=== PATIENT | female | born 1970 | race African-American/Black ===

== ENCOUNTER 2018-12-23 08:14 | Day surgery (SDC) | payer BC ==
[2018-12-21 17:09] VITALS: BMI 31.8
[2018-12-23 08:40] LABS: URINE APPEARANCE CLEAR; URINE BILIRUBIN NEGATIVE (NEGATIVE); URINE COLOR YELLOW; URINE GLUCOSE (UA) NEGATIVE (NEGATIVE); URINE KETONE NEGATIVE (NEGATIVE); URINE LEUK ESTERASE NEGATIVE (NEGATIVE); URINE NITRITE NEGATIVE (NEGATIVE); URINE PROTEIN 2+ (NEGATIVE); URINE UROBILINOGEN 0.2 mg/dL (0.2-1.0)
[2018-12-23 08:41] LABS: HCG,QUALITATIVE URINE Negative
--- NOTE | 2018-12-23 11:47 | HP ---
History & Physical Update - History History: No Change - Physical Physical: No Change - Assessment Assessment: No Change - Plan Plan: No Change
[2018-12-23] MEDS ORDERED: ceFAZolin SODIUM 1 GM VIAL IVPB ONE (12:04)
[2018-12-23] MEDS ORDERED: BUPIVACAINE HCL/PF 0.5% (5 MG/ML) 30 ML VIAL IJ ONE ×2 (12:35)
--- NOTE | 2018-12-23 13:08 | OP ---
Operative Note - Note: Operative Date: 12/23/18 Pre-Operative Diagnosis: incarcerated ventral hernia Operation: repair ventral hernia Findings: 3.0 cm. defect above the umbilicus Post-Operative Diagnosis: Same as Pre-op Surgeon: Donell Galvez Entertainer Or Variety Artist: Juan Carlos Mcdaniels Anesthesiologist/ASSISTANT MECHANIC: Roxanne Lockhart Anesthesia: General Specimens Removed: hernia sac and fat Estimated Blood Loss (mls): 20
--- NOTE | 2018-12-23 13:37 | SURG ---
Surgery Senior Java Programmer Note Senior Java Programmer: Juan Carlos Mcdaniels PA-C (Suzy) Date of Service: 12/23/18 Diagnosis: incarcerated ventral hernia Procedure: Repair ventral hernia I was present for the entirety of the operative procedure. For further detail, please refer to operative report. Visit type - Case Type Case Type: Scheduled - Emergency Emergency Visit: No - New patient This patient is new to me today: Yes Date on this admission: 12/23/18 - Critical Care Critical Care patient: No
[2018-12-23] MEDS ORDERED: ONDANSETRON 4 MG/2 ML VIAL IVPUSH PRN (13:41)
[2018-12-23] MEDS ORDERED: oxyCODONE HCL 5 MG TABLET PO PRN (13:41)
[2018-12-23] MEDS ORDERED: ALBUTEROL SO4 0.083% IH SOL 2.5 MG/3 ML VIAL.NEB. NEB ONE (13:42)
[2018-12-23] MEDS ORDERED: LABETALOL HCL 5 MG/1 ML (100MG/20 ML VIAL) IVPUSH ONE (13:42)
[2018-12-23] MEDS ORDERED: LACTATED RINGERS SOLUTION 1,000 ML IV SCH (13:45)
[2018-12-23] MEDS ORDERED: ONDANSETRON 4 MG/2 ML VIAL ONE (14:57)
[2018-12-23] MEDS ORDERED: ONDANSETRON 4 MG/2 ML VIAL IVPB ONE (15:00)
[2018-12-23] MEDS ORDERED: oxyCODONE HCL 5 MG TABLET PO ONE (17:00)
[2018-12-23] MEDS ORDERED: oxyCODONE HCL 5 MG TABLET ONE (17:00)
[2018-12-23 18:31] VITALS: BP 137/89; PULSE 58; TEMP 98.2
--- NOTE | 2018-12-24 13:11 | OP ---
DATE OF OPERATION: 12/23/2018 PREOPERATIVE DIAGNOSIS: Incarcerated ventral hernia. POSTOPERATIVE DIAGNOSIS: Incarcerated ventral hernia. PROCEDURE: Repair incarcerated ventral hernia. SURGEON: Donell Galvez MD FINDINGS: The patient had a 3 cm defect in the abdominal wall above the umbilicus from a previous laparoscopic port site. Within the hernia was incarcerated omentum and preperitoneal fat and the rest of the findings were unremarkable. PROCEDURE: The patient was placed on the operating room table in the supine position and after the induction of general anesthesia; the patient's abdomen was prepped with ChloraPrep and draped in sterile fashion. A timeout was taken and a midline incision made over the palpable incarcerated hernia. This was taken down through the skin and subcutaneous tissue. The hernia sac was identified and dissected from the surrounding structures using electrocautery. The sac was entered and the previously noted findings were observed. Redundant sac, omentum and preperitoneal fat were excised using electrocautery and sent for pathological exam. Hemostasis was secured with electrocautery and then the defect, which was noted to be 3 cm, was repaired using multiple horizontal 0 TiCron mattress sutures. Once the repair was completed, the operative field was infiltrated with 0.5% Marcaine and hemostasis checked for and noted to be good again. Copious irrigation was carried out with sterile saline and then the deep fascia that encompassed the hernia sac was closed using 2-0 Vicryl , the deep dermis with interrupted 3-0 Vicryl suture and the skin edges with surgical satish. Dry sterile dressings were placed and the procedure terminated at this point. The patient aroused from general anesthesia and transferred to the post anesthesia care unit in stable condition awake and alert. ESTIMATED BLOOD LOSS: 20 mL REPLACEMENT: Crystalloid. DRAINS: None. SPECIMEN: Hernia sac and fat and omentum to Pathology. I, Donell Galvez, was physically present in the operating room from the time the patient was placed on the operating room table until she was transferred to the post anesthesia care unit in [place]. MD BÁRBARA Alcala/[id number] MTDD
--- NOTE | 2018-12-26 18:34 | PATH ---
Surgical Pathology Report Patient Name: MOUSTAPAH MEDLEY [facility]. Rec. #: [id number] /Age/Gender: 1970 (Age: 48) / F Account: [id number] Location: [facility] SUR[facility] Taken: 12/23/2018 Received: 12/23/2018 Reported: 12/26/2018 Physicians: Donell Galvez MD Specimen(s) Received HERNIA SAC Clinical History Ventral hernia Final Diagnosis HERNIA SAC, OPEN VENTRAL HERNIA REPAIR: HERNIA SAC AND MATURE FIBROADIPOSE TISSUE. Electronically Signed Ana Cristina Diop M.D. Gross Description Received in formalin labeled "hernia sac," is a 9.5 x 8.0 x 2.0 cm aggregate of multiple ramirez-red portions of fibromembranous tissue admixed with yellow, lobulated adipose tissue, consistent with portions of a hernia sac and possible omentum. Cellar Supervisor sections are submitted in one cassette. DL/12/23/2018 saudi/12/23/2018
== END 2018-12-23 18:37 | disposition home or self-care (01) ==
LOC: JASU-SURG 08:14
PROVIDERS: ATTEND Surgery
PROC: 0WQF0ZZ Repair Abdominal Wall, Open Approach (ICD-10-PCS; principal; 2018-12-23 11:00)
DX: K43.6 Other and unspecified ventral hernia with obstruction, without gangrene (principal)
CPT/HCPCS: 81003; 84703; 88302-TC; 94760

== ENCOUNTER 2020-03-25 11:55 | Inpatient (IN) | payer BC ==
[2020-03-25 12:04] VITALS: BMI 40.3
[2020-03-25] MEDS ORDERED: methylPREDNISolone NA SUCC 125 MG/2 ML VIAL IVPUSH ONE (12:20)
[2020-03-25] MEDS ORDERED: ALBUTEROL SO4 2.5/IPRATROPIUM 0.5 INH SOL 3 ML VIAL.NEB. NEB ONE ×3 (12:20→20:30)
[2020-03-25] MEDS ORDERED: methylPREDNISolone NA SUCC 125 MG/2 ML VIAL ONE (12:27)
--- OUTSIDE RECORDS SUMMARY | 2020-03-25 12:43 | XMS ---
:1970 Author Organization [facility] Support Name Relationship Address Phone YPS Unavailable [address] [place] [address] SANDY STALEY BROTHER [address] [place] [address] Re-disclosure Warning The records that you are about to access may contain information from federally- assisted alcohol or drug abuse programs. If such information is present, then the following federally mandated warning applies: This information has been disclosed to you from records protected by federal confidentiality rules (42 CFR part 2). The federal rules prohibit you from making any further disclosure of this information unless further disclosure is expressly permitted by the written consent of the person to whom it pertains or as otherwise permitted by 42 CFR part 2. A general authorization for the release of medical or other information is NOT sufficient for this purpose. The Federal rules restrict any use of the information to criminally investigate or prosecute any alcohol or drug abuse patient.The records that you are about to access may contain highly sensitive health information, the redisclosure of which is protected by Article 27-F of the [facility] Public Health law. If you continue you may haveaccess to information: Regarding HIV / AIDS; Provided by facilities licensed or operated by the [facility] Office of Mental Health; or Provided by the [facility] Office for People With Developmental Disabilities. If such information is present, then the following [facility] mandated warning applies: This information has been disclosed to you from confidential records which are protected by state law. State law prohibits you from making any further disclosure of this information without the specific written consent of the person to whom it pertains, or as otherwise permitted by law. Any unauthorized further disclosure in violation of state law may result in a fine or chcf sentence or both. A general authorization for the release of medical or other information is NOT sufficient authorization for further disclosure. Insurance Providers Payer name Policy type / Policy ID Covered Covered alliance party's Policy Plan Coverage type alliance party ID relationship to [employer] Information batres BC PPO [id number] SP [id number] Results ID Date Data Source [id number] 03/19/2020 12:00:00 AM EDT [facility] Name Value Range Interpretation Code Description Data Patricia rce(s) Supporting Document(s ) SARS-COV-2 [facility]P [facility] QL OSMAR+PROBE This lab was ordered by PILAR SCHULTZ MD and reported by [facility]. ID Date Data Source [id number] 03/22/2020 06:04:00 PM EDT [facility] FASTING: UNKNOWNReceived: 03/20/2020 at 17:14:00 NL1: [facility], [address] [place] [address], [address], [place], [address], Cony Hart MD Name Value Range Interpretation Description Data Source(s ) Supporting Code Document(s ) SARS CoV NOT DETECTED [facility] 2 [facility] A Not Detected (negative) test result fo r thistest means that SARS-CoV-2 RNA was not presentin the specimen above the limit of detection. Anegative result does not rule out the possibilityof COVID-19 and should not be used as the solebasis for treatment or patient managementdecisions. If COVID-19 is still suspected, basedon exposure history together with other cli nicalfindings, re-testing should be considered inconsultation with public health authorities.Laboratory test results should always be consideredin the context of cl inical observations andepidemiological data in making a final diagnosisand patient management decisions.REFERENCE RANGE: NOT DETECTEDThis patient specimen was tested using an FDA EUA poolingmethod.Negative results from pooled testing should not betreated as definitive. If the patient's clinicalsigns and symptoms are inconsist ent with a negativeresult or results are necessary for patient management,then the patient should be considered for individualtesting. Specimens with low vi ral loads may not bedetected in sample pools due to the decreased sensitivityof pooled testing.Please review the "Fact Sheets" and FDA authorizedlabeling available for health care providers andpatients using the following websites:https://www.[employer]zey/home/Covid-19/HCP/[facility]/fact-sheet https://www.[employer]/home/Covid-19/Patients/[facility]/fact-sheet.htm lThis test has been authorized by the FDA unde r anEmergency Use Authorization (EUA) for use by authorizedlaboratories.Due to the current public health emergency, [facility] is receiving a high vol ume of samples froma wide variety of swabs and media for COVID-19 testing.In order to serve patients during this public healthcrisis, samples from appropriate c linical sources arebeing tested. Negative test results derived fromspecimens received in non-commercially manufacturedviral collection and transport media, or in me marla andsample collection kits not yet authorized by FDA forCOVID-19 testing should be cautiously evaluated and thepatient potentially subjected to extra precautio ns suchas additional clinical monitoring, including collectionof an additional specimen.Methodology: Nucleic Acid Amplification Test (NAAT)includes RT-PCR or TMAAdditional information about COVID-19 can be foundat the [employer] website:www.[facility].[employer]zey/Covid19. ID Date Data Source [id number] 11/22/2019 03:12:00 PM EDT [facility] Name Value Range Interpretation Description Data Sup porting Code Source(s) Document(s ) SARS [facility] CORONAVIRUS 2 RNA This lab was ordered by [facility] and reported by [facility]. Procedure
--- NOTE | 2020-03-25 12:45 | PDOC ---
History of Present Illness - General Chief Complaint: Respiratory Stated Complaint: RESPIRATORY Time Seen by Provider: 03/25/20 12:25 - History of Present Illness Initial Comments: HPI: 49yo F with PMH of HTN, asthma, lupus sent by her primary care physician for evaluation of shortness of breath. Patient reports this feels consistent with her asthma. Has had a cough x 1 week and has been on prednisone taper over that time period as well. Feels that the changing of the weather triggers her asthma. Last hospitalized two years ago. Has been intubated in the past, "more than once." Denies fever, but endorses chills. PCP: Dr. Naqvi ROS: Constitutional: no fever, +chills HEENT: no throat pain, no dysphagia Cardiovascular: no chest pain, no palpitations Respiratory: +cough, +shortness of breath Gastrointestinal: no abdominal pain, no nausea Genitourinary: no dysuria, no hematuria Musculoskeletal: no myalgia, no arthralgia Skin: no rash, no itching Neurologic: no headache, no weakness Psych: no agitation, no anxiety PE: General: Awake, alert, and fully oriented, coughing significantly and gasping Head: No signs of trauma Eyes: EOMI, sclera anicteric ENT: Moist mucus membranes Neck: Normal ROM, supple Lungs: Lungs tight, tachypneic Cardio: Regular rhythm, S1 and S2 present Abdomen: Soft, nontender Extremities: Normal range of motion, Distal pulses present Skin: Warm, Dry, normal turgor Neurologic: Cranial nerves II through XII grossly intact. Normal speech ED Course/MDM: DDX including but not limited to asthma exacerbation, COVID-19, ACS, PE, PNA, anemia, metabolic derangement Initial Vital Signs Pulse Resp BP Pulse Ox 88 24 H 167/107 H 100 03/25/20 12:02 03/25/20 12:02 03/25/20 12:02 03/25/20 12:02 Tachypneic, hypertensive PERC 0, low clinical suspicion for PE Labs, EKG Padminiubonine damon 03/25/20 12:45 EKG: rate 78, QTc 417, NSR Continued shortness of breath Magnesium ordered 03/25/20 13:30 CBC WBC 9.5 K/mm3 (4.0-10.0) 03/25/20 12:15 RBC 3.32 M/mm3 (3.60-5.2) L 03/25/20 12:15 Hgb 10.1 GM/dL (10.7-15.3) L 03/25/20 12:15 Hct 31.1 % (32.4-45.2) L D 03/25/20 12:15 MCV 93.7 fl (80-96) 03/25/20 12:15 MCH 30.4 pg (25.7-33.7) 03/25/20 12:15 MCHC 32.5 g/dl (32.0-36.0) 03/25/20 12:15 RDW 14.1 % (11.6-15.6) 03/25/20 12:15 Plt Count 435 K/MM3 (134-434) H D 03/25/20 12:15 MPV 8.3 fl (7.5-11.1) 03/25/20 12:15 Absolute Neuts (auto) 7.0 K/mm3 (1.5-8.0) 03/25/20 12:15 Neutrophils % 73.8 % (42.8-82.8) 03/25/20 12:15 Lymphocytes % 14.7 % (8-40) D 03/25/20 12:15 Monocytes % 9.0 % (3.8-10.2) 03/25/20 12:15 Eosinophils % 2.1 % (0-4.5) 03/25/20 12:15 Basophils % 0.4 % (0-2.0) 03/25/20 12:15 Nucleated RBC % 0 % (0-0) 03/25/20 12:15 No leukocytosis CMP Sodium 139 mmol/L (136-145) 03/25/20 12:15 Potassium 5.1 mmol/L (3.5-5.1) 03/25/20 12:15 Chloride 113 mmol/L (98-107) H 03/25/20 12:15 Carbon Dioxide 16 mmol/L (21-32) L 03/25/20 12:15 Anion Gap 10 MMOL/L (8-16) 03/25/20 12:15 BUN 71.1 mg/dL (7-18) H 03/25/20 12:15 Creatinine 2.7 mg/dL (0.55-1.3) H 03/25/20 12:15 Est GFR (CKD-EPI)AfAm 23.22 03/25/20 12:15 Est GFR (CKD-EPI)NonAf 20.03 03/25/20 12:15 Random Glucose 79 mg/dL (74-106) 03/25/20 12:15 Calcium 9.6 mg/dL (8.5-10.1) 03/25/20 12:15 Total Bilirubin 0.4 mg/dL (0.2-1) 03/25/20 12:15 AST 25 U/L (15-37) 03/25/20 12:15 ALT 27 U/L (13-61) 03/25/20 12:15 Alkaline Phosphatase 53 U/L (45-117) 03/25/20 12:15 Total Protein 9.1 g/dl (6.4-8.2) H 03/25/20 12:15 Albumin 3.3 g/dl (3.4-5.0) L 03/25/20 12:15 Serum , Qual Negative 03/25/20 12:15 Electrolytes unremarkable Cr elevated, 2.7-- likely due to lupus? No transaminitis test negative CXR as read by radiology: "EXAM#: TYPE/EXAM: RESULT: [id number] RAD/CHEST X-RAY PORTABLE* Portable chest: Shortness of breath. Cough. There are no prior studies for comparison. There are clear lungs, sharp angles, prominent soft tissues, degenerative changes and unfolded aorta. The hilar markings are normal. There is a normal heart. Impression: No acute chest pathology. No comparison studies. Reported By: Vernon Montiel MD 03/25/20 4305 " Call to Dr. Naqvi, , patient's last Cr=2.9 03/25/20 14:04 Patient with continued shortness of breath Plan for admission 03/25/20 15:09 Past History - Medical History Allergies/Adverse Reactions: Allergies Allergy/AdvReac Type Severity Reaction Status Date / Time shellfish derived Allergy Verified 12/21/18 17:18 Tetanus Vaccines and Toxoid Allergy Verified 12/21/18 17:18 [Tetanus] Home Medications: Ambulatory Orders Albuterol Sulfate Inhaler - [Ventolin HFA Inhaler -] 2 inh PO Q6H PRN 12/21/18 Amlodipine Besylate 10 mg PO DAILY 12/21/18 Aspirin [Aspirin EC] 81 mg PO DAILY 12/21/18 Cyclosporine 100 mg PO BID 12/21/18 Hydrochlorothiazide 25 mg PO DAILY 12/21/18 Losartan Potassium 100 mg PO DAILY 12/21/18 Metoprolol Succinate 100 mg PO DAILY 12/21/18 Mycophenolate Mofetil [Cellcept] 1,500 mg PO BID 12/21/18 Sodium Bicarbonate - 650 mg PO DAILY 12/21/18 oxyCODONE HCL [Roxicodone -] 5 mg PO Q6H PRN #15 tablet MDD 5 12/23/18 Anemia: Yes Asthma: Yes Cancer: No Cardiac Disorders: Yes CVA: No COPD: No CHF: No Dementia: No Diabetes: No GI Disorders: No Disorders: No HTN: Yes Hypercholesterolemia: No Liver Disease: No Seizures: No Thyroid Disease: No - Surgical History Abdominal Surgery: No Appendectomy: No Cardiac Surgery: No Cholecystectomy: Yes Lung Surgery: No Neurologic Surgery: No Orthopedic Surgery: No - Reproductive History Is Patient Now?: No - Psycho-Social/Smoking History Smoking Status: No Smoking History: Never smoked Have you smoked in the past 12 months: No Number of Cigarettes Smoked Daily: 0 Information on smoking cessation initiated: No - Substance Abuse Hx (Audit-C & DAST Scrn) How often the patient has a drink containing alcohol: Never Score: In Men: 4 or > Positive; In Women: 3 or > Positive: 0 Screen Result (Pos requires Nsg. Audit-10AR): Negative In the last yr the pt used illegal drug/Rx for NonMed reason: No Score: Yes response is considered Positive: 0 Screen Result (Positive result requires Nsg. DAST-10): Negative *Physical Exam - Vital Signs Last Vital Signs Temp Pulse Resp BP Pulse Ox 88 24 H 167/107 H 100 03/25/20 12:02 03/25/20 12:02 03/25/20 12:02 03/25/20 12:02 ED Treatment Course - LABORATORY CBC & Chemistry Diagram: 03/25/20 12:15 03/25/20 12:15 - RADIOLOGY Radiology Studies Ordered: Category Date Time Status CXRPORT [CHEST X-RAY PORTABLE*] [RAD] Stat Radiology 03/25/20 12:21 Ordered - Medications Given in the ED: ED Medications Discontinued Medications Generic Name Dose Route Start Last Admin Trade Name Kali PRN Reason Stop Dose Admin Albuterol/Ipratropium 3 amp 03/25/20 12:20 03/25/20 12:42 Duoneb - NEB 03/25/20 12:21 3 amp ONCE ONE Administration Methylprednisolone Sodium Succinate 125 mg 03/25/20 12:20 03/25/20 12:42 Solu-Medrol - IVPUSH 03/25/20 12:21 125 mg ONCE ONE Administration Discharge - Discharge Information Problems reviewed: Yes Clinical Impression/Diagnosis: Asthma exacerbation Qualifiers: Asthma severity: unspecified severity Asthma persistence: unspecified Qualified Code(s): J45.901 - Unspecified asthma with (acute) exacerbation Condition: Guarded - Admission Yes - Follow up/Referral - Patient Discharge Instructions - Post Discharge Activity
[2020-03-25] MEDS ORDERED: guaiFENesin/CODEINE 10 ML UNIT-DOSE CUPS PO ONE (13:04)
[2020-03-25] MEDS ORDERED: MAGNESIUM SULF 50% (8.12 MEQ/2 ML-1 GM VIAL) IVPB ONE (13:04)
[2020-03-25] MEDS ORDERED: guaiFENesin 200 MG/10 ML 10 ML UNIT-DOSE CUPS ONE (13:23)
[2020-03-25] MEDS ORDERED: MAGNESIUM SULFATE IN WATER 2 GM/50 ML IVPB IVPB ONE (13:23)
[2020-03-25 13:24] LABS: BASO % 0.4 % (0-2.0); EOS % 2.1 % (0-4.5); HEMATOCRIT 31.1 % (32.4-45.2); HEMOGLOBIN 10.1 GM/dL (10.7-15.3); LYMPH % 14.7 % (8-40); MCH 30.4 pg (25.7-33.7); MCHC 32.5 g/dl (32.0-36.0); MEAN CELL VOLUME 93.7 fl (80-96); MEAN PLT VOLUME 8.3 fl (7.5-11.1); NEUT % 73.8 % (42.8-82.8); PLATELET COUNT 435 K/MM3 (134-434); RBC 3.32 M/mm3 (3.60-5.2); RDW 14.1 % (11.6-15.6); WHITE BLOOD COUNT 9.5 K/mm3 (4.0-10.0)
--- NOTE | 2020-03-25 13:24 | PDOC ---
Documentation entered by Yovana Olivares SCRIBE, acting as scribe for Jessica Chew MD. Jessica Chew MD: This documentation has been prepared by the Elise isbell Xhesika, SCRIBE, under my direction and personally reviewed by me in its entirety. I confirm that the documentation accurately reflects all work, treatment, procedures, and medical decision making performed by me. Attending Attestation - Resident Resident Name: Jessica Duggan - ED Attending Attestation I have performed the following: I have examined & evaluated the patient, The case was reviewed & discussed with the resident, I agree w/resident's findings & plan, Exceptions are as noted - HPI HPI: 03/25/20 12:33 The patient is a 49 year old female with a significant PMH of asthma, SLE, HTN who presents to the emergency department sent by Dr. Naqvi for 1 week of persistent cough and SOB. Pt states she tried her MDI and nebulizer with no improvement of symptoms. Pt states her symptoms are similar to her previous asthma exacerbation triggered by seasonal changes. Pt reports chills but denies chest pain, headache and dizziness. Denies fever, chills, nausea, vomiting, diarrhea and constipation. She is currently 1 week into a prednisone taper, but does not recall her last dose. Allergies: Tetanus Vaccines and Toxoid. Shellfish derived. PCP: Dr. Naqvi - Physicial Exam PE: GENERAL: Awake, alert, and fully oriented. +Moderate respiratory distress HEAD: No signs of trauma EYES: PERRLA, EOMI, sclera anicteric, conjunctiva clear ENT: Auricles normal inspection, hearing grossly normal, nares patent, oropharynx clear without exudates. Moist mucosa NECK: Normal ROM, supple, no lymphadenopathy, JVD, or masses LUNGS: Moderately decreased air entry B/L, +tachypnea. No wheezes, no crackles. Able to speak 2-3 word sentences. HEART: Regular rate and rhythm, normal S1 and S2, no murmurs, rubs or gallops ABDOMEN: Soft, nontender, normoactive bowel sounds. No guarding, no rebound. No masses EXTREMITIES: Normal range of motion, no edema. No clubbing or cyanosis. No cords, erythema, or tenderness NEUROLOGICAL: Cranial nerves II through XII grossly intact. Normal speech. Motor and sensation intact SKIN: Warm, dry, normal turgor, no rashes or lesions noted. - Medical Decision Making 03/25/20 13:22 Patient having coughing fits c/w bronchospasm every time she speaks, and having chest discomfort with her cough. Will give magnesium and offer robitussin with codeine to improve her comfort. Will cont to monitor. 03/25/20 16:10 Late entry. Patient admitted for asthma exacerbation given the severity of her symptoms as well as her past history of severe asthma. Known to have CKD according to her PMD, this is not a new finding. Discharge - Discharge Information Problems reviewed: Yes Clinical Impression/Diagnosis: Asthma exacerbation Qualifiers: Asthma severity: unspecified severity Asthma persistence: unspecified Qualified Code(s): J45.901 - Unspecified asthma with (acute) exacerbation Condition: Guarded - Follow up/Referral - Patient Discharge Instructions - Post Discharge Activity
[2020-03-25] MEDS ORDERED: guaiFENesin/CODEINE 5 ML UNIT-DOSE CUPS PO ONE (13:30)
[2020-03-25 13:51] LABS: POTASSIUM 5.1 mmol/L (3.5-5.1)
[2020-03-25 13:53] LABS: CALCIUM 9.6 mg/dL (8.5-10.1)
[2020-03-25 13:54] LABS: ALBUMIN 3.3 g/dl (3.4-5.0); BLOOD UREA NITROGEN 71.1 mg/dL (7-18)
[2020-03-25 13:57] LABS: CREATININE 2.7 mg/dL (0.55-1.3)
[2020-03-25 13:59] LABS: BILIRUBIN,TOTAL 0.4 mg/dL (0.2-1); TOT PROT 9.1 g/dl (6.4-8.2)
[2020-03-25] MEDS ORDERED: ALBUTEROL SO4 0.083% IH SOL 2.5 MG/3 ML VIAL.NEB. NEB ONE (14:17)
[2020-03-25] MEDS: ALBUTEROL SO4 0.083% IH SOL 2.5 MG/3 ML VIAL.NEB. NEB SCH ×3 (14:22→15:15)
--- NOTE | 2020-03-25 15:00 | EKG ---
Test Reason : Blood Pressure : / mmHG Vent. Rate : 078 BPM Atrial Rate : 078 BPM P-R Int : 178 ms QRS Dur : 088 ms QT Int : 366 ms P-R-T Axes : 072 007 017 degrees QTc Int : 417 ms NORMAL SINUS RHYTHM NORMAL ECG WHEN COMPARED WITH ECG OF 02-JAN-2002 02:33, NO SIGNIFICANT CHANGE WAS FOUND Confirmed by EV MICHELLE MD ([id number]) on 03/25/2020 3:00:13 PM Referred By: Confirmed By:EV MICHELLE MD
[2020-03-25] MEDS ORDERED: ALBUTEROL SO4 0.083% IH SOL 2.5 MG/3 ML VIAL.NEB. NEB PRN (15:27)
[2020-03-25] MEDS ORDERED: ACETAMINOPHEN 325 MG TABLET (FP) PO PRN (15:27)
[2020-03-25] MEDS ORDERED: guaiFENesin 200 MG/10 ML 10 ML UNIT-DOSE CUPS PO PRN (15:40)
[2020-03-25] MEDS: SODIUM CHLORIDE 1,000 ML IV SCH (15:41)
[2020-03-25 15:46] LABS: ANISOCYTOSIS 1+; MACROCYTOSIS 0; PLATELET ESTIMATE NORMAL
--- NOTE | 2020-03-25 15:47 | HP ---
Admitting History and Physical - Admission Chief Complaint: severe cough History of Present Illness: patient is a 49 y/o female with a past medical history of asthma who presents from our office for severe cough. patient has been having this cough for ~4 days. She had completed a Zpak and a Medrol dose danyelle, with daily albuterol neb treatments but without symptomatic resolution. Sent patient to ED for course of IV treatment. patient complains of recurrent cough, worse at night. History Source: Patient Limitations to Obtaining History: No Limitations - Past Medical History Pulmonary: Yes: Asthma ...LMP: 05/31/19 ...: No - Past Surgical History Past Surgical History: Yes: None, Cholecystectomy - Smoking History Smoking history: Never smoked Have you smoked in the past 12 months: No Aproximately how many cigarettes per day: 0 - Alcohol/Substance Use Hx Alcohol Use: No Home Medications - Allergies Allergies/Adverse Reactions: Allergies Allergy/AdvReac Type Severity Reaction Status Date / Time shellfish derived Allergy Verified 12/21/18 17:18 Tetanus Vaccines and Toxoid Allergy Verified 12/21/18 17:18 [Tetanus] - Home Medications Home Medications: Ambulatory Orders Albuterol Sulfate Inhaler - [Ventolin HFA Inhaler -] 2 inh PO Q6H PRN 12/21/18 Amlodipine Besylate 10 mg PO DAILY 12/21/18 Aspirin [Aspirin EC] 81 mg PO DAILY 12/21/18 Cyclosporine 100 mg PO BID 12/21/18 Hydrochlorothiazide 25 mg PO DAILY 12/21/18 Losartan Potassium 100 mg PO DAILY 12/21/18 Metoprolol Succinate 100 mg PO DAILY 12/21/18 Mycophenolate Mofetil [Cellcept] 1,500 mg PO BID 12/21/18 Sodium Bicarbonate - 650 mg PO DAILY 12/21/18 oxyCODONE HCL [Roxicodone -] 5 mg PO Q6H PRN #15 tablet MDD 5 12/23/18 Review of Systems - Review of Systems Constitutional: denies: Chills, Fever Cardiovascular: denies: Chest Pain, Edema Respiratory: reports: Cough, SOB, Wheezing Gastrointestinal: denies: Abdominal Pain, Constipation, Diarrhea Musculoskeletal: denies: Back Pain Physical Examination Vital Signs: Vital Signs Temperature 98.6 F 03/25/20 15:14 Pulse Rate 72 03/25/20 15:14 Respiratory Rate 19 03/25/20 15:14 Blood Pressure 126/75 03/25/20 15:14 O2 Sat by Pulse Oximetry (%) 99 03/25/20 15:14 Constitutional: Yes: Well Nourished HENT: Yes: WNL Neck: Yes: Supple Cardiovascular: Yes: Regular Rate and Rhythm Respiratory: Yes: Cough, Poor Air Entry Gastrointestinal: Yes: Normal Bowel Sounds, Soft Edema: No Labs: CBC, BMP 03/25/20 12:15 03/25/20 12:15 Problem List - Problems (1) Asthma exacerbation Code(s): J45.901 - UNSPECIFIED ASTHMA WITH (ACUTE) EXACERBATION Qualifiers: Asthma severity: unspecified severity Asthma persistence: unspecified Qualified Code(s): J45.901 - Unspecified asthma with (acute) exacerbation (2) AMANDA (acute kidney injury) Code(s): N17.9 - ACUTE KIDNEY FAILURE, UNSPECIFIED Assessment/Plan Asthma Exacerbation - trial of IV steroids - albuterol and duonebs prn - f/u with Dr. Dhillon - 1 gm Mg - no infiltrate seen on CXR AMANDA - NS @ 50 - f/ur repeat Cr tomorrow DVT ppx - heaprin sq daily Dispo: monitor on med/surg
[2020-03-25] MEDS: ALBUTEROL SO4 2.5/IPRATROPIUM 0.5 INH SOL 3 ML VIAL.NEB. NEB SCH ×2 (16:59→20:32)
[2020-03-25] MEDS: methylPREDNISolone NA SUCC 40 MG/1 ML VIAL IVPUSH SCH (22:52)
[2020-03-25] MEDS: HEPARIN NA (PORCINE) 5,000 UNITS/ML 1ML VIAL SQ SCH ×2 (22:52→23:03)
[2020-03-25] MEDS: guaiFENesin/CODEINE 5 ML UNIT-DOSE CUPS PO PRN (22:52)
[2020-03-25] MEDS ORDERED: MYCOPHENOLATE MOFETIL 250 MG CAPSULE PO ONE (23:27)
[2020-03-26] MEDS: methylPREDNISolone NA SUCC 40 MG/1 ML VIAL IVPUSH SCH ×3 (05:24→21:22)
[2020-03-26] MEDS: HEPARIN NA (PORCINE) 5,000 UNITS/ML 1ML VIAL SQ SCH ×3 (05:24→20:00)
[2020-03-26] MEDS: ALBUTEROL SO4 HFA INHALER IH PRN ×2 (05:24→18:46)
[2020-03-26] MEDS: SODIUM CHLORIDE 1,000 ML IV SCH (05:26)
[2020-03-26] MEDS: ALBUTEROL SO4 2.5/IPRATROPIUM 0.5 INH SOL 3 ML VIAL.NEB. NEB SCH ×4 (07:45→20:30)
[2020-03-26 07:58] LABS: BASO % 0.3 % (0-2.0); HEMATOCRIT 26.4 % (32.4-45.2); HEMOGLOBIN 8.6 GM/dL (10.7-15.3); LYMPH % 6.1 % (8-40); MCH 30.5 pg (25.7-33.7); MCHC 32.6 g/dl (32.0-36.0); MEAN CELL VOLUME 93.5 fl (80-96); MEAN PLT VOLUME 7.8 fl (7.5-11.1); MONO % 1.2 % (3.8-10.2); NEUT % 92.4 % (42.8-82.8); PLATELET COUNT 395 K/MM3 (134-434); RBC 2.83 M/mm3 (3.60-5.2); RDW 13.6 % (11.6-15.6); WHITE BLOOD COUNT 8.7 K/mm3 (4.0-10.0)
[2020-03-26 08:23] LABS: ALBUMIN 2.9 g/dl (3.4-5.0); BLOOD UREA NITROGEN 70.3 mg/dL (7-18); CALCIUM 8.7 mg/dL (8.5-10.1); MAGNESIUM 2.5 mg/dL (1.8-2.4)
[2020-03-26 08:26] LABS: CREATININE 2.8 mg/dL (0.55-1.3)
[2020-03-26 08:27] LABS: PHOSPHOROUS 4.6 mg/dL (2.5-4.9)
--- NOTE | 2020-03-26 08:27 | PN ---
Progress Note (short form) - Note Progress Note: 49 yo lady with h/o lupus nephritis, asthma admitted for acute asthma exacerbation, uncontrolled coughing and dyspnea CBC, BMP 03/26/20 07:00 Vital Signs Period Temp Pulse Resp BP Sys/King Pulse Ox Last 24 Hr 98.4 F-98.6 F 72-90 19-24 123-167/75-107 98-100 s1s2 rrr lungs clear, dry cough present abd soft, obese no edema aaox3 acute asthma exacerbation sle ckd hold arb, hold hctz renal and rheum f/up requested iv steroids cough medication inhalers covid19 test result pending medication list updated gi/dvt prophylaxis
[2020-03-26 08:28] LABS: BILIRUBIN,TOTAL 0.3 mg/dL (0.2-1); TOT PROT 7.7 g/dl (6.4-8.2)
[2020-03-26] MEDS ORDERED: PT OWN MED DRAWER 7, Y5N ONE ×3 (10:03→21:19)
[2020-03-26] MEDS: METOPROLOL TARTRATE 50 MG TABLET (FP) PO SCH ×2 (10:23→21:20)
[2020-03-26] MEDS: PANTOPRAZOLE 20 MG TABLET PO SCH (10:23)
[2020-03-26] MEDS: MYCOPHENOLATE MOFETIL 500 MG TABLET PO SCH ×2 (10:24→21:22)
[2020-03-26] MEDS: cycloSPORINE (SANDIMMUNE) 25 MG CAPSULE PO SCH ×2 (10:24→21:18)
[2020-03-26] MEDS: amLODIPine BESYLATE 10 MG TABLET (FP) PO SCH (10:24)
--- NOTE | 2020-03-26 10:54 | CON.PULM ---
Consult Consult Specialty:: PULM/CCM Referred by:: ROSELIA Reason for Consultation:: SOB - History of Present Illness Chief Complaint: SOB x 7 days History of Present Illness: 49 F, Intermittent Asthma: never intubated, not steroid dependent, unknown PEF, only maintained on PRN Albuterol. History of Lupus previously on Prednisone therapy and CKD. Admitted via the ER due to 1 week of increasing SOB and FLORES. Associated worsening cough with clear sputum. No hemoptysis or night sweats. She does report weight gain and snoring. She does experience Excessive Daytime Sleepiness (EDS). She was prescribed a Zpak and a Medrol dose pack with little relief of symptoms. No travel history or sick contacts. No known exposure to COVID19. CXR: No acute process - History Source History Provided By: Patient Limitations to Obtaining History: No Limitations - Past Medical History Pulmonary: Yes: Asthma, Bronchitis. No: Cancer, COPD, O2 Dependent, Pneumonia, Previously Intubated, Pulmonary Embolus, Pulmonary Fibrosis ...LMP: 05/31/19 ...: No - Past Surgical History Past Surgical History: Yes: None, Cholecystectomy - Alcohol/Substance Use Hx Alcohol Use: No - Smoking History Smoking history: Never smoked Have you smoked in the past 12 months: No Aproximately how many cigarettes per day: 0 Home Medications - Allergies Allergies/Adverse Reactions: Allergies Allergy/AdvReac Type Severity Reaction Status Date / Time shellfish derived Allergy Verified 12/21/18 17:18 Tetanus Vaccines and Toxoid Allergy Verified 12/21/18 17:18 [Tetanus] - Home Medications Home Medications: Ambulatory Orders Albuterol Sulfate Inhaler - [Ventolin HFA Inhaler -] 2 inh PO Q6H PRN 12/21/18 Amlodipine Besylate 10 mg PO DAILY 12/21/18 Cyclosporine 100 mg PO BID 12/21/18 Hydrochlorothiazide 25 mg PO DAILY 12/21/18 Metoprolol Succinate 100 mg PO DAILY 12/21/18 Mycophenolate Mofetil [Cellcept] 1,500 mg PO BID 12/21/18 Acyclovir [Zovirax -] 500 mg PO BID 03/25/20 Albuterol 0.083% Nebulizer Padmini [Ventolin 0.083%] 1 neb NEB QID 03/25/20 Cyclobenzaprine HCl 10 mg PO DAILY 03/25/20 Hydroxychloroquine So4 [Plaquenil -] 200 mg PO DAILY 03/25/20 Olmesartan Medoxomil 20 mg PO DAILY 03/25/20 Olmesartan Medoxomil 40 mg PO DAILY 03/25/20 Review of Systems - Review of Systems Constitutional: reports: Malaise. denies: Chills, Fever, Night Sweats, Unintentional Wgt. Loss Eyes: reports: No Symptoms HENT: reports: No Symptoms, Ringing in Ears Cardiovascular: reports: Shortness of Breath. denies: Chest Pain, Edema, Palpitations Respiratory: reports: Cough, Snoring, SOB, SOB on Exertion, Wheezing. denies: H emoptysis, Orthopnea, PND Gastrointestinal: reports: No Symptoms Genitourinary: reports: No Symptoms Breasts: reports: No Symptoms Reported Musculoskeletal: reports: No Symptoms Integumentary: reports: No Symptoms Neurological: reports: No Symptoms Endocrine: reports: No Symptoms Hematology/Lymphatic: reports: No Symptoms Psychiatric: reports: No Symptoms Physical Exam Vital Sings: Vital Signs Temperature 98.4 F 03/26/20 05:32 Pulse Rate 84 03/26/20 05:32 Respiratory Rate 20 03/26/20 05:32 Blood Pressure 125/84 03/26/20 05:32 O2 Sat by Pulse Oximetry (%) 98 03/26/20 05:32 Constitutional: Yes: No Distress, Calm, Obese Eyes: Yes: Conjunctiva Clear, EOM Intact HENT: Yes: Atraumatic, Normocephalic Neck: Yes: Supple, Trachea Midline Cardiovascular: Yes: Regular Rate and Rhythm Respiratory: Yes: Cough, Diminished, SOB, SOB on Exertion, Wheezes. No: Accessory Muscle Use, Rales, Rhonchi, Stridor, Tachypnea ...Inspection: Yes: WNL ...Clubbing: No Gastrointestinal: Yes: Normal Bowel Sounds, Soft, Abdomen, Obese Renal/: Yes: WNL Musculoskeletal: Yes: WNL Extremities: Yes: WNL Edema: No Peripheral Pulses WNL: Yes Integumentary: Yes: WNL Neurological: Yes: WNL, Alert, Oriented ...Motor Strength: WNL Psychiatric: Yes: WNL, Alert, Oriented Labs: CBC, BMP 03/26/20 07:00 03/26/20 07:00 Imaging - Results Chest X-ray: Report Reviewed, Image Reviewed Problem List - Problems (1) CKD (chronic kidney disease) Code(s): N18.9 - CHRONIC KIDNEY DISEASE, UNSPECIFIED (2) Lupus Code(s): M32.9 - SYSTEMIC LUPUS ERYTHEMATOSUS, UNSPECIFIED (3) Morbid obesity Code(s): E66.01 - MORBID (SEVERE) OBESITY DUE TO EXCESS CALORIES (4) Acute bronchitis Code(s): J20.9 - ACUTE BRONCHITIS, UNSPECIFIED (5) Asthma exacerbation Code(s): J45.901 - UNSPECIFIED ASTHMA WITH (ACUTE) EXACERBATION Qualifiers: Asthma severity: unspecified severity Asthma persistence: unspecified Qualified Code(s): J45.901 - Unspecified asthma with (acute) exacerbation Assessment/Plan PLAN: Follow COVID19 serology IV Medrol MDI and then BD TX when COVID19 is (-) VTE prophylaxis Monitor off ABX No smoking discussed Sleep screen Outpatient PFTs when stable Will follow Thank you. Dr Chatman ZACK Screen - ZACK History Previously diagnosed with Sleep Apnea: No If Yes, currently using CPAP to treat your ZACK: No - SNORING Do you snore loudly (enough to be heard thru closed doors)?: Yes - TIRED Do you often feel tired, fatigued, or sleepy during daytime?: Yes - OBSERVED Has anyone observed you stop breathing during your sleep?: No - BLOOD PRESSURE Do you have or are being treated for high blood pressure?: Yes - BMI Answer Y if weight exceeds amount listed for your height: Yes .: HEIGHT & WEIGHT (lbs): 410" 167lbs; " 175 lbs; 5'0" 179lbs;. 5'1" 185lbs; 5'2" 191lbs; 53" 197lbs;. 54" 204lbs; 55" 210lbs; 56" 216lbs;. 5'7" 223lbs; 58" 230lbs; 59" 237lbs;. 510" 243lbs; 511" 250lbs; 6' 258lbs;. 6'1" 265lbs; 6'2" 272lbs; 6'3" 279lbs;. 6'4" 287lbs; 6'5" 295lbs - AGE Is your age over 50 yrs old?: No - NECK CIRCUMFERENCE Neck Circumference 40cm: Yes - GENDER Male: No - SCORE Total Score: 5 Score Interpretation: High Risk of ZACK .: Interpretation: Score 0-2: Low Risk ZACK. Score 3-4: Intermediate Risk ZACK. Score 5-8: High Risk ZACK
[2020-03-26 11:17] LABS: ANISOCYTOSIS 1+; MACROCYTOSIS 0; PLATELET ESTIMATE NORMAL
[2020-03-26 11:28] LABS: ARTERIAL BLD GAS O2 SATURATION 98.3 mmHg (95-98); ARTERIAL BLOOD GAS BASE EXCESS -12.4 mmol/L (-2-2); ARTERIAL BLOOD GAS PO2 123.2 mmHg (80-100); ARTERIAL BLOOD GAS pH 7.321 (7.350-7.450)
[2020-03-26 11:37] LABS: ALLENS TEST POSITIVE
[2020-03-26 12:27] LABS: BLOOD UREA NITROGEN 72.6 mg/dL (7-18); CALCIUM 9.2 mg/dL (8.5-10.1)
[2020-03-26 12:31] LABS: CREATININE 3.1 mg/dL (0.55-1.3)
[2020-03-26] MEDS ORDERED: DEXTROSE 5%-WATER - 1,000 ML with SODIUM BICARBONATE 8.4% - 150 MEQ IV SCH (13:15)
--- NOTE | 2020-03-26 14:36 | CON.NEP ---
Consult Consult Specialty:: Nephrology Referred by:: Medicine Reason for Consultation:: CKD with lupus nephritis - History of Present Illness Chief Complaint: Cough and chest tightness History of Present Illness: This is a 49 year old woman with history of SLE, CKD from lupus nephritis, hypertension, asthma who presented with persistent cough and chest tightness and found to have acute asthma exacerbation with Cr of 2.7. Seen and examined at the bedside. Reports having more asthma symptoms since returning to work and being required to wear a mask. She denies any fever, chills, N/V/D. She was last seen in Dr. Lesa Parry's office in January during which time her Cr was 2.4. She is maintained on cyclosporine and MMF. She is followed by Rheumatology. She denies any flank pain, dysuria, frequency, or urgency. Has no leg swelling. - History Source History Provided By: Patient Limitations to Obtaining History: No Limitations - Past Medical History Pulmonary: Yes: Asthma, Bronchitis. No: Cancer, COPD, O2 Dependent, Pneumonia, Previously Intubated, Pulmonary Embolus, Pulmonary Fibrosis ...LMP: 05/31/19 ...: No - Past Surgical History Past Surgical History: Yes: None, Cholecystectomy - Alcohol/Substance Use Hx Alcohol Use: No - Smoking History Smoking history: Never smoked Have you smoked in the past 12 months: No Aproximately how many cigarettes per day: 0 Home Medications - Allergies Allergies/Adverse Reactions: Allergies Allergy/AdvReac Type Severity Reaction Status Date / Time shellfish derived Allergy Verified 12/21/18 17:18 Tetanus Vaccines and Toxoid Allergy Verified 12/21/18 17:18 [Tetanus] - Home Medications Home Medications: Ambulatory Orders Albuterol Sulfate Inhaler - [Ventolin HFA Inhaler -] 2 inh PO Q6H PRN 12/21/18 Amlodipine Besylate 10 mg PO DAILY 12/21/18 Cyclosporine 100 mg PO BID 12/21/18 Hydrochlorothiazide 25 mg PO DAILY 12/21/18 Metoprolol Succinate 100 mg PO DAILY 12/21/18 Mycophenolate Mofetil [Cellcept] 1,500 mg PO BID 12/21/18 Acyclovir [Zovirax -] 500 mg PO BID 03/25/20 Albuterol 0.083% Nebulizer Padmini [Ventolin 0.083%] 1 neb NEB QID 03/25/20 Cyclobenzaprine HCl 10 mg PO DAILY 03/25/20 Hydroxychloroquine So4 [Plaquenil -] 200 mg PO DAILY 03/25/20 Olmesartan Medoxomil 20 mg PO DAILY 03/25/20 Olmesartan Medoxomil 40 mg PO DAILY 03/25/20 Family Medical History Family History: Unremarkable Review of Systems - Review of Systems Constitutional: reports: No Symptoms Eyes: reports: No Symptoms HENT: reports: No Symptoms Neck: reports: No Symptoms Cardiovascular: reports: Shortness of Breath. denies: Chest Pain, Edema, Palpitations Respiratory: reports: Cough, Exercise Intolerance, SOB, SOB on Exertion, Wheezing. denies: Hemoptysis Gastrointestinal: reports: No Symptoms Genitourinary: reports: No Symptoms Musculoskeletal: reports: No Symptoms Integumentary: reports: No Symptoms Neurological: reports: No Symptoms Endocrine: reports: No Symptoms Hematology/Lymphatic: reports: No Symptoms Psychiatric: reports: No Symptoms Nephrology Consult - Height Height: 5 ft 8 in - Weight Weight: 120.202 kg - BMI Body Mass Index (BMI): 40.3 - Lab Results CBC,BMP: CBC, BMP 03/26/20 07:00 03/26/20 11:42 Anion Gap: Anion Gap Anion Gap 12 MMOL/L (8-16) 03/26/20 11:42 - Imaging Chest X-ray: Report Reviewed - Physical Examination Vital Signs: Vital Signs Temperature 98.6 F 03/26/20 14:24 Pulse Rate 68 03/26/20 14:24 Respiratory Rate 20 03/26/20 14:24 Blood Pressure 136/84 03/26/20 14:24 O2 Sat by Pulse Oximetry (%) 98 03/26/20 05:32 Constitutional: Yes: No Distress Eyes: Yes: Conjunctiva Clear HENT: Yes: Atraumatic Neck: Yes: Supple Respiratory: Yes: Regular, Diminished, SOB. No: Rales, Rhonchi Gastrointestinal: Yes: Soft. No: Tenderness Renal/: No: Bladder Distention, CVA Tenderness - Left, CVA Tenderness - Right Extremities: No: Cold, Cool, Cyanosis Edema: No Neurological: Yes: Alert, Oriented Assessment/Plan 49 year old female with a significant PMH of asthma, SLE, HTN who presents to the emergency department sent by Dr. Driss for 1 week of persistent cough and SOB. Pt states she tried her MDI and nebulizer with no improvement of symptoms. 1. Asthma Exacerbation 2. Acute kidney injury on CKD 3. Lupus Nephritis/CKD 4. Metabolic acidosis 5. Hypertension 6. SLE Continue Neb/steroids as per pulmonary. Baseline Cr is 2.4, elevation in Cr may be due to volume depletion and less likely acute worsening of lupus nephritis Will given trial of IV fluids x 24 hours Check urine studies Defer US for now. Continue cyclosporine/MMF Continue plaquneil ABG/Serum bicarbonate consistent with metabolic acidosis Start bicarb gtt Lactic acid noted, likely related to albuertol use as pt w/o signs of hypoprofusion Trend renal function and electrolytes daily Thank you Clyde Chandra DO
--- NOTE | 2020-03-26 15:35 | CONSULT ---
Consult Consult Specialty:: Rheumatology - History of Present Illness History of Present Illness: 49 y/o female with past medical history of asthma, lupus, hypertension and iron deficient anemia related to metrorrhagia, admitted with uncontrolled asthma. Lupus since 2006. MARILYN, anti-Sm and anti-DNA double stranded positive, low CH50. 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 On Mycophenolate 1.5 BID, Cyclosporin 100 mg BID, Losartan 100 mg BID, Amlodipine and HCTZ and Metoprolol BID. Not on Prednisone. Lupus nephropathy probably not active, chronic kidney disease probably also related to hypertension and Cyclosporin. Laboratory work-up from 01/29/20 revealed a CBC with a WBC of 6.6, Hgb 9.1, HCT 27.1 and platelets 251. Creatinine 2.25 and eGFR. Urinalysis with protein 2+ and no blood. Pr/Cr 1469. Anti-DNA ds negative and complement normal (C3: 14 and C4: 32). ESR 103. Laboratory work-up in the present admission: CBC with WBC of 8.7, Hgb 8.6, HCT 26.4 and platelets 395,. Creatinine on admission 2.7 and today 3.1. LFT normal and urinalysis pending. Covid-19: negative. She was started on Solumedrol 40 mg IV BID with good response. At the present time the shortness of breath improved significantly. - History Source History Provided By: Patient, Medical Record - Past Medical History Pulmonary: Yes: Asthma, Bronchitis. No: Cancer, COPD, O2 Dependent, Pneumonia, Previously Intubated, Pulmonary Embolus, Pulmonary Fibrosis ...LMP: 05/31/19 ...: No - Past Surgical History Past Surgical History: Yes: None, Cholecystectomy - Alcohol/Substance Use Hx Alcohol Use: No - Smoking History Smoking history: Never smoked Have you smoked in the past 12 months: No Aproximately how many cigarettes per day: 0 Home Medications - Allergies Allergies/Adverse Reactions: Allergies Allergy/AdvReac Type Severity Reaction Status Date / Time shellfish derived Allergy Verified 12/21/18 17:18 Tetanus Vaccines and Toxoid Allergy Verified 12/21/18 17:18 [Tetanus] - Home Medications Home Medications: Ambulatory Orders Albuterol Sulfate Inhaler - [Ventolin HFA Inhaler -] 2 inh PO Q6H PRN 12/21/18 Amlodipine Besylate 10 mg PO DAILY 12/21/18 Cyclosporine 100 mg PO BID 12/21/18 Hydrochlorothiazide 25 mg PO DAILY 12/21/18 Metoprolol Succinate 100 mg PO DAILY 12/21/18 Mycophenolate Mofetil [Cellcept] 1,500 mg PO BID 12/21/18 Acyclovir [Zovirax -] 500 mg PO BID 03/25/20 Albuterol 0.083% Nebulizer Padmini [Ventolin 0.083%] 1 neb NEB QID 03/25/20 Cyclobenzaprine HCl 10 mg PO DAILY 03/25/20 Hydroxychloroquine So4 [Plaquenil -] 200 mg PO DAILY 03/25/20 Olmesartan Medoxomil 20 mg PO DAILY 03/25/20 Olmesartan Medoxomil 40 mg PO DAILY 03/25/20 Family Medical History Family History: Unremarkable Review of Systems - Review of Systems Constitutional: reports: Malaise Eyes: reports: No Symptoms HENT: reports: No Symptoms Neck: reports: No Symptoms Cardiovascular: reports: No Symptoms Respiratory: reports: Other (See HPI) Gastrointestinal: reports: No Symptoms Musculoskeletal: reports: No Symptoms Physical Exam Vital Signs: Vital Signs Temperature 98.6 F 03/26/20 14:24 Pulse Rate 68 03/26/20 14:24 Respiratory Rate 20 03/26/20 14:24 Blood Pressure 136/84 03/26/20 14:24 O2 Sat by Pulse Oximetry (%) 98 03/26/20 05:32 Constitutional: Yes: Mild Distress Eyes: Yes: WNL HENT: Yes: WNL Neck: Yes: WNL Cardiovascular: Yes: WNL Respiratory: Yes: WNL Gastrointestinal: Yes: WNL Musculoskeletal: Yes: Other (No active joints.) Labs: CBC, BMP 03/26/20 07:00 03/26/20 11:42 Laboratory Tests 03/25/20 03/26/20 03/27/20 15:19 20:58 07:23 Calcium 8.7 Phosphorus 4.8 Magnesium 2.3 Iron 93 TIBC 180 L Iron Saturation 51 H Unsaturated IBC 87 L Ferritin 257.5 Total Bilirubin 0.2 AST 17 ALT 30 Alkaline Phosphatase 47 Urine pH 5.0 Ur Specific Webster 1.007 L Urine Protein 1+ H Urine Glucose (UA) Negative Urine Ketones Negative Urine Blood Negative Urine Nitrite Negative Urine Bilirubin Negative Urine Urobilinogen 0.2 Ur Leukocyte Esterase Negative Urine WBC (Auto) 2 COVID-19 (OSMAR) Not detected Problem List - Problems (1) Lupus Assessment/Plan: Systemic lupus erythematosus, probably not active. The patient was admitted with asthma exacerbation. Continue with same medications. Code(s): M32.9 - SYSTEMIC LUPUS ERYTHEMATOSUS, UNSPECIFIED
[2020-03-26] MEDS: guaiFENesin/CODEINE 5 ML UNIT-DOSE CUPS PO PRN (18:42)
[2020-03-26] MEDS ORDERED: SODIUM BICARBONATE 8.4% - 150 MEQ in DEXTROSE 5%-WATER - 1,000 ML IV SCH (20:15)
[2020-03-26 22:25] LABS: EPI CELLS 14 /uL (0-25.1); HYALINE CASTS 0 /uL (0-3.1); URINE APPEARANCE CLEAR; URINE BACTERIA 205 /uL (0-1359); URINE BILIRUBIN NEGATIVE (NEGATIVE); URINE COLOR YELLOW; URINE GLUCOSE (UA) NEGATIVE (NEGATIVE); URINE KETONE NEGATIVE (NEGATIVE); URINE LEUK ESTERASE NEGATIVE (NEGATIVE); URINE NITRITE NEGATIVE (NEGATIVE); URINE PROTEIN 1+ (NEGATIVE); URINE RBC 5 /uL (0-23.9); URINE UROBILINOGEN 0.2 mg/dL (0.2-1.0); URINE WBC 2 /uL (0-25.8)
[2020-03-27] MEDS: methylPREDNISolone NA SUCC 40 MG/1 ML VIAL IVPUSH SCH ×2 (06:04→21:38)
[2020-03-27] MEDS: MYCOPHENOLATE MOFETIL 500 MG TABLET PO SCH ×2 (06:59→21:38)
--- NOTE | 2020-03-27 08:05 | PN ---
Progress Note (short form) - Note Progress Note: 49 yo lady with h/o lupus with nephritis, asthma, HTN admitted for acute asthma exacerbation, uncontrolled coughing and dyspnea CBC, BMP 03/26/20 07:00 03/26/20 11:42 Vital Signs Period Temp Pulse Resp BP Sys/King Pulse Ox Last 24 Hr 98.0 F-98.6 F 68-86 20-20 117-142/73-84 98-99 covid19 negative s1s2 rrr lungs clear, scant dry cough abd soft, obese no edema aaox3 acute asthma exacerbation sle ckd HTN hold arb, hold hctz renal and rheum f/up appreciated iv steroid taper cough medication inhalers iv fluids as per renal gi/dvt prophylaxis
[2020-03-27 08:32] LABS: HEMATOCRIT 25.2 % (32.4-45.2); HEMOGLOBIN 8.4 GM/dL (10.7-15.3); MCH 31.4 pg (25.7-33.7); MCHC 33.2 g/dl (32.0-36.0); MEAN CELL VOLUME 94.7 fl (80-96); MEAN PLT VOLUME 7.8 fl (7.5-11.1); PLATELET COUNT 387 K/MM3 (134-434); RBC 2.67 M/mm3 (3.60-5.2); WHITE BLOOD COUNT 10.6 K/mm3 (4.0-10.0)
[2020-03-27 09:01] LABS: POTASSIUM 5.3 mmol/L (3.5-5.1)
[2020-03-27 09:07] LABS: ALBUMIN 2.8 g/dl (3.4-5.0); CALCIUM 8.7 mg/dL (8.5-10.1)
[2020-03-27 09:08] LABS: BLOOD UREA NITROGEN 72.3 mg/dL (7-18); MAGNESIUM 2.3 mg/dL (1.8-2.4)
[2020-03-27 09:11] LABS: BILIRUBIN,TOTAL 0.2 mg/dL (0.2-1); CREATININE 2.7 mg/dL (0.55-1.3); PHOSPHOROUS 4.8 mg/dL (2.5-4.9)
[2020-03-27 09:12] LABS: TOT PROT 7.2 g/dl (6.4-8.2)
[2020-03-27] MEDS: HEPARIN NA (PORCINE) 5,000 UNITS/ML 1ML VIAL SQ SCH ×3 (09:12→21:50)
[2020-03-27] MEDS: amLODIPine BESYLATE 10 MG TABLET (FP) PO SCH (09:12)
[2020-03-27] MEDS: METOPROLOL TARTRATE 50 MG TABLET (FP) PO SCH ×2 (09:13→21:38)
[2020-03-27] MEDS: PANTOPRAZOLE 20 MG TABLET PO SCH (09:13)
[2020-03-27] MEDS ORDERED: PT OWN MED DRAWER 7, Y5N ONE ×3 (09:15→21:30)
[2020-03-27] MEDS: cycloSPORINE (SANDIMMUNE) 25 MG CAPSULE PO SCH ×2 (09:15→21:37)
--- NOTE | 2020-03-27 11:35 | PN ---
Progress Note, Physician History of Present Illness: pulmonary alert,oob-chair,less dyspneic,+cough - Current Medication List Current Medications: Active Medications Acetaminophen (Tylenol -) 650 mg PO Q4H PRN PRN Reason: PAIN LEVEL 6-10 Last Admin: 03/25/20 22:51 Dose: 650 mg Documented by: Albuterol Sulfate (Ventolin 0.083% Nebulizer Soln -) 1 amp NEB Q4H PRN PRN Reason: SHORT OF BREATH/WHEEZING Last Admin: 03/27/20 04:05 Dose: 1 amp Documented by: Albuterol Sulfate (Ventolin Hfa Inhaler -) 2 puff IH Q4H PRN PRN Reason: SHORT OF BREATH/WHEEZING Last Admin: 03/26/20 18:46 Dose: 2 puff Documented by: Albuterol/Ipratropium (Duoneb -) 1 amp NEB RQID [facility] Last Admin: 03/26/20 20:30 Dose: 1 amp Documented by: Amlodipine Besylate (Norvasc -) 10 mg PO DAILY [facility] Last Admin: 03/27/20 09:12 Dose: 10 mg Documented by: Cyclosporine (Sandimmune) 100 mg PO BID [facility] Last Admin: 03/27/20 09:15 Dose: 100 mg Documented by: Guaifenesin/Codeine Phosphate (Robitussin Ac -) 10 ml PO Q8H PRN PRN Reason: COUGH Last Admin: 03/26/20 18:42 Dose: 10 ml Documented by: Heparin Sodium (Porcine) (Heparin -) 5,000 unit SQ Q12H [facility] Last Admin: 03/27/20 09:12 Dose: Not Given Documented by: Sodium Bicarbonate 150 meq/ (Dextrose) 1,150 mls @ 83 mls/hr IV Q15H [facility] Methylprednisolone Sodium Succinate (Solu-Medrol -) 40 mg IVPUSH BID [facility] Metoprolol Tartrate (Lopressor -) 50 mg PO BID [facility] Last Admin: 03/27/20 09:13 Dose: 50 mg Documented by: Mycophenolate Mofetil (Cellcept -) 1,500 mg PO AM [facility] Last Admin: 03/27/20 06:59 Dose: 1,500 mg Documented by: Mycophenolate Mofetil (Cellcept -) 1,000 mg PO HS [facility] Last Admin: 03/26/20 21:22 Dose: 1,000 mg Documented by: Pantoprazole Sodium (Protonix -) 20 mg PO DAILY [facility] Last Admin: 03/27/20 09:13 Dose: 20 mg Documented by: - Objective Vital Signs: Vital Signs Temperature 98.0 F 03/27/20 06:00 Pulse Rate 74 03/27/20 06:00 Respiratory Rate 20 03/27/20 06:00 Blood Pressure 129/79 03/27/20 06:00 O2 Sat by Pulse Oximetry (%) 99 03/27/20 06:00 Constitutional: Yes: Well Nourished, Calm Eyes: Yes: WNL HENT: Yes: WNL Neck: Yes: WNL Cardiovascular: Yes: Regular Rate and Rhythm, S1, S2 Respiratory: Yes: Wheezes (few wheezes) Gastrointestinal: Yes: Normal Bowel Sounds, Soft Extremities: Yes: WNL Edema: No Labs: CBC, BMP 03/27/20 07:23 03/27/20 07:23 Assessment/Plan Problem List - Problems (1) CKD (chronic kidney disease) Code(s): N18.9 - CHRONIC KIDNEY DISEASE, UNSPECIFIED (2) Lupus Code(s): M32.9 - SYSTEMIC LUPUS ERYTHEMATOSUS, UNSPECIFIED (3) Morbid obesity Code(s): E66.01 - MORBID (SEVERE) OBESITY DUE TO EXCESS CALORIES (4) Acute bronchitis Code(s): J20.9 - ACUTE BRONCHITIS, UNSPECIFIED (5) Asthma exacerbation Code(s): J45.901 - UNSPECIFIED ASTHMA WITH (ACUTE) EXACERBATION Qualifiers: Asthma severity: unspecified severity Asthma persistence: unspecified Qualified Code(s): J45.901 - Unspecified asthma with (acute) exacerbation Assessment/Plan PLAN: COVID19 negative IV Medrol Inhaled bronchodilators VTE prophylaxis Sleep screen Outpatient PFTs when stable DR KIRKLAND
[2020-03-27] MEDS: SODIUM BICARBONATE 8.4% - 150 MEQ in DEXTROSE 5%-WATER - 1,000 ML IV SCH (12:42)
--- NOTE | 2020-03-27 13:35 | PN ---
Progress Note, Physician History of Present Illness: Seen and examined at the bedside feels better still has cough no chest pain, fever, chills making urine no leg swelling on IV fluids - Current Medication List Current Medications: Active Medications Acetaminophen (Tylenol -) 650 mg PO Q4H PRN PRN Reason: PAIN LEVEL 6-10 Last Admin: 03/25/20 22:51 Dose: 650 mg Documented by: Albuterol Sulfate (Ventolin 0.083% Nebulizer Soln -) 1 amp NEB Q4H PRN PRN Reason: SHORT OF BREATH/WHEEZING Last Admin: 03/27/20 04:05 Dose: 1 amp Documented by: Albuterol Sulfate (Ventolin Hfa Inhaler -) 2 puff IH Q4H PRN PRN Reason: SHORT OF BREATH/WHEEZING Last Admin: 03/26/20 18:46 Dose: 2 puff Documented by: Albuterol/Ipratropium (Duoneb -) 1 amp NEB RQID [facility] Last Admin: 03/26/20 20:30 Dose: 1 amp Documented by: Amlodipine Besylate (Norvasc -) 10 mg PO DAILY [facility] Last Admin: 03/27/20 09:12 Dose: 10 mg Documented by: Cyclosporine (Sandimmune) 100 mg PO BID [facility] Last Admin: 03/27/20 09:15 Dose: 100 mg Documented by: Guaifenesin/Codeine Phosphate (Robitussin Ac -) 10 ml PO Q8H PRN PRN Reason: COUGH Last Admin: 03/26/20 18:42 Dose: 10 ml Documented by: Heparin Sodium (Porcine) (Heparin -) 5,000 unit SQ Q12H [facility] Last Admin: 03/27/20 09:12 Dose: Not Given Documented by: Sodium Bicarbonate 150 meq/ (Dextrose) 1,150 mls @ 83 mls/hr IV Q15H [facility] Last Admin: 03/27/20 12:42 Dose: 83 mls/hr Documented by: Methylprednisolone Sodium Succinate (Solu-Medrol -) 40 mg IVPUSH BID [facility] Metoprolol Tartrate (Lopressor -) 50 mg PO BID [facility] Last Admin: 03/27/20 09:13 Dose: 50 mg Documented by: Mycophenolate Mofetil (Cellcept -) 1,500 mg PO AM [facility] Last Admin: 03/27/20 06:59 Dose: 1,500 mg Documented by: Mycophenolate Mofetil (Cellcept -) 1,000 mg PO HS [facility] Last Admin: 03/26/20 21:22 Dose: 1,000 mg Documented by: Pantoprazole Sodium (Protonix -) 20 mg PO DAILY [facility] Last Admin: 03/27/20 09:13 Dose: 20 mg Documented by: - Objective Vital Signs: Vital Signs Temperature 98.0 F 03/27/20 06:00 Pulse Rate 74 03/27/20 06:00 Respiratory Rate 20 03/27/20 06:00 Blood Pressure 129/79 03/27/20 06:00 O2 Sat by Pulse Oximetry (%) 99 03/27/20 06:00 Constitutional: Yes: No Distress HENT: Yes: Atraumatic Neck: Yes: Supple Cardiovascular: Yes: Regular Rate and Rhythm Respiratory: Yes: Regular, Diminished Gastrointestinal: Yes: Soft Extremities: No: Cyanosis Edema: No Labs: CBC, BMP 03/27/20 07:23 03/27/20 07:23 Assessment/Plan 49 year old female with a significant PMH of asthma, SLE, HTN who presents to the emergency department sent by Dr. Naqvi for 1 week of persistent cough and SO B. Pt states she tried her MDI and nebulizer with no improvement of symptoms. 1. Asthma Exacerbation 2. Acute kidney injury on CKD 3. Lupus Nephritis/CKD 4. Metabolic acidosis 5. Hypertension 6. SLE Renal function stable Continue IV fluids with bicarbonate as serum bicarbonate remains low Continue cyclosporine/MMF Continue plaquneil ABG/Serum bicarbonate consistent with metabolic acidosis Lactic acid noted, likely related to albuertol use as pt w/o signs of hypoprofusion Trend renal function and electrolytes daily Thank you Clyde Chandra DO
[2020-03-27] MEDS: ALBUTEROL SO4 2.5/IPRATROPIUM 0.5 INH SOL 3 ML VIAL.NEB. NEB SCH ×2 (18:47→20:00)
[2020-03-28] MEDS: SODIUM BICARBONATE 8.4% - 150 MEQ in DEXTROSE 5%-WATER - 1,000 ML IV SCH (02:46)
[2020-03-28] MEDS: MYCOPHENOLATE MOFETIL 500 MG TABLET PO SCH (06:26)
[2020-03-28] MEDS: ALBUTEROL SO4 2.5/IPRATROPIUM 0.5 INH SOL 3 ML VIAL.NEB. NEB SCH ×2 (07:35→11:47)
--- NOTE | 2020-03-28 08:31 | PN ---
Progress Note (short form) - Note Progress Note: 49 yo lady with h/o lupus with nephritis, asthma, HTN admitted for acute asthma exacerbation, uncontrolled coughing and dyspnea CBC, BMP Vital Signs Period Temp Pulse Resp BP Sys/King Pulse Ox Last 24 Hr 97.7 F-98.4 F 53-73 20-20 125-135/78-86 99-99 covid19 negative s1s2 rrr lungs clear, just completed neb treatment abd soft, obese no edema aaox3 acute asthma exacerbation sle ckd HTN hold arb, hold hctz renal and rheum f/up appreciated iv steroid taper cough medication inhalers iv fluids as per renal gi/dvt prophylaxis dc planning maybe this afternoon
[2020-03-28] MEDS ORDERED: PT OWN MED DRAWER 7, Y5N ONE (09:06)
[2020-03-28] MEDS: HEPARIN NA (PORCINE) 5,000 UNITS/ML 1ML VIAL SQ SCH (09:12)
[2020-03-28] MEDS: amLODIPine BESYLATE 10 MG TABLET (FP) PO SCH (09:13)
[2020-03-28] MEDS: METOPROLOL TARTRATE 50 MG TABLET (FP) PO SCH (09:13)
[2020-03-28] MEDS: PANTOPRAZOLE 20 MG TABLET PO SCH (09:13)
[2020-03-28] MEDS: methylPREDNISolone NA SUCC 40 MG/1 ML VIAL IVPUSH SCH (09:14)
[2020-03-28] MEDS: cycloSPORINE (SANDIMMUNE) 25 MG CAPSULE PO SCH (09:14)
[2020-03-28 09:18] LABS: HEMATOCRIT 28.1 % (32.4-45.2); HEMOGLOBIN 9.2 GM/dL (10.7-15.3); MCHC 32.9 g/dl (32.0-36.0); MEAN CELL VOLUME 94.1 fl (80-96); MEAN PLT VOLUME 8.4 fl (7.5-11.1); PLATELET COUNT 427 K/MM3 (134-434); RBC 2.98 M/mm3 (3.60-5.2); RDW 13.8 % (11.6-15.6); WHITE BLOOD COUNT 8.8 K/mm3 (4.0-10.0)
[2020-03-28 09:40] LABS: POTASSIUM 4.8 mmol/L (3.5-5.1)
[2020-03-28 09:41] LABS: CALCIUM 8.9 mg/dL (8.5-10.1)
[2020-03-28 09:43] LABS: ALBUMIN 2.9 g/dl (3.4-5.0); BLOOD UREA NITROGEN 68.6 mg/dL (7-18)
[2020-03-28 09:46] LABS: CREATININE 2.4 mg/dL (0.55-1.3)
[2020-03-28 09:48] LABS: BILIRUBIN,TOTAL 0.2 mg/dL (0.2-1); TOT PROT 7.8 g/dl (6.4-8.2)
[2020-03-28 10:38] VITALS: BP 132/81; PULSE 66; TEMP 97.5
--- NOTE | 2020-03-28 11:17 | DS ---
Physical Examination Vital Signs: Vital Signs Temperature 97.5 F L 03/28/20 10:36 Pulse Rate 66 03/28/20 10:36 Respiratory Rate 18 03/28/20 10:36 Blood Pressure 132/81 03/28/20 10:36 O2 Sat by Pulse Oximetry (%) 100 03/28/20 10:36 Constitutional: Yes: Well Nourished, Obese Eyes: Yes: EOM Intact HENT: Yes: Normocephalic Neck: Yes: Trachea Midline Cardiovascular: Yes: Regular Rate and Rhythm Respiratory: Yes: CTA Bilaterally Gastrointestinal: Yes: Normal Bowel Sounds, Soft, Abdomen, Obese Musculoskeletal: Yes: WNL Extremities: Yes: WNL Edema: No Labs: CBC, BMP 03/28/20 08:00 03/28/20 08:10 Discharge Summary Problems reviewed: Yes Reason For Visit: EXACERBATION OF ASTHMA Current Active Problems AMANDA (acute kidney injury) (Acute) Acute bronchitis (Acute) Asthma exacerbation (Acute) CKD (chronic kidney disease) (Acute) Lupus (Acute) Morbid obesity (Acute) Hospital Course: admitted acute asthma exacerbation and unrelenting cough h/o lupus with chronic kidney disease improved with nebs, o2 and iv steroids upon admission also acidotic-improved with iv bicarb feels much better now, electrolytes and renal function normalized medically stable to dc home and f/up as outpatient finish steroid dose pack and continue oral bicarbonate for now Condition: Fair - Instructions Diet, Activity, Other Instructions: resume blood pressure medication as prior to admission start sodium bicarbonate twice daily finish medrol dose pack f/up with and in 1-2 weeks for repeat labs and check up dr Isaac as scheduled Disposition: HOME - Home Medications Comprehensive Discharge Medication List: Ambulatory Orders Albuterol Sulfate Inhaler - [Ventolin HFA Inhaler -] 2 inh PO Q6H PRN 12/21/18 Amlodipine Besylate 10 mg PO DAILY 12/21/18 Cyclosporine 100 mg PO BID 12/21/18 Hydrochlorothiazide 25 mg PO DAILY 12/21/18 Albuterol 0.083% Nebulizer Padmini [Ventolin 0.083% Nebulizer Soln -] 1 neb NEB QID 03/25/20 Olmesartan Medoxomil 20 mg PO DAILY 03/25/20 Guaifenesin AC [Robitussin AC -] 10 ml PO Q8H PRN #240 ml MDD 30ml 03/28/20 Methylprednisolone [Medrol Dose Hunter] 4 mg PO ASDIR #21 tablet 03/28/20 Metoprolol Tartrate [Lopressor -] 50 mg PO BID tablet 03/28/20 Mycophenolate Mofetil [Cellcept -] 1,000 mg PO HS tablet 03/28/20 Mycophenolate Mofetil [Cellcept -] 1,500 mg PO AM tablet 03/28/20 Sodium Bicarbonate - 650 mg PO BID #60 tablet 03/28/20
[2020-03-28] MEDS: guaiFENesin/CODEINE 5 ML UNIT-DOSE CUPS PO PRN (12:27)
--- NOTE | 2020-03-28 12:50 | PN ---
Progress Note (short form) - Note Progress Note: OOB to chair. Reports breathing improving but not at baseline. No acute events overnight. Intake & Output 03/25/20 03/26/20 03/27/20 03/28/20 23:59 23:59 23:59 23:59 Intake Total 120 1050 1220 996 Balance 120 1050 1220 996 Weight 229 lb 5 oz 265 lb 265 lb Last Vital Signs Temp Pulse Resp BP Pulse Ox 97.5 F L 66 18 132/81 100 03/28/20 10:36 03/28/20 10:36 03/28/20 10:36 03/28/20 10:36 03/28/20 10:36 Active Medications Acetaminophen (Tylenol -) 650 mg PO Q4H PRN PRN Reason: PAIN LEVEL 6-10 Last Admin: 03/25/20 22:51 Dose: 650 mg Documented by: Albuterol Sulfate (Ventolin 0.083% Nebulizer Soln -) 1 amp NEB Q4H PRN PRN Reason: SHORT OF BREATH/WHEEZING Last Admin: 03/27/20 04:05 Dose: 1 amp Documented by: Albuterol Sulfate (Ventolin Hfa Inhaler -) 2 puff IH Q4H PRN PRN Reason: SHORT OF BREATH/WHEEZING Last Admin: 03/26/20 18:46 Dose: 2 puff Documented by: Albuterol/Ipratropium (Duoneb -) 1 amp NEB RQID [facility] Last Admin: 03/28/20 11:47 Dose: 1 amp Documented by: Amlodipine Besylate (Norvasc -) 10 mg PO DAILY [facility] Last Admin: 03/28/20 09:13 Dose: 10 mg Documented by: Cyclosporine (Sandimmune) 100 mg PO BID [facility] Last Admin: 03/28/20 09:14 Dose: 100 mg Documented by: Guaifenesin/Codeine Phosphate (Robitussin Ac -) 10 ml PO Q8H PRN PRN Reason: COUGH Last Admin: 03/28/20 12:27 Dose: 10 ml Documented by: Methylprednisolone Sodium Succinate (Solu-Medrol -) 40 mg IVPUSH BID [facility] Last Admin: 03/28/20 09:14 Dose: 40 mg Documented by: Metoprolol Tartrate (Lopressor -) 50 mg PO BID [facility] Last Admin: 10/29/20 09:13 Dose: 50 mg Documented by: Mycophenolate Mofetil (Cellcept -) 1,500 mg PO AM [facility] Last Admin: 03/28/20 06:26 Dose: 1,500 mg Documented by: Mycophenolate Mofetil (Cellcept -) 1,000 mg PO HS [facility] Last Admin: 03/27/20 21:38 Dose: 1,000 mg Documented by: Pantoprazole Sodium (Protonix -) 20 mg PO DAILY [facility] Last Admin: 03/28/20 09:13 Dose: 20 mg Documented by: Constitutional: Yes: Well Nourished, NAD Eyes: Yes: WNL HENT: Yes: WNL Neck: Yes: WNL Cardiovascular: Yes: Regular Rate and Rhythm, S1, S2 Respiratory: Yes: Few scattered expiratory wheezes Gastrointestinal: Yes: Normal Bowel Sounds, Soft Extremities: Yes: WNL Edema: No Labs: Laboratory Results - last 24 hr 03/28/20 03/28/20 03/28/20 08:00 08:10 10:00 WBC 8.8 RBC 2.98 L Hgb 9.2 L Hct 28.1 L MCV 94.1 MCH 31.0 MCHC 32.9 RDW 13.8 Plt Count 427 MPV 8.4 Sodium 139 Potassium 4.8 Chloride 107 Carbon Dioxide 24 Anion Gap 8 BUN 68.6 H Creatinine 2.4 H Est GFR (CKD-EPI)AfAm 26.77 Est GFR (CKD-EPI)NonAf 23.10 Random Glucose 107 H Lactic Acid 1.7 Calcium 8.9 Total Bilirubin 0.2 AST 52 H ALT 59 Alkaline Phosphatase 50 Total Protein 7.8 Albumin 2.9 L Assessment/Plan Problem List - Problems (1) CKD (chronic kidney disease) Code(s): N18.9 - CHRONIC KIDNEY DISEASE, UNSPECIFIED (2) Lupus Code(s): M32.9 - SYSTEMIC LUPUS ERYTHEMATOSUS, UNSPECIFIED (3) Morbid obesity Code(s): E66.01 - MORBID (SEVERE) OBESITY DUE TO EXCESS CALORIES (4) Acute bronchitis Code(s): J20.9 - ACUTE BRONCHITIS, UNSPECIFIED (5) Asthma exacerbation Code(s): J45.901 - UNSPECIFIED ASTHMA WITH (ACUTE) EXACERBATION Qualifiers: Asthma severity: unspecified severity Asthma persistence: unspecified Qualified Code(s): J45.901 - Unspecified asthma with (acute) exacerbation Assessment/Plan PLAN: IV Medrol : Can likely change to Prednisone in AM Inhaled bronchodilators VTE prophylaxis Sleep screen Outpatient PFTs when stable Dr Chatman Problem List - Problems (1) CKD (chronic kidney disease) Code(s): N18.9 - CHRONIC KIDNEY DISEASE, UNSPECIFIED (2) Lupus Code(s): M32.9 - SYSTEMIC LUPUS ERYTHEMATOSUS, UNSPECIFIED (3) Morbid obesity Code(s): E66.01 - MORBID (SEVERE) OBESITY DUE TO EXCESS CALORIES (4) Acute bronchitis Code(s): J20.9 - ACUTE BRONCHITIS, UNSPECIFIED (5) Asthma exacerbation Code(s): J45.901 - UNSPECIFIED ASTHMA WITH (ACUTE) EXACERBATION Qualifiers: Asthma severity: unspecified severity Asthma persistence: unspecified Qualified Code(s): J45.901 - Unspecified asthma with (acute) exacerbation
--- NOTE | 2020-03-28 17:17 | PN ---
Progress Note, Physician History of Present Illness: Seen and examined at the bedside feels better shortness of breath much improved no chest pain, fever, chills making urine no leg swelling on IV fluids - Objective Vital Signs: Vital Signs Temperature 97.5 F L 03/28/20 10:36 Pulse Rate 66 03/28/20 10:36 Respiratory Rate 18 03/28/20 10:36 Blood Pressure 132/81 03/28/20 10:36 O2 Sat by Pulse Oximetry (%) 100 03/28/20 10:36 Constitutional: Yes: No Distress HENT: Yes: Atraumatic Neck: Yes: Supple Cardiovascular: Yes: Regular Rate and Rhythm Respiratory: Yes: Regular, Diminished Gastrointestinal: Yes: Soft Extremities: No: Cyanosis Edema: No Neurological: Yes: Alert Labs: CBC, BMP 03/28/20 08:00 03/28/20 08:10 Assessment/Plan 49 year old female with a significant PMH of asthma, SLE, HTN who presents to the emergency department sent by Dr. Naqvi for 1 week of persistent cough and SOB. Pt states she tried her MDI and nebulizer with no improvement of symptoms. 1. Asthma Exacerbation 2. Acute kidney injury on CKD (now resolved s/p IVF) 3. Lupus Nephritis/CKD 4. Metabolic acidosis (improved on bicarbonate gtt) 5. Hypertension 6. SLE Renal function stable and near baseline. acidosis is now improved, would discharge on Sodium bicarbonate 650 mg BID Continue cyclosporine/MMF Continue plaquneil Lactic acid noted, likely related to albuertol use as pt w/o signs of hypoprofusion To follow up with Dr. Parry in 1-2 weeks. Thank you Clyde Chandra DO
== END 2020-03-28 14:02 | disposition home or self-care (01) | DRG 202 ==
LOC: JER 11:55 → JERBED 16:28 → J6S 22:35
PROVIDERS: ADMIT Internal Medicine; ATTEND Internal Medicine
DX: J45.901 Unspecified asthma with (acute) exacerbation (principal); N17.9 Acute kidney failure, unspecified; E87.2 Acidosis; Z68.41 Body mass index [BMI] 40.0-44.9, adult; I12.9 Hypertensive chronic kidney disease with stage 1 through stage 4 chronic kidney disease, or unspecified chronic kidney disease; N18.9 Chronic kidney disease, unspecified; M32.9 Systemic lupus erythematosus, unspecified; E66.01 Morbid (severe) obesity due to excess calories; J20.9 Acute bronchitis, unspecified
CPT/HCPCS: 36415; 36600; 71045-TC-FY; 80048; 80053; 81003; 82565; 82728; 82803; 83540; 83550; 83605; 83735; 84100; 84156; 84300; 84540; 84703; 85025; 85027; 87205; 93005; 93010; 94640; 99285-25; C9803; J1644; J7502; J7517; U0003

== ENCOUNTER 2021-06-24 20:10 | Inpatient (IN) | payer BC ==
[2021-06-24] MEDS ORDERED: ACETAMINOPHEN 500 MG TABLET (FP) PO ONE (20:59)
[2021-06-24] MEDS ORDERED: IBUPROFEN 600 MG TABLET (FP) PO ONE ×2 (20:59→21:04)
[2021-06-24] MEDS ORDERED: DEXAMETHASONE LIQUID 0.5 MG/5 ML PO ONE (21:00)
[2021-06-24] MEDS ORDERED: ACETAMINOPHEN 500 MG TABLET (FP) ONE (21:04)
[2021-06-24] MEDS ORDERED: ALBUTEROL SO4 2.5/IPRATROPIUM 0.5 INH SOL 3 ML VIAL.NEB. NEB ONE (21:04)
[2021-06-24] MEDS ORDERED: DEXAMETHASONE SOD PHOSPHATE 10 MG/1 ML VIAL ONE (21:04)
[2021-06-24] MEDS: ALBUTEROL SO4 2.5/IPRATROPIUM 0.5 INH SOL 3 ML VIAL.NEB. NEB SCH ×2 (21:27→21:28)
[2021-06-24] MEDS ORDERED: SODIUM CHLORIDE 0.9% 500 ML INFUS.BAG IV ONE (22:45)
[2021-06-24 23:15] LABS: BASO % 0.4 % (0-2.0); HEMATOCRIT 32.1 % (32.4-45.2); HEMOGLOBIN 10.4 GM/dL (10.7-15.3); LYMPH % 4.7 % (8-40); MCH 29.8 pg (25.7-33.7); MCHC 32.4 g/dl (32.0-36.0); MEAN PLT VOLUME 8.1 fl (7.5-11.1); MONO % 7.5 % (3.8-10.2); NEUT % 87.4 % (42.8-82.8); PLATELET COUNT 232 10^3/uL (134-434); RBC 3.49 M/mm3 (3.60-5.2); RDW 14.1 % (11.6-15.6)
[2021-06-24 23:33] LABS: CHLORIDE 118 mmol/L (98-107); SODIUM 141 mmol/L (136-145)
[2021-06-24 23:35] LABS: CALCIUM 8.8 mg/dL (8.5-10.1)
[2021-06-24 23:36] LABS: ALBUMIN 3.2 g/dl (3.4-5.0); ANION GAP 14 MMOL/L (8-16); CO2 10 mmol/L (21-32); GLUCOSE,RANDOM 125 mg/dL (74-106)
[2021-06-24 23:39] LABS: SGOT/AST 19 U/L (15-37); SGPT/ALT 22 U/L (13-61)
[2021-06-24 23:40] LABS: BILIRUBIN,TOTAL 0.2 mg/dL (0.2-1); TOT PROT 7.9 g/dl (6.4-8.2)
[2021-06-24 23:41] LABS: ALK PHOS 38 U/L (45-117)
[2021-06-24] MEDS ORDERED: ASPIRIN 325 MG TABLET PO ONE (23:45)
[2021-06-24] MEDS ORDERED: ASPIRIN 81 MG CHEWABLE TABLETS ONE (23:54)
[2021-06-25 00:55] LABS: ACTIVATED PTT 38.1 SECONDS (25.2-36.5); INR 1.3 (0.83-1.09)
[2021-06-25] MEDS ORDERED: MAGNESIUM SULF 50% (8.12 MEQ/2 ML-1 GM VIAL) IVPB ONE (01:51)
[2021-06-25] MEDS ORDERED: METOPROLOL TARTRATE 50 MG TABLET (FP) PO SCH (02:00)
[2021-06-25] MEDS: MYCOPHENOLATE MOFETIL 500 MG TABLET PO SCH ×2 (04:30→22:29)
[2021-06-25] MEDS: BUDESONIDE/FORMETEROL FUMARATE 80/4.5 mcg INHALER IH SCH ×3 (04:36→22:30)
[2021-06-25] MEDS ORDERED: HEPARIN NA (PORCINE) 5,000 UNITS/ML 1ML VIAL ONE ×2 (06:23→14:01)
[2021-06-25] MEDS ORDERED: ALBUTEROL SO4 0.083% IH SOL 2.5 MG/3 ML VIAL.NEB. NEB PRN (06:29)
[2021-06-25] MEDS: HEPARIN NA (PORCINE) 5,000 UNITS/ML 1ML VIAL SQ SCH ×3 (06:43→22:29)
[2021-06-25] MEDS ORDERED: MYCOPHENOLATE MOFETIL 500 MG TABLET PO SCH (07:00)
[2021-06-25] MEDS ORDERED: SODIUM CHLORIDE 0.45% 1,000 ML IV SCH ×2 (08:15→08:45)
[2021-06-25 08:18] LABS: HEMATOCRIT 29.3 % (32.4-45.2); HEMOGLOBIN 9.2 GM/dL (10.7-15.3); MCH 29.4 pg (25.7-33.7); MCHC 31.3 g/dl (32.0-36.0); MEAN PLT VOLUME 8.6 fl (7.5-11.1); PLATELET COUNT 225 10^3/uL (134-434); RBC 3.12 M/mm3 (3.60-5.2); RDW 14.2 % (11.6-15.6); WHITE BLOOD COUNT 5.1 K/mm3 (4.0-10.0)
[2021-06-25] MEDS ORDERED: ALBUTEROL SO4 2.5/IPRATROPIUM 0.5 INH SOL 3 ML VIAL.NEB. NEB ONE ×2 (08:21→12:25)
[2021-06-25 08:37] LABS: ALBUMIN 2.8 g/dl (3.4-5.0); ALK PHOS 33 U/L (45-117); ANION GAP 14 MMOL/L (8-16); BILIRUBIN,TOTAL 0.2 mg/dL (0.2-1); BLOOD UREA NITROGEN 116.7 mg/dL (7-18); CALCIUM 8.5 mg/dL (8.5-10.1); CHLORIDE 118 mmol/L (98-107); CO2 9 mmol/L (21-32); CREATININE 5.1 mg/dL (0.55-1.3); GLUCOSE,RANDOM 141 mg/dL (74-106); MAGNESIUM 2.5 mg/dL (1.8-2.4); PHOSPHOROUS 5.9 mg/dL (2.5-4.9); SGOT/AST 17 U/L (15-37); SGPT/ALT 21 U/L (13-61); SODIUM 141 mmol/L (136-145); TOT PROT 7.1 g/dl (6.4-8.2)
[2021-06-25] MEDS: ALBUTEROL SO4 2.5/IPRATROPIUM 0.5 INH SOL 3 ML VIAL.NEB. NEB SCH ×3 (08:40→20:01)
[2021-06-25] MEDS ORDERED: SODIUM ZIRCONIUM CYCLOSILICATE (LOKELMA) 5 GM PACKET PO ONE (08:44)
[2021-06-25] MEDS ORDERED: SODIUM CHLORIDE 500 ML IV STA (08:46)
[2021-06-25] MEDS ORDERED: SODIUM CHLORIDE 1,000 ML IV SCH (09:45)
[2021-06-25] MEDS ORDERED: amLODIPine BESYLATE 5 MG TABLET (FP) PO SCH (10:00)
[2021-06-25] MEDS ORDERED: CALCIUM GLUCONATE 10% - 1,000 MG/10 ML VIAL IVPUSH ONE (10:33)
[2021-06-25] MEDS ORDERED: CALCIUM GLUCONATE 10% - 1,000 MG/10 ML VIAL ONE (10:46)
[2021-06-25 11:56] LABS: ARTERIAL BLOOD GAS BASE EXCESS -17.4 mmol/L (-2-2); ARTERIAL BLOOD GAS PO2 133.5 mmHg (80-100)
[2021-06-25 11:58] LABS: ALLENS TEST POSITIVE
[2021-06-25 12:00] LABS: ARTERIAL BLOOD GAS pH 7.183 (7.350-7.450)
[2021-06-25] MEDS ORDERED: methylPREDNISolone NA SUCC 125 MG/2 ML VIAL ONE (12:26)
[2021-06-25] MEDS: SODIUM BICARBONATE 8.4% - 150 MEQ in DEXTROSE 5%-WATER - 1,000 ML IV SCH ×2 (12:35→22:28)
[2021-06-25] MEDS: methylPREDNISolone NA SUCC 40 MG/1 ML VIAL IVPUSH SCH ×2 (12:35→17:57)
[2021-06-25] MEDS ORDERED: PANTOPRAZOLE SODIUM 40 MG VIAL ONE (13:14)
[2021-06-25] MEDS: PANTOPRAZOLE SODIUM 40 MG VIAL IVPUSH SCH (13:24)
[2021-06-25 19:09] LABS: CHLORIDE 114 mmol/L (98-107); SODIUM 140 mmol/L (136-145)
[2021-06-25 19:12] LABS: ANION GAP 13 MMOL/L (8-16); CO2 13 mmol/L (21-32); GLUCOSE,RANDOM 156 mg/dL (74-106)
[2021-06-25 19:16] LABS: CREATININE 4.4 mg/dL (0.55-1.3)
[2021-06-25 19:28] LABS: BLOOD UREA NITROGEN 108.2 mg/dL (7-18)
[2021-06-25] MEDS ORDERED: CHLORHEXIDINE GLUCONATE 4% CLEANSER FOR DECOLONIZATION TP SCH (22:00)
[2021-06-25] MEDS: METOPROLOL TARTRATE 50 MG TABLET (FP) PO SCH (22:29)
[2021-06-25] MEDS: MUPIROCIN 2% TOPICAL OINTMENT FOR DECOLONIZATION NS SCH (22:29)
[2021-06-26 00:09] LABS: EPI CELLS >36 /uL (0-25.1); HYALINE CASTS 1 /uL (0-3.1); URINE APPEARANCE CLOUDY; URINE BACTERIA 189 /uL (0-1359); URINE BILIRUBIN NEGATIVE (NEGATIVE); URINE COLOR YELLOW; URINE GLUCOSE (UA) NEGATIVE (NEGATIVE); URINE KETONE NEGATIVE (NEGATIVE); URINE LEUK ESTERASE TRACE (NEGATIVE); URINE NITRITE NEGATIVE (NEGATIVE); URINE PROTEIN 2+ (NEGATIVE); URINE RBC 50 /uL (0-23.9); URINE UROBILINOGEN 0.2 mg/dL (0.2-1.0); URINE WBC 17 /uL (0-25.8)
[2021-06-26] MEDS: methylPREDNISolone NA SUCC 40 MG/1 ML VIAL IVPUSH SCH ×3 (02:55→22:23)
[2021-06-26] MEDS: HEPARIN NA (PORCINE) 5,000 UNITS/ML 1ML VIAL SQ SCH ×4 (05:04→22:33)
[2021-06-26 06:46] LABS: HEMOGLOBIN 8.1 GM/dL (10.7-15.3); MCH 29.4 pg (25.7-33.7); MCHC 32.4 g/dl (32.0-36.0); MEAN CELL VOLUME 90.5 fl (80-96); MEAN PLT VOLUME 8.4 fl (7.5-11.1); PLATELET COUNT 235 10^3/uL (134-434); RBC 2.76 M/mm3 (3.60-5.2); RDW 14.2 % (11.6-15.6)
[2021-06-26 06:47] LABS: VENOUS BASE EXCESS -7.9 mmol/L (-2-2); VENOUS O2 SATURATION 90.5 % (70-80); VENOUS PCO2 29.9 mmHg (38-52); VENOUS PH 7.359 (7.310-7.410)
[2021-06-26 07:10] LABS: MAGNESIUM 1.7 mg/dL (1.8-2.4)
[2021-06-26 07:13] LABS: PHOSPHOROUS 3.6 mg/dL (2.5-4.9)
[2021-06-26] MEDS: ALBUTEROL SO4 2.5/IPRATROPIUM 0.5 INH SOL 3 ML VIAL.NEB. NEB SCH ×5 (07:30→21:44)
[2021-06-26 08:18] LABS: BLOOD UREA NITROGEN 95.4 mg/dL (7-18); CALCIUM 7.6 mg/dL (8.5-10.1)
[2021-06-26 08:21] LABS: CREATININE 3.7 mg/dL (0.55-1.3)
[2021-06-26 08:22] LABS: TOT PROT 5.8 g/dl (6.4-8.2)
[2021-06-26 08:23] LABS: BILIRUBIN,TOTAL 0.1 mg/dL (0.2-1)
[2021-06-26 08:25] LABS: ALBUMIN 2.2 g/dl (3.4-5.0)
[2021-06-26] MEDS ORDERED: MAGNESIUM OXIDE 400 MG TABLET (FP) PO ONE (08:58)
[2021-06-26 09:03] LABS: ANISOCYTOSIS 1+; MACROCYTOSIS 1+; OVALOCYTE 1+; PLATELET ESTIMATE NORMAL
[2021-06-26] MEDS: MUPIROCIN 2% TOPICAL OINTMENT FOR DECOLONIZATION NS SCH (09:44)
[2021-06-26] MEDS: METOPROLOL TARTRATE 50 MG TABLET (FP) PO SCH ×2 (09:44→22:23)
[2021-06-26] MEDS: PANTOPRAZOLE SODIUM 40 MG VIAL IVPUSH SCH (09:45)
[2021-06-26] MEDS: BUDESONIDE/FORMETEROL FUMARATE 80/4.5 mcg INHALER IH SCH ×2 (09:45→22:24)
[2021-06-26] MEDS: SODIUM BICARBONATE 8.4% - 150 MEQ in DEXTROSE 5%-WATER - 1,000 ML IV SCH (09:48)
[2021-06-26] MEDS ORDERED: LACTATED RINGERS SOLUTION 1,000 ML/1,000 ML INFUS.BAG IV SCH ×2 (10:45→10:52)
[2021-06-26] MEDS ORDERED: ALBUTEROL SO4 0.083% IH SOL 2.5 MG/3 ML VIAL.NEB. NEB PRN (15:17)
[2021-06-26] MEDS: LACTATED RINGERS SOLUTION 1,000 ML/1,000 ML INFUS.BAG IV SCH ×2 (15:30→22:24)
[2021-06-26] MEDS: MYCOPHENOLATE MOFETIL 500 MG TABLET PO SCH (22:23)
[2021-06-27] MEDS: LACTATED RINGERS SOLUTION 1,000 ML/1,000 ML INFUS.BAG IV SCH ×2 (05:28→17:02)
[2021-06-27] MEDS: HEPARIN NA (PORCINE) 5,000 UNITS/ML 1ML VIAL SQ SCH ×3 (05:32→22:47)
[2021-06-27] MEDS: ALBUTEROL SO4 2.5/IPRATROPIUM 0.5 INH SOL 3 ML VIAL.NEB. NEB SCH ×4 (08:00→21:02)
[2021-06-27 08:21] LABS: HEMATOCRIT 26.9 % (32.4-45.2); HEMOGLOBIN 8.6 GM/dL (10.7-15.3); MCHC 31.9 g/dl (32.0-36.0); MEAN CELL VOLUME 91.1 fl (80-96); MEAN PLT VOLUME 8.2 fl (7.5-11.1); PLATELET COUNT 283 10^3/uL (134-434); RBC 2.95 M/mm3 (3.60-5.2); RDW 14.2 % (11.6-15.6); WHITE BLOOD COUNT 8.9 K/mm3 (4.0-10.0)
[2021-06-27 08:50] LABS: ALBUMIN 2.4 g/dl (3.4-5.0)
[2021-06-27 08:51] LABS: BLOOD UREA NITROGEN 82.6 mg/dL (7-18)
[2021-06-27 08:54] LABS: CREATININE 3.3 mg/dL (0.55-1.3)
[2021-06-27 08:55] LABS: BILIRUBIN,TOTAL 0.2 mg/dL (0.2-1); PHOSPHOROUS 3.6 mg/dL (2.5-4.9); TOT PROT 6.3 g/dl (6.4-8.2)
[2021-06-27 09:24] LABS: ANISOCYTOSIS 0; HELMET CELLS 0; HOWELL-JOLLY BODIES 0; MACROCYTOSIS 0; OVALOCYTE 0; PLATELET ESTIMATE NORMAL; ROULEAU 0; SICKELED CELLS 0; TARGET CELLS 0; TEAR DROP CELLS 0; TOXIC GRANULATION 0
[2021-06-27] MEDS ORDERED: PANTOPRAZOLE SODIUM 40 MG VIAL IVPUSH SCH (10:00)
[2021-06-27] MEDS: methylPREDNISolone NA SUCC 40 MG/1 ML VIAL IVPUSH SCH ×2 (10:56→22:48)
[2021-06-27] MEDS: METOPROLOL TARTRATE 50 MG TABLET (FP) PO SCH ×2 (10:57→22:46)
[2021-06-27] MEDS: amLODIPine BESYLATE 5 MG TABLET (FP) PO SCH (10:58)
[2021-06-27] MEDS: PANTOPRAZOLE 40 MG TABLET PO SCH (10:58)
[2021-06-27] MEDS: BUDESONIDE/FORMETEROL FUMARATE 80/4.5 mcg INHALER IH SCH ×2 (10:59→22:48)
[2021-06-27 18:18] LABS: EPI CELLS 24 /uL (0-25.1); HYALINE CASTS 1 /uL (0-3.1); URINE APPEARANCE CLEAR; URINE BACTERIA 53 /uL (0-1359); URINE BILIRUBIN NEGATIVE (NEGATIVE); URINE COLOR YELLOW; URINE GLUCOSE (UA) NEGATIVE (NEGATIVE); URINE KETONE NEGATIVE (NEGATIVE); URINE LEUK ESTERASE NEGATIVE (NEGATIVE); URINE NITRITE NEGATIVE (NEGATIVE); URINE PROTEIN 2+ (NEGATIVE); URINE RBC 21 /uL (0-23.9); URINE UROBILINOGEN 0.2 mg/dL (0.2-1.0); URINE WBC 9 /uL (0-25.8)
[2021-06-27] MEDS: MYCOPHENOLATE MOFETIL 500 MG TABLET PO SCH (22:45)
[2021-06-28] MEDS: HEPARIN NA (PORCINE) 5,000 UNITS/ML 1ML VIAL SQ SCH ×4 (06:34→21:36)
[2021-06-28] MEDS: ALBUTEROL SO4 2.5/IPRATROPIUM 0.5 INH SOL 3 ML VIAL.NEB. NEB SCH ×4 (09:42→20:15)
[2021-06-28] MEDS: amLODIPine BESYLATE 5 MG TABLET (FP) PO SCH (10:00)
[2021-06-28] MEDS: METOPROLOL TARTRATE 50 MG TABLET (FP) PO SCH ×2 (10:00→21:30)
[2021-06-28] MEDS: PANTOPRAZOLE 40 MG TABLET PO SCH (10:00)
[2021-06-28] MEDS: methylPREDNISolone NA SUCC 40 MG/1 ML VIAL IVPUSH SCH ×2 (10:01→21:33)
[2021-06-28] MEDS: BUDESONIDE/FORMETEROL FUMARATE 80/4.5 mcg INHALER IH SCH ×2 (11:15→21:37)
[2021-06-28 12:50] LABS: HEMATOCRIT 26.9 % (32.4-45.2); HEMOGLOBIN 8.5 GM/dL (10.7-15.3); MCH 29.3 pg (25.7-33.7); MCHC 31.8 g/dl (32.0-36.0); MEAN CELL VOLUME 92.3 fl (80-96); MEAN PLT VOLUME 8.1 fl (7.5-11.1); PLATELET COUNT 299 10^3/uL (134-434); RBC 2.91 M/mm3 (3.60-5.2); RDW 14.2 % (11.6-15.6)
[2021-06-28 13:13] LABS: ALBUMIN 2.3 g/dl (3.4-5.0); BLOOD UREA NITROGEN 81.8 mg/dL (7-18); CALCIUM 7.9 mg/dL (8.5-10.1)
[2021-06-28 13:16] LABS: BILIRUBIN,TOTAL 0.3 mg/dL (0.2-1); TOT PROT 6.1 g/dl (6.4-8.2)
[2021-06-28] MEDS: MYCOPHENOLATE MOFETIL 500 MG TABLET PO SCH (22:03)
[2021-06-29] MEDS: HEPARIN NA (PORCINE) 5,000 UNITS/ML 1ML VIAL SQ SCH ×3 (06:01→21:57)
[2021-06-29] MEDS: ALBUTEROL SO4 2.5/IPRATROPIUM 0.5 INH SOL 3 ML VIAL.NEB. NEB SCH ×4 (07:30→20:15)
[2021-06-29 09:13] LABS: HEMATOCRIT 27.1 % (32.4-45.2); HEMOGLOBIN 8.8 GM/dL (10.7-15.3); MCH 29.8 pg (25.7-33.7); MCHC 32.5 g/dl (32.0-36.0); MEAN CELL VOLUME 91.9 fl (80-96); MEAN PLT VOLUME 8.2 fl (7.5-11.1); PLATELET COUNT 328 10^3/uL (134-434); RBC 2.95 M/mm3 (3.60-5.2); RDW 14.1 % (11.6-15.6); WHITE BLOOD COUNT 6.7 K/mm3 (4.0-10.0)
[2021-06-29 09:38] LABS: CALCIUM 8.6 mg/dL (8.5-10.1)
[2021-06-29 09:39] LABS: ALBUMIN 2.4 g/dl (3.4-5.0); BLOOD UREA NITROGEN 72.6 mg/dL (7-18); MAGNESIUM 2.1 mg/dL (1.8-2.4)
[2021-06-29 09:42] LABS: CREATININE 2.8 mg/dL (0.55-1.3)
[2021-06-29 09:43] LABS: BILIRUBIN,TOTAL 0.5 mg/dL (0.2-1)
[2021-06-29 09:44] LABS: TOT PROT 6.3 g/dl (6.4-8.2)
[2021-06-29] MEDS: amLODIPine BESYLATE 5 MG TABLET (FP) PO SCH (10:34)
[2021-06-29] MEDS: METOPROLOL TARTRATE 50 MG TABLET (FP) PO SCH ×2 (10:34→21:39)
[2021-06-29] MEDS: PANTOPRAZOLE 40 MG TABLET PO SCH (10:34)
[2021-06-29] MEDS: methylPREDNISolone NA SUCC 40 MG/1 ML VIAL IVPUSH SCH ×2 (10:35→21:40)
[2021-06-29] MEDS: BUDESONIDE/FORMETEROL FUMARATE 80/4.5 mcg INHALER IH SCH ×2 (10:36→21:41)
[2021-06-29 11:52] LABS: ANISOCYTOSIS 1+; PLATELET ESTIMATE NORMAL
[2021-06-29] MEDS: HYDROCORTISONE 0.5% TOPICAL CREAM 30 GM TUBE TP SCH (21:39)
[2021-06-29] MEDS: valACYclovir HCL 500 MG TABLET (FP) PO SCH (21:39)
[2021-06-29] MEDS: MYCOPHENOLATE MOFETIL 500 MG TABLET PO SCH (21:57)
[2021-06-30] MEDS: HEPARIN NA (PORCINE) 5,000 UNITS/ML 1ML VIAL SQ SCH ×2 (07:14→14:35)
[2021-06-30] MEDS: ALBUTEROL SO4 2.5/IPRATROPIUM 0.5 INH SOL 3 ML VIAL.NEB. NEB SCH ×3 (07:15→15:45)
[2021-06-30 09:34] LABS: BLOOD UREA NITROGEN 73.5 mg/dL (7-18); CALCIUM 8.9 mg/dL (8.5-10.1)
[2021-06-30 09:38] LABS: CREATININE 2.8 mg/dL (0.55-1.3)
[2021-06-30] MEDS: HYDROCORTISONE 0.5% TOPICAL CREAM 30 GM TUBE TP SCH (09:59)
[2021-06-30] MEDS: PANTOPRAZOLE 40 MG TABLET PO SCH (09:59)
[2021-06-30] MEDS: amLODIPine BESYLATE 5 MG TABLET (FP) PO SCH (09:59)
[2021-06-30] MEDS: METOPROLOL TARTRATE 50 MG TABLET (FP) PO SCH (09:59)
[2021-06-30] MEDS ORDERED: predniSONE 20 MG TABLET (UD) PO SCH (10:00)
[2021-06-30] MEDS: BUDESONIDE/FORMETEROL FUMARATE 80/4.5 mcg INHALER IH SCH (10:00)
[2021-06-30] MEDS: valACYclovir HCL 500 MG TABLET (FP) PO SCH (10:44)
[2021-06-30 14:51] VITALS: BP 127/87; PULSE 72; TEMP 98
[2021-06-30 18:02] VITALS: BMI 35.6
[2021-07-01 17:07] LABS: CYCLOSPORINE TROUGH 33 ng/mL (100-400)
== END 2021-06-30 18:11 | disposition home or self-care (01) | DRG 202 ==
LOC: JER 20:10 → JERBED 23:44 → JICU 06-25 16:33 → J8W 06-26 14:03
PROVIDERS: ADMIT Internal Medicine; ATTEND Internal Medicine
DX: J45.31 Mild persistent asthma with (acute) exacerbation (principal); N17.9 Acute kidney failure, unspecified; E87.2 Acidosis; N18.4 Chronic kidney disease, stage 4 (severe); I24.8 Other forms of acute ischemic heart disease; M32.9 Systemic lupus erythematosus, unspecified; I12.9 Hypertensive chronic kidney disease with stage 1 through stage 4 chronic kidney disease, or unspecified chronic kidney disease; N18.9 Chronic kidney disease, unspecified; R00.0 Tachycardia, unspecified; E87.5 Hyperkalemia; D64.9 Anemia, unspecified; E86.1 Hypovolemia; M32.14 Glomerular disease in systemic lupus erythematosus; E66.9 Obesity, unspecified; Z68.35 Body mass index [BMI] 35.0-35.9, adult; R82.81 Pyuria
CPT/HCPCS: 36415; 36600; 71046-TC-FY; 80048; 80053; 80061; 80158; 81003; 82570; 82803; 82962; 83735; 84100; 84156; 84300; 84443; 84484; 85025; 85027; 85379; 85610; 85730; 86038; 86160; 86225; 87040; 87086; 87102; 87210; 93005; 93010; 93306-TC; 94640; 97116-GP; 97161-GP; 99285-25; C9803; J1644; J7502; J7517; U0003; U0005

== ENCOUNTER 2022-09-20 21:52 | Inpatient (IN) | payer BC ==
[2022-09-20] MEDS ORDERED: ALBUTEROL SO4 2.5/IPRATROPIUM 0.5 INH SOL 3 ML VIAL.NEB. NEB ONE ×2 (22:00→22:09)
[2022-09-20] MEDS ORDERED: SODIUM CHLORIDE 0.9% 500 ML INFUS.BAG IV ONE (22:32)
[2022-09-20 22:36] LABS: HEMOGLOBIN 10.4 GM/dL (10.7-15.3); MCH 29.9 pg (25.7-33.7); MCHC 32.6 g/dl (32.0-36.0); MEAN CELL VOLUME 91.9 fl (80-96); PLATELET COUNT 187 10^3/uL (134-434); RBC 3.48 M/mm3 (3.60-5.2); RDW 15.4 % (11.6-15.6); WHITE BLOOD COUNT 14.4 K/mm3 (4.0-10.0)
[2022-09-20 22:46] LABS: CHLORIDE 129 mmol/L (98-107); POTASSIUM 3.2 mmol/L (3.5-5.1); SODIUM 148 mmol/L (136-145)
[2022-09-20 22:49] LABS: ALBUMIN 1.5 g/dl (3.4-5.0); ANION GAP 10 MMOL/L (8-16); CO2 9 mmol/L (21-32); GLUCOSE,RANDOM 126 mg/dL (74-106)
[2022-09-20 22:52] LABS: CREATININE 3.4 mg/dL (0.55-1.3); SGOT/AST 42 U/L (15-37); SGPT/ALT 33 U/L (13-61)
[2022-09-20 22:53] LABS: BILIRUBIN,TOTAL 0.1 mg/dL (0.2-1)
[2022-09-20 22:54] LABS: TOT PROT 4.4 g/dl (6.4-8.2)
[2022-09-20 22:55] LABS: ALK PHOS 25 U/L (45-117)
[2022-09-20 22:57] LABS: VENOUS BASE EXCESS -12.9 mmol/L (-2-2); VENOUS O2 SATURATION 70.9 % (70-80); VENOUS PCO2 26.2 mmHg (38-52); VENOUS PH 7.284 (7.310-7.410)
[2022-09-20 22:57] LABS: N-TERMINAL BNP 972.2 pg/ml (5-125)
[2022-09-20] MEDS ORDERED: CALCIUM GLUC IN NACL, ISO-OSM 1 GM/50 ML BAG IVPB ONE ×2 (23:10→23:25)
[2022-09-20] MEDS ORDERED: METOPROLOL TARTRATE 5 MG/5 ML VIAL IVPUSH ONE (23:13)
[2022-09-20] MEDS ORDERED: KCL 10 MEQ IVPB 10 MEQ/100 ML INFUS.BAG IVPB SCH (23:15)
[2022-09-20 23:21] LABS: ANISOCYTOSIS 1+; MACROCYTOSIS 0; OVALOCYTE 1+
[2022-09-20] MEDS ORDERED: AZITHROMYCIN IVPB 500 MG in DEXTROSE 5%-WATER - 250 ML IVPB ONE (23:39)
[2022-09-20] MEDS ORDERED: CEFTRIAXONE 1 GM in DEXTROSE 5%-WATER - 50 ML IVPB ONE (23:39)
[2022-09-20 23:51] LABS: CHLORIDE 115 mmol/L (98-107); POTASSIUM 4.9 mmol/L (3.5-5.1); SODIUM 142 mmol/L (136-145)
[2022-09-20 23:54] LABS: ANION GAP 14 MMOL/L (8-16); CO2 14 mmol/L (21-32); GLUCOSE,RANDOM 173 mg/dL (74-106)
[2022-09-20 23:57] LABS: CREATININE 5.4 mg/dL (0.55-1.3); SGOT/AST 61 U/L (15-37); SGPT/ALT 51 U/L (13-61)
[2022-09-20 23:58] LABS: BILIRUBIN,TOTAL 0.2 mg/dL (0.2-1)
[2022-09-21] LABS: ALK PHOS 41 U/L (45-117)
[2022-09-21] MEDS ORDERED: CEFTRIAXONE 1 GM/50 ML BAG ONE ×2 (00:08→09:31)
[2022-09-21 00:53] LABS: POTASSIUM 4.7 mmol/L (3.5-5.1)
[2022-09-21] MEDS ORDERED: METOPROLOL TARTRATE 5 MG/5 ML VIAL ONE (01:24)
[2022-09-21] MEDS ORDERED: AZITHROMYCIN IVPB 500 MG/250 ML BAG IVPB ONE (01:24)
[2022-09-21] MEDS ORDERED: MYCOPHENOLATE SODIUM 360 MG TABLET.DR PO ONE (01:41)
[2022-09-21 01:46] LABS: ALBUMIN 2.4 g/dl (3.4-5.0); BLOOD UREA NITROGEN 144.2 mg/dL (7-18); CALCIUM 9.3 mg/dL (8.5-10.1); TOT PROT 6.9 g/dl (6.4-8.2)
[2022-09-21] MEDS ORDERED: MYCOPHENOLATE MOFETIL 250 MG CAPSULE PO ONE (01:49)
[2022-09-21] MEDS ORDERED: MYCOPHENOLATE MOFETIL 500 MG TABLET PO ONE (02:00)
[2022-09-21] MEDS ORDERED: CLINDAMYCIN 600MG PREMIX IVPB 600 MG/50 ML BAG IVPB ONE (02:52)
[2022-09-21 03:05] LABS: INR 1.44 (0.83-1.09); PROTHROMBIN TIME (PATIENT) 16.7 SEC (9.7-13.0)
[2022-09-21 03:08] LABS: ACTIVATED PTT 34.4 SECONDS (25.2-36.5)
[2022-09-21] MEDS ORDERED: HEPARIN NA (PORCINE) 5,000 UNITS/ML 1ML VIAL IVPUSH ONE (03:26)
[2022-09-21] MEDS ORDERED: HEPARIN INFUSION - 25,000 UNITS/500 ML INFUS.BAG IVPB SCH ×2 (03:30→19:01)
[2022-09-21] MEDS ORDERED: HEPARIN NA (PORCINE) 5,000 UNITS/ML 1ML VIAL ONE (03:33)
[2022-09-21] MEDS ORDERED: HEPARIN INFUSION - 25,000 UNITS/500 ML INFUS.BAG IVPB ONE (03:33)
[2022-09-21 08:22] LABS: HEMATOCRIT 32.1 % (32.4-45.2); HEMOGLOBIN 10.5 GM/dL (10.7-15.3); MCH 30.1 pg (25.7-33.7); MCHC 32.8 g/dl (32.0-36.0); MEAN PLT VOLUME 9.2 fl (7.5-11.1); PLATELET COUNT 188 10^3/uL (134-434); RBC 3.49 M/mm3 (3.60-5.2); RDW 15.3 % (11.6-15.6); WHITE BLOOD COUNT 11.8 K/mm3 (4.0-10.0)
[2022-09-21] MEDS ORDERED: ALBUTEROL SO4 2.5/IPRATROPIUM 0.5 INH SOL 3 ML VIAL.NEB. NEB PRN (09:23)
[2022-09-21 09:28] LABS: ANISOCYTOSIS 0; HELMET CELLS 0; HOWELL-JOLLY BODIES 0; MACROCYTOSIS 0; OVALOCYTE 0; ROULEAU 0; SICKELED CELLS 0; TARGET CELLS 0; TEAR DROP CELLS 0; TOXIC GRANULATION 0
[2022-09-21] MEDS ORDERED: amLODIPine BESYLATE 10 MG TABLET (FP) ONE (09:31)
[2022-09-21] MEDS ORDERED: MYCOPHENOLATE MOFETIL 500 MG TABLET PO SCH ×3 (10:00→22:00)
[2022-09-21] MEDS ORDERED: BUDESONIDE/FORMETEROL FUMARATE 80/4.5 mcg INHALER IH SCH (10:00)
[2022-09-21] MEDS ORDERED: amLODIPine BESYLATE 10 MG TABLET (FP) PO SCH (10:00)
[2022-09-21] MEDS ORDERED: CEFTRIAXONE 1 GM in DEXTROSE 5%-WATER - 50 ML IVPB SCH (10:00)
[2022-09-21 10:23] LABS: CALCIUM 9.6 mg/dL (8.5-10.1); CHLORIDE 114 mmol/L (98-107); POTASSIUM 4.9 mmol/L (3.5-5.1); SODIUM 140 mmol/L (136-145)
[2022-09-21 10:30] LABS: ALBUMIN 2.4 g/dl (3.4-5.0); ALK PHOS 43 U/L (45-117); ANION GAP 16 MMOL/L (8-16); BILIRUBIN,TOTAL 0.2 mg/dL (0.2-1); BLOOD UREA NITROGEN 141.2 mg/dL (7-18); CO2 11 mmol/L (21-32); CREATININE 5.6 mg/dL (0.55-1.3); GLUCOSE,RANDOM 171 mg/dL (74-106); MAGNESIUM 3.1 mg/dL (1.8-2.4); SGOT/AST 59 U/L (15-37); SGPT/ALT 52 U/L (13-61); TOT PROT 6.8 g/dl (6.4-8.2)
[2022-09-21] MEDS ORDERED: PIPERACILLIN/TAZOB 2.25 GM 2.25 GM/50 ML BAG IVPB ONE (14:15)
[2022-09-21] MEDS: PIPERACILLIN/TAZOB 2.25 GM 2.25 GM in DEXTROSE 5%-WATER - 50 ML IVPB SCH ×2 (14:20→17:03)
[2022-09-21] MEDS: methylPREDNISolone NA SUCC 40 MG/1 ML VIAL IVPUSH SCH ×2 (16:02→21:29)
[2022-09-21] MEDS ORDERED: APIXABAN 2.5 MG TABLET PO SCH (16:28)
[2022-09-21] MEDS ORDERED: APIXABAN 5 MG TABLET PO SCH (16:36)
[2022-09-21] MEDS ORDERED: ONDANSETRON 4 MG/2 ML VIAL IVPUSH ONE (16:52)
[2022-09-21] MEDS ORDERED: LACTATED RINGERS SOLUTION 1000 ML INFUS.BAG IV ONE (16:53)
[2022-09-21] MEDS ORDERED: ONDANSETRON 4 MG/2 ML VIAL ONE (16:54)
[2022-09-21] MEDS: LACTATED RINGERS SOLUTION 1,000 ML/1,000 ML INFUS.BAG IV SCH (18:35)
[2022-09-21] MEDS ORDERED: HEPARIN NA (PORCINE) 5,000 UNITS/ML 1ML VIAL IVPUSH PRN ×2 (19:01)
[2022-09-21] MEDS ORDERED: MAG HYDROX/AL HYDROX/SIMETH 30 ML UNIT-DOSE CUP PO STA (20:32)
[2022-09-21] MEDS: APIXABAN 2.5 MG TABLET PO SCH (21:28)
[2022-09-21] MEDS: METOPROLOL TARTRATE 25 MG TABLET (FP) PO SCH (21:28)
[2022-09-21] MEDS: MUPIROCIN 2% TOPICAL OINTMENT FOR DECOLONIZATION NS SCH (21:28)
[2022-09-21] MEDS: BUDESONIDE/FORMETEROL FUMARATE 80/4.5 mcg INHALER IH SCH (21:31)
[2022-09-21] MEDS: CHLORHEXIDINE GLUCONATE 4% CLEANSER FOR DECOLONIZATION TP SCH (21:31)
[2022-09-21] MEDS ORDERED: CHLORHEXIDINE GLUCONATE 4% CLEANSER FOR DECOLONIZATION TP SCH ×2 (22:00)
[2022-09-21] MEDS ORDERED: MUPIROCIN 2% TOPICAL OINTMENT FOR DECOLONIZATION NS SCH (22:00)
[2022-09-22 00:38] LABS: EPI CELLS 26 /uL (0-25.1); HYALINE CASTS 1 /uL (0-3.1); URINE APPEARANCE CLOUDY; URINE BACTERIA 62 /uL (0-1359); URINE BILIRUBIN NEGATIVE (NEGATIVE); URINE COLOR YELLOW; URINE GLUCOSE (UA) NEGATIVE (NEGATIVE); URINE KETONE NEGATIVE (NEGATIVE); URINE LEUK ESTERASE NEGATIVE (NEGATIVE); URINE NITRITE NEGATIVE (NEGATIVE); URINE PROTEIN 2+ (NEGATIVE); URINE UROBILINOGEN 0.2 mg/dL (0.2-1.0); URINE WBC 21 /uL (0-25.8)
[2022-09-22] MEDS: PIPERACILLIN/TAZOB 2.25 GM 2.25 GM in DEXTROSE 5%-WATER - 50 ML IVPB SCH ×3 (01:44→17:33)
[2022-09-22] MEDS: LACTATED RINGERS SOLUTION 1,000 ML/1,000 ML INFUS.BAG IV SCH (01:44)
[2022-09-22] MEDS: methylPREDNISolone NA SUCC 40 MG/1 ML VIAL IVPUSH SCH ×4 (03:09→21:21)
[2022-09-22 07:16] LABS: URINE RBC 38.8 /uL (0-23.9)
[2022-09-22 07:39] LABS: HEMATOCRIT 28.2 % (32.4-45.2); HEMOGLOBIN 9.4 GM/dL (10.7-15.3); MCH 30.4 pg (25.7-33.7); MCHC 33.4 g/dl (32.0-36.0); MEAN PLT VOLUME 9.2 fl (7.5-11.1); PLATELET COUNT 173 10^3/uL (134-434); RDW 14.9 % (11.6-15.6)
[2022-09-22 07:58] LABS: CHLORIDE 117 mmol/L (98-107); POTASSIUM 5.2 mmol/L (3.5-5.1); SODIUM 143 mmol/L (136-145)
[2022-09-22 08:02] LABS: ANION GAP 12 MMOL/L (8-16); CALCIUM 8.9 mg/dL (8.5-10.1); CO2 14 mmol/L (21-32); GLUCOSE,RANDOM 143 mg/dL (74-106); MAGNESIUM 2.7 mg/dL (1.8-2.4)
[2022-09-22 08:03] LABS: LDH 629 U/L (84-246)
[2022-09-22 08:05] LABS: CREATININE 6.9 mg/dL (0.55-1.3); PHOSPHOROUS 7.3 mg/dL (2.5-4.9)
[2022-09-22 08:06] LABS: SGOT/AST 39 U/L (15-37); SGPT/ALT 45 U/L (13-61)
[2022-09-22 08:07] LABS: BILIRUBIN,TOTAL 0.6 mg/dL (0.2-1); TOT PROT 6.1 g/dl (6.4-8.2)
[2022-09-22 08:08] LABS: ALK PHOS 44 U/L (45-117)
[2022-09-22 08:18] LABS: BLOOD UREA NITROGEN > 150.0 mg/dL (7-18)
[2022-09-22] MEDS: AZITHROMYCIN IVPB 500 MG/250 ML BAG IVPB SCH (09:11)
[2022-09-22] MEDS: MUPIROCIN 2% TOPICAL OINTMENT FOR DECOLONIZATION NS SCH ×2 (09:14→21:25)
[2022-09-22] MEDS: METOPROLOL TARTRATE 25 MG TABLET (FP) PO SCH ×2 (09:14→21:22)
[2022-09-22] MEDS: BUDESONIDE/FORMETEROL FUMARATE 80/4.5 mcg INHALER IH SCH ×2 (09:15→21:25)
[2022-09-22] MEDS: APIXABAN 2.5 MG TABLET PO SCH ×2 (09:15→21:22)
[2022-09-22] MEDS ORDERED: MYCOPHENOLATE MOFETIL 500 MG TABLET PO SCH (10:00)
[2022-09-22] MEDS ORDERED: AZITHROMYCIN IVPB 500 MG/250 ML BAG IVPB SCH (10:00)
[2022-09-22] MEDS: SODIUM CHLORIDE 1,000 ML IV SCH ×2 (10:13→21:23)
[2022-09-22 10:15] LABS: ANISOCYTOSIS 0; HELMET CELLS 0; HOWELL-JOLLY BODIES 0; MACROCYTOSIS 0; OVALOCYTE 0; ROULEAU 0; SICKELED CELLS 0; TARGET CELLS 0; TEAR DROP CELLS 0; TOXIC GRANULATION 0
[2022-09-22 13:31] LABS: CHLORIDE 115 mmol/L (98-107); POTASSIUM 5.2 mmol/L (3.5-5.1); SODIUM 142 mmol/L (136-145)
[2022-09-22 13:32] LABS: ANION GAP 15 MMOL/L (8-16); CALCIUM 9.3 mg/dL (8.5-10.1); CO2 12 mmol/L (21-32); GLUCOSE,RANDOM 147 mg/dL (74-106)
[2022-09-22 13:36] LABS: CREATININE 6.9 mg/dL (0.55-1.3)
[2022-09-22 13:42] LABS: BLOOD UREA NITROGEN 148.8 mg/dL (7-18)
[2022-09-22 16:12] LABS: CHLORIDE 116 mmol/L (98-107); POTASSIUM 4.9 mmol/L (3.5-5.1); SODIUM 143 mmol/L (136-145)
[2022-09-22 16:13] LABS: CALCIUM 8.7 mg/dL (8.5-10.1)
[2022-09-22 16:14] LABS: ANION GAP 12 MMOL/L (8-16); CO2 15 mmol/L (21-32); GLUCOSE,RANDOM 181 mg/dL (74-106)
[2022-09-22 16:17] LABS: CREATININE 6.9 mg/dL (0.55-1.3)
[2022-09-22 16:19] LABS: BLOOD UREA NITROGEN 164.8 mg/dL (7-18)
[2022-09-22] MEDS: MELATONIN 5 MG TABLETS PO SCH (21:22)
[2022-09-22] MEDS: MYCOPHENOLATE MOFETIL 500 MG TABLET PO SCH (21:22)
[2022-09-22] MEDS: ATOVAQUONE 750 MG/5 ML (UNIT-DOSE PACKAGING) PO SCH (21:23)
[2022-09-22] MEDS: CHLORHEXIDINE GLUCONATE 4% CLEANSER FOR DECOLONIZATION TP SCH (21:25)
[2022-09-23] MEDS: PIPERACILLIN/TAZOB 2.25 GM 2.25 GM in DEXTROSE 5%-WATER - 50 ML IVPB SCH ×3 (01:38→18:02)
[2022-09-23] MEDS: methylPREDNISolone NA SUCC 40 MG/1 ML VIAL IVPUSH SCH ×3 (02:45→18:02)
[2022-09-23 03:49] LABS: CHLORIDE 115 mmol/L (98-107); POTASSIUM 5.1 mmol/L (3.5-5.1); SODIUM 142 mmol/L (136-145)
[2022-09-23 03:50] LABS: ANION GAP 13 MMOL/L (8-16); CALCIUM 9.3 mg/dL (8.5-10.1); CO2 13 mmol/L (21-32); GLUCOSE,RANDOM 168 mg/dL (74-106)
[2022-09-23 03:54] LABS: CREATININE 7.2 mg/dL (0.55-1.3)
[2022-09-23 04:25] LABS: BLOOD UREA NITROGEN 150.5 mg/dL (7-18)
[2022-09-23 07:54] LABS: HEMATOCRIT 28.1 % (32.4-45.2); HEMOGLOBIN 9.3 GM/dL (10.7-15.3); MCH 30.1 pg (25.7-33.7); MEAN CELL VOLUME 91.3 fl (80-96); MEAN PLT VOLUME 8.9 fl (7.5-11.1); PLATELET COUNT 184 10^3/uL (134-434); RBC 3.08 M/mm3 (3.60-5.2); RDW 15.5 % (11.6-15.6); WHITE BLOOD COUNT 11.3 K/mm3 (4.0-10.0)
[2022-09-23 08:10] LABS: CHLORIDE 115 mmol/L (98-107); SODIUM 142 mmol/L (136-145)
[2022-09-23 08:14] LABS: ANION GAP 14 MMOL/L (8-16); CALCIUM 9.4 mg/dL (8.5-10.1); CO2 13 mmol/L (21-32); GLUCOSE,RANDOM 152 mg/dL (74-106)
[2022-09-23 08:15] LABS: MAGNESIUM 2.7 mg/dL (1.8-2.4)
[2022-09-23 08:18] LABS: CREATININE 7.3 mg/dL (0.55-1.3); PHOSPHOROUS 7.8 mg/dL (2.5-4.9)
[2022-09-23] MEDS: ONDANSETRON 4 MG/2 ML VIAL IVPUSH PRN (09:17)
[2022-09-23] MEDS: AZITHROMYCIN IVPB 500 MG/250 ML BAG IVPB SCH (09:35)
[2022-09-23] MEDS: MUPIROCIN 2% TOPICAL OINTMENT FOR DECOLONIZATION NS SCH ×2 (09:37→21:11)
[2022-09-23] MEDS: METOPROLOL TARTRATE 25 MG TABLET (FP) PO SCH ×2 (09:37→21:11)
[2022-09-23] MEDS: MYCOPHENOLATE MOFETIL 500 MG TABLET PO SCH ×2 (09:37→21:11)
[2022-09-23] MEDS: APIXABAN 2.5 MG TABLET PO SCH ×2 (09:37→21:11)
[2022-09-23] MEDS: ATOVAQUONE 750 MG/5 ML (UNIT-DOSE PACKAGING) PO SCH ×2 (09:41→21:11)
[2022-09-23] MEDS: BUDESONIDE/FORMETEROL FUMARATE 80/4.5 mcg INHALER IH SCH ×2 (09:41→21:12)
[2022-09-23 09:42] LABS: ERYTHROCYTE SEDIMENTATION RATE 119 mm/hr (0-30)
[2022-09-23 12:35] LABS: HEMATOCRIT 28.9 % (32.4-45.2); HEMOGLOBIN 9.5 GM/dL (10.7-15.3); MCHC 32.7 g/dl (32.0-36.0); MEAN CELL VOLUME 91.8 fl (80-96); MEAN PLT VOLUME 9.3 fl (7.5-11.1); PLATELET COUNT 168 10^3/uL (134-434); RBC 3.15 M/mm3 (3.60-5.2); RDW 15.5 % (11.6-15.6); WHITE BLOOD COUNT 11.7 K/mm3 (4.0-10.0)
[2022-09-23 19:42] LABS: CHLORIDE 114 mmol/L (98-107); POTASSIUM 5.3 mmol/L (3.5-5.1); SODIUM 140 mmol/L (136-145)
[2022-09-23 19:44] LABS: ANION GAP 14 MMOL/L (8-16); CALCIUM 9.5 mg/dL (8.5-10.1); CO2 12 mmol/L (21-32)
[2022-09-23 19:45] LABS: GLUCOSE,RANDOM 140 mg/dL (74-106)
[2022-09-23 19:48] LABS: CREATININE 7.2 mg/dL (0.55-1.3)
[2022-09-23 19:56] LABS: BLOOD UREA NITROGEN 160.3 mg/dL (7-18)
[2022-09-23] MEDS: MELATONIN 5 MG TABLETS PO SCH (21:10)
[2022-09-23] MEDS: CHLORHEXIDINE GLUCONATE 4% CLEANSER FOR DECOLONIZATION TP SCH (21:11)
[2022-09-24] MEDS: PIPERACILLIN/TAZOB 2.25 GM 2.25 GM in DEXTROSE 5%-WATER - 50 ML IVPB SCH ×3 (01:11→17:28)
[2022-09-24] MEDS: methylPREDNISolone NA SUCC 40 MG/1 ML VIAL IVPUSH SCH ×3 (01:15→17:28)
[2022-09-24 07:36] LABS: HEMATOCRIT 29.2 % (32.4-45.2); HEMOGLOBIN 9.5 GM/dL (10.7-15.3); MCHC 32.6 g/dl (32.0-36.0); MEAN PLT VOLUME 9.4 fl (7.5-11.1); PLATELET COUNT 186 10^3/uL (134-434); RBC 3.18 M/mm3 (3.60-5.2); RDW 15.5 % (11.6-15.6); WHITE BLOOD COUNT 12.4 K/mm3 (4.0-10.0)
[2022-09-24] MEDS: ONDANSETRON 4 MG/2 ML VIAL IVPUSH PRN (07:45)
[2022-09-24 07:57] LABS: CHLORIDE 118 mmol/L (98-107); POTASSIUM 5.6 mmol/L (3.5-5.1); SODIUM 143 mmol/L (136-145)
[2022-09-24 07:59] LABS: GLUCOSE,RANDOM 136 mg/dL (74-106)
[2022-09-24 08:00] LABS: ANION GAP 13 MMOL/L (8-16); CO2 12 mmol/L (21-32); MAGNESIUM 2.7 mg/dL (1.8-2.4)
[2022-09-24 08:52] LABS: BLOOD UREA NITROGEN 170.2 mg/dL (7-18); CREATININE 7.5 mg/dL (0.55-1.3); PHOSPHOROUS 8.2 mg/dL (2.5-4.9)
[2022-09-24] MEDS: ATOVAQUONE 750 MG/5 ML (UNIT-DOSE PACKAGING) PO SCH ×2 (09:40→21:08)
[2022-09-24] MEDS: APIXABAN 2.5 MG TABLET PO SCH ×2 (09:40→21:09)
[2022-09-24] MEDS: MYCOPHENOLATE MOFETIL 500 MG TABLET PO SCH ×3 (09:40→21:09)
[2022-09-24] MEDS: AZITHROMYCIN IVPB 500 MG/250 ML BAG IVPB SCH (09:40)
[2022-09-24] MEDS: MUPIROCIN 2% TOPICAL OINTMENT FOR DECOLONIZATION NS SCH ×2 (09:41→21:06)
[2022-09-24] MEDS: BUDESONIDE/FORMETEROL FUMARATE 80/4.5 mcg INHALER IH SCH ×2 (09:41→21:06)
[2022-09-24] MEDS: METOPROLOL TARTRATE 25 MG TABLET (FP) PO SCH ×2 (09:42→21:09)
[2022-09-24 10:18] LABS: ERYTHROCYTE SEDIMENTATION RATE 114 mm/hr (0-30)
[2022-09-24] MEDS ORDERED: MYCOPHENOLATE MOFETIL 500 MG TABLET PO ONE (10:20)
[2022-09-24] MEDS: ALBUTEROL SO4 2.5/IPRATROPIUM 0.5 INH SOL 3 ML VIAL.NEB. NEB PRN ×3 (10:55→20:40)
[2022-09-24] MEDS: SODIUM ZIRCONIUM CYCLOSILICATE (LOKELMA) 5 GM PACKET PO SCH (11:33)
[2022-09-24] MEDS: SODIUM CHLORIDE 1,000 ML IV SCH (11:38)
[2022-09-24 14:07] LABS: CYCLOSPORINE TROUGH 165 ng/mL (100-400)
[2022-09-24 20:33] LABS: ANION GAP 15 MMOL/L (8-16); BLOOD UREA NITROGEN 159.7 mg/dL (7-18); CHLORIDE 114 mmol/L (98-107); CO2 13 mmol/L (21-32); GLUCOSE,RANDOM 176 mg/dL (74-106); POTASSIUM 4.9 mmol/L (3.5-5.1); SODIUM 142 mmol/L (136-145)
[2022-09-24] MEDS: MELATONIN 5 MG TABLETS PO SCH (21:08)
[2022-09-24] MEDS: CHLORHEXIDINE GLUCONATE 4% CLEANSER FOR DECOLONIZATION TP SCH (21:09)
[2022-09-25] MEDS: PIPERACILLIN/TAZOB 2.25 GM 2.25 GM in DEXTROSE 5%-WATER - 50 ML IVPB SCH ×3 (01:01→17:06)
[2022-09-25] MEDS: methylPREDNISolone NA SUCC 40 MG/1 ML VIAL IVPUSH SCH ×3 (01:01→17:06)
[2022-09-25 07:23] LABS: HEMATOCRIT 27.6 % (32.4-45.2); HEMOGLOBIN 9.1 GM/dL (10.7-15.3); MCHC 32.8 g/dl (32.0-36.0); MEAN CELL VOLUME 91.5 fl (80-96); MEAN PLT VOLUME 9.2 fl (7.5-11.1); PLATELET COUNT 182 10^3/uL (134-434); RBC 3.02 M/mm3 (3.60-5.2); RDW 15.6 % (11.6-15.6); WHITE BLOOD COUNT 14.1 K/mm3 (4.0-10.0)
[2022-09-25 07:45] LABS: CHLORIDE 117 mmol/L (98-107); POTASSIUM 5.1 mmol/L (3.5-5.1); SODIUM 143 mmol/L (136-145)
[2022-09-25 07:49] LABS: ANION GAP 13 MMOL/L (8-16); CO2 13 mmol/L (21-32)
[2022-09-25 07:50] LABS: GLUCOSE,RANDOM 138 mg/dL (74-106)
[2022-09-25 07:51] LABS: CALCIUM 8.9 mg/dL (8.5-10.1)
[2022-09-25 07:52] LABS: MAGNESIUM 2.5 mg/dL (1.8-2.4)
[2022-09-25 07:53] LABS: CREATININE 7.1 mg/dL (0.55-1.3); PHOSPHOROUS 7.8 mg/dL (2.5-4.9)
[2022-09-25 07:56] LABS: BLOOD UREA NITROGEN 149.7 mg/dL (7-18)
[2022-09-25] MEDS: METOPROLOL TARTRATE 5 MG/5 ML VIAL IVPUSH PRN ×3 (08:24→21:24)
[2022-09-25] MEDS: SODIUM ZIRCONIUM CYCLOSILICATE (LOKELMA) 5 GM PACKET PO SCH (09:32)
[2022-09-25] MEDS: METOPROLOL TARTRATE 25 MG TABLET (FP) PO SCH (09:33)
[2022-09-25] MEDS: APIXABAN 2.5 MG TABLET PO SCH ×2 (09:33→21:10)
[2022-09-25] MEDS: MYCOPHENOLATE MOFETIL 500 MG TABLET PO SCH ×2 (09:36→21:10)
[2022-09-25] MEDS: MUPIROCIN 2% TOPICAL OINTMENT FOR DECOLONIZATION NS SCH ×2 (09:38→21:13)
[2022-09-25] MEDS: AZITHROMYCIN IVPB 500 MG/250 ML BAG IVPB SCH (09:39)
[2022-09-25] MEDS: BUDESONIDE/FORMETEROL FUMARATE 80/4.5 mcg INHALER IH SCH (09:39)
[2022-09-25] MEDS: ATOVAQUONE 750 MG/5 ML (UNIT-DOSE PACKAGING) PO SCH ×2 (09:41→21:11)
[2022-09-25 09:54] LABS: ERYTHROCYTE SEDIMENTATION RATE 121 mm/hr (0-30)
[2022-09-25] MEDS ORDERED: SODIUM CHLORIDE 0.45% 1,000 ML with SODIUM BICARBONATE 8.4% - 75 MEQ IV SCH (11:00)
[2022-09-25 11:58] LABS: HEMATOCRIT 29.8 % (32.4-45.2); HEMOGLOBIN 9.6 GM/dL (10.7-15.3); MCH 29.7 pg (25.7-33.7); MCHC 32.2 g/dl (32.0-36.0); MEAN CELL VOLUME 92.3 fl (80-96); MEAN PLT VOLUME 9.3 fl (7.5-11.1); PLATELET COUNT 185 10^3/uL (134-434); RBC 3.23 M/mm3 (3.60-5.2); RDW 16.1 % (11.6-15.6); WHITE BLOOD COUNT 14.5 K/mm3 (4.0-10.0)
[2022-09-25] MEDS: SODIUM BICARBONATE 8.4% - 75 MEQ in SODIUM CHLORIDE 0.45% 1,000 ML IV SCH ×2 (12:04→21:09)
[2022-09-25] MEDS: METOPROLOL TARTRATE 50 MG TABLET (FP) PO SCH ×2 (14:36→21:10)
[2022-09-25] MEDS: SEVELAMER CARBONATE 800 MG TAB (FP) PO SCH (16:33)
[2022-09-25] MEDS: SODIUM BICARBONATE 650 MG TABLET PO SCH ×2 (16:33→21:10)
[2022-09-25] MEDS: ALBUTEROL SO4 2.5/IPRATROPIUM 0.5 INH SOL 3 ML VIAL.NEB. NEB PRN (17:46)
[2022-09-25] MEDS ORDERED: ALBUTEROL SO4 2.5/IPRATROPIUM 0.5 INH SOL 3 ML VIAL.NEB. NEB SCH (18:00)
[2022-09-25] MEDS ORDERED: ALBUTEROL SO4 0.042% IH SOL 1.25 MG/3 ML VIAL.NEB NEB SCH (20:00)
[2022-09-25] MEDS: ALBUTEROL SO4 0.042% IH SOL 1.25 MG/3 ML VIAL.NEB NEB SCH (20:05)
[2022-09-25 20:36] LABS: CHLORIDE 117 mmol/L (98-107); POTASSIUM 4.7 mmol/L (3.5-5.1); SODIUM 145 mmol/L (136-145)
[2022-09-25 20:38] LABS: ANION GAP 14 MMOL/L (8-16); CALCIUM 8.6 mg/dL (8.5-10.1); CO2 15 mmol/L (21-32); GLUCOSE,RANDOM 123 mg/dL (74-106)
[2022-09-25 20:42] LABS: CREATININE 6.9 mg/dL (0.55-1.3)
[2022-09-25 20:44] LABS: BLOOD UREA NITROGEN 154.1 mg/dL (7-18)
[2022-09-25] MEDS: MELATONIN 5 MG TABLETS PO SCH (21:10)
[2022-09-25] MEDS: CHLORHEXIDINE GLUCONATE 4% CLEANSER FOR DECOLONIZATION TP SCH (21:11)
[2022-09-26] MEDS: PIPERACILLIN/TAZOB 2.25 GM 2.25 GM in DEXTROSE 5%-WATER - 50 ML IVPB SCH ×3 (01:15→17:41)
[2022-09-26] MEDS: methylPREDNISolone NA SUCC 40 MG/1 ML VIAL IVPUSH SCH ×3 (01:15→17:41)
[2022-09-26] MEDS: ALBUTEROL SO4 0.042% IH SOL 1.25 MG/3 ML VIAL.NEB NEB SCH ×3 (04:00→08:10)
[2022-09-26] MEDS: METOPROLOL TARTRATE 50 MG TABLET (FP) PO SCH ×3 (05:13→21:42)
[2022-09-26 07:34] LABS: HEMATOCRIT 25.3 % (32.4-45.2); HEMOGLOBIN 8.5 GM/dL (10.7-15.3); MCH 30.6 pg (25.7-33.7); MCHC 33.7 g/dl (32.0-36.0); MEAN CELL VOLUME 90.7 fl (80-96); MEAN PLT VOLUME 9.6 fl (7.5-11.1); PLATELET COUNT 164 10^3/uL (134-434); RBC 2.79 M/mm3 (3.60-5.2); RDW 15.5 % (11.6-15.6); WHITE BLOOD COUNT 11.8 K/mm3 (4.0-10.0)
[2022-09-26 07:43] LABS: CHLORIDE 118 mmol/L (98-107); POTASSIUM 4.7 mmol/L (3.5-5.1); SODIUM 145 mmol/L (136-145)
[2022-09-26 07:49] LABS: CALCIUM 8.4 mg/dL (8.5-10.1)
[2022-09-26 07:50] LABS: ANION GAP 12 MMOL/L (8-16); CO2 15 mmol/L (21-32); GLUCOSE,RANDOM 145 mg/dL (74-106); MAGNESIUM 2.5 mg/dL (1.8-2.4)
[2022-09-26 07:54] LABS: CREATININE 6.8 mg/dL (0.55-1.3); PHOSPHOROUS 8.4 mg/dL (2.5-4.9)
[2022-09-26 08:08] LABS: BLOOD UREA NITROGEN 156.4 mg/dL (7-18)
[2022-09-26] MEDS: SODIUM BICARBONATE 8.4% - 75 MEQ in SODIUM CHLORIDE 0.45% 1,000 ML IV SCH ×2 (08:29→17:07)
[2022-09-26 09:00] LABS: ERYTHROCYTE SEDIMENTATION RATE 119 mm/hr (0-30)
[2022-09-26] MEDS: SODIUM ZIRCONIUM CYCLOSILICATE (LOKELMA) 5 GM PACKET PO SCH (09:38)
[2022-09-26] MEDS: MYCOPHENOLATE MOFETIL 500 MG TABLET PO SCH ×2 (09:40→21:42)
[2022-09-26] MEDS: ATOVAQUONE 750 MG/5 ML (UNIT-DOSE PACKAGING) PO SCH ×2 (09:41→21:43)
[2022-09-26] MEDS: SODIUM BICARBONATE 650 MG TABLET PO SCH ×2 (09:41→21:42)
[2022-09-26] MEDS: APIXABAN 2.5 MG TABLET PO SCH ×2 (09:41→21:42)
[2022-09-26] MEDS: SEVELAMER CARBONATE 800 MG TAB (FP) PO SCH ×3 (09:41→17:41)
[2022-09-26] MEDS: MUPIROCIN 2% TOPICAL OINTMENT FOR DECOLONIZATION NS SCH (09:41)
[2022-09-26] MEDS: METOPROLOL TARTRATE 5 MG/5 ML VIAL IVPUSH PRN (09:44)
[2022-09-26] MEDS: AZITHROMYCIN IVPB 500 MG/250 ML BAG IVPB SCH (09:44)
[2022-09-26] MEDS ORDERED: dilTIAZem HCL 50 MG/10 ML - 10 ML VIAL IVPUSH ONE (16:17)
[2022-09-26] MEDS ORDERED: dilTIAZem HCL 25 MG/5 ML - 5 ML VIAL ONE (16:38)
[2022-09-26 19:01] LABS: CHLORIDE 116 mmol/L (98-107); POTASSIUM 4.1 mmol/L (3.5-5.1); SODIUM 145 mmol/L (136-145)
[2022-09-26 19:02] LABS: CALCIUM 8.4 mg/dL (8.5-10.1)
[2022-09-26 19:03] LABS: ANION GAP 12 MMOL/L (8-16); CO2 18 mmol/L (21-32); GLUCOSE,RANDOM 167 mg/dL (74-106)
[2022-09-26 19:06] LABS: CREATININE 6.6 mg/dL (0.55-1.3)
[2022-09-26] MEDS: LEVALBUTEROL HCL 0.63 MG/3 ML VIAL.NEB. IH PRN (20:54)
[2022-09-26] MEDS: MELATONIN 5 MG TABLETS PO SCH (21:42)
[2022-09-26] MEDS: CHLORHEXIDINE GLUCONATE 4% CLEANSER FOR DECOLONIZATION TP SCH (21:42)
[2022-09-27] MEDS: PIPERACILLIN/TAZOB 2.25 GM 2.25 GM in DEXTROSE 5%-WATER - 50 ML IVPB SCH ×3 (01:06→17:12)
[2022-09-27] MEDS: methylPREDNISolone NA SUCC 40 MG/1 ML VIAL IVPUSH SCH ×2 (01:07→09:06)
[2022-09-27] MEDS: SODIUM BICARBONATE 8.4% - 75 MEQ in SODIUM CHLORIDE 0.45% 1,000 ML IV SCH ×2 (04:37→13:03)
[2022-09-27] MEDS: METOPROLOL TARTRATE 50 MG TABLET (FP) PO SCH ×3 (06:44→21:56)
[2022-09-27 07:34] LABS: CHLORIDE 115 mmol/L (98-107); POTASSIUM 4.2 mmol/L (3.5-5.1); SODIUM 144 mmol/L (136-145)
[2022-09-27 07:39] LABS: BASO % 0.2 % (0-2.0); HEMATOCRIT 24.8 % (32.4-45.2); HEMOGLOBIN 8.5 GM/dL (10.7-15.3); LYMPH % 0.7 % (8-40); MCH 30.8 pg (25.7-33.7); MCHC 34.2 g/dl (32.0-36.0); MEAN PLT VOLUME 9.8 fl (7.5-11.1); MONO % 0.7 % (3.8-10.2); NEUT % 98.4 % (42.8-82.8); PLATELET COUNT 173 10^3/uL (134-434); RBC 2.75 M/mm3 (3.60-5.2); RDW 15.3 % (11.6-15.6); WHITE BLOOD COUNT 10.1 K/mm3 (4.0-10.0)
[2022-09-27 07:41] LABS: CALCIUM 8.1 mg/dL (8.5-10.1)
[2022-09-27 07:42] LABS: ALBUMIN 1.8 g/dl (3.4-5.0); ANION GAP 10 MMOL/L (8-16); CO2 19 mmol/L (21-32); GLUCOSE,RANDOM 155 mg/dL (74-106); MAGNESIUM 2.2 mg/dL (1.8-2.4)
[2022-09-27 07:45] LABS: CREATININE 6.6 mg/dL (0.55-1.3); PHOSPHOROUS 7.9 mg/dL (2.5-4.9); SGOT/AST 27 U/L (15-37); SGPT/ALT 38 U/L (13-61)
[2022-09-27 07:46] LABS: BILIRUBIN,TOTAL 0.4 mg/dL (0.2-1); TOT PROT 5.5 g/dl (6.4-8.2)
[2022-09-27 07:48] LABS: ALK PHOS 43 U/L (45-117)
[2022-09-27 07:54] LABS: BLOOD UREA NITROGEN 149.3 mg/dL (7-18)
[2022-09-27] MEDS: AZITHROMYCIN IVPB 500 MG/250 ML BAG IVPB SCH (09:06)
[2022-09-27] MEDS: SODIUM ZIRCONIUM CYCLOSILICATE (LOKELMA) 5 GM PACKET PO SCH (09:08)
[2022-09-27] MEDS: ATOVAQUONE 750 MG/5 ML (UNIT-DOSE PACKAGING) PO SCH ×2 (09:10→21:57)
[2022-09-27] MEDS: APIXABAN 2.5 MG TABLET PO SCH ×2 (09:10→21:56)
[2022-09-27] MEDS: SODIUM BICARBONATE 650 MG TABLET PO SCH ×2 (09:10→21:56)
[2022-09-27] MEDS: SEVELAMER CARBONATE 800 MG TAB (FP) PO SCH ×3 (09:10→16:47)
[2022-09-27] MEDS: MYCOPHENOLATE MOFETIL 500 MG TABLET PO SCH ×2 (09:11→21:57)
[2022-09-27 09:24] LABS: ERYTHROCYTE SEDIMENTATION RATE 121 mm/hr (0-30)
[2022-09-27 09:58] LABS: ANISOCYTOSIS 0; HELMET CELLS 0; HOWELL-JOLLY BODIES 0; MACROCYTOSIS 0; OVALOCYTE 0; ROULEAU 0; SICKELED CELLS 0; TARGET CELLS 0; TEAR DROP CELLS 0; TOXIC GRANULATION 0
[2022-09-27 11:23] VITALS: BMI 34.0
[2022-09-27] MEDS: dilTIAZem HCL 30 MG TABLET PO SCH ×2 (16:47→17:24)
[2022-09-27] MEDS: SODIUM CHLORIDE 0.45% 1,000 ML IV SCH (16:47)
[2022-09-27] MEDS: LEVALBUTEROL HCL 0.63 MG/3 ML VIAL.NEB. IH PRN (17:12)
[2022-09-27] MEDS: CHLORHEXIDINE GLUCONATE 4% CLEANSER FOR DECOLONIZATION TP SCH (21:56)
[2022-09-27] MEDS: MELATONIN 5 MG TABLETS PO SCH (21:56)
[2022-09-28] MEDS: dilTIAZem HCL 30 MG TABLET PO SCH ×5 (01:00→23:15)
[2022-09-28] MEDS: PIPERACILLIN/TAZOB 2.25 GM 2.25 GM in DEXTROSE 5%-WATER - 50 ML IVPB SCH ×3 (02:01→17:18)
[2022-09-28] MEDS: LEVALBUTEROL HCL 0.63 MG/3 ML VIAL.NEB. IH PRN ×3 (02:46→21:23)
[2022-09-28] MEDS: METOPROLOL TARTRATE 50 MG TABLET (FP) PO SCH ×3 (07:06→22:26)
[2022-09-28] MEDS: ONDANSETRON 4 MG/2 ML VIAL IVPUSH PRN (08:53)
[2022-09-28] MEDS: SEVELAMER CARBONATE 800 MG TAB (FP) PO SCH ×3 (09:00→17:18)
[2022-09-28 09:17] LABS: HEMATOCRIT 26.8 % (32.4-45.2); HEMOGLOBIN 8.7 GM/dL (10.7-15.3); MCHC 32.6 g/dl (32.0-36.0); PLATELET COUNT 190 10^3/uL (134-434); RBC 2.91 M/mm3 (3.60-5.2); RDW 15.2 % (11.6-15.6); WHITE BLOOD COUNT 11.4 K/mm3 (4.0-10.0)
[2022-09-28 09:21] LABS: CHLORIDE 110 mmol/L (98-107); SODIUM 140 mmol/L (136-145)
[2022-09-28 09:25] LABS: ALBUMIN 1.9 g/dl (3.4-5.0); CALCIUM 7.8 mg/dL (8.5-10.1); GLUCOSE,RANDOM 108 mg/dL (74-106)
[2022-09-28 09:26] LABS: ANION GAP 11 MMOL/L (8-16); CO2 19 mmol/L (21-32); MAGNESIUM 2.1 mg/dL (1.8-2.4)
[2022-09-28 09:28] LABS: CREATININE 6.2 mg/dL (0.55-1.3); PHOSPHOROUS 7.4 mg/dL (2.5-4.9); SGOT/AST 41 U/L (15-37); SGPT/ALT 43 U/L (13-61)
[2022-09-28 09:30] LABS: ALK PHOS 44 U/L (45-117); BILIRUBIN,TOTAL 0.4 mg/dL (0.2-1); TOT PROT 5.7 g/dl (6.4-8.2)
[2022-09-28 09:34] LABS: BLOOD UREA NITROGEN 148.2 mg/dL (7-18)
[2022-09-28 10:05] LABS: ERYTHROCYTE SEDIMENTATION RATE 120 mm/hr (0-30)
[2022-09-28] MEDS: SODIUM ZIRCONIUM CYCLOSILICATE (LOKELMA) 5 GM PACKET PO SCH ×2 (10:40→10:53)
[2022-09-28] MEDS: APIXABAN 2.5 MG TABLET PO SCH ×2 (10:40→22:26)
[2022-09-28] MEDS: methylPREDNISolone NA SUCC 40 MG/1 ML VIAL IVPUSH SCH (10:40)
[2022-09-28] MEDS: SODIUM BICARBONATE 650 MG TABLET PO SCH ×2 (10:40→22:27)
[2022-09-28] MEDS: ATOVAQUONE 750 MG/5 ML (UNIT-DOSE PACKAGING) PO SCH ×2 (10:41→22:27)
[2022-09-28] MEDS: MYCOPHENOLATE MOFETIL 500 MG TABLET PO SCH ×2 (10:42→22:26)
[2022-09-28 11:54] LABS: ANISOCYTOSIS 1+; MACROCYTOSIS 0; OVALOCYTE 2+
[2022-09-28] MEDS: SODIUM CHLORIDE 0.45% 1,000 ML IV SCH ×2 (15:00→19:20)
[2022-09-28] MEDS ORDERED: CHLORHEXIDINE GLUCONATE 4% CLEANSER FOR DECOLONIZATION TP SCH (22:00)
[2022-09-28] MEDS: MELATONIN 5 MG TABLETS PO SCH (22:26)
[2022-09-29] MEDS: PIPERACILLIN/TAZOB 2.25 GM 2.25 GM in DEXTROSE 5%-WATER - 50 ML IVPB SCH ×3 (01:27→17:29)
[2022-09-29] MEDS: dilTIAZem HCL 30 MG TABLET PO SCH ×4 (05:14→23:03)
[2022-09-29] MEDS: METOPROLOL TARTRATE 50 MG TABLET (FP) PO SCH ×3 (05:14→23:00)
[2022-09-29 06:59] LABS: HEMATOCRIT 24.6 % (32.4-45.2); HEMOGLOBIN 8.3 GM/dL (10.7-15.3); MCH 30.5 pg (25.7-33.7); MCHC 33.5 g/dl (32.0-36.0); MEAN CELL VOLUME 90.9 fl (80-96); MEAN PLT VOLUME 9.1 fl (7.5-11.1); PLATELET COUNT 152 10^3/uL (134-434); RBC 2.71 M/mm3 (3.60-5.2); RDW 15.1 % (11.6-15.6); WHITE BLOOD COUNT 9.3 K/mm3 (4.0-10.0)
[2022-09-29 07:25] LABS: CHLORIDE 107 mmol/L (98-107); SODIUM 139 mmol/L (136-145)
[2022-09-29 07:27] LABS: ALBUMIN 1.8 g/dl (3.4-5.0); ANION GAP 11 MMOL/L (8-16); CALCIUM 7.5 mg/dL (8.5-10.1); CO2 21 mmol/L (21-32); GLUCOSE,RANDOM 98 mg/dL (74-106); MAGNESIUM 2.2 mg/dL (1.8-2.4)
[2022-09-29 07:31] LABS: BILIRUBIN,TOTAL 0.4 mg/dL (0.2-1); CREATININE 6.1 mg/dL (0.55-1.3); PHOSPHOROUS 7.4 mg/dL (2.5-4.9); SGOT/AST 62 U/L (15-37); SGPT/ALT 73 U/L (13-61); TOT PROT 5.5 g/dl (6.4-8.2)
[2022-09-29 07:33] LABS: ALK PHOS 44 U/L (45-117)
[2022-09-29 07:38] LABS: BLOOD UREA NITROGEN 140.8 mg/dL (7-18)
[2022-09-29] MEDS: SODIUM BICARBONATE 650 MG TABLET PO SCH (09:13)
[2022-09-29] MEDS: APIXABAN 2.5 MG TABLET PO SCH ×2 (09:13→23:01)
[2022-09-29] MEDS: MYCOPHENOLATE MOFETIL 500 MG TABLET PO SCH ×2 (09:14→23:00)
[2022-09-29] MEDS: methylPREDNISolone NA SUCC 40 MG/1 ML VIAL IVPUSH SCH (09:17)
[2022-09-29] MEDS: SEVELAMER CARBONATE 800 MG TAB (FP) PO SCH ×3 (09:17→17:30)
[2022-09-29] MEDS ORDERED: SODIUM ZIRCONIUM CYCLOSILICATE (LOKELMA) 5 GM PACKET PO SCH (10:00)
[2022-09-29 10:29] LABS: HEMATOCRIT 28.3 % (32.4-45.2); HEMOGLOBIN 9.3 GM/dL (10.7-15.3); MCH 30.2 pg (25.7-33.7); MCHC 32.9 g/dl (32.0-36.0); MEAN CELL VOLUME 91.8 fl (80-96); MEAN PLT VOLUME 8.9 fl (7.5-11.1); PLATELET COUNT 171 10^3/uL (134-434); RBC 3.08 M/mm3 (3.60-5.2); WHITE BLOOD COUNT 10.5 K/mm3 (4.0-10.0)
[2022-09-29] MEDS: ATOVAQUONE 750 MG/5 ML (UNIT-DOSE PACKAGING) PO SCH (10:49)
[2022-09-29] MEDS: SODIUM CHLORIDE 0.45% 1,000 ML IV SCH ×2 (17:30→22:45)
[2022-09-29] MEDS: LEVALBUTEROL HCL 0.63 MG/3 ML VIAL.NEB. IH PRN (20:50)
[2022-09-29] MEDS: MELATONIN 5 MG TABLETS PO SCH (23:01)
[2022-09-29] MEDS: ONDANSETRON 4 MG/2 ML VIAL IVPUSH PRN (23:09)
[2022-09-30] MEDS: PIPERACILLIN/TAZOB 2.25 GM 2.25 GM in DEXTROSE 5%-WATER - 50 ML IVPB SCH ×3 (01:07→18:04)
[2022-09-30] MEDS: METOPROLOL TARTRATE 50 MG TABLET (FP) PO SCH ×3 (06:21→22:26)
[2022-09-30] MEDS: dilTIAZem HCL 30 MG TABLET PO SCH ×3 (06:21→18:03)
[2022-09-30 09:25] LABS: CHLORIDE 107 mmol/L (98-107); SODIUM 139 mmol/L (136-145)
[2022-09-30 09:28] LABS: ANION GAP 13 MMOL/L (8-16); CALCIUM 8.3 mg/dL (8.5-10.1); CO2 20 mmol/L (21-32); GLUCOSE,RANDOM 82 mg/dL (74-106)
[2022-09-30 09:30] LABS: SGPT/ALT 85 U/L (13-61)
[2022-09-30 09:32] LABS: SGOT/AST 58 U/L (15-37)
[2022-09-30 09:33] LABS: ALK PHOS 50 U/L (45-117); BILIRUBIN,TOTAL 0.4 mg/dL (0.2-1); BLOOD UREA NITROGEN 139.6 mg/dL (7-18); TOT PROT 5.7 g/dl (6.4-8.2)
[2022-09-30] MEDS: SODIUM BICARBONATE 650 MG TABLET PO SCH (10:24)
[2022-09-30] MEDS: SEVELAMER CARBONATE 800 MG TAB (FP) PO SCH ×3 (10:24→18:04)
[2022-09-30] MEDS: methylPREDNISolone NA SUCC 40 MG/1 ML VIAL IVPUSH SCH (10:24)
[2022-09-30] MEDS: APIXABAN 2.5 MG TABLET PO SCH ×2 (10:24→22:26)
[2022-09-30] MEDS: MYCOPHENOLATE MOFETIL 500 MG TABLET PO SCH ×2 (10:24→22:26)
[2022-09-30] MEDS: ATOVAQUONE 750 MG/5 ML (UNIT-DOSE PACKAGING) PO SCH ×2 (11:47→18:03)
[2022-09-30] MEDS: ACETAMINOPHEN 325 MG TABLET (FP) PO PRN (15:29)
[2022-09-30] MEDS: MELATONIN 5 MG TABLETS PO SCH (22:26)
[2022-10-01 00:31] LABS: EPI CELLS 0 /uL (0-25.1); HYALINE CASTS 0 /uL (0-3.1); URINE APPEARANCE CLEAR; URINE BACTERIA 0 /uL (0-1359); URINE BILIRUBIN NEGATIVE (NEGATIVE); URINE COLOR YELLOW; URINE GLUCOSE (UA) NEGATIVE (NEGATIVE); URINE KETONE NEGATIVE (NEGATIVE); URINE LEUK ESTERASE NEGATIVE (NEGATIVE); URINE NITRITE NEGATIVE (NEGATIVE); URINE PROTEIN 1+ (NEGATIVE); URINE RBC 10 /uL (0-23.9); URINE UROBILINOGEN 0.2 mg/dL (0.2-1.0); URINE WBC 2 /uL (0-25.8)
[2022-10-01] MEDS: dilTIAZem HCL 30 MG TABLET PO SCH ×4 (00:35→23:19)
[2022-10-01] MEDS: PIPERACILLIN/TAZOB 2.25 GM 2.25 GM in DEXTROSE 5%-WATER - 50 ML IVPB SCH ×2 (01:03→10:09)
[2022-10-01] MEDS: METOPROLOL TARTRATE 50 MG TABLET (FP) PO SCH ×2 (06:58→23:02)
[2022-10-01 08:45] LABS: CHLORIDE 106 mmol/L (98-107); POTASSIUM 4.1 mmol/L (3.5-5.1); SODIUM 140 mmol/L (136-145)
[2022-10-01 08:46] LABS: BASO % 0.2 % (0-2.0); EOS % 0.2 % (0-4.5); HEMATOCRIT 26.2 % (32.4-45.2); HEMOGLOBIN 8.6 GM/dL (10.7-15.3); LYMPH % 1.2 % (8-40); MCH 30.4 pg (25.7-33.7); MCHC 32.9 g/dl (32.0-36.0); MEAN CELL VOLUME 92.4 fl (80-96); MEAN PLT VOLUME 10.2 fl (7.5-11.1); MONO % 0.8 % (3.8-10.2); NEUT % 97.6 % (42.8-82.8); PLATELET COUNT 166 10^3/uL (134-434); RBC 2.84 M/mm3 (3.60-5.2); RDW 14.9 % (11.6-15.6); WHITE BLOOD COUNT 10.8 K/mm3 (4.0-10.0)
[2022-10-01 08:49] LABS: CALCIUM 8.2 mg/dL (8.5-10.1)
[2022-10-01 08:50] LABS: ALBUMIN 1.9 g/dl (3.4-5.0); ANION GAP 15 MMOL/L (8-16); CO2 19 mmol/L (21-32); GLUCOSE,RANDOM 84 mg/dL (74-106)
[2022-10-01 08:53] LABS: CREATININE 5.9 mg/dL (0.55-1.3); SGOT/AST 59 U/L (15-37); SGPT/ALT 79 U/L (13-61)
[2022-10-01 08:54] LABS: BILIRUBIN,TOTAL 0.4 mg/dL (0.2-1); TOT PROT 5.8 g/dl (6.4-8.2)
[2022-10-01 08:55] LABS: ALK PHOS 51 U/L (45-117)
[2022-10-01 08:56] LABS: BLOOD UREA NITROGEN 142.3 mg/dL (7-18)
[2022-10-01] MEDS: ACETAMINOPHEN 325 MG TABLET (FP) PO PRN ×3 (10:06→22:20)
[2022-10-01] MEDS: SODIUM BICARBONATE 650 MG TABLET PO SCH (10:08)
[2022-10-01] MEDS: SEVELAMER CARBONATE 800 MG TAB (FP) PO SCH ×3 (10:08→18:40)
[2022-10-01] MEDS: methylPREDNISolone NA SUCC 40 MG/1 ML VIAL IVPUSH SCH (10:09)
[2022-10-01] MEDS: ATOVAQUONE 750 MG/5 ML (UNIT-DOSE PACKAGING) PO SCH ×2 (10:10→18:17)
[2022-10-01] MEDS: MYCOPHENOLATE MOFETIL 500 MG TABLET PO SCH ×2 (10:10→23:03)
[2022-10-01] MEDS: APIXABAN 2.5 MG TABLET PO SCH ×2 (10:11→23:03)
[2022-10-01] MEDS: ONDANSETRON 4 MG/2 ML VIAL IVPUSH PRN (10:44)
[2022-10-01 12:10] LABS: HEMATOCRIT 23.5 % (32.4-45.2); MCH 30.9 pg (25.7-33.7); MCHC 34.1 g/dl (32.0-36.0); MEAN CELL VOLUME 90.5 fl (80-96); MEAN PLT VOLUME 9.8 fl (7.5-11.1); PLATELET COUNT 143 10^3/uL (134-434); RBC 2.59 M/mm3 (3.60-5.2); RDW 14.4 % (11.6-15.6); WHITE BLOOD COUNT 8.9 K/mm3 (4.0-10.0)
[2022-10-01 12:20] LABS: ANISOCYTOSIS 1+; MACROCYTOSIS 0; OVALOCYTE 2+
[2022-10-01] MEDS: LEVALBUTEROL HCL 0.63 MG/3 ML VIAL.NEB. IH PRN ×3 (13:26→22:25)
[2022-10-01] MEDS: ZINC OXIDE 20% TOPICAL OINTMENT 30 GM TUBE TP SCH ×2 (16:03→23:03)
[2022-10-01] MEDS ORDERED: VANCOMYCIN/WATER FOR INJ (PEG) 1,000 MG/200 ML BAG IVPB ONE ×2 (16:35→18:45)
[2022-10-01] MEDS ORDERED: FUROSEMIDE 40 MG/4 ML INJECTABLE VIAL IVPUSH ONE (16:50)
[2022-10-01] MEDS: MEROPENEM 500 MG in DEXTROSE 5%-WATER 100 ML IVPB SCH (17:44)
[2022-10-01] MEDS: MELATONIN 5 MG TABLETS PO SCH (23:02)
[2022-10-02 03:27] LABS: ARTERIAL BLD GAS O2 SATURATION 97.3 % (95-98); ARTERIAL BLOOD GAS BASE EXCESS -8.9 mmol/L (-2-2); ARTERIAL BLOOD GAS PO2 93.7 mmHg (80-100); ARTERIAL BLOOD GAS pH 7.396 (7.350-7.450)
[2022-10-02 03:28] LABS: ALLENS TEST POSITIVE
[2022-10-02] MEDS ORDERED: ACETAMINOPHEN INJECTION 100 ML IVPB ONE (04:21)
[2022-10-02] MEDS ORDERED: ACETAMINOPHEN 1000 MG/100 ML BAG IVPB ONE (06:00)
[2022-10-02] MEDS: ONDANSETRON 4 MG/2 ML VIAL IVPUSH PRN (06:04)
[2022-10-02] MEDS: MEROPENEM 500 MG in DEXTROSE 5%-WATER 100 ML IVPB SCH ×2 (06:32→17:05)
[2022-10-02] MEDS: dilTIAZem HCL 30 MG TABLET PO SCH ×3 (06:33→21:38)
[2022-10-02 07:31] LABS: CHLORIDE 109 mmol/L (98-107); POTASSIUM 4.1 mmol/L (3.5-5.1); SODIUM 139 mmol/L (136-145)
[2022-10-02 07:40] LABS: CALCIUM 7.8 mg/dL (8.5-10.1)
[2022-10-02 07:41] LABS: ALBUMIN 1.6 g/dl (3.4-5.0); ANION GAP 15 MMOL/L (8-16); CO2 14 mmol/L (21-32); GLUCOSE,RANDOM 73 mg/dL (74-106)
[2022-10-02 07:44] LABS: CREATININE 5.9 mg/dL (0.55-1.3); SGOT/AST 74 U/L (15-37); SGPT/ALT 67 U/L (13-61)
[2022-10-02 07:45] LABS: BILIRUBIN,TOTAL 0.7 mg/dL (0.2-1); LDH 834 U/L (84-246)
[2022-10-02 07:46] LABS: ALK PHOS 51 U/L (45-117)
[2022-10-02] MEDS: ATOVAQUONE 750 MG/5 ML (UNIT-DOSE PACKAGING) PO SCH ×2 (09:26→17:05)
[2022-10-02] MEDS: SEVELAMER CARBONATE 800 MG TAB (FP) PO SCH ×3 (09:26→16:52)
[2022-10-02] MEDS: MYCOPHENOLATE MOFETIL 500 MG TABLET PO SCH ×2 (09:32→21:39)
[2022-10-02] MEDS: methylPREDNISolone NA SUCC 40 MG/1 ML VIAL IVPUSH SCH (09:32)
[2022-10-02] MEDS: METOPROLOL TARTRATE 5 MG/5 ML VIAL IVPUSH PRN ×2 (09:32→13:06)
[2022-10-02] MEDS: APIXABAN 2.5 MG TABLET PO SCH ×2 (09:32→21:39)
[2022-10-02] MEDS: METOPROLOL TARTRATE 50 MG TABLET (FP) PO SCH ×2 (09:33→21:39)
[2022-10-02] MEDS ORDERED: FUROSEMIDE 40 MG/4 ML INJECTABLE VIAL IVPUSH ONE ×2 (09:38→14:41)
[2022-10-02] MEDS ORDERED: FUROSEMIDE 40 MG/4 ML INJECTABLE VIAL ONE (09:39)
[2022-10-02] MEDS: SODIUM BICARBONATE 650 MG TABLET PO SCH (09:42)
[2022-10-02] MEDS: MUPIROCIN 2% TOPICAL OINTMENT FOR DECOLONIZATION NS SCH ×2 (09:43→21:38)
[2022-10-02] MEDS: ZINC OXIDE 20% TOPICAL OINTMENT 30 GM TUBE TP SCH ×2 (09:43→21:40)
[2022-10-02 11:01] LABS: HEMATOCRIT 26.5 % (32.4-45.2); HEMOGLOBIN 8.6 GM/dL (10.7-15.3); MCH 30.2 pg (25.7-33.7); MCHC 32.7 g/dl (32.0-36.0); MEAN CELL VOLUME 92.3 fl (80-96); MEAN PLT VOLUME 9.7 fl (7.5-11.1); PLATELET COUNT 147 10^3/uL (134-434); RBC 2.87 M/mm3 (3.60-5.2); RDW 14.9 % (11.6-15.6); WHITE BLOOD COUNT 12.5 K/mm3 (4.0-10.0)
[2022-10-02 11:49] LABS: ANISOCYTOSIS 0; MACROCYTOSIS 0
[2022-10-02] MEDS ORDERED: dilTIAZem HCL 50 MG/10 ML - 10 ML VIAL IVPUSH ONE (15:32)
[2022-10-02] MEDS ORDERED: dilTIAZem HCL 125 MG/25 ML - 25 ML VIAL ONE (15:33)
[2022-10-02] MEDS ORDERED: CASPOFUNGIN ACETATE 70 MG in SODIUM CHLORIDE 250 ML IVPB ONE (16:30)
[2022-10-02] MEDS: dilTIAZem HCL 50 MG/10 ML - 10 ML VIAL IVPUSH ONE ×2 (17:05→18:08)
[2022-10-02] MEDS: SODIUM BICARBONATE 8.4% 50 MEQ/50 ML DISP.SYRIN IVPUSH SCH (18:08)
[2022-10-02] MEDS: CHLORHEXIDINE GLUCONATE 4% CLEANSER FOR DECOLONIZATION TP SCH (21:39)
[2022-10-02] MEDS: MELATONIN 5 MG TABLETS PO SCH (21:40)
[2022-10-03] MEDS: SODIUM BICARBONATE 8.4% 50 MEQ/50 ML DISP.SYRIN IVPUSH SCH ×2 (01:51→09:06)
[2022-10-03] MEDS: ONDANSETRON 4 MG/2 ML VIAL IVPUSH PRN (02:01)
[2022-10-03] MEDS ORDERED: FUROSEMIDE 40 MG/4 ML INJECTABLE VIAL IVPUSH ONE (03:14)
[2022-10-03] MEDS: MEROPENEM 500 MG in DEXTROSE 5%-WATER 100 ML IVPB SCH ×2 (04:14→16:52)
[2022-10-03] MEDS: dilTIAZem HCL 30 MG TABLET PO SCH ×3 (05:57→21:08)
[2022-10-03 06:35] LABS: ALLENS TEST POSITIVE; ARTERIAL BLD GAS O2 SATURATION 91.4 % (95-98); ARTERIAL BLOOD GAS BASE EXCESS -7.8 mmol/L (-2-2); ARTERIAL BLOOD GAS PO2 61.5 mmHg (80-100)
[2022-10-03 06:57] LABS: HEMATOCRIT 24.3 % (32.4-45.2); HEMOGLOBIN 7.9 GM/dL (10.7-15.3); MCH 30.1 pg (25.7-33.7); MCHC 32.7 g/dl (32.0-36.0); MEAN PLT VOLUME 10.1 fl (7.5-11.1); PLATELET COUNT 139 10^3/uL (134-434); RBC 2.64 M/mm3 (3.60-5.2); RDW 14.8 % (11.6-15.6); WHITE BLOOD COUNT 12.9 K/mm3 (4.0-10.0)
[2022-10-03 07:16] LABS: CHLORIDE 108 mmol/L (98-107); POTASSIUM 4.4 mmol/L (3.5-5.1); SODIUM 140 mmol/L (136-145)
[2022-10-03 07:17] LABS: CALCIUM 7.6 mg/dL (8.5-10.1)
[2022-10-03 07:18] LABS: ANION GAP 15 MMOL/L (8-16); CO2 18 mmol/L (21-32); GLUCOSE,RANDOM 89 mg/dL (74-106); MAGNESIUM 1.8 mg/dL (1.8-2.4)
[2022-10-03 07:21] LABS: CREATININE 6.2 mg/dL (0.55-1.3)
[2022-10-03 07:25] LABS: BLOOD UREA NITROGEN 144.5 mg/dL (7-18); PHOSPHOROUS 8.9 mg/dL (2.5-4.9)
[2022-10-03] MEDS: ATOVAQUONE 750 MG/5 ML (UNIT-DOSE PACKAGING) PO SCH ×2 (08:38→16:52)
[2022-10-03] MEDS: SEVELAMER CARBONATE 800 MG TAB (FP) PO SCH ×3 (08:39→16:52)
[2022-10-03] MEDS: methylPREDNISolone NA SUCC 40 MG/1 ML VIAL IVPUSH SCH (09:06)
[2022-10-03] MEDS: MYCOPHENOLATE MOFETIL 500 MG TABLET PO SCH ×2 (09:06→21:08)
[2022-10-03] MEDS: SODIUM BICARBONATE 650 MG TABLET PO SCH (09:06)
[2022-10-03] MEDS: APIXABAN 2.5 MG TABLET PO SCH ×2 (09:06→21:08)
[2022-10-03] MEDS: METOPROLOL TARTRATE 50 MG TABLET (FP) PO SCH ×2 (09:06→21:08)
[2022-10-03] MEDS: MUPIROCIN 2% TOPICAL OINTMENT FOR DECOLONIZATION NS SCH ×2 (09:07→21:07)
[2022-10-03] MEDS: ZINC OXIDE 20% TOPICAL OINTMENT 30 GM TUBE TP SCH ×2 (09:22→21:08)
[2022-10-03 11:12] LABS: HEMATOCRIT 21.5 % (32.4-45.2); HEMOGLOBIN 7.2 GM/dL (10.7-15.3); MCH 30.3 pg (25.7-33.7); MCHC 33.4 g/dl (32.0-36.0); MEAN CELL VOLUME 90.6 fl (80-96); MEAN PLT VOLUME 9.7 fl (7.5-11.1); PLATELET COUNT 128 10^3/uL (134-434); RBC 2.37 M/mm3 (3.60-5.2); RDW 14.9 % (11.6-15.6); WHITE BLOOD COUNT 11.1 K/mm3 (4.0-10.0)
[2022-10-03] MEDS ORDERED: VANCOMYCIN/WATER FOR INJ (PEG) 1,000 MG/200 ML BAG IVPB ONE (12:26)
[2022-10-03] MEDS: CASPOFUNGIN ACETATE 50 MG in SODIUM CHLORIDE 250 ML IVPB SCH (13:27)
[2022-10-03] MEDS: FUROSEMIDE 40 MG/4 ML INJECTABLE VIAL IVPUSH SCH ×2 (14:24→17:04)
[2022-10-03] MEDS: MELATONIN 5 MG TABLETS PO SCH ×2 (21:08→21:14)
[2022-10-03] MEDS: CHLORHEXIDINE GLUCONATE 4% CLEANSER FOR DECOLONIZATION TP SCH (21:08)
[2022-10-04] MEDS: MEROPENEM 500 MG in DEXTROSE 5%-WATER 100 ML IVPB SCH ×2 (05:25→17:17)
[2022-10-04] MEDS: FUROSEMIDE 40 MG/4 ML INJECTABLE VIAL IVPUSH SCH ×3 (05:26→17:17)
[2022-10-04] MEDS: dilTIAZem HCL 30 MG TABLET PO SCH ×3 (05:26→21:29)
[2022-10-04 07:10] LABS: INR 2.31 (0.83-1.09); PROTHROMBIN TIME (PATIENT) 26.6 SEC (9.7-13.0)
[2022-10-04 07:17] LABS: HEMATOCRIT 20.9 % (32.4-45.2); MCHC 33.2 g/dl (32.0-36.0); MEAN CELL VOLUME 90.4 fl (80-96); MEAN PLT VOLUME 9.5 fl (7.5-11.1); PLATELET COUNT 114 10^3/uL (134-434); RBC 2.31 M/mm3 (3.60-5.2); RDW 14.7 % (11.6-15.6); WHITE BLOOD COUNT 9.2 K/mm3 (4.0-10.0)
[2022-10-04 07:19] LABS: HEMOGLOBIN 6.9 GM/dL (10.7-15.3)
[2022-10-04] MEDS: ONDANSETRON 4 MG/2 ML VIAL IVPUSH PRN ×2 (07:37→17:19)
[2022-10-04] MEDS: ATOVAQUONE 750 MG/5 ML (UNIT-DOSE PACKAGING) PO SCH ×2 (09:00→17:17)
[2022-10-04] MEDS: SEVELAMER CARBONATE 800 MG TAB (FP) PO SCH ×3 (09:00→18:29)
[2022-10-04] MEDS: methylPREDNISolone NA SUCC 40 MG/1 ML VIAL IVPUSH SCH (09:39)
[2022-10-04] MEDS: APIXABAN 2.5 MG TABLET PO SCH ×2 (09:39→21:30)
[2022-10-04] MEDS: SODIUM BICARBONATE 650 MG TABLET PO SCH (09:39)
[2022-10-04] MEDS: METOPROLOL TARTRATE 50 MG TABLET (FP) PO SCH ×2 (09:39→21:30)
[2022-10-04] MEDS: MYCOPHENOLATE MOFETIL 500 MG TABLET PO SCH ×2 (09:39→21:30)
[2022-10-04] MEDS: ZINC OXIDE 20% TOPICAL OINTMENT 30 GM TUBE TP SCH ×2 (09:42→21:31)
[2022-10-04] MEDS: MUPIROCIN 2% TOPICAL OINTMENT FOR DECOLONIZATION NS SCH ×2 (09:43→21:30)
[2022-10-04 09:49] LABS: ALBUMIN 1.6 g/dl (3.4-5.0); ALK PHOS 58 U/L (45-117); ANION GAP 17 MMOL/L (8-16); BILIRUBIN,TOTAL 0.3 mg/dL (0.2-1); BLOOD UREA NITROGEN 151.2 mg/dL (7-18); CALCIUM 7.1 mg/dL (8.5-10.1); CHLORIDE 104 mmol/L (98-107); CO2 16 mmol/L (21-32); CREATININE 6.7 mg/dL (0.55-1.3); GLUCOSE,RANDOM 132 mg/dL (74-106); MAGNESIUM 2.1 mg/dL (1.8-2.4); PHOSPHOROUS 8.3 mg/dL (2.5-4.9); POTASSIUM 4.2 mmol/L (3.5-5.1); SGOT/AST 49 U/L (15-37); SGPT/ALT 46 U/L (13-61); SODIUM 137 mmol/L (136-145)
[2022-10-04] MEDS ORDERED: LORazepam 2 MG/ML SDV VIAL IVPUSH ONE (13:57)
[2022-10-04] MEDS: CASPOFUNGIN ACETATE 50 MG in SODIUM CHLORIDE 250 ML IVPB SCH (13:59)
[2022-10-04] MEDS: METOPROLOL TARTRATE 5 MG/5 ML VIAL IVPUSH PRN (19:44)
[2022-10-04] MEDS: MELATONIN 5 MG TABLETS PO SCH (21:30)
[2022-10-04] MEDS: CHLORHEXIDINE GLUCONATE 4% CLEANSER FOR DECOLONIZATION TP SCH (21:30)
[2022-10-05] MEDS: dilTIAZem HCL 30 MG TABLET PO SCH ×3 (05:32→21:14)
[2022-10-05] MEDS: FUROSEMIDE 40 MG/4 ML INJECTABLE VIAL IVPUSH SCH (05:32)
[2022-10-05] MEDS: MEROPENEM 500 MG in DEXTROSE 5%-WATER 100 ML IVPB SCH ×2 (05:32→18:04)
[2022-10-05 07:05] LABS: CHLORIDE 109 mmol/L (98-107); POTASSIUM 4.2 mmol/L (3.5-5.1); SODIUM 142 mmol/L (136-145)
[2022-10-05 07:08] LABS: ALBUMIN 1.5 g/dl (3.4-5.0); CALCIUM 7.1 mg/dL (8.5-10.1); HEMATOCRIT 23.8 % (32.4-45.2); HEMOGLOBIN 8.1 GM/dL (10.7-15.3); MCH 29.3 pg (25.7-33.7); MCHC 33.8 g/dl (32.0-36.0); MEAN CELL VOLUME 86.7 fl (80-96); MEAN PLT VOLUME 9.2 fl (7.5-11.1); PLATELET COUNT 107 10^3/uL (134-434); RBC 2.75 M/mm3 (3.60-5.2); RDW 18.2 % (11.6-15.6); WHITE BLOOD COUNT 7.5 K/mm3 (4.0-10.0)
[2022-10-05 07:09] LABS: ANION GAP 13 MMOL/L (8-16); CO2 20 mmol/L (21-32); GLUCOSE,RANDOM 115 mg/dL (74-106)
[2022-10-05 07:10] LABS: INR 2.11 (0.83-1.09); PROTHROMBIN TIME (PATIENT) 24.3 SEC (9.7-13.0)
[2022-10-05 07:11] LABS: CREATININE 6.9 mg/dL (0.55-1.3); SGOT/AST 38 U/L (15-37)
[2022-10-05 07:12] LABS: SGPT/ALT 37 U/L (13-61)
[2022-10-05 07:13] LABS: BILIRUBIN,TOTAL 0.5 mg/dL (0.2-1); TOT PROT 4.9 g/dl (6.4-8.2)
[2022-10-05 07:14] LABS: ALK PHOS 58 U/L (45-117)
[2022-10-05 07:43] LABS: BLOOD UREA NITROGEN 155.6 mg/dL (7-18); PHOSPHOROUS 8.2 mg/dL (2.5-4.9)
[2022-10-05] MEDS: SEVELAMER CARBONATE 800 MG TAB (FP) PO SCH ×3 (08:46→17:40)
[2022-10-05] MEDS: ATOVAQUONE 750 MG/5 ML (UNIT-DOSE PACKAGING) PO SCH ×2 (08:47→17:40)
[2022-10-05] MEDS: APIXABAN 2.5 MG TABLET PO SCH ×2 (09:16→21:14)
[2022-10-05] MEDS: SODIUM BICARBONATE 650 MG TABLET PO SCH (09:19)
[2022-10-05] MEDS: METOPROLOL TARTRATE 50 MG TABLET (FP) PO SCH ×2 (09:19→21:14)
[2022-10-05] MEDS: methylPREDNISolone NA SUCC 40 MG/1 ML VIAL IVPUSH SCH (09:19)
[2022-10-05] MEDS: LIDOCAINE 5% TOPICAL PATCH TP SCH (09:19)
[2022-10-05] MEDS: MYCOPHENOLATE MOFETIL 500 MG TABLET PO SCH ×2 (09:20→21:14)
[2022-10-05] MEDS: ZINC OXIDE 20% TOPICAL OINTMENT 30 GM TUBE TP SCH ×2 (09:36→21:15)
[2022-10-05] MEDS: MUPIROCIN 2% TOPICAL OINTMENT FOR DECOLONIZATION NS SCH ×2 (09:37→21:15)
[2022-10-05] MEDS: CASPOFUNGIN ACETATE 50 MG in SODIUM CHLORIDE 250 ML IVPB SCH (12:09)
[2022-10-05] MEDS ORDERED: FUROSEMIDE 40 MG/4 ML INJECTABLE VIAL IVPUSH ONE (16:39)
[2022-10-05] MEDS: MELATONIN 5 MG TABLETS PO SCH (21:14)
[2022-10-05] MEDS: CHLORHEXIDINE GLUCONATE 4% CLEANSER FOR DECOLONIZATION TP SCH (21:15)
[2022-10-05] MEDS: LIDOCAINE PATCH REMOVAL MC SCH (21:15)
[2022-10-06] MEDS: APIXABAN 2.5 MG TABLET PO SCH ×3 (03:34→21:41)
[2022-10-06] MEDS: MEROPENEM 500 MG in DEXTROSE 5%-WATER 100 ML IVPB SCH ×2 (05:38→17:38)
[2022-10-06] MEDS: dilTIAZem HCL 30 MG TABLET PO SCH ×3 (05:38→21:40)
[2022-10-06 06:00] LABS: HEMOGLOBIN 8.2 GM/dL (10.7-15.3); MCH 29.5 pg (25.7-33.7); MCHC 34.2 g/dl (32.0-36.0); MEAN CELL VOLUME 86.1 fl (80-96); MEAN PLT VOLUME 9.6 fl (7.5-11.1); PLATELET COUNT 108 10^3/uL (134-434); RBC 2.79 M/mm3 (3.60-5.2); RDW 17.5 % (11.6-15.6); WHITE BLOOD COUNT 7.2 K/mm3 (4.0-10.0)
[2022-10-06 06:50] LABS: INR 1.84 (0.83-1.09); PROTHROMBIN TIME (PATIENT) 21.2 SEC (9.7-13.0)
[2022-10-06 06:56] LABS: CHLORIDE 104 mmol/L (98-107); POTASSIUM 4.2 mmol/L (3.5-5.1); SODIUM 138 mmol/L (136-145)
[2022-10-06 06:58] LABS: ALBUMIN 1.7 g/dl (3.4-5.0); ANION GAP 14 MMOL/L (8-16); CO2 20 mmol/L (21-32); GLUCOSE,RANDOM 129 mg/dL (74-106)
[2022-10-06 07:01] LABS: CREATININE 6.8 mg/dL (0.55-1.3); SGOT/AST 35 U/L (15-37); SGPT/ALT 32 U/L (13-61)
[2022-10-06 07:03] LABS: BILIRUBIN,TOTAL 0.3 mg/dL (0.2-1); TOT PROT 5.1 g/dl (6.4-8.2)
[2022-10-06 07:04] LABS: ALK PHOS 57 U/L (45-117)
[2022-10-06 09:13] LABS: PHOSPHOROUS 8.9 mg/dL (2.5-4.9)
[2022-10-06 09:14] LABS: BLOOD UREA NITROGEN 159.5 mg/dL (7-18)
[2022-10-06] MEDS: METOPROLOL TARTRATE 50 MG TABLET (FP) PO SCH ×2 (09:22→21:41)
[2022-10-06] MEDS: SEVELAMER CARBONATE 800 MG TAB (FP) PO SCH ×3 (09:22→17:06)
[2022-10-06] MEDS: SODIUM BICARBONATE 650 MG TABLET PO SCH (09:22)
[2022-10-06] MEDS: MYCOPHENOLATE MOFETIL 500 MG TABLET PO SCH ×2 (09:22→21:41)
[2022-10-06] MEDS: ATOVAQUONE 750 MG/5 ML (UNIT-DOSE PACKAGING) PO SCH ×2 (09:22→17:06)
[2022-10-06] MEDS: methylPREDNISolone NA SUCC 40 MG/1 ML VIAL IVPUSH SCH (09:22)
[2022-10-06] MEDS: AMINO ACIDS/PROTEIN HYDROLYS 30 ML LIQUID.PKT PO SCH (09:23)
[2022-10-06] MEDS: MUPIROCIN 2% TOPICAL OINTMENT FOR DECOLONIZATION NS SCH ×2 (09:23→21:42)
[2022-10-06] MEDS: ZINC OXIDE 20% TOPICAL OINTMENT 30 GM TUBE TP SCH ×2 (09:30→21:42)
[2022-10-06] MEDS: FUROSEMIDE 100 MG/10 ML INJECTABLE VIAL IVPB SCH (09:30)
[2022-10-06] MEDS: LIDOCAINE 5% TOPICAL PATCH TP SCH (09:30)
[2022-10-06] MEDS: CASPOFUNGIN ACETATE 50 MG in SODIUM CHLORIDE 250 ML IVPB SCH (14:37)
[2022-10-06] MEDS: MELATONIN 5 MG TABLETS PO SCH (21:40)
[2022-10-06] MEDS: LIDOCAINE PATCH REMOVAL MC SCH (21:41)
[2022-10-06] MEDS: CHLORHEXIDINE GLUCONATE 4% CLEANSER FOR DECOLONIZATION TP SCH (21:41)
[2022-10-07] MEDS: MEROPENEM 500 MG in DEXTROSE 5%-WATER 100 ML IVPB SCH ×2 (04:04→18:34)
[2022-10-07] MEDS: dilTIAZem HCL 30 MG TABLET PO SCH ×3 (05:38→21:48)
[2022-10-07 07:26] LABS: HEMATOCRIT 24.7 % (32.4-45.2); HEMOGLOBIN 8.4 GM/dL (10.7-15.3); MCH 29.5 pg (25.7-33.7); MCHC 34.2 g/dl (32.0-36.0); MEAN CELL VOLUME 86.3 fl (80-96); MEAN PLT VOLUME 10.1 fl (7.5-11.1); PLATELET COUNT 108 10^3/uL (134-434); RBC 2.86 M/mm3 (3.60-5.2); RDW 17.5 % (11.6-15.6); WHITE BLOOD COUNT 6.9 K/mm3 (4.0-10.0)
[2022-10-07 07:45] LABS: CHLORIDE 103 mmol/L (98-107); POTASSIUM 4.3 mmol/L (3.5-5.1); SODIUM 137 mmol/L (136-145)
[2022-10-07 07:48] LABS: ALBUMIN 1.8 g/dl (3.4-5.0); ANION GAP 13 MMOL/L (8-16); CALCIUM 7.4 mg/dL (8.5-10.1); CO2 21 mmol/L (21-32); GLUCOSE,RANDOM 146 mg/dL (74-106)
[2022-10-07 07:51] LABS: CREATININE 6.4 mg/dL (0.55-1.3); SGPT/ALT 33 U/L (13-61)
[2022-10-07 07:52] LABS: SGOT/AST 40 U/L (15-37)
[2022-10-07 07:53] LABS: BILIRUBIN,TOTAL 0.4 mg/dL (0.2-1); TOT PROT 5.2 g/dl (6.4-8.2)
[2022-10-07 07:54] LABS: ALK PHOS 56 U/L (45-117)
[2022-10-07 08:39] LABS: BLOOD UREA NITROGEN 176.8 mg/dL (7-18)
[2022-10-07] MEDS: APIXABAN 2.5 MG TABLET PO SCH ×3 (09:42→21:49)
[2022-10-07] MEDS: SODIUM BICARBONATE 650 MG TABLET PO SCH ×2 (09:43→11:11)
[2022-10-07] MEDS: LIDOCAINE 5% TOPICAL PATCH TP SCH ×2 (09:43→11:11)
[2022-10-07] MEDS: METOPROLOL TARTRATE 50 MG TABLET (FP) PO SCH ×3 (09:43→21:49)
[2022-10-07] MEDS: AMINO ACIDS/PROTEIN HYDROLYS 30 ML LIQUID.PKT PO SCH ×2 (09:43→11:11)
[2022-10-07] MEDS: FUROSEMIDE 100 MG/10 ML INJECTABLE VIAL IVPB SCH (09:43)
[2022-10-07] MEDS: MYCOPHENOLATE MOFETIL 500 MG TABLET PO SCH ×3 (09:44→21:49)
[2022-10-07] MEDS: ATOVAQUONE 750 MG/5 ML (UNIT-DOSE PACKAGING) PO SCH ×3 (09:44→17:01)
[2022-10-07] MEDS: methylPREDNISolone NA SUCC 40 MG/1 ML VIAL IVPUSH SCH ×2 (09:45→11:12)
[2022-10-07] MEDS: SEVELAMER CARBONATE 800 MG TAB (FP) PO SCH ×4 (09:45→17:01)
[2022-10-07] MEDS: ONDANSETRON 4 MG/2 ML VIAL IVPUSH PRN (11:13)
[2022-10-07] MEDS ORDERED: MIDAZOLAM HCL 2 MG/2 ML SINGLE DOSE VIAL ONE (11:22)
[2022-10-07] MEDS ORDERED: fentaNYL CITRATE 250 MCG/5 ML VIAL ONE (11:23)
[2022-10-07] MEDS ORDERED: MIDAZOLAM HCL 2 MG/2 ML SINGLE DOSE VIAL IVPUSH ONE ×2 (11:26→14:29)
[2022-10-07] MEDS ORDERED: FENTANYL CITRATE/PF 50 MCG/ML VIAL IVPUSH ONE ×4 (11:27→14:31)
[2022-10-07] MEDS ORDERED: METOPROLOL TARTRATE 5 MG/5 ML VIAL IVPUSH ONE (11:48)
[2022-10-07] MEDS: METOPROLOL TARTRATE 5 MG/5 ML VIAL IVPUSH PRN (11:50)
[2022-10-07] MEDS ORDERED: SODIUM CHLORIDE 250 ML IV PRN (12:27)
[2022-10-07] MEDS: ZINC OXIDE 20% TOPICAL OINTMENT 30 GM TUBE TP SCH ×2 (14:42→21:52)
[2022-10-07] MEDS: COLLAGENASE CLOSTRIDIUM HIST. 30 GRAMS TUBE TP SCH (14:42)
[2022-10-07] MEDS: CASPOFUNGIN ACETATE 50 MG in SODIUM CHLORIDE 250 ML IVPB SCH (14:57)
[2022-10-07] MEDS ORDERED: DEXTROSE 5% IVPB ONE (18:00)
[2022-10-07] MEDS ORDERED: WATER IVPB ONE (18:00)
[2022-10-07] MEDS ORDERED: GANCICLOVIR IVPB ONE (18:00)
[2022-10-07] MEDS: MELATONIN 5 MG TABLETS PO SCH (21:48)
[2022-10-07] MEDS: CHLORHEXIDINE GLUCONATE 4% CLEANSER FOR DECOLONIZATION TP SCH (21:49)
[2022-10-07] MEDS: LIDOCAINE PATCH REMOVAL MC SCH (21:51)
[2022-10-07] MEDS: ACETAMINOPHEN 325 MG TABLET (FP) PO PRN (22:07)
[2022-10-08] MEDS: MEROPENEM 500 MG in DEXTROSE 5%-WATER 100 ML IVPB SCH ×2 (04:47→16:49)
[2022-10-08] MEDS: dilTIAZem HCL 30 MG TABLET PO SCH ×3 (05:14→21:59)
[2022-10-08 07:03] LABS: HEMATOCRIT 28.2 % (32.4-45.2); HEMOGLOBIN 9.4 GM/dL (10.7-15.3); MCH 29.1 pg (25.7-33.7); MCHC 33.3 g/dl (32.0-36.0); MEAN CELL VOLUME 87.6 fl (80-96); MEAN PLT VOLUME 10.1 fl (7.5-11.1); PLATELET COUNT 117 10^3/uL (134-434); RBC 3.22 M/mm3 (3.60-5.2); RDW 16.8 % (11.6-15.6); WHITE BLOOD COUNT 7.9 K/mm3 (4.0-10.0)
[2022-10-08 07:16] LABS: CHLORIDE 103 mmol/L (98-107); POTASSIUM 4.5 mmol/L (3.5-5.1); SODIUM 138 mmol/L (136-145)
[2022-10-08 07:22] LABS: ALBUMIN 1.8 g/dl (3.4-5.0); ANION GAP 11 MMOL/L (8-16); CALCIUM 7.5 mg/dL (8.5-10.1); CO2 24 mmol/L (21-32)
[2022-10-08 07:23] LABS: GLUCOSE,RANDOM 115 mg/dL (74-106)
[2022-10-08 07:26] LABS: SGOT/AST 73 U/L (15-37); TOT PROT 5.3 g/dl (6.4-8.2)
[2022-10-08 07:28] LABS: ALK PHOS 78 U/L (45-117)
[2022-10-08 07:36] LABS: BILIRUBIN,TOTAL 0.5 mg/dL (0.2-1); BLOOD UREA NITROGEN 114.2 mg/dL (7-18); MAGNESIUM 1.8 mg/dL (1.8-2.4); PHOSPHOROUS 5.6 mg/dL (2.5-4.9); SGPT/ALT 45 U/L (13-61)
[2022-10-08] MEDS ORDERED: SODIUM CHLORIDE 250 ML IV PRN (07:56)
[2022-10-08] MEDS: LIDOCAINE 5% TOPICAL PATCH TP SCH (09:25)
[2022-10-08] MEDS: SODIUM BICARBONATE 650 MG TABLET PO SCH (09:27)
[2022-10-08] MEDS: MYCOPHENOLATE MOFETIL 500 MG TABLET PO SCH ×2 (09:27→21:59)
[2022-10-08] MEDS: AMINO ACIDS/PROTEIN HYDROLYS 30 ML LIQUID.PKT PO SCH (09:27)
[2022-10-08] MEDS: SEVELAMER CARBONATE 800 MG TAB (FP) PO SCH ×3 (09:27→16:50)
[2022-10-08] MEDS: ATOVAQUONE 750 MG/5 ML (UNIT-DOSE PACKAGING) PO SCH ×2 (09:27→16:51)
[2022-10-08] MEDS: COLLAGENASE CLOSTRIDIUM HIST. 30 GRAMS TUBE TP SCH (09:28)
[2022-10-08] MEDS: methylPREDNISolone NA SUCC 40 MG/1 ML VIAL IVPUSH SCH (09:28)
[2022-10-08] MEDS: APIXABAN 2.5 MG TABLET PO SCH ×2 (09:28→21:59)
[2022-10-08] MEDS: METOPROLOL TARTRATE 50 MG TABLET (FP) PO SCH ×2 (09:28→21:59)
[2022-10-08] MEDS: FUROSEMIDE 100 MG/10 ML INJECTABLE VIAL IVPB SCH (09:29)
[2022-10-08] MEDS: ZINC OXIDE 20% TOPICAL OINTMENT 30 GM TUBE TP SCH ×2 (09:29→22:00)
[2022-10-08] MEDS ORDERED: VANCOMYCIN HCL 1,500 MG in DEXTROSE 5%-WATER - 500 ML IVPB SCH (10:45)
[2022-10-08] MEDS ORDERED: VANCOMYCIN HCL IVPB SCH (10:45)
[2022-10-08] MEDS ORDERED: DEXTROSE 5% IVPB SCH (10:45)
[2022-10-08] MEDS ORDERED: WATER IVPB SCH (10:45)
[2022-10-08 12:26] LABS: EPI CELLS 36 /uL (0-25.1); HYALINE CASTS 1 /uL (0-3.1); PH,URINE 5.5 (5.0-8.0); URINE APPEARANCE CLOUDY; URINE BACTERIA 84 /uL (0-1359); URINE BILIRUBIN NEGATIVE (NEGATIVE); URINE COLOR YELLOW; URINE GLUCOSE (UA) NEGATIVE (NEGATIVE); URINE KETONE TRACE (NEGATIVE); URINE LEUK ESTERASE 2+ (NEGATIVE); URINE NITRITE NEGATIVE (NEGATIVE); URINE PROTEIN 2+ (NEGATIVE); URINE RBC 358 /uL (0-23.9); URINE UROBILINOGEN 0.2 mg/dL (0.2-1.0); URINE WBC 90 /uL (0-25.8)
[2022-10-08] MEDS: CASPOFUNGIN ACETATE 50 MG in SODIUM CHLORIDE 250 ML IVPB SCH (12:35)
[2022-10-08 13:10] LABS: URINE CRYSTALS NEGATIVE /hpf
[2022-10-08] MEDS ORDERED: VANCOMYCIN 1 GM in D5W (PRE-DOCKED) 1,000 MG/250 ML (RESTRICTED TO ID ONLY IVPB ONE (14:00)
[2022-10-08] MEDS ORDERED: VANCOMYCIN/WATER FOR INJ (PEG) 1,000 MG/200 ML BAG IVPB ONE (15:30)
[2022-10-08] MEDS: MELATONIN 5 MG TABLETS PO SCH (21:59)
[2022-10-08] MEDS: CHLORHEXIDINE GLUCONATE 4% CLEANSER FOR DECOLONIZATION TP SCH (22:00)
[2022-10-08] MEDS: LIDOCAINE PATCH REMOVAL MC SCH (22:00)
[2022-10-09] MEDS: MEROPENEM 500 MG in DEXTROSE 5%-WATER 100 ML IVPB SCH ×2 (05:54→16:20)
[2022-10-09] MEDS: dilTIAZem HCL 30 MG TABLET PO SCH ×3 (05:55→21:45)
[2022-10-09 07:21] LABS: HEMATOCRIT 23.9 % (32.4-45.2); HEMOGLOBIN 8.1 GM/dL (10.7-15.3); MCH 29.3 pg (25.7-33.7); MCHC 33.9 g/dl (32.0-36.0); MEAN CELL VOLUME 86.5 fl (80-96); MEAN PLT VOLUME 10.7 fl (7.5-11.1); PLATELET COUNT 79 10^3/uL (134-434); RBC 2.76 M/mm3 (3.60-5.2); RDW 16.8 % (11.6-15.6); WHITE BLOOD COUNT 6.2 K/mm3 (4.0-10.0)
[2022-10-09 07:37] LABS: POTASSIUM 4.4 mmol/L (3.5-5.1)
[2022-10-09 07:41] LABS: ALBUMIN 1.7 g/dl (3.4-5.0)
[2022-10-09 07:42] LABS: CALCIUM 8.1 mg/dL (8.5-10.1)
[2022-10-09 07:43] LABS: MAGNESIUM 1.6 mg/dL (1.8-2.4)
[2022-10-09 07:45] LABS: CREATININE 4.1 mg/dL (0.55-1.3); PHOSPHOROUS 6.5 mg/dL (2.5-4.9)
[2022-10-09 07:46] LABS: BILIRUBIN,TOTAL 0.5 mg/dL (0.2-1)
[2022-10-09 07:47] LABS: BLOOD UREA NITROGEN 76.2 mg/dL (7-18); TOT PROT 4.9 g/dl (6.4-8.2)
[2022-10-09] MEDS ORDERED: MAGNESIUM SULF 50% (8.12 MEQ/2 ML-1 GM VIAL) IVPB ONE ×2 (08:02→08:14)
[2022-10-09] MEDS: ONDANSETRON 4 MG/2 ML VIAL IVPUSH PRN (08:31)
[2022-10-09] MEDS: ATOVAQUONE 750 MG/5 ML (UNIT-DOSE PACKAGING) PO SCH ×2 (09:46→16:55)
[2022-10-09] MEDS: AMINO ACIDS/PROTEIN HYDROLYS 30 ML LIQUID.PKT PO SCH (09:46)
[2022-10-09] MEDS: SEVELAMER CARBONATE 800 MG TAB (FP) PO SCH ×3 (09:46→16:55)
[2022-10-09] MEDS: LIDOCAINE 5% TOPICAL PATCH TP SCH (09:47)
[2022-10-09] MEDS: COLLAGENASE CLOSTRIDIUM HIST. 30 GRAMS TUBE TP SCH (09:47)
[2022-10-09] MEDS: METOPROLOL TARTRATE 50 MG TABLET (FP) PO SCH ×2 (09:47→21:45)
[2022-10-09] MEDS: MYCOPHENOLATE MOFETIL 500 MG TABLET PO SCH ×2 (09:47→21:45)
[2022-10-09] MEDS: ZINC OXIDE 20% TOPICAL OINTMENT 30 GM TUBE TP SCH ×2 (09:48→21:45)
[2022-10-09] MEDS: methylPREDNISolone NA SUCC 40 MG/1 ML VIAL IVPUSH SCH (09:48)
[2022-10-09] MEDS: APIXABAN 2.5 MG TABLET PO SCH ×3 (09:52→21:45)
[2022-10-09] MEDS: ACETAMINOPHEN 325 MG TABLET (FP) PO PRN (09:52)
[2022-10-09] MEDS ORDERED: SODIUM CHLORIDE 250 ML IV PRN (10:49)
[2022-10-09] MEDS ORDERED: MAGNESIUM OXIDE 400 MG TABLET (FP) PO ONE (11:30)
[2022-10-09] MEDS: PANTOPRAZOLE SODIUM 40 MG VIAL IVPUSH SCH (11:51)
[2022-10-09] MEDS: CASPOFUNGIN ACETATE 50 MG in SODIUM CHLORIDE 250 ML IVPB SCH (12:53)
[2022-10-09] MEDS ORDERED: DEXTROSE 5% IVPB ONE (18:00)
[2022-10-09] MEDS ORDERED: GANCICLOVIR IVPB ONE (18:00)
[2022-10-09] MEDS ORDERED: WATER IVPB ONE (18:00)
[2022-10-09] MEDS: MELATONIN 5 MG TABLETS PO SCH (21:45)
[2022-10-09] MEDS: LIDOCAINE PATCH REMOVAL MC SCH (21:45)
[2022-10-09] MEDS: CHLORHEXIDINE GLUCONATE 4% CLEANSER FOR DECOLONIZATION TP SCH (21:45)
[2022-10-10] MEDS: MEROPENEM 500 MG in DEXTROSE 5%-WATER 100 ML IVPB SCH ×2 (04:21→16:39)
[2022-10-10] MEDS: dilTIAZem HCL 30 MG TABLET PO SCH ×3 (06:08→21:23)
[2022-10-10 07:13] LABS: HEMATOCRIT 23.2 % (32.4-45.2); HEMOGLOBIN 7.9 GM/dL (10.7-15.3); MCH 29.8 pg (25.7-33.7); MEAN CELL VOLUME 87.7 fl (80-96); MEAN PLT VOLUME 10.7 fl (7.5-11.1); PLATELET COUNT 67 10^3/uL (134-434); RBC 2.65 M/mm3 (3.60-5.2); RDW 16.5 % (11.6-15.6); WHITE BLOOD COUNT 5.8 K/mm3 (4.0-10.0)
[2022-10-10 07:33] LABS: POTASSIUM 4.2 mmol/L (3.5-5.1)
[2022-10-10 07:36] LABS: CALCIUM 7.9 mg/dL (8.5-10.1)
[2022-10-10 07:37] LABS: ALBUMIN 1.6 g/dl (3.4-5.0); BLOOD UREA NITROGEN 58.6 mg/dL (7-18); MAGNESIUM 2.4 mg/dL (1.8-2.4)
[2022-10-10 07:40] LABS: CREATININE 3.7 mg/dL (0.55-1.3); PHOSPHOROUS 6.3 mg/dL (2.5-4.9)
[2022-10-10 07:41] LABS: BILIRUBIN,TOTAL 0.5 mg/dL (0.2-1); TOT PROT 4.8 g/dl (6.4-8.2)
[2022-10-10] MEDS: APIXABAN 2.5 MG TABLET PO SCH ×2 (09:15→21:23)
[2022-10-10] MEDS: LIDOCAINE 5% TOPICAL PATCH TP SCH (09:15)
[2022-10-10] MEDS: AMINO ACIDS/PROTEIN HYDROLYS 30 ML LIQUID.PKT PO SCH (09:15)
[2022-10-10] MEDS: SEVELAMER CARBONATE 800 MG TAB (FP) PO SCH ×3 (09:15→16:41)
[2022-10-10] MEDS: METOPROLOL TARTRATE 50 MG TABLET (FP) PO SCH ×2 (09:15→21:24)
[2022-10-10] MEDS: ATOVAQUONE 750 MG/5 ML (UNIT-DOSE PACKAGING) PO SCH ×2 (09:15→16:39)
[2022-10-10] MEDS: PANTOPRAZOLE SODIUM 40 MG VIAL IVPUSH SCH (09:16)
[2022-10-10] MEDS: COLLAGENASE CLOSTRIDIUM HIST. 30 GRAMS TUBE TP SCH (09:16)
[2022-10-10] MEDS: methylPREDNISolone NA SUCC 40 MG/1 ML VIAL IVPUSH SCH (09:16)
[2022-10-10] MEDS: ZINC OXIDE 20% TOPICAL OINTMENT 30 GM TUBE TP SCH ×2 (09:16→21:26)
[2022-10-10] MEDS: CASPOFUNGIN ACETATE 50 MG in SODIUM CHLORIDE 250 ML IVPB SCH (13:16)
[2022-10-10] MEDS ORDERED: FUROSEMIDE 40 MG/4 ML INJECTABLE VIAL IVPUSH ONE (13:51)
[2022-10-10] MEDS: CHLORHEXIDINE GLUCONATE 4% CLEANSER FOR DECOLONIZATION TP SCH (21:23)
[2022-10-10] MEDS: MELATONIN 5 MG TABLETS PO SCH (21:24)
[2022-10-10] MEDS: LIDOCAINE PATCH REMOVAL MC SCH (21:24)
[2022-10-11] MEDS: MEROPENEM 500 MG in DEXTROSE 5%-WATER 100 ML IVPB SCH ×2 (03:48→16:30)
[2022-10-11] MEDS: dilTIAZem HCL 30 MG TABLET PO SCH ×3 (06:11→21:20)
[2022-10-11] MEDS: PANTOPRAZOLE SODIUM 40 MG VIAL IVPUSH SCH (09:07)
[2022-10-11] MEDS: methylPREDNISolone NA SUCC 40 MG/1 ML VIAL IVPUSH SCH (09:07)
[2022-10-11] MEDS: SEVELAMER CARBONATE 800 MG TAB (FP) PO SCH ×3 (09:07→16:30)
[2022-10-11] MEDS: METOPROLOL TARTRATE 50 MG TABLET (FP) PO SCH ×2 (09:07→21:22)
[2022-10-11] MEDS: LIDOCAINE 5% TOPICAL PATCH TP SCH (09:08)
[2022-10-11] MEDS: APIXABAN 2.5 MG TABLET PO SCH ×2 (09:08→21:20)
[2022-10-11] MEDS: COLLAGENASE CLOSTRIDIUM HIST. 30 GRAMS TUBE TP SCH (09:08)
[2022-10-11] MEDS: ATOVAQUONE 750 MG/5 ML (UNIT-DOSE PACKAGING) PO SCH ×2 (09:08→17:24)
[2022-10-11] MEDS: AMINO ACIDS/PROTEIN HYDROLYS 30 ML LIQUID.PKT PO SCH (09:08)
[2022-10-11] MEDS: ZINC OXIDE 20% TOPICAL OINTMENT 30 GM TUBE TP SCH ×2 (09:09→21:24)
[2022-10-11 12:29] LABS: HEMATOCRIT 22.3 % (32.4-45.2); HEMOGLOBIN 7.3 GM/dL (10.7-15.3); MCH 28.5 pg (25.7-33.7); MCHC 32.9 g/dl (32.0-36.0); MEAN CELL VOLUME 86.7 fl (80-96); MEAN PLT VOLUME 9.6 fl (7.5-11.1); PLATELET COUNT 87 10^3/uL (134-434); RBC 2.57 M/mm3 (3.60-5.2); RDW 16.5 % (11.6-15.6)
[2022-10-11 12:55] LABS: ANISOCYTOSIS 0; HELMET CELLS 0; HOWELL-JOLLY BODIES 0; MACROCYTOSIS 0; OVALOCYTE 0; ROULEAU 0; SICKELED CELLS 0; TARGET CELLS 0; TEAR DROP CELLS 0; TOXIC GRANULATION 0
[2022-10-11 13:01] LABS: POTASSIUM 4.7 mmol/L (3.5-5.1)
[2022-10-11 13:03] LABS: BLOOD UREA NITROGEN 81.8 mg/dL (7-18); CALCIUM 7.7 mg/dL (8.5-10.1)
[2022-10-11 13:07] LABS: CREATININE 4.9 mg/dL (0.55-1.3)
[2022-10-11] MEDS: CASPOFUNGIN ACETATE 50 MG in SODIUM CHLORIDE 250 ML IVPB SCH (13:39)
[2022-10-11] MEDS: ACETAMINOPHEN 325 MG TABLET (FP) PO PRN (14:56)
[2022-10-11] MEDS ORDERED: WATER IVPB ONE (18:00)
[2022-10-11] MEDS ORDERED: GANCICLOVIR IVPB ONE (18:00)
[2022-10-11] MEDS ORDERED: DEXTROSE 5% IVPB ONE (18:00)
[2022-10-11] MEDS: LIDOCAINE PATCH REMOVAL MC SCH (21:21)
[2022-10-11] MEDS: CHLORHEXIDINE GLUCONATE 4% CLEANSER FOR DECOLONIZATION TP SCH (21:21)
[2022-10-11] MEDS: MELATONIN 5 MG TABLETS PO SCH (21:22)
[2022-10-12] MEDS: MEROPENEM 500 MG in DEXTROSE 5%-WATER 100 ML IVPB SCH (03:53)
[2022-10-12] MEDS: dilTIAZem HCL 30 MG TABLET PO SCH ×3 (06:02→21:20)
[2022-10-12] MEDS: ACETAMINOPHEN 325 MG TABLET (FP) PO PRN (06:03)
[2022-10-12 08:00] LABS: HEMATOCRIT 21.1 % (32.4-45.2); HEMOGLOBIN 7.2 GM/dL (10.7-15.3); MCH 29.7 pg (25.7-33.7); MCHC 34.2 g/dl (32.0-36.0); MEAN CELL VOLUME 86.7 fl (80-96); MEAN PLT VOLUME 11.3 fl (7.5-11.1); PLATELET COUNT 77 10^3/uL (134-434); RBC 2.43 M/mm3 (3.60-5.2); WHITE BLOOD COUNT 6.1 K/mm3 (4.0-10.0)
[2022-10-12 08:02] LABS: POTASSIUM 4.7 mmol/L (3.5-5.1)
[2022-10-12 08:05] LABS: CALCIUM 7.4 mg/dL (8.5-10.1)
[2022-10-12 08:06] LABS: MAGNESIUM 2.2 mg/dL (1.8-2.4)
[2022-10-12 08:08] LABS: PHOSPHOROUS 8.1 mg/dL (2.5-4.9)
[2022-10-12 08:09] LABS: CREATININE 5.2 mg/dL (0.55-1.3)
[2022-10-12 09:14] LABS: ANISOCYTOSIS 1+; MACROCYTOSIS 0; PLATELET ESTIMATE DECREASED
[2022-10-12] MEDS: AMINO ACIDS/PROTEIN HYDROLYS 30 ML LIQUID.PKT PO SCH (09:18)
[2022-10-12] MEDS: SEVELAMER CARBONATE 800 MG TAB (FP) PO SCH ×3 (09:18→17:13)
[2022-10-12] MEDS: METOPROLOL TARTRATE 50 MG TABLET (FP) PO SCH ×2 (09:18→21:21)
[2022-10-12] MEDS: ATOVAQUONE 750 MG/5 ML (UNIT-DOSE PACKAGING) PO SCH ×2 (09:18→17:13)
[2022-10-12] MEDS: PANTOPRAZOLE SODIUM 40 MG VIAL IVPUSH SCH (09:18)
[2022-10-12] MEDS: methylPREDNISolone NA SUCC 40 MG/1 ML VIAL IVPUSH SCH (09:18)
[2022-10-12] MEDS: ZINC OXIDE 20% TOPICAL OINTMENT 30 GM TUBE TP SCH ×2 (10:40→21:25)
[2022-10-12 10:47] LABS: RETICULOCYTES 2.78 % (0.5-1.5)
[2022-10-12] MEDS ORDERED: SODIUM CHLORIDE 250 ML IV PRN (11:37)
[2022-10-12] MEDS: COLLAGENASE CLOSTRIDIUM HIST. 30 GRAMS TUBE TP SCH (12:00)
[2022-10-12] MEDS: CASPOFUNGIN ACETATE 50 MG in SODIUM CHLORIDE 250 ML IVPB SCH (14:40)
[2022-10-12] MEDS: LIDOCAINE 5% TOPICAL PATCH TP SCH (15:36)
[2022-10-12] MEDS: PIPERACILLIN/TAZOB 2.25 GM 2.25 GM in DEXTROSE 5%-WATER - 50 ML IVPB SCH (17:22)
[2022-10-12] MEDS ORDERED: traMADol HCL 50 MG TABLET PO PRN (17:41)
[2022-10-12] MEDS: MELATONIN 5 MG TABLETS PO SCH (21:21)
[2022-10-12] MEDS: LIDOCAINE PATCH REMOVAL MC SCH (21:24)
[2022-10-12] MEDS: CHLORHEXIDINE GLUCONATE 4% CLEANSER FOR DECOLONIZATION TP SCH (22:46)
[2022-10-13] MEDS: PIPERACILLIN/TAZOB 2.25 GM 2.25 GM in DEXTROSE 5%-WATER - 50 ML IVPB SCH ×3 (02:54→17:44)
[2022-10-13] MEDS: dilTIAZem HCL 30 MG TABLET PO SCH ×3 (06:05→21:27)
[2022-10-13 07:24] LABS: HEMATOCRIT 21.9 % (32.4-45.2); HEMOGLOBIN 7.4 GM/dL (10.7-15.3); MCH 29.3 pg (25.7-33.7); MCHC 33.6 g/dl (32.0-36.0); MEAN CELL VOLUME 87.2 fl (80-96); MEAN PLT VOLUME 10.4 fl (7.5-11.1); PLATELET COUNT 88 10^3/uL (134-434); RBC 2.51 M/mm3 (3.60-5.2); RDW 16.4 % (11.6-15.6); WHITE BLOOD COUNT 6.9 K/mm3 (4.0-10.0)
[2022-10-13 07:49] LABS: ALBUMIN 1.6 g/dl (3.4-5.0)
[2022-10-13 07:50] LABS: CALCIUM 7.1 mg/dL (8.5-10.1); MAGNESIUM 1.8 mg/dL (1.8-2.4)
[2022-10-13 07:52] LABS: CREATININE 3.6 mg/dL (0.55-1.3)
[2022-10-13 07:54] LABS: PHOSPHOROUS 5.3 mg/dL (2.5-4.9)
[2022-10-13 07:55] LABS: BILIRUBIN,TOTAL 0.4 mg/dL (0.2-1); TOT PROT 4.6 g/dl (6.4-8.2)
[2022-10-13 07:59] LABS: BLOOD UREA NITROGEN 57.2 mg/dL (7-18)
[2022-10-13] MEDS: ATOVAQUONE 750 MG/5 ML (UNIT-DOSE PACKAGING) PO SCH ×2 (09:09→17:44)
[2022-10-13] MEDS: AMINO ACIDS/PROTEIN HYDROLYS 30 ML LIQUID.PKT PO SCH (09:09)
[2022-10-13] MEDS: METOPROLOL TARTRATE 50 MG TABLET (FP) PO SCH ×2 (09:09→21:28)
[2022-10-13] MEDS: SEVELAMER CARBONATE 800 MG TAB (FP) PO SCH ×3 (09:09→17:44)
[2022-10-13] MEDS: methylPREDNISolone NA SUCC 40 MG/1 ML VIAL IVPUSH SCH (09:09)
[2022-10-13] MEDS: PANTOPRAZOLE SODIUM 40 MG VIAL IVPUSH SCH (09:09)
[2022-10-13] MEDS: LIDOCAINE 5% TOPICAL PATCH TP SCH (12:17)
[2022-10-13] MEDS: ZINC OXIDE 20% TOPICAL OINTMENT 30 GM TUBE TP SCH ×2 (12:18→21:29)
[2022-10-13] MEDS: COLLAGENASE CLOSTRIDIUM HIST. 30 GRAMS TUBE TP SCH (12:18)
[2022-10-13] MEDS: APIXABAN 2.5 MG TABLET PO SCH ×3 (12:19→21:45)
[2022-10-13] MEDS: CASPOFUNGIN ACETATE 50 MG in SODIUM CHLORIDE 250 ML IVPB SCH (13:26)
[2022-10-13] MEDS ORDERED: SODIUM CHLORIDE 250 ML IV PRN (13:36)
[2022-10-13] MEDS: WATER IVPB SCH (18:06)
[2022-10-13] MEDS: DEXTROSE 5% IVPB SCH (18:06)
[2022-10-13] MEDS: GANCICLOVIR IVPB SCH (18:06)
[2022-10-13] MEDS: LIDOCAINE PATCH REMOVAL MC SCH (21:28)
[2022-10-13] MEDS: MELATONIN 5 MG TABLETS PO SCH ×2 (21:28→21:45)
[2022-10-13] MEDS: CHLORHEXIDINE GLUCONATE 4% CLEANSER FOR DECOLONIZATION TP SCH (21:28)
[2022-10-14] MEDS: PIPERACILLIN/TAZOB 2.25 GM 2.25 GM in DEXTROSE 5%-WATER - 50 ML IVPB SCH ×3 (01:31→17:11)
[2022-10-14] MEDS: dilTIAZem HCL 30 MG TABLET PO SCH ×3 (05:30→21:35)
[2022-10-14 07:02] LABS: HEMATOCRIT 20.2 % (32.4-45.2); MCH 29.5 pg (25.7-33.7); MCHC 33.6 g/dl (32.0-36.0); MEAN CELL VOLUME 87.6 fl (80-96); MEAN PLT VOLUME 11.1 fl (7.5-11.1); PLATELET COUNT 64 10^3/uL (134-434); RBC 2.31 M/mm3 (3.60-5.2); RDW 16.3 % (11.6-15.6); WHITE BLOOD COUNT 5.9 K/mm3 (4.0-10.0)
[2022-10-14 07:10] LABS: HEMOGLOBIN 6.8 GM/dL (10.7-15.3)
[2022-10-14 07:19] LABS: POTASSIUM 4.5 mmol/L (3.5-5.1)
[2022-10-14 07:23] LABS: ALBUMIN 1.5 g/dl (3.4-5.0); BLOOD UREA NITROGEN 77.4 mg/dL (7-18); CALCIUM 7.5 mg/dL (8.5-10.1)
[2022-10-14 07:26] LABS: CREATININE 4.5 mg/dL (0.55-1.3)
[2022-10-14 07:27] LABS: PHOSPHOROUS 7.1 mg/dL (2.5-4.9)
[2022-10-14 07:28] LABS: BILIRUBIN,TOTAL 0.5 mg/dL (0.2-1); TOT PROT 4.6 g/dl (6.4-8.2)
[2022-10-14] MEDS: SEVELAMER CARBONATE 800 MG TAB (FP) PO SCH ×3 (08:16→17:11)
[2022-10-14] MEDS: ATOVAQUONE 750 MG/5 ML (UNIT-DOSE PACKAGING) PO SCH ×2 (08:16→17:11)
[2022-10-14] MEDS: AMINO ACIDS/PROTEIN HYDROLYS 30 ML LIQUID.PKT PO SCH (08:16)
[2022-10-14] MEDS: PANTOPRAZOLE SODIUM 40 MG VIAL IVPUSH SCH (09:30)
[2022-10-14] MEDS: ZINC OXIDE 20% TOPICAL OINTMENT 30 GM TUBE TP SCH ×2 (09:30→21:41)
[2022-10-14] MEDS: COLLAGENASE CLOSTRIDIUM HIST. 30 GRAMS TUBE TP SCH (09:30)
[2022-10-14] MEDS: methylPREDNISolone NA SUCC 40 MG/1 ML VIAL IVPUSH SCH (09:31)
[2022-10-14] MEDS: METOPROLOL TARTRATE 50 MG TABLET (FP) PO SCH ×2 (09:32→21:35)
[2022-10-14] MEDS: LIDOCAINE 5% TOPICAL PATCH TP SCH (09:33)
[2022-10-14] MEDS: CASPOFUNGIN ACETATE 50 MG in SODIUM CHLORIDE 250 ML IVPB SCH (14:33)
[2022-10-14] MEDS: MELATONIN 5 MG TABLETS PO SCH (21:35)
[2022-10-14] MEDS: MINERAL OIL/PET HY-PHL TOPICAL OINTMENT 454 GM JAR TP SCH (21:36)
[2022-10-14] MEDS: LIDOCAINE PATCH REMOVAL MC SCH (21:37)
[2022-10-14] MEDS: CHLORHEXIDINE GLUCONATE 4% CLEANSER FOR DECOLONIZATION TP SCH (21:37)
[2022-10-15] MEDS: PIPERACILLIN/TAZOB 2.25 GM 2.25 GM in DEXTROSE 5%-WATER - 50 ML IVPB SCH ×3 (02:20→18:16)
[2022-10-15] MEDS: dilTIAZem HCL 30 MG TABLET PO SCH ×3 (05:42→21:44)
[2022-10-15 06:39] LABS: HEMOGLOBIN 8.2 GM/dL (10.7-15.3); MCH 30.6 pg (25.7-33.7); MCHC 35.6 g/dl (32.0-36.0); MEAN PLT VOLUME 10.6 fl (7.5-11.1); PLATELET COUNT 70 10^3/uL (134-434); RBC 2.67 M/mm3 (3.60-5.2); RDW 16.3 % (11.6-15.6); WHITE BLOOD COUNT 6.3 K/mm3 (4.0-10.0)
[2022-10-15 06:52] LABS: POTASSIUM 3.8 mmol/L (3.5-5.1)
[2022-10-15 06:54] LABS: CALCIUM 7.5 mg/dL (8.5-10.1)
[2022-10-15 06:55] LABS: ALBUMIN 1.5 g/dl (3.4-5.0); MAGNESIUM 1.8 mg/dL (1.8-2.4)
[2022-10-15 06:58] LABS: CREATININE 3.2 mg/dL (0.55-1.3); PHOSPHOROUS 4.8 mg/dL (2.5-4.9)
[2022-10-15 06:59] LABS: BILIRUBIN,TOTAL 0.5 mg/dL (0.2-1); TOT PROT 4.8 g/dl (6.4-8.2)
[2022-10-15 07:01] LABS: BLOOD UREA NITROGEN 46.9 mg/dL (7-18)
[2022-10-15] MEDS: ATOVAQUONE 750 MG/5 ML (UNIT-DOSE PACKAGING) PO SCH ×2 (09:15→18:16)
[2022-10-15] MEDS: SEVELAMER CARBONATE 800 MG TAB (FP) PO SCH ×3 (09:15→18:16)
[2022-10-15] MEDS: AMINO ACIDS/PROTEIN HYDROLYS 30 ML LIQUID.PKT PO SCH (09:15)
[2022-10-15] MEDS: PANTOPRAZOLE SODIUM 40 MG VIAL IVPUSH SCH (09:15)
[2022-10-15] MEDS: ZINC OXIDE 20% TOPICAL OINTMENT 30 GM TUBE TP SCH ×2 (09:16→21:45)
[2022-10-15] MEDS: COLLAGENASE CLOSTRIDIUM HIST. 30 GRAMS TUBE TP SCH (09:16)
[2022-10-15] MEDS: methylPREDNISolone NA SUCC 40 MG/1 ML VIAL IVPUSH SCH (09:16)
[2022-10-15] MEDS: METOPROLOL TARTRATE 50 MG TABLET (FP) PO SCH ×2 (09:16→21:45)
[2022-10-15] MEDS: LIDOCAINE 5% TOPICAL PATCH TP SCH (09:16)
[2022-10-15] MEDS: APIXABAN 2.5 MG TABLET PO SCH (09:19)
[2022-10-15] MEDS: MINERAL OIL/PET HY-PHL TOPICAL OINTMENT 454 GM JAR TP SCH (09:20)
[2022-10-15] MEDS ORDERED: methylPREDNISolone NA SUCC 40 MG/1 ML VIAL IVPUSH SCH (11:40)
[2022-10-15] MEDS: CASPOFUNGIN ACETATE 50 MG in SODIUM CHLORIDE 250 ML IVPB SCH (13:00)
[2022-10-15] MEDS ORDERED: SODIUM CHLORIDE 250 ML IV PRN (15:48)
[2022-10-15] MEDS: WATER IVPB SCH (18:16)
[2022-10-15] MEDS: GANCICLOVIR IVPB SCH (18:16)
[2022-10-15] MEDS: DEXTROSE 5% IVPB SCH (18:16)
[2022-10-15] MEDS: MELATONIN 5 MG TABLETS PO SCH ×2 (21:44→22:03)
[2022-10-15] MEDS: LIDOCAINE PATCH REMOVAL MC SCH (21:45)
[2022-10-15] MEDS: CHLORHEXIDINE GLUCONATE 4% CLEANSER FOR DECOLONIZATION TP SCH (21:45)
[2022-10-16] MEDS: PIPERACILLIN/TAZOB 2.25 GM 2.25 GM in DEXTROSE 5%-WATER - 50 ML IVPB SCH ×3 (01:44→17:43)
[2022-10-16] MEDS: dilTIAZem HCL 30 MG TABLET PO SCH ×3 (06:23→21:21)
[2022-10-16 09:02] LABS: HEMATOCRIT 25.2 % (32.4-45.2); HEMOGLOBIN 8.2 GM/dL (10.7-15.3); MCH 28.5 pg (25.7-33.7); MCHC 32.7 g/dl (32.0-36.0); MEAN CELL VOLUME 87.2 fl (80-96); MEAN PLT VOLUME 9.5 fl (7.5-11.1); PLATELET COUNT 79 10^3/uL (134-434); RBC 2.89 M/mm3 (3.60-5.2); RDW 16.3 % (11.6-15.6); WHITE BLOOD COUNT 8.2 K/mm3 (4.0-10.0)
[2022-10-16 09:40] LABS: POTASSIUM 4.2 mmol/L (3.5-5.1)
[2022-10-16 09:44] LABS: ALBUMIN 1.6 g/dl (3.4-5.0); BLOOD UREA NITROGEN 65.2 mg/dL (7-18); CALCIUM 7.6 mg/dL (8.5-10.1)
[2022-10-16] MEDS: ATOVAQUONE 750 MG/5 ML (UNIT-DOSE PACKAGING) PO SCH ×2 (09:45→17:48)
[2022-10-16] MEDS: AMINO ACIDS/PROTEIN HYDROLYS 30 ML LIQUID.PKT PO SCH (09:46)
[2022-10-16] MEDS: SEVELAMER CARBONATE 800 MG TAB (FP) PO SCH ×3 (09:46→17:43)
[2022-10-16 09:47] LABS: CREATININE 4.3 mg/dL (0.55-1.3)
[2022-10-16 09:50] LABS: BILIRUBIN,TOTAL 1.2 mg/dL (0.2-1)
[2022-10-16] MEDS ORDERED: VANCOMYCIN/WATER FOR INJ (PEG) 1,000 MG/200 ML BAG IVPB ONE (10:31)
[2022-10-16] MEDS: LIDOCAINE 5% TOPICAL PATCH TP SCH (10:43)
[2022-10-16] MEDS: METOPROLOL TARTRATE 50 MG TABLET (FP) PO SCH ×2 (10:43→21:21)
[2022-10-16] MEDS: APIXABAN 2.5 MG TABLET PO SCH (10:43)
[2022-10-16] MEDS: PANTOPRAZOLE SODIUM 40 MG VIAL IVPUSH SCH (10:44)
[2022-10-16] MEDS: ZINC OXIDE 20% TOPICAL OINTMENT 30 GM TUBE TP SCH ×2 (10:46→21:21)
[2022-10-16] MEDS: COLLAGENASE CLOSTRIDIUM HIST. 30 GRAMS TUBE TP SCH (12:05)
[2022-10-16] MEDS: MINERAL OIL/PET HY-PHL TOPICAL OINTMENT 454 GM JAR TP SCH (12:06)
[2022-10-16] MEDS ORDERED: methylPREDNISolone NA SUCC 40 MG/1 ML VIAL IVPUSH ONE (12:30)
[2022-10-16] MEDS: CASPOFUNGIN ACETATE 50 MG in SODIUM CHLORIDE 250 ML IVPB SCH (13:42)
[2022-10-16] MEDS: MELATONIN 5 MG TABLETS PO SCH (21:17)
[2022-10-16] MEDS: LIDOCAINE PATCH REMOVAL MC SCH (21:21)
[2022-10-16] MEDS: CHLORHEXIDINE GLUCONATE 4% CLEANSER FOR DECOLONIZATION TP SCH (21:21)
[2022-10-17] MEDS: PIPERACILLIN/TAZOB 2.25 GM 2.25 GM in DEXTROSE 5%-WATER - 50 ML IVPB SCH ×3 (01:02→17:09)
[2022-10-17] MEDS: dilTIAZem HCL 30 MG TABLET PO SCH ×3 (07:03→21:37)
[2022-10-17] MEDS: APIXABAN 2.5 MG TABLET PO SCH (10:10)
[2022-10-17] MEDS: PANTOPRAZOLE SODIUM 40 MG VIAL IVPUSH SCH (10:10)
[2022-10-17] MEDS: AMINO ACIDS/PROTEIN HYDROLYS 30 ML LIQUID.PKT PO SCH (10:10)
[2022-10-17] MEDS: SEVELAMER CARBONATE 800 MG TAB (FP) PO SCH ×3 (10:10→17:09)
[2022-10-17] MEDS: LIDOCAINE 5% TOPICAL PATCH TP SCH (10:10)
[2022-10-17] MEDS: ATOVAQUONE 750 MG/5 ML (UNIT-DOSE PACKAGING) PO SCH ×2 (10:10→16:58)
[2022-10-17] MEDS: METOPROLOL TARTRATE 50 MG TABLET (FP) PO SCH ×2 (10:10→21:37)
[2022-10-17] MEDS: MINERAL OIL/PET HY-PHL TOPICAL OINTMENT 454 GM JAR TP SCH (10:12)
[2022-10-17] MEDS: CASPOFUNGIN ACETATE 50 MG in SODIUM CHLORIDE 250 ML IVPB SCH (13:20)
[2022-10-17] MEDS: methylPREDNISolone NA SUCC 40 MG/1 ML VIAL IVPUSH SCH (13:21)
[2022-10-17] MEDS: ZINC OXIDE 20% TOPICAL OINTMENT 30 GM TUBE TP SCH ×2 (16:58→21:41)
[2022-10-17] MEDS: COLLAGENASE CLOSTRIDIUM HIST. 30 GRAMS TUBE TP SCH (16:58)
[2022-10-17] MEDS: GANCICLOVIR IVPB SCH (17:43)
[2022-10-17] MEDS: DEXTROSE 5% IVPB SCH (17:43)
[2022-10-17] MEDS: WATER IVPB SCH (17:43)
[2022-10-17] MEDS: MELATONIN 5 MG TABLETS PO SCH (21:39)
[2022-10-17] MEDS: LIDOCAINE PATCH REMOVAL MC SCH (21:41)
[2022-10-17] MEDS: CHLORHEXIDINE GLUCONATE 4% CLEANSER FOR DECOLONIZATION TP SCH (21:41)
[2022-10-18] MEDS: PIPERACILLIN/TAZOB 2.25 GM 2.25 GM in DEXTROSE 5%-WATER - 50 ML IVPB SCH ×3 (03:39→17:25)
[2022-10-18] MEDS: dilTIAZem HCL 30 MG TABLET PO SCH ×3 (05:28→21:09)
[2022-10-18 07:43] LABS: CALCIUM 7.5 mg/dL (8.5-10.1)
[2022-10-18 07:45] LABS: ALBUMIN 1.4 g/dl (3.4-5.0); BLOOD UREA NITROGEN 58.9 mg/dL (7-18); MAGNESIUM 1.9 mg/dL (1.8-2.4)
[2022-10-18 07:48] LABS: BILIRUBIN,TOTAL 0.4 mg/dL (0.2-1); CREATININE 4.4 mg/dL (0.55-1.3); TOT PROT 4.7 g/dl (6.4-8.2)
[2022-10-18 08:18] LABS: HEMATOCRIT 21.8 % (32.4-45.2); HEMOGLOBIN 7.4 GM/dL (10.7-15.3); MCH 29.4 pg (25.7-33.7); MCHC 33.9 g/dl (32.0-36.0); MEAN CELL VOLUME 86.9 fl (80-96); MEAN PLT VOLUME 10.2 fl (7.5-11.1); PLATELET COUNT 51 10^3/uL (134-434); RBC 2.51 M/mm3 (3.60-5.2); RDW 15.8 % (11.6-15.6); WHITE BLOOD COUNT 7.5 K/mm3 (4.0-10.0)
[2022-10-18] MEDS: ATOVAQUONE 750 MG/5 ML (UNIT-DOSE PACKAGING) PO SCH ×2 (09:05→17:23)
[2022-10-18] MEDS: SEVELAMER CARBONATE 800 MG TAB (FP) PO SCH ×3 (09:05→17:23)
[2022-10-18] MEDS: AMINO ACIDS/PROTEIN HYDROLYS 30 ML LIQUID.PKT PO SCH (09:05)
[2022-10-18] MEDS: PANTOPRAZOLE SODIUM 40 MG VIAL IVPUSH SCH (09:09)
[2022-10-18] MEDS: MINERAL OIL/PET HY-PHL TOPICAL OINTMENT 454 GM JAR TP SCH (09:10)
[2022-10-18] MEDS: METOPROLOL TARTRATE 50 MG TABLET (FP) PO SCH ×2 (09:10→21:09)
[2022-10-18] MEDS: COLLAGENASE CLOSTRIDIUM HIST. 30 GRAMS TUBE TP SCH ×2 (09:10→17:10)
[2022-10-18] MEDS: APIXABAN 2.5 MG TABLET PO SCH (09:10)
[2022-10-18] MEDS: ZINC OXIDE 20% TOPICAL OINTMENT 30 GM TUBE TP SCH ×2 (09:10→21:09)
[2022-10-18] MEDS: LIDOCAINE 5% TOPICAL PATCH TP SCH (09:20)
[2022-10-18 09:30] LABS: ANISOCYTOSIS 2+; MACROCYTOSIS 0; PLATELET ESTIMATE DECREASED
[2022-10-18] MEDS: CASPOFUNGIN ACETATE 50 MG in SODIUM CHLORIDE 250 ML IVPB SCH (13:01)
[2022-10-18] MEDS: methylPREDNISolone NA SUCC 40 MG/1 ML VIAL IVPUSH SCH (13:01)
[2022-10-18] MEDS: MELATONIN 5 MG TABLETS PO SCH (21:08)
[2022-10-18] MEDS: LIDOCAINE PATCH REMOVAL MC SCH (21:09)
[2022-10-18] MEDS: CHLORHEXIDINE GLUCONATE 4% CLEANSER FOR DECOLONIZATION TP SCH (21:09)
[2022-10-19] MEDS: PIPERACILLIN/TAZOB 2.25 GM 2.25 GM in DEXTROSE 5%-WATER - 50 ML IVPB SCH ×3 (02:04→17:06)
[2022-10-19] MEDS: dilTIAZem HCL 30 MG TABLET PO SCH ×3 (05:23→21:28)
[2022-10-19 07:00] LABS: BASO % 0.4 % (0-2.0); EOS % 1.1 % (0-4.5); HEMATOCRIT 21.3 % (32.4-45.2); HEMOGLOBIN 7.2 GM/dL (10.7-15.3); LYMPH % 2.3 % (8-40); MCHC 33.5 g/dl (32.0-36.0); MEAN CELL VOLUME 86.5 fl (80-96); MEAN PLT VOLUME 10.3 fl (7.5-11.1); MONO % 2.6 % (3.8-10.2); NEUT % 93.6 % (42.8-82.8); PLATELET COUNT 53 10^3/uL (134-434); RBC 2.47 M/mm3 (3.60-5.2); RDW 15.8 % (11.6-15.6); WHITE BLOOD COUNT 7.9 K/mm3 (4.0-10.0)
[2022-10-19 07:20] LABS: POTASSIUM 4.1 mmol/L (3.5-5.1)
[2022-10-19 07:28] LABS: ALBUMIN 1.4 g/dl (3.4-5.0); BLOOD UREA NITROGEN 77.7 mg/dL (7-18); CALCIUM 7.7 mg/dL (8.5-10.1)
[2022-10-19 07:33] LABS: BILIRUBIN,TOTAL 0.4 mg/dL (0.2-1); TOT PROT 4.9 g/dl (6.4-8.2)
[2022-10-19] MEDS: LIDOCAINE 5% TOPICAL PATCH TP SCH (09:04)
[2022-10-19 09:09] LABS: ANISOCYTOSIS 1+; MACROCYTOSIS 1+
[2022-10-19] MEDS: PANTOPRAZOLE SODIUM 40 MG VIAL IVPUSH SCH (09:47)
[2022-10-19] MEDS: MINERAL OIL/PET HY-PHL TOPICAL OINTMENT 454 GM JAR TP SCH (09:47)
[2022-10-19] MEDS: METOPROLOL TARTRATE 50 MG TABLET (FP) PO SCH ×2 (09:47→21:28)
[2022-10-19] MEDS: AMINO ACIDS/PROTEIN HYDROLYS 30 ML LIQUID.PKT PO SCH (09:47)
[2022-10-19] MEDS: SEVELAMER CARBONATE 800 MG TAB (FP) PO SCH ×3 (09:47→17:01)
[2022-10-19] MEDS: ZINC OXIDE 20% TOPICAL OINTMENT 30 GM TUBE TP SCH ×2 (09:47→21:28)
[2022-10-19] MEDS: COLLAGENASE CLOSTRIDIUM HIST. 30 GRAMS TUBE TP SCH (09:48)
[2022-10-19] MEDS: ATOVAQUONE 750 MG/5 ML (UNIT-DOSE PACKAGING) PO SCH ×2 (09:48→17:03)
[2022-10-19] MEDS: methylPREDNISolone NA SUCC 40 MG/1 ML VIAL IVPUSH SCH (12:25)
[2022-10-19] MEDS ORDERED: SODIUM CHLORIDE 250 ML IV PRN (13:56)
[2022-10-19] MEDS ORDERED: EPOETIN ALFA-EPBX 4,000 UNIT/ML VIAL SQ ONE (14:00)
[2022-10-19] MEDS: CASPOFUNGIN ACETATE 50 MG in SODIUM CHLORIDE 250 ML IVPB SCH (16:59)
[2022-10-19] MEDS: WATER IVPB SCH (18:16)
[2022-10-19] MEDS: GANCICLOVIR IVPB SCH (18:16)
[2022-10-19] MEDS: DEXTROSE 5% IVPB SCH (18:16)
[2022-10-19] MEDS: MELATONIN 5 MG TABLETS PO SCH (21:28)
[2022-10-19] MEDS: CHLORHEXIDINE GLUCONATE 4% CLEANSER FOR DECOLONIZATION TP SCH (21:28)
[2022-10-19] MEDS: LIDOCAINE PATCH REMOVAL MC SCH (21:28)
[2022-10-20] MEDS: PIPERACILLIN/TAZOB 2.25 GM 2.25 GM in DEXTROSE 5%-WATER - 50 ML IVPB SCH ×2 (01:48→10:08)
[2022-10-20] MEDS: dilTIAZem HCL 30 MG TABLET PO SCH ×4 (05:45→21:43)
[2022-10-20 06:56] LABS: HEMATOCRIT 21.2 % (32.4-45.2); HEMOGLOBIN 7.1 GM/dL (10.7-15.3); MCH 29.4 pg (25.7-33.7); MCHC 33.5 g/dl (32.0-36.0); MEAN CELL VOLUME 87.7 fl (80-96); MEAN PLT VOLUME 9.5 fl (7.5-11.1); PLATELET COUNT 69 10^3/uL (134-434); RBC 2.41 M/mm3 (3.60-5.2); RDW 15.7 % (11.6-15.6); WHITE BLOOD COUNT 9.5 K/mm3 (4.0-10.0)
[2022-10-20 07:29] LABS: POTASSIUM 3.5 mmol/L (3.5-5.1)
[2022-10-20 07:31] LABS: ALBUMIN 1.5 g/dl (3.4-5.0); CALCIUM 7.4 mg/dL (8.5-10.1)
[2022-10-20 07:34] LABS: CREATININE 3.1 mg/dL (0.55-1.3)
[2022-10-20 07:37] LABS: BILIRUBIN,TOTAL 0.3 mg/dL (0.2-1); TOT PROT 5.1 g/dl (6.4-8.2)
[2022-10-20 07:46] LABS: BLOOD UREA NITROGEN 37.8 mg/dL (7-18)
[2022-10-20 08:56] LABS: ANISOCYTOSIS 0; HELMET CELLS 0; HOWELL-JOLLY BODIES 0; MACROCYTOSIS 0; OVALOCYTE 0; ROULEAU 0; SICKELED CELLS 0; TARGET CELLS 0; TEAR DROP CELLS 0; TOXIC GRANULATION 0
[2022-10-20] MEDS: AMINO ACIDS/PROTEIN HYDROLYS 30 ML LIQUID.PKT PO SCH (10:06)
[2022-10-20] MEDS: SEVELAMER CARBONATE 800 MG TAB (FP) PO SCH ×3 (10:06→17:44)
[2022-10-20] MEDS: ATOVAQUONE 750 MG/5 ML (UNIT-DOSE PACKAGING) PO SCH ×2 (10:06→17:44)
[2022-10-20] MEDS: MINERAL OIL/PET HY-PHL TOPICAL OINTMENT 454 GM JAR TP SCH (10:07)
[2022-10-20] MEDS: COLLAGENASE CLOSTRIDIUM HIST. 30 GRAMS TUBE TP SCH (10:08)
[2022-10-20] MEDS: LIDOCAINE 5% TOPICAL PATCH TP SCH (10:08)
[2022-10-20] MEDS: METOPROLOL TARTRATE 50 MG TABLET (FP) PO SCH ×2 (10:08→21:43)
[2022-10-20] MEDS: PANTOPRAZOLE SODIUM 40 MG VIAL IVPUSH SCH (10:08)
[2022-10-20] MEDS: APIXABAN 2.5 MG TABLET PO SCH (10:08)
[2022-10-20] MEDS: ZINC OXIDE 20% TOPICAL OINTMENT 30 GM TUBE TP SCH ×2 (10:09→21:43)
[2022-10-20] MEDS: methylPREDNISolone NA SUCC 40 MG/1 ML VIAL IVPUSH SCH (13:23)
[2022-10-20] MEDS: CASPOFUNGIN ACETATE 50 MG in SODIUM CHLORIDE 250 ML IVPB SCH (13:29)
[2022-10-20] MEDS ORDERED: SODIUM CHLORIDE 250 ML IV PRN (16:03)
[2022-10-20] MEDS: MELATONIN 5 MG TABLETS PO SCH (21:43)
[2022-10-20] MEDS: LIDOCAINE PATCH REMOVAL MC SCH (21:43)
[2022-10-20] MEDS: CHLORHEXIDINE GLUCONATE 4% CLEANSER FOR DECOLONIZATION TP SCH (21:43)
[2022-10-21] MEDS: dilTIAZem HCL 30 MG TABLET PO SCH ×3 (05:44→21:12)
[2022-10-21] MEDS ORDERED: EPOETIN ALFA-EPBX 4,000 UNIT/ML VIAL SQ ONE (07:45)
[2022-10-21] MEDS: methylPREDNISolone NA SUCC 40 MG/1 ML VIAL IVPUSH SCH (11:52)
[2022-10-21] MEDS: AMINO ACIDS/PROTEIN HYDROLYS 30 ML LIQUID.PKT PO SCH (11:53)
[2022-10-21] MEDS: APIXABAN 2.5 MG TABLET PO SCH ×2 (11:53→17:26)
[2022-10-21] MEDS: MINERAL OIL/PET HY-PHL TOPICAL OINTMENT 454 GM JAR TP SCH (11:53)
[2022-10-21] MEDS: PANTOPRAZOLE SODIUM 40 MG VIAL IVPUSH SCH (11:53)
[2022-10-21] MEDS: SEVELAMER CARBONATE 800 MG TAB (FP) PO SCH ×3 (11:54→17:26)
[2022-10-21] MEDS: METOPROLOL TARTRATE 50 MG TABLET (FP) PO SCH ×2 (11:56→21:12)
[2022-10-21] MEDS: LIDOCAINE 5% TOPICAL PATCH TP SCH (11:57)
[2022-10-21] MEDS: ATOVAQUONE 750 MG/5 ML (UNIT-DOSE PACKAGING) PO SCH ×2 (11:57→17:26)
[2022-10-21] MEDS: ZINC OXIDE 20% TOPICAL OINTMENT 30 GM TUBE TP SCH ×2 (11:59→21:12)
[2022-10-21] MEDS: COLLAGENASE CLOSTRIDIUM HIST. 30 GRAMS TUBE TP SCH (11:59)
[2022-10-21] MEDS: CASPOFUNGIN ACETATE 50 MG in SODIUM CHLORIDE 250 ML IVPB SCH (13:56)
[2022-10-21] MEDS: DEXTROSE 5% IVPB SCH (17:26)
[2022-10-21] MEDS: WATER IVPB SCH (17:26)
[2022-10-21] MEDS: GANCICLOVIR IVPB SCH (17:26)
[2022-10-21] MEDS: MELATONIN 5 MG TABLETS PO SCH (21:12)
[2022-10-21] MEDS: LIDOCAINE PATCH REMOVAL MC SCH (21:13)
[2022-10-21] MEDS: CHLORHEXIDINE GLUCONATE 4% CLEANSER FOR DECOLONIZATION TP SCH (21:13)
[2022-10-22] MEDS: dilTIAZem HCL 30 MG TABLET PO SCH ×3 (05:36→17:29)
[2022-10-22] MEDS: AMINO ACIDS/PROTEIN HYDROLYS 30 ML LIQUID.PKT PO SCH (08:57)
[2022-10-22] MEDS: SEVELAMER CARBONATE 800 MG TAB (FP) PO SCH ×3 (08:57→17:23)
[2022-10-22] MEDS: ATOVAQUONE 750 MG/5 ML (UNIT-DOSE PACKAGING) PO SCH ×2 (08:59→17:22)
[2022-10-22] MEDS ORDERED: SODIUM CHLORIDE 250 ML IV PRN (09:34)
[2022-10-22] MEDS: METOPROLOL TARTRATE 50 MG TABLET (FP) PO SCH ×2 (09:58→21:34)
[2022-10-22] MEDS: LIDOCAINE 5% TOPICAL PATCH TP SCH (09:58)
[2022-10-22] MEDS: MINERAL OIL/PET HY-PHL TOPICAL OINTMENT 454 GM JAR TP SCH (10:08)
[2022-10-22] MEDS: COLLAGENASE CLOSTRIDIUM HIST. 30 GRAMS TUBE TP SCH (10:08)
[2022-10-22] MEDS: PANTOPRAZOLE 40 MG TABLET PO SCH (10:13)
[2022-10-22] MEDS ORDERED: ACETAMINOPHEN 325 MG TABLET (FP) PO PRN (10:36)
[2022-10-22] MEDS ORDERED: ONDANSETRON 4 MG/2 ML VIAL IVPUSH PRN (10:36)
[2022-10-22] MEDS ORDERED: LIDOCAINE PATCH REMOVAL MC SCH ×2 (10:36→22:00)
[2022-10-22] MEDS: methylPREDNISolone NA SUCC 40 MG/1 ML VIAL IVPUSH SCH (12:50)
[2022-10-22] MEDS: CASPOFUNGIN ACETATE 50 MG in SODIUM CHLORIDE 250 ML IVPB SCH (16:23)
[2022-10-22] MEDS: ZINC OXIDE 20% TOPICAL OINTMENT 30 GM TUBE TP SCH ×2 (17:28→21:39)
[2022-10-22] MEDS ORDERED: CHLORHEXIDINE GLUCONATE 4% CLEANSER FOR DECOLONIZATION TP SCH (22:00)
[2022-10-22] MEDS ORDERED: MELATONIN 5 MG TABLETS PO SCH (22:00)
[2022-10-23 07:29] LABS: HEMATOCRIT 18.6 % (32.4-45.2); MCH 29.6 pg (25.7-33.7); MCHC 33.7 g/dl (32.0-36.0); MEAN CELL VOLUME 87.8 fl (80-96); MEAN PLT VOLUME 8.7 fl (7.5-11.1); PLATELET COUNT 132 10^3/uL (134-434); RBC 2.12 M/mm3 (3.60-5.2); RDW 15.7 % (11.6-15.6); WHITE BLOOD COUNT 9.9 K/mm3 (4.0-10.0)
[2022-10-23 07:34] LABS: HEMOGLOBIN 6.3 GM/dL (10.7-15.3)
[2022-10-23 07:42] LABS: POTASSIUM 3.7 mmol/L (3.5-5.1)
[2022-10-23 07:50] LABS: CALCIUM 7.6 mg/dL (8.5-10.1)
[2022-10-23 07:51] LABS: ALBUMIN 1.4 g/dl (3.4-5.0); BLOOD UREA NITROGEN 43.9 mg/dL (7-18)
[2022-10-23 07:54] LABS: CREATININE 3.9 mg/dL (0.55-1.3)
[2022-10-23 07:56] LABS: BILIRUBIN,TOTAL 0.4 mg/dL (0.2-1)
[2022-10-23] MEDS ORDERED: AMINO ACIDS/PROTEIN HYDROLYS 30 ML LIQUID.PKT PO SCH (08:00)
[2022-10-23] MEDS: SEVELAMER CARBONATE 800 MG TAB (FP) PO SCH ×4 (08:06→17:12)
[2022-10-23] MEDS: ATOVAQUONE 750 MG/5 ML (UNIT-DOSE PACKAGING) PO SCH ×3 (09:16→17:12)
[2022-10-23] MEDS: ZINC OXIDE 20% TOPICAL OINTMENT 30 GM TUBE TP SCH ×2 (09:17→22:05)
[2022-10-23] MEDS: PANTOPRAZOLE 40 MG TABLET PO SCH (09:18)
[2022-10-23] MEDS: METOPROLOL TARTRATE 50 MG TABLET (FP) PO SCH ×2 (09:18→21:58)
[2022-10-23] MEDS ORDERED: EPOETIN ALFA-EPBX 10,000 UNIT/ML VIAL SQ ONE (09:34)
[2022-10-23] MEDS ORDERED: APIXABAN 2.5 MG TABLET PO SCH (10:00)
[2022-10-23] MEDS ORDERED: MINERAL OIL/PET HY-PHL TOPICAL OINTMENT 454 GM JAR TP SCH (10:00)
[2022-10-23] MEDS ORDERED: LIDOCAINE 5% TOPICAL PATCH TP SCH (10:00)
[2022-10-23] MEDS ORDERED: COLLAGENASE CLOSTRIDIUM HIST. 30 GRAMS TUBE TP SCH (10:00)
[2022-10-23] MEDS ORDERED: HEPARIN NA (PORCINE) 5,000 UNITS/ML 1ML VIAL ONE (13:11)
[2022-10-23] MEDS ORDERED: oxyCODONE HCL 5 MG TABLET PO PRN ×2 (13:39→16:37)
[2022-10-23] MEDS ORDERED: ceFAZolin SODIUM 1 GM VIAL IVPB ONE ×2 (14:57→15:03)
[2022-10-23] MEDS ORDERED: LIDOCAINE HCL 1%, 10 MG/ML (20ML VIAL) INF ONE ×2 (15:00)
[2022-10-23] MEDS ORDERED: ceFAZolin SODIUM 1 GM VIAL ONE (15:03)
[2022-10-23] MEDS: CASPOFUNGIN ACETATE 50 MG in SODIUM CHLORIDE 250 ML IVPB SCH (17:05)
[2022-10-23] MEDS: ONDANSETRON 4 MG/2 ML VIAL IVPUSH PRN (17:18)
[2022-10-23] MEDS ORDERED: DEXTROSE 5% IVPB SCH (18:00)
[2022-10-23] MEDS ORDERED: GANCICLOVIR IVPB SCH (18:00)
[2022-10-23] MEDS ORDERED: WATER IVPB SCH (18:00)
[2022-10-23] MEDS: DEXTROSE 5% IVPB SCH (18:10)
[2022-10-23] MEDS: GANCICLOVIR IVPB SCH (18:10)
[2022-10-23] MEDS: WATER IVPB SCH (18:10)
[2022-10-23] MEDS: MELATONIN 5 MG TABLETS PO SCH (21:58)
[2022-10-23] MEDS: CHLORHEXIDINE GLUCONATE 4% CLEANSER FOR DECOLONIZATION TP SCH (22:00)
[2022-10-23] MEDS: LIDOCAINE PATCH REMOVAL MC SCH (22:00)
[2022-10-24] MEDS: AMINO ACIDS/PROTEIN HYDROLYS 30 ML LIQUID.PKT PO SCH (08:30)
[2022-10-24] MEDS: SEVELAMER CARBONATE 800 MG TAB (FP) PO SCH ×3 (08:30→18:08)
[2022-10-24 09:02] LABS: HEMATOCRIT 22.2 % (32.4-45.2); HEMOGLOBIN 7.5 GM/dL (10.7-15.3); MCH 29.5 pg (25.7-33.7); MCHC 33.7 g/dl (32.0-36.0); MEAN CELL VOLUME 87.7 fl (80-96); MEAN PLT VOLUME 7.7 fl (7.5-11.1); PLATELET COUNT 144 10^3/uL (134-434); RBC 2.54 M/mm3 (3.60-5.2); RDW 15.7 % (11.6-15.6); WHITE BLOOD COUNT 9.5 K/mm3 (4.0-10.0)
[2022-10-24 09:21] LABS: POTASSIUM 3.7 mmol/L (3.5-5.1)
[2022-10-24 09:23] LABS: ALBUMIN 1.5 g/dl (3.4-5.0); BLOOD UREA NITROGEN 54.1 mg/dL (7-18); CALCIUM 7.5 mg/dL (8.5-10.1)
[2022-10-24 09:26] LABS: CREATININE 4.5 mg/dL (0.55-1.3)
[2022-10-24 09:28] LABS: BILIRUBIN,TOTAL 0.3 mg/dL (0.2-1); TOT PROT 5.5 g/dl (6.4-8.2)
[2022-10-24 10:34] LABS: ANISOCYTOSIS 0; HELMET CELLS 0; HOWELL-JOLLY BODIES 0; MACROCYTOSIS 0; OVALOCYTE 0; ROULEAU 0; SICKELED CELLS 0; TARGET CELLS 0; TEAR DROP CELLS 0; TOXIC GRANULATION 0
[2022-10-24] MEDS: PANTOPRAZOLE 40 MG TABLET PO SCH (11:35)
[2022-10-24] MEDS: ATOVAQUONE 750 MG/5 ML (UNIT-DOSE PACKAGING) PO SCH ×2 (11:38→18:08)
[2022-10-24] MEDS: METOPROLOL TARTRATE 50 MG TABLET (FP) PO SCH ×2 (11:40→23:12)
[2022-10-24] MEDS: APIXABAN 2.5 MG TABLET PO SCH (11:43)
[2022-10-24] MEDS: ZINC OXIDE 20% TOPICAL OINTMENT 30 GM TUBE TP SCH ×2 (11:44→23:14)
[2022-10-24] MEDS: LIDOCAINE 5% TOPICAL PATCH TP SCH (11:44)
[2022-10-24] MEDS: CASPOFUNGIN ACETATE 50 MG in SODIUM CHLORIDE 250 ML IVPB SCH (13:59)
[2022-10-24] MEDS: MINERAL OIL/PET HY-PHL TOPICAL OINTMENT 454 GM JAR TP SCH (16:21)
[2022-10-24] MEDS: COLLAGENASE CLOSTRIDIUM HIST. 30 GRAMS TUBE TP SCH (16:23)
[2022-10-24] MEDS ORDERED: INSULIN (NOVOLOG) ASPART 100 UNITS/ML 10ML VIAL ONE (18:13)
[2022-10-24] MEDS: CHLORHEXIDINE GLUCONATE 4% CLEANSER FOR DECOLONIZATION TP SCH (23:12)
[2022-10-24] MEDS: LIDOCAINE PATCH REMOVAL MC SCH (23:12)
[2022-10-24] MEDS: MELATONIN 5 MG TABLETS PO SCH (23:12)
[2022-10-25] MEDS: ATOVAQUONE 750 MG/5 ML (UNIT-DOSE PACKAGING) PO SCH ×2 (09:30→17:36)
[2022-10-25] MEDS: SEVELAMER CARBONATE 800 MG TAB (FP) PO SCH ×3 (09:31→17:36)
[2022-10-25] MEDS: LIDOCAINE 5% TOPICAL PATCH TP SCH (09:31)
[2022-10-25] MEDS: APIXABAN 2.5 MG TABLET PO SCH (09:31)
[2022-10-25] MEDS: METOPROLOL TARTRATE 50 MG TABLET (FP) PO SCH ×2 (09:31→21:41)
[2022-10-25] MEDS: AMINO ACIDS/PROTEIN HYDROLYS 30 ML LIQUID.PKT PO SCH (09:31)
[2022-10-25] MEDS: VITAMIN B COMP W-C 1 EA TABLET (NEPHRO-VITE) PO SCH (09:31)
[2022-10-25] MEDS: PANTOPRAZOLE 40 MG TABLET PO SCH (09:31)
[2022-10-25] MEDS: MINERAL OIL/PET HY-PHL TOPICAL OINTMENT 454 GM JAR TP SCH (09:31)
[2022-10-25] MEDS: COLLAGENASE CLOSTRIDIUM HIST. 30 GRAMS TUBE TP SCH (09:32)
[2022-10-25] MEDS: ZINC OXIDE 20% TOPICAL OINTMENT 30 GM TUBE TP SCH ×2 (09:32→21:45)
[2022-10-25] MEDS: CASPOFUNGIN ACETATE 50 MG in SODIUM CHLORIDE 250 ML IVPB SCH (12:56)
[2022-10-25 14:33] LABS: POTASSIUM 3.7 mmol/L (3.5-5.1)
[2022-10-25 14:34] LABS: CALCIUM 7.8 mg/dL (8.5-10.1)
[2022-10-25 14:35] LABS: BLOOD UREA NITROGEN 33.5 mg/dL (7-18)
[2022-10-25 14:38] LABS: CREATININE 3.2 mg/dL (0.55-1.3)
[2022-10-25] MEDS: GANCICLOVIR IVPB SCH (17:36)
[2022-10-25] MEDS: WATER IVPB SCH (17:36)
[2022-10-25] MEDS: DEXTROSE 5% IVPB SCH (17:36)
[2022-10-25] MEDS: MELATONIN 5 MG TABLETS PO SCH ×2 (21:41→21:49)
[2022-10-25] MEDS: CHLORHEXIDINE GLUCONATE 4% CLEANSER FOR DECOLONIZATION TP SCH (21:42)
[2022-10-25] MEDS: LIDOCAINE PATCH REMOVAL MC SCH (21:43)
[2022-10-26 07:34] LABS: HEMATOCRIT 20.6 % (32.4-45.2); HEMOGLOBIN 7.1 GM/dL (10.7-15.3); MCH 30.2 pg (25.7-33.7); MCHC 34.4 g/dl (32.0-36.0); MEAN CELL VOLUME 87.6 fl (80-96); MEAN PLT VOLUME 8.1 fl (7.5-11.1); PLATELET COUNT 133 10^3/uL (134-434); RBC 2.35 M/mm3 (3.60-5.2); RDW 15.7 % (11.6-15.6); WHITE BLOOD COUNT 8.4 K/mm3 (4.0-10.0)
[2022-10-26 07:49] LABS: POTASSIUM 3.3 mmol/L (3.5-5.1)
[2022-10-26 07:52] LABS: CALCIUM 7.5 mg/dL (8.5-10.1)
[2022-10-26 07:53] LABS: BLOOD UREA NITROGEN 40.6 mg/dL (7-18)
[2022-10-26 07:56] LABS: CREATININE 3.6 mg/dL (0.55-1.3)
[2022-10-26 08:34] LABS: ANISOCYTOSIS 0; HELMET CELLS 0; HOWELL-JOLLY BODIES 0; MACROCYTOSIS 0; OVALOCYTE 0; ROULEAU 0; SICKELED CELLS 0; TARGET CELLS 0; TEAR DROP CELLS 0; TOXIC GRANULATION 0
[2022-10-26] MEDS: SEVELAMER CARBONATE 800 MG TAB (FP) PO SCH ×3 (09:13→17:26)
[2022-10-26] MEDS: ATOVAQUONE 750 MG/5 ML (UNIT-DOSE PACKAGING) PO SCH ×2 (09:13→17:26)
[2022-10-26] MEDS: AMINO ACIDS/PROTEIN HYDROLYS 30 ML LIQUID.PKT PO SCH (09:13)
[2022-10-26] MEDS: MINERAL OIL/PET HY-PHL TOPICAL OINTMENT 454 GM JAR TP SCH (09:13)
[2022-10-26] MEDS: VITAMIN B COMP W-C 1 EA TABLET (NEPHRO-VITE) PO SCH (09:14)
[2022-10-26] MEDS: PANTOPRAZOLE 40 MG TABLET PO SCH (09:14)
[2022-10-26] MEDS: METOPROLOL TARTRATE 50 MG TABLET (FP) PO SCH ×2 (09:14→21:12)
[2022-10-26] MEDS: APIXABAN 2.5 MG TABLET PO SCH (09:14)
[2022-10-26] MEDS: LIDOCAINE 5% TOPICAL PATCH TP SCH (09:14)
[2022-10-26] MEDS: COLLAGENASE CLOSTRIDIUM HIST. 30 GRAMS TUBE TP SCH (09:14)
[2022-10-26] MEDS: ZINC OXIDE 20% TOPICAL OINTMENT 30 GM TUBE TP SCH ×2 (09:15→21:12)
[2022-10-26] MEDS ORDERED: SODIUM CHLORIDE 250 ML IV PRN (10:11)
[2022-10-26] MEDS ORDERED: POTASSIUM CHLORIDE ORAL LIQUID 20 MEQ/15 ML PO ONE (10:30)
[2022-10-26] MEDS ORDERED: POTASSIUM CHLORIDE TABS 20 MEQ TABLET.ER (FP) PO ONE (11:09)
[2022-10-26] MEDS ORDERED: EPOETIN ALFA-EPBX 10,000 UNIT/ML VIAL IVPUSH ONE (14:30)
[2022-10-26] MEDS ORDERED: METOPROLOL TARTRATE 5 MG/5 ML VIAL IVPUSH ONE (17:42)
[2022-10-26] MEDS ORDERED: METOPROLOL TARTRATE 5 MG/5 ML VIAL ONE (17:44)
[2022-10-26] MEDS: MELATONIN 5 MG TABLETS PO SCH (21:08)
[2022-10-26] MEDS: CHLORHEXIDINE GLUCONATE 4% CLEANSER FOR DECOLONIZATION TP SCH (21:11)
[2022-10-26] MEDS: LIDOCAINE PATCH REMOVAL MC SCH (21:11)
[2022-10-27 06:57] LABS: BASO % 0.3 % (0-2.0); EOS % 3.6 % (0-4.5); HEMATOCRIT 20.9 % (32.4-45.2); HEMOGLOBIN 7.1 GM/dL (10.7-15.3); LYMPH % 6.7 % (8-40); MCH 30.3 pg (25.7-33.7); MCHC 34.2 g/dl (32.0-36.0); MEAN CELL VOLUME 88.6 fl (80-96); MEAN PLT VOLUME 8.1 fl (7.5-11.1); MONO % 5.4 % (3.8-10.2); PLATELET COUNT 128 10^3/uL (134-434); RBC 2.36 M/mm3 (3.60-5.2); RDW 16.1 % (11.6-15.6); WHITE BLOOD COUNT 8.4 K/mm3 (4.0-10.0)
[2022-10-27 07:13] LABS: POTASSIUM 4.1 mmol/L (3.5-5.1)
[2022-10-27 07:15] LABS: CALCIUM 7.7 mg/dL (8.5-10.1)
[2022-10-27 07:16] LABS: BLOOD UREA NITROGEN 24.1 mg/dL (7-18)
[2022-10-27 07:19] LABS: CREATININE 2.7 mg/dL (0.55-1.3)
[2022-10-27] MEDS: AMINO ACIDS/PROTEIN HYDROLYS 30 ML LIQUID.PKT PO SCH (09:12)
[2022-10-27] MEDS: SEVELAMER CARBONATE 800 MG TAB (FP) PO SCH ×3 (09:12→17:21)
[2022-10-27] MEDS: ATOVAQUONE 750 MG/5 ML (UNIT-DOSE PACKAGING) PO SCH ×2 (09:13→17:21)
[2022-10-27] MEDS: PANTOPRAZOLE 40 MG TABLET PO SCH (09:13)
[2022-10-27] MEDS: APIXABAN 2.5 MG TABLET PO SCH (09:14)
[2022-10-27] MEDS: METOPROLOL TARTRATE 50 MG TABLET (FP) PO SCH ×2 (09:14→21:15)
[2022-10-27] MEDS: COLLAGENASE CLOSTRIDIUM HIST. 30 GRAMS TUBE TP SCH (09:14)
[2022-10-27] MEDS: ZINC OXIDE 20% TOPICAL OINTMENT 30 GM TUBE TP SCH ×2 (09:14→21:17)
[2022-10-27] MEDS: VITAMIN B COMP W-C 1 EA TABLET (NEPHRO-VITE) PO SCH (09:14)
[2022-10-27] MEDS: MINERAL OIL/PET HY-PHL TOPICAL OINTMENT 454 GM JAR TP SCH (09:14)
[2022-10-27] MEDS: LIDOCAINE 5% TOPICAL PATCH TP SCH (09:14)
[2022-10-27] MEDS ORDERED: SODIUM CHLORIDE 250 ML IV PRN (12:25)
[2022-10-27] MEDS: GANCICLOVIR IVPB SCH (17:21)
[2022-10-27] MEDS: DEXTROSE 5% IVPB SCH (17:21)
[2022-10-27] MEDS: WATER IVPB SCH (17:21)
[2022-10-27] MEDS: MELATONIN 5 MG TABLETS PO SCH (21:15)
[2022-10-27] MEDS: CHLORHEXIDINE GLUCONATE 4% CLEANSER FOR DECOLONIZATION TP SCH (21:16)
[2022-10-27] MEDS: LIDOCAINE PATCH REMOVAL MC SCH (21:16)
[2022-10-28 06:40] LABS: HEMATOCRIT 20.3 % (32.4-45.2); MCH 29.8 pg (25.7-33.7); MCHC 33.6 g/dl (32.0-36.0); MEAN CELL VOLUME 88.9 fl (80-96); MEAN PLT VOLUME 8.3 fl (7.5-11.1); PLATELET COUNT 134 10^3/uL (134-434); RBC 2.28 M/mm3 (3.60-5.2); RDW 15.7 % (11.6-15.6); WHITE BLOOD COUNT 7.9 K/mm3 (4.0-10.0)
[2022-10-28 06:52] LABS: POTASSIUM 3.9 mmol/L (3.5-5.1)
[2022-10-28 06:53] LABS: HEMOGLOBIN 6.8 GM/dL (10.7-15.3)
[2022-10-28 06:55] LABS: CALCIUM 7.9 mg/dL (8.5-10.1)
[2022-10-28 06:56] LABS: ALBUMIN 1.4 g/dl (3.4-5.0); BLOOD UREA NITROGEN 37.5 mg/dL (7-18); CALCIUM 7.9 mg/dL (8.5-10.1)
[2022-10-28 06:57] LABS: BLOOD UREA NITROGEN 36.9 mg/dL (7-18)
[2022-10-28 06:58] LABS: CREATININE 3.7 mg/dL (0.55-1.3)
[2022-10-28 07:00] LABS: CREATININE 3.7 mg/dL (0.55-1.3); PHOSPHOROUS 3.7 mg/dL (2.5-4.9); TOT PROT 5.8 g/dl (6.4-8.2)
[2022-10-28 07:01] LABS: BILIRUBIN,TOTAL 0.4 mg/dL (0.2-1)
[2022-10-28] MEDS: ATOVAQUONE 750 MG/5 ML (UNIT-DOSE PACKAGING) PO SCH ×2 (09:01→18:30)
[2022-10-28] MEDS: SEVELAMER CARBONATE 800 MG TAB (FP) PO SCH ×3 (09:02→18:31)
[2022-10-28] MEDS: COLLAGENASE CLOSTRIDIUM HIST. 30 GRAMS TUBE TP SCH (09:02)
[2022-10-28] MEDS: ZINC OXIDE 20% TOPICAL OINTMENT 30 GM TUBE TP SCH ×2 (09:02→21:45)
[2022-10-28] MEDS: LIDOCAINE 5% TOPICAL PATCH TP SCH (09:02)
[2022-10-28] MEDS: MINERAL OIL/PET HY-PHL TOPICAL OINTMENT 454 GM JAR TP SCH (09:02)
[2022-10-28] MEDS: AMINO ACIDS/PROTEIN HYDROLYS 30 ML LIQUID.PKT PO SCH (09:02)
[2022-10-28] MEDS: APIXABAN 2.5 MG TABLET PO SCH (09:28)
[2022-10-28] MEDS: VITAMIN B COMP W-C 1 EA TABLET (NEPHRO-VITE) PO SCH (09:29)
[2022-10-28] MEDS: PANTOPRAZOLE 40 MG TABLET PO SCH (09:29)
[2022-10-28] MEDS: METOPROLOL TARTRATE 50 MG TABLET (FP) PO SCH ×2 (09:29→21:43)
[2022-10-28] MEDS ORDERED: EPOETIN ALFA-EPBX 10,000 UNIT/ML VIAL SQ ONE (10:15)
[2022-10-28] MEDS ORDERED: METOPROLOL TARTRATE 5 MG/5 ML VIAL ONE (13:59)
[2022-10-28] MEDS: LIDOCAINE PATCH REMOVAL MC SCH (21:43)
[2022-10-28] MEDS: MELATONIN 5 MG TABLETS PO SCH (21:44)
[2022-10-28] MEDS: CHLORHEXIDINE GLUCONATE 4% CLEANSER FOR DECOLONIZATION TP SCH (21:44)
[2022-10-29] MEDS: AMINO ACIDS/PROTEIN HYDROLYS 30 ML LIQUID.PKT PO SCH (08:59)
[2022-10-29] MEDS: ATOVAQUONE 750 MG/5 ML (UNIT-DOSE PACKAGING) PO SCH ×2 (08:59→17:09)
[2022-10-29] MEDS: SEVELAMER CARBONATE 800 MG TAB (FP) PO SCH ×3 (09:00→17:09)
[2022-10-29] MEDS: VITAMIN B COMP W-C 1 EA TABLET (NEPHRO-VITE) PO SCH (09:03)
[2022-10-29] MEDS: METOPROLOL TARTRATE 50 MG TABLET (FP) PO SCH ×2 (09:03→21:34)
[2022-10-29] MEDS: PANTOPRAZOLE 40 MG TABLET PO SCH (09:03)
[2022-10-29] MEDS: APIXABAN 2.5 MG TABLET PO SCH (09:03)
[2022-10-29] MEDS: LIDOCAINE 5% TOPICAL PATCH TP SCH (09:03)
[2022-10-29] MEDS: ZINC OXIDE 20% TOPICAL OINTMENT 30 GM TUBE TP SCH ×2 (09:20→21:34)
[2022-10-29] MEDS: COLLAGENASE CLOSTRIDIUM HIST. 30 GRAMS TUBE TP SCH (09:20)
[2022-10-29] MEDS: MINERAL OIL/PET HY-PHL TOPICAL OINTMENT 454 GM JAR TP SCH (09:21)
[2022-10-29 12:22] LABS: HEMATOCRIT 22.8 % (32.4-45.2); HEMOGLOBIN 7.8 GM/dL (10.7-15.3); MCH 29.6 pg (25.7-33.7); MCHC 34.3 g/dl (32.0-36.0); MEAN CELL VOLUME 86.4 fl (80-96); MEAN PLT VOLUME 8.3 fl (7.5-11.1); PLATELET COUNT 153 10^3/uL (134-434); RBC 2.64 M/mm3 (3.60-5.2); RDW 17.6 % (11.6-15.6); WHITE BLOOD COUNT 9.3 K/mm3 (4.0-10.0)
[2022-10-29 12:47] LABS: POTASSIUM 3.9 mmol/L (3.5-5.1)
[2022-10-29 12:51] LABS: ALBUMIN 1.4 g/dl (3.4-5.0)
[2022-10-29 12:52] LABS: BLOOD UREA NITROGEN 39.8 mg/dL (7-18)
[2022-10-29 12:55] LABS: CREATININE 3.5 mg/dL (0.55-1.3)
[2022-10-29 12:56] LABS: BILIRUBIN,TOTAL 0.3 mg/dL (0.2-1); TOT PROT 5.7 g/dl (6.4-8.2)
[2022-10-29] MEDS: WATER IVPB SCH (17:08)
[2022-10-29] MEDS: GANCICLOVIR IVPB SCH (17:08)
[2022-10-29] MEDS: DEXTROSE 5% IVPB SCH (17:08)
[2022-10-29] MEDS: CHLORHEXIDINE GLUCONATE 4% CLEANSER FOR DECOLONIZATION TP SCH (21:34)
[2022-10-29] MEDS: ACETAMINOPHEN 325 MG TABLET (FP) PO PRN (21:47)
[2022-10-29] MEDS: ONDANSETRON 4 MG/2 ML VIAL IVPUSH PRN (21:54)
[2022-10-29] MEDS: MELATONIN 5 MG TABLETS PO SCH (22:04)
[2022-10-29] MEDS: LIDOCAINE PATCH REMOVAL MC SCH (22:47)
[2022-10-30] MEDS: guaiFENesin/D-METHORPHAN HB 10 ML UNIT-DOSE CUPS PO PRN ×2 (06:49→18:00)
[2022-10-30] MEDS: SEVELAMER CARBONATE 800 MG TAB (FP) PO SCH ×3 (08:24→17:53)
[2022-10-30] MEDS: ATOVAQUONE 750 MG/5 ML (UNIT-DOSE PACKAGING) PO SCH (08:24)
[2022-10-30] MEDS: AMINO ACIDS/PROTEIN HYDROLYS 30 ML LIQUID.PKT PO SCH (08:24)
[2022-10-30] MEDS ORDERED: SODIUM CHLORIDE 250 ML IV PRN (09:00)
[2022-10-30] MEDS ORDERED: EPOETIN ALFA-EPBX 10,000 UNIT/ML VIAL IVPUSH ONE (09:00)
[2022-10-30] MEDS: METOPROLOL TARTRATE 5 MG/5 ML VIAL IVPUSH PRN (09:15)
[2022-10-30] MEDS: ACETAMINOPHEN 325 MG TABLET (FP) PO PRN ×2 (09:22→21:37)
[2022-10-30] MEDS: METOPROLOL TARTRATE 50 MG TABLET (FP) PO SCH ×2 (09:23→21:37)
[2022-10-30] MEDS: VITAMIN B COMP W-C 1 EA TABLET (NEPHRO-VITE) PO SCH (09:23)
[2022-10-30] MEDS: APIXABAN 2.5 MG TABLET PO SCH (09:23)
[2022-10-30] MEDS: PANTOPRAZOLE 40 MG TABLET PO SCH (09:23)
[2022-10-30] MEDS: PIPERACILLIN/TAZOB 2.25 GM 2.25 GM in DEXTROSE 5%-WATER - 50 ML IVPB SCH ×2 (10:55→17:53)
[2022-10-30] MEDS: ZINC OXIDE 20% TOPICAL OINTMENT 30 GM TUBE TP SCH ×2 (10:55→21:37)
[2022-10-30] MEDS ORDERED: VANCOMYCIN/WATER 1250 MG 1,250 MG/250 ML BAG IVPB ONE (11:00)
[2022-10-30] MEDS: MINERAL OIL/PET HY-PHL TOPICAL OINTMENT 454 GM JAR TP SCH (11:29)
[2022-10-30] MEDS: COLLAGENASE CLOSTRIDIUM HIST. 30 GRAMS TUBE TP SCH (11:30)
[2022-10-30] MEDS: LIDOCAINE 5% TOPICAL PATCH TP SCH (11:30)
[2022-10-30 12:56] LABS: PH,URINE 7.5 (5.0-8.0); URINE APPEARANCE CLEAR; URINE BILIRUBIN NEGATIVE (NEGATIVE); URINE COLOR YELLOW; URINE GLUCOSE (UA) NEGATIVE (NEGATIVE); URINE KETONE NEGATIVE (NEGATIVE); URINE PROTEIN 3+ (NEGATIVE)
[2022-10-30 12:57] LABS: URINE LEUK ESTERASE TRACE (NEGATIVE); URINE NITRITE NEGATIVE (NEGATIVE); URINE UROBILINOGEN 0.2 mg/dL (0.2-1.0)
[2022-10-30 13:05] LABS: HEMATOCRIT 24.5 % (32.4-45.2); HEMOGLOBIN 8.4 GM/dL (10.7-15.3); MCH 29.9 pg (25.7-33.7); MCHC 34.2 g/dl (32.0-36.0); MEAN CELL VOLUME 87.5 fl (80-96); MEAN PLT VOLUME 8.1 fl (7.5-11.1); PLATELET COUNT 163 10^3/uL (134-434); RBC 2.81 M/mm3 (3.60-5.2); RDW 16.9 % (11.6-15.6); WHITE BLOOD COUNT 10.8 K/mm3 (4.0-10.0)
[2022-10-30 13:25] LABS: POTASSIUM 4.3 mmol/L (3.5-5.1)
[2022-10-30 13:30] LABS: ALBUMIN 1.3 g/dl (3.4-5.0)
[2022-10-30 13:31] LABS: CALCIUM 7.9 mg/dL (8.5-10.1)
[2022-10-30 13:32] LABS: BLOOD UREA NITROGEN 51.5 mg/dL (7-18)
[2022-10-30 13:33] LABS: CREATININE 4.1 mg/dL (0.55-1.3)
[2022-10-30 13:37] LABS: BILIRUBIN,TOTAL 0.4 mg/dL (0.2-1)
[2022-10-30] MEDS: LIDOCAINE PATCH REMOVAL MC SCH (21:36)
[2022-10-30] MEDS: MELATONIN 5 MG TABLETS PO SCH ×2 (21:37→21:42)
[2022-10-30] MEDS: CHLORHEXIDINE GLUCONATE 4% CLEANSER FOR DECOLONIZATION TP SCH (21:37)
[2022-10-31] MEDS: PIPERACILLIN/TAZOB 2.25 GM 2.25 GM in DEXTROSE 5%-WATER - 50 ML IVPB SCH ×3 (01:02→17:29)
[2022-10-31] MEDS: guaiFENesin/D-METHORPHAN HB 10 ML UNIT-DOSE CUPS PO PRN (01:02)
[2022-10-31] MEDS ORDERED: SODIUM CHLORIDE NASAL SPRAY 44 ML BOTTLE NS PRN (10:13)
[2022-10-31] MEDS: LIDOCAINE 5% TOPICAL PATCH TP SCH (11:27)
[2022-10-31] MEDS: VITAMIN B COMP W-C 1 EA TABLET (NEPHRO-VITE) PO SCH (11:28)
[2022-10-31] MEDS: PANTOPRAZOLE 40 MG TABLET PO SCH (11:28)
[2022-10-31] MEDS: APIXABAN 2.5 MG TABLET PO SCH (11:28)
[2022-10-31] MEDS: METOPROLOL TARTRATE 50 MG TABLET (FP) PO SCH ×2 (11:28→21:14)
[2022-10-31] MEDS: FLUTICASONE PROP 0.05% 16 GM NASAL SPRAY NS SCH ×2 (11:29→21:14)
[2022-10-31] MEDS: ATOVAQUONE 750 MG/5 ML (UNIT-DOSE PACKAGING) PO SCH (11:30)
[2022-10-31] MEDS: SEVELAMER CARBONATE 800 MG TAB (FP) PO SCH ×3 (11:30→17:32)
[2022-10-31] MEDS: AMINO ACIDS/PROTEIN HYDROLYS 30 ML LIQUID.PKT PO SCH (11:30)
[2022-10-31] MEDS ORDERED: EPOETIN ALFA-EPBX 10,000 UNIT/ML VIAL SQ ONE (12:31)
[2022-10-31] MEDS: ZINC OXIDE 20% TOPICAL OINTMENT 30 GM TUBE TP SCH ×2 (15:30→21:14)
[2022-10-31] MEDS: COLLAGENASE CLOSTRIDIUM HIST. 30 GRAMS TUBE TP SCH (15:30)
[2022-10-31] MEDS: MINERAL OIL/PET HY-PHL TOPICAL OINTMENT 454 GM JAR TP SCH (15:30)
[2022-10-31] MEDS: DEXTROSE 5% IVPB SCH (17:32)
[2022-10-31] MEDS: GANCICLOVIR IVPB SCH (17:32)
[2022-10-31] MEDS: WATER IVPB SCH (17:32)
[2022-10-31] MEDS: LIDOCAINE PATCH REMOVAL MC SCH (21:14)
[2022-10-31] MEDS: MELATONIN 5 MG TABLETS PO SCH (21:14)
[2022-10-31] MEDS: CHLORHEXIDINE GLUCONATE 4% CLEANSER FOR DECOLONIZATION TP SCH (21:14)
[2022-11-01] MEDS: PIPERACILLIN/TAZOB 2.25 GM 2.25 GM in DEXTROSE 5%-WATER - 50 ML IVPB SCH ×3 (05:33→17:05)
[2022-11-01 07:28] LABS: HEMOGLOBIN 7.6 GM/dL (10.7-15.3); MCH 30.4 pg (25.7-33.7); MCHC 34.5 g/dl (32.0-36.0); MEAN PLT VOLUME 8.5 fl (7.5-11.1); PLATELET COUNT 159 10^3/uL (134-434); RDW 17.5 % (11.6-15.6); WHITE BLOOD COUNT 10.1 K/mm3 (4.0-10.0)
[2022-11-01 07:37] LABS: INR 2.04 (0.83-1.09); PROTHROMBIN TIME (PATIENT) 23.5 SEC (9.7-13.0)
[2022-11-01 08:00] LABS: POTASSIUM 3.4 mmol/L (3.5-5.1)
[2022-11-01 08:04] LABS: CALCIUM 7.5 mg/dL (8.5-10.1)
[2022-11-01 08:05] LABS: ALBUMIN 1.3 g/dl (3.4-5.0); BLOOD UREA NITROGEN 35.7 mg/dL (7-18); MAGNESIUM 1.5 mg/dL (1.8-2.4)
[2022-11-01 08:08] LABS: CREATININE 3.1 mg/dL (0.55-1.3)
[2022-11-01 08:10] LABS: BILIRUBIN,TOTAL 0.3 mg/dL (0.2-1); TOT PROT 6.2 g/dl (6.4-8.2)
[2022-11-01] MEDS: SEVELAMER CARBONATE 800 MG TAB (FP) PO SCH ×3 (08:55→17:05)
[2022-11-01] MEDS: ATOVAQUONE 750 MG/5 ML (UNIT-DOSE PACKAGING) PO SCH (08:55)
[2022-11-01] MEDS: AMINO ACIDS/PROTEIN HYDROLYS 30 ML LIQUID.PKT PO SCH (08:55)
[2022-11-01] MEDS: LIDOCAINE 5% TOPICAL PATCH TP SCH (09:46)
[2022-11-01] MEDS: VITAMIN B COMP W-C 1 EA TABLET (NEPHRO-VITE) PO SCH (09:46)
[2022-11-01] MEDS: APIXABAN 2.5 MG TABLET PO SCH (09:46)
[2022-11-01] MEDS: PANTOPRAZOLE 40 MG TABLET PO SCH (09:46)
[2022-11-01] MEDS: METOPROLOL TARTRATE 50 MG TABLET (FP) PO SCH ×2 (09:47→22:00)
[2022-11-01] MEDS: MINERAL OIL/PET HY-PHL TOPICAL OINTMENT 454 GM JAR TP SCH (09:50)
[2022-11-01] MEDS: FLUTICASONE PROP 0.05% 16 GM NASAL SPRAY NS SCH ×2 (09:50→21:30)
[2022-11-01] MEDS: COLLAGENASE CLOSTRIDIUM HIST. 30 GRAMS TUBE TP SCH (09:51)
[2022-11-01] MEDS: ZINC OXIDE 20% TOPICAL OINTMENT 30 GM TUBE TP SCH ×2 (09:51→22:01)
[2022-11-01] MEDS ORDERED: MAGNESIUM OXIDE 400 MG TABLET (FP) PO ONE (09:55)
[2022-11-01] MEDS ORDERED: POTASSIUM CHLORIDE TABS 20 MEQ TABLET.ER (FP) PO ONE (09:55)
[2022-11-01 10:12] LABS: ANISOCYTOSIS 0; MACROCYTOSIS 0
[2022-11-01] MEDS: CHLORHEXIDINE GLUCONATE 4% CLEANSER FOR DECOLONIZATION TP SCH (21:29)
[2022-11-01] MEDS: MELATONIN 5 MG TABLETS PO SCH (21:59)
[2022-11-01] MEDS: LIDOCAINE PATCH REMOVAL MC SCH (22:00)
[2022-11-01] MEDS: guaiFENesin/D-METHORPHAN HB 10 ML UNIT-DOSE CUPS PO PRN (22:06)
[2022-11-02] MEDS: PIPERACILLIN/TAZOB 2.25 GM 2.25 GM in DEXTROSE 5%-WATER - 50 ML IVPB SCH ×3 (02:05→17:23)
[2022-11-02 07:49] LABS: POTASSIUM 4.1 mmol/L (3.5-5.1)
[2022-11-02 07:51] LABS: ALBUMIN 1.2 g/dl (3.4-5.0); CALCIUM 7.8 mg/dL (8.5-10.1); MAGNESIUM 1.6 mg/dL (1.8-2.4)
[2022-11-02 07:52] LABS: BLOOD UREA NITROGEN 44.4 mg/dL (7-18); HEMATOCRIT 22.9 % (32.4-45.2); HEMOGLOBIN 7.7 GM/dL (10.7-15.3); MCH 29.9 pg (25.7-33.7); MCHC 33.7 g/dl (32.0-36.0); MEAN CELL VOLUME 88.7 fl (80-96); MEAN PLT VOLUME 8.4 fl (7.5-11.1); PLATELET COUNT 193 10^3/uL (134-434); RBC 2.58 M/mm3 (3.60-5.2); RDW 17.2 % (11.6-15.6); WHITE BLOOD COUNT 9.1 K/mm3 (4.0-10.0)
[2022-11-02 07:54] LABS: CREATININE 3.7 mg/dL (0.55-1.3)
[2022-11-02 07:56] LABS: BILIRUBIN,TOTAL 0.3 mg/dL (0.2-1); TOT PROT 6.2 g/dl (6.4-8.2)
[2022-11-02 09:45] LABS: ANISOCYTOSIS 0; HELMET CELLS 0; HOWELL-JOLLY BODIES 0; MACROCYTOSIS 0; OVALOCYTE 0; ROULEAU 0; SICKELED CELLS 0; TARGET CELLS 0; TEAR DROP CELLS 0; TOXIC GRANULATION 0
[2022-11-02] MEDS: LIDOCAINE 5% TOPICAL PATCH TP SCH (10:17)
[2022-11-02] MEDS: VITAMIN B COMP W-C 1 EA TABLET (NEPHRO-VITE) PO SCH (10:19)
[2022-11-02] MEDS: PANTOPRAZOLE 40 MG TABLET PO SCH (10:19)
[2022-11-02] MEDS: APIXABAN 2.5 MG TABLET PO SCH (10:19)
[2022-11-02] MEDS: METOPROLOL TARTRATE 50 MG TABLET (FP) PO SCH ×2 (10:19→22:08)
[2022-11-02] MEDS: SEVELAMER CARBONATE 800 MG TAB (FP) PO SCH ×3 (10:19→17:23)
[2022-11-02] MEDS: AMINO ACIDS/PROTEIN HYDROLYS 30 ML LIQUID.PKT PO SCH (10:20)
[2022-11-02] MEDS: ATOVAQUONE 750 MG/5 ML (UNIT-DOSE PACKAGING) PO SCH (10:20)
[2022-11-02] MEDS: ZINC OXIDE 20% TOPICAL OINTMENT 30 GM TUBE TP SCH ×2 (10:21→22:09)
[2022-11-02] MEDS: FLUTICASONE PROP 0.05% 16 GM NASAL SPRAY NS SCH ×2 (10:21→22:04)
[2022-11-02] MEDS: ACETAMINOPHEN 325 MG TABLET (FP) PO PRN (10:22)
[2022-11-02] MEDS ORDERED: SODIUM CHLORIDE 250 ML IV PRN (12:16)
[2022-11-02] MEDS: MINERAL OIL/PET HY-PHL TOPICAL OINTMENT 454 GM JAR TP SCH (12:34)
[2022-11-02] MEDS: COLLAGENASE CLOSTRIDIUM HIST. 30 GRAMS TUBE TP SCH (15:45)
[2022-11-02] MEDS: GANCICLOVIR IVPB SCH (17:23)
[2022-11-02] MEDS: WATER IVPB SCH (17:23)
[2022-11-02] MEDS: DEXTROSE 5% IVPB SCH (17:23)
[2022-11-02] MEDS: CHLORHEXIDINE GLUCONATE 4% CLEANSER FOR DECOLONIZATION TP SCH (22:08)
[2022-11-02] MEDS: LIDOCAINE PATCH REMOVAL MC SCH (22:08)
[2022-11-02] MEDS: MELATONIN 5 MG TABLETS PO SCH (22:08)
[2022-11-02] MEDS: guaiFENesin/D-METHORPHAN HB 10 ML UNIT-DOSE CUPS PO PRN (23:06)
[2022-11-03] MEDS: PIPERACILLIN/TAZOB 2.25 GM 2.25 GM in DEXTROSE 5%-WATER - 50 ML IVPB SCH ×3 (01:44→18:06)
[2022-11-03 07:19] LABS: HEMATOCRIT 23.1 % (32.4-45.2); HEMOGLOBIN 7.4 GM/dL (10.7-15.3); MCHC 31.9 g/dl (32.0-36.0); MEAN CELL VOLUME 90.7 fl (80-96); MEAN PLT VOLUME 8.2 fl (7.5-11.1); PLATELET COUNT 213 10^3/uL (134-434); RBC 2.54 M/mm3 (3.60-5.2); RDW 17.2 % (11.6-15.6); WHITE BLOOD COUNT 8.3 K/mm3 (4.0-10.0)
[2022-11-03 07:41] LABS: POTASSIUM 4.2 mmol/L (3.5-5.1)
[2022-11-03 07:43] LABS: BLOOD UREA NITROGEN 54.8 mg/dL (7-18); CALCIUM 7.9 mg/dL (8.5-10.1)
[2022-11-03 07:44] LABS: ALBUMIN 1.2 g/dl (3.4-5.0); MAGNESIUM 1.7 mg/dL (1.8-2.4)
[2022-11-03 07:46] LABS: CREATININE 4.2 mg/dL (0.55-1.3)
[2022-11-03 07:49] LABS: BILIRUBIN,TOTAL 0.4 mg/dL (0.2-1); TOT PROT 6.1 g/dl (6.4-8.2)
[2022-11-03 08:47] LABS: HEMATOCRIT 23.4 % (32.4-45.2); HEMOGLOBIN 7.6 GM/dL (10.7-15.3); MCH 29.8 pg (25.7-33.7); MCHC 32.4 g/dl (32.0-36.0); MEAN PLT VOLUME 8.3 fl (7.5-11.1); PLATELET COUNT 218 10^3/uL (134-434); RBC 2.54 M/mm3 (3.60-5.2); RDW 17.2 % (11.6-15.6); WHITE BLOOD COUNT 8.4 K/mm3 (4.0-10.0)
[2022-11-03 09:18] LABS: POTASSIUM 4.2 mmol/L (3.5-5.1)
[2022-11-03 09:21] LABS: CALCIUM 7.7 mg/dL (8.5-10.1)
[2022-11-03 09:22] LABS: ALBUMIN 1.2 g/dl (3.4-5.0); BLOOD UREA NITROGEN 51.6 mg/dL (7-18)
[2022-11-03 09:25] LABS: CREATININE 4.3 mg/dL (0.55-1.3)
[2022-11-03 09:26] LABS: BILIRUBIN,TOTAL 0.4 mg/dL (0.2-1); TOT PROT 6.1 g/dl (6.4-8.2)
[2022-11-03] MEDS ORDERED: EPOETIN ALFA-EPBX 10,000 UNIT/ML VIAL IVPUSH ONE (09:30)
[2022-11-03 09:58] LABS: ANISOCYTOSIS 0; MACROCYTOSIS 1+
[2022-11-03] MEDS: ZINC OXIDE 20% TOPICAL OINTMENT 30 GM TUBE TP SCH ×2 (10:00→22:06)
[2022-11-03] MEDS: ATOVAQUONE 750 MG/5 ML (UNIT-DOSE PACKAGING) PO SCH (10:45)
[2022-11-03] MEDS: PANTOPRAZOLE 40 MG TABLET PO SCH (10:46)
[2022-11-03] MEDS: VITAMIN B COMP W-C 1 EA TABLET (NEPHRO-VITE) PO SCH (10:46)
[2022-11-03] MEDS: APIXABAN 2.5 MG TABLET PO SCH (10:46)
[2022-11-03] MEDS: METOPROLOL TARTRATE 50 MG TABLET (FP) PO SCH ×2 (10:46→22:05)
[2022-11-03] MEDS: AMINO ACIDS/PROTEIN HYDROLYS 30 ML LIQUID.PKT PO SCH (10:46)
[2022-11-03] MEDS: LIDOCAINE 5% TOPICAL PATCH TP SCH (11:27)
[2022-11-03] MEDS: SEVELAMER CARBONATE 800 MG TAB (FP) PO SCH ×3 (11:28→18:06)
[2022-11-03] MEDS: FLUTICASONE PROP 0.05% 16 GM NASAL SPRAY NS SCH ×2 (11:31→22:06)
[2022-11-03] MEDS: COLLAGENASE CLOSTRIDIUM HIST. 30 GRAMS TUBE TP SCH (13:00)
[2022-11-03] MEDS: MINERAL OIL/PET HY-PHL TOPICAL OINTMENT 454 GM JAR TP SCH (17:39)
[2022-11-03] MEDS: LIDOCAINE PATCH REMOVAL MC SCH (22:03)
[2022-11-03] MEDS: CHLORHEXIDINE GLUCONATE 4% CLEANSER FOR DECOLONIZATION TP SCH (22:03)
[2022-11-03] MEDS: MELATONIN 5 MG TABLETS PO SCH (22:05)
[2022-11-04] MEDS: PIPERACILLIN/TAZOB 2.25 GM 2.25 GM in DEXTROSE 5%-WATER - 50 ML IVPB SCH ×2 (01:19→09:49)
[2022-11-04] MEDS: SEVELAMER CARBONATE 800 MG TAB (FP) PO SCH ×3 (09:49→18:36)
[2022-11-04] MEDS: METOPROLOL TARTRATE 50 MG TABLET (FP) PO SCH ×2 (09:49→21:36)
[2022-11-04] MEDS: VITAMIN B COMP W-C 1 EA TABLET (NEPHRO-VITE) PO SCH (09:49)
[2022-11-04] MEDS: APIXABAN 2.5 MG TABLET PO SCH (09:49)
[2022-11-04] MEDS: MINERAL OIL/PET HY-PHL TOPICAL OINTMENT 454 GM JAR TP SCH (09:49)
[2022-11-04] MEDS: AMINO ACIDS/PROTEIN HYDROLYS 30 ML LIQUID.PKT PO SCH (09:49)
[2022-11-04] MEDS: ATOVAQUONE 750 MG/5 ML (UNIT-DOSE PACKAGING) PO SCH (09:49)
[2022-11-04] MEDS: PANTOPRAZOLE 40 MG TABLET PO SCH (09:49)
[2022-11-04] MEDS: LIDOCAINE 5% TOPICAL PATCH TP SCH (09:50)
[2022-11-04] MEDS: ZINC OXIDE 20% TOPICAL OINTMENT 30 GM TUBE TP SCH ×2 (09:50→21:36)
[2022-11-04] MEDS: FLUTICASONE PROP 0.05% 16 GM NASAL SPRAY NS SCH ×2 (09:50→21:35)
[2022-11-04] MEDS: COLLAGENASE CLOSTRIDIUM HIST. 30 GRAMS TUBE TP SCH (09:50)
[2022-11-04] MEDS ORDERED: FUROSEMIDE 40 MG/4 ML INJECTABLE VIAL IVPUSH ONE (10:37)
[2022-11-04] MEDS: DEXTROSE 5% IVPB SCH (18:36)
[2022-11-04] MEDS: GANCICLOVIR IVPB SCH (18:36)
[2022-11-04] MEDS: WATER IVPB SCH (18:36)
[2022-11-04] MEDS: CHLORHEXIDINE GLUCONATE 4% CLEANSER FOR DECOLONIZATION TP SCH (21:36)
[2022-11-04] MEDS: LIDOCAINE PATCH REMOVAL MC SCH (21:36)
[2022-11-04] MEDS: MELATONIN 5 MG TABLETS PO SCH (21:36)
[2022-11-04] MEDS: guaiFENesin/D-METHORPHAN HB 10 ML UNIT-DOSE CUPS PO PRN (21:37)
[2022-11-05] MEDS ORDERED: SODIUM CHLORIDE 250 ML IV PRN (07:31)
[2022-11-05 07:32] LABS: HEMATOCRIT 25.4 % (32.4-45.2); MCH 28.4 pg (25.7-33.7); MCHC 31.4 g/dl (32.0-36.0); MEAN CELL VOLUME 90.6 fl (80-96); MEAN PLT VOLUME 8.1 fl (7.5-11.1); PLATELET COUNT 276 10^3/uL (134-434); RDW 17.6 % (11.6-15.6); WHITE BLOOD COUNT 10.7 K/mm3 (4.0-10.0)
[2022-11-05 07:53] LABS: POTASSIUM 3.8 mmol/L (3.5-5.1)
[2022-11-05 07:55] LABS: BLOOD UREA NITROGEN 45.8 mg/dL (7-18); CALCIUM 7.6 mg/dL (8.5-10.1); MAGNESIUM 1.7 mg/dL (1.8-2.4)
[2022-11-05 07:58] LABS: CREATININE 3.6 mg/dL (0.55-1.3)
[2022-11-05 07:59] LABS: PHOSPHOROUS 3.9 mg/dL (2.5-4.9)
[2022-11-05] MEDS ORDERED: EPOETIN ALFA-EPBX 10,000 UNIT, EPOETIN ALFA-EPBX 2,000 UNIT SQ ONE (08:00)
[2022-11-05] MEDS ORDERED: FUROSEMIDE 40 MG/4 ML INJECTABLE VIAL IVPUSH ONE (10:04)
[2022-11-05] MEDS: AMINO ACIDS/PROTEIN HYDROLYS 30 ML LIQUID.PKT PO SCH (10:27)
[2022-11-05] MEDS: SEVELAMER CARBONATE 800 MG TAB (FP) PO SCH ×3 (10:27→17:38)
[2022-11-05] MEDS: LIDOCAINE 5% TOPICAL PATCH TP SCH (10:28)
[2022-11-05] MEDS: METOPROLOL TARTRATE 50 MG TABLET (FP) PO SCH ×2 (10:28→22:27)
[2022-11-05] MEDS: PANTOPRAZOLE 40 MG TABLET PO SCH (10:28)
[2022-11-05] MEDS: APIXABAN 2.5 MG TABLET PO SCH (10:28)
[2022-11-05] MEDS: ZINC OXIDE 20% TOPICAL OINTMENT 30 GM TUBE TP SCH ×2 (10:29→22:27)
[2022-11-05] MEDS: VITAMIN B COMP W-C 1 EA TABLET (NEPHRO-VITE) PO SCH (10:29)
[2022-11-05] MEDS: COLLAGENASE CLOSTRIDIUM HIST. 30 GRAMS TUBE TP SCH (10:29)
[2022-11-05] MEDS ORDERED: EPOETIN ALFA-EPBX 10,000 UNIT/ML VIAL SQ ONE (10:37)
[2022-11-05] MEDS: FLUTICASONE PROP 0.05% 16 GM NASAL SPRAY NS SCH ×2 (10:56→22:26)
[2022-11-05] MEDS: MINERAL OIL/PET HY-PHL TOPICAL OINTMENT 454 GM JAR TP SCH (10:57)
[2022-11-05] MEDS: ATOVAQUONE 750 MG/5 ML (UNIT-DOSE PACKAGING) PO SCH (12:42)
[2022-11-05] MEDS: METOPROLOL TARTRATE 5 MG/5 ML VIAL IVPUSH PRN (20:40)
[2022-11-05] MEDS: CHLORHEXIDINE GLUCONATE 4% CLEANSER FOR DECOLONIZATION TP SCH (22:26)
[2022-11-05] MEDS: LIDOCAINE PATCH REMOVAL MC SCH (22:27)
[2022-11-05] MEDS: guaiFENesin/D-METHORPHAN HB 10 ML UNIT-DOSE CUPS PO PRN (22:27)
[2022-11-05] MEDS: MELATONIN 5 MG TABLETS PO SCH (22:27)
[2022-11-06] MEDS: SEVELAMER CARBONATE 800 MG TAB (FP) PO SCH ×3 (08:00→18:42)
[2022-11-06] MEDS ORDERED: ALBUMIN HUMAN 25% 100 ML VIAL IV ONE (09:00)
[2022-11-06] MEDS: MINERAL OIL/PET HY-PHL TOPICAL OINTMENT 454 GM JAR TP SCH (10:00)
[2022-11-06] MEDS: AMINO ACIDS/PROTEIN HYDROLYS 30 ML LIQUID.PKT PO SCH (12:45)
[2022-11-06] MEDS: ATOVAQUONE 750 MG/5 ML (UNIT-DOSE PACKAGING) PO SCH (12:45)
[2022-11-06] MEDS: PANTOPRAZOLE 40 MG TABLET PO SCH (12:46)
[2022-11-06] MEDS: APIXABAN 2.5 MG TABLET PO SCH (12:47)
[2022-11-06] MEDS: FLUTICASONE PROP 0.05% 16 GM NASAL SPRAY NS SCH ×2 (12:48→21:46)
[2022-11-06] MEDS: LIDOCAINE 5% TOPICAL PATCH TP SCH (12:48)
[2022-11-06] MEDS: ZINC OXIDE 20% TOPICAL OINTMENT 30 GM TUBE TP SCH ×2 (12:50→21:46)
[2022-11-06] MEDS: COLLAGENASE CLOSTRIDIUM HIST. 30 GRAMS TUBE TP SCH (12:50)
[2022-11-06] MEDS: METOPROLOL TARTRATE 50 MG TABLET (FP) PO SCH ×2 (12:50→21:45)
[2022-11-06] MEDS: VITAMIN B COMP W-C 1 EA TABLET (NEPHRO-VITE) PO SCH (12:50)
[2022-11-06] MEDS: GANCICLOVIR IVPB SCH (17:24)
[2022-11-06] MEDS: DEXTROSE 5% IVPB SCH (17:24)
[2022-11-06] MEDS: WATER IVPB SCH (17:24)
[2022-11-06] MEDS: guaiFENesin/D-METHORPHAN HB 10 ML UNIT-DOSE CUPS PO PRN (21:45)
[2022-11-06] MEDS: MELATONIN 5 MG TABLETS PO SCH (21:45)
[2022-11-06] MEDS: CHLORHEXIDINE GLUCONATE 4% CLEANSER FOR DECOLONIZATION TP SCH (21:46)
[2022-11-06] MEDS: LIDOCAINE PATCH REMOVAL MC SCH (21:47)
[2022-11-06] MEDS: ACETAMINOPHEN 325 MG TABLET (FP) PO PRN (21:58)
[2022-11-07 07:19] LABS: POTASSIUM 3.3 mmol/L (3.5-5.1)
[2022-11-07 07:23] LABS: HEMATOCRIT 25.3 % (32.4-45.2); HEMOGLOBIN 8.3 GM/dL (10.7-15.3); MCH 29.4 pg (25.7-33.7); MCHC 32.7 g/dl (32.0-36.0); MEAN CELL VOLUME 89.9 fl (80-96); MEAN PLT VOLUME 7.6 fl (7.5-11.1); PLATELET COUNT 297 10^3/uL (134-434); RBC 2.82 M/mm3 (3.60-5.2); RDW 18.3 % (11.6-15.6); WHITE BLOOD COUNT 9.6 K/mm3 (4.0-10.0)
[2022-11-07 07:24] LABS: CALCIUM 7.7 mg/dL (8.5-10.1)
[2022-11-07 07:26] LABS: BLOOD UREA NITROGEN 30.8 mg/dL (7-18)
[2022-11-07 07:29] LABS: CREATININE 2.9 mg/dL (0.55-1.3)
[2022-11-07 07:30] LABS: BILIRUBIN,TOTAL 0.6 mg/dL (0.2-1)
[2022-11-07 07:35] LABS: ALBUMIN 1.7 g/dl (3.4-5.0)
[2022-11-07] MEDS: AMINO ACIDS/PROTEIN HYDROLYS 30 ML LIQUID.PKT PO SCH (09:51)
[2022-11-07] MEDS: ATOVAQUONE 750 MG/5 ML (UNIT-DOSE PACKAGING) PO SCH (09:51)
[2022-11-07] MEDS: SEVELAMER CARBONATE 800 MG TAB (FP) PO SCH ×3 (09:51→18:54)
[2022-11-07] MEDS: APIXABAN 2.5 MG TABLET PO SCH (09:52)
[2022-11-07] MEDS: VITAMIN B COMP W-C 1 EA TABLET (NEPHRO-VITE) PO SCH (09:52)
[2022-11-07] MEDS: METOPROLOL TARTRATE 50 MG TABLET (FP) PO SCH ×2 (09:52→21:38)
[2022-11-07] MEDS: PANTOPRAZOLE 40 MG TABLET PO SCH (09:52)
[2022-11-07] MEDS: MINERAL OIL/PET HY-PHL TOPICAL OINTMENT 454 GM JAR TP SCH (10:01)
[2022-11-07] MEDS: FLUTICASONE PROP 0.05% 16 GM NASAL SPRAY NS SCH (10:02)
[2022-11-07] MEDS: ZINC OXIDE 20% TOPICAL OINTMENT 30 GM TUBE TP SCH ×2 (10:03→21:39)
[2022-11-07] MEDS: COLLAGENASE CLOSTRIDIUM HIST. 30 GRAMS TUBE TP SCH (10:03)
[2022-11-07] MEDS: LIDOCAINE 5% TOPICAL PATCH TP SCH (10:03)
[2022-11-07] MEDS ORDERED: POTASSIUM CHLORIDE ORAL LIQUID 20 MEQ/15 ML PO ONE (12:30)
[2022-11-07] MEDS ORDERED: FUROSEMIDE 40 MG/4 ML INJECTABLE VIAL IVPUSH ONE (12:30)
[2022-11-07] MEDS: guaiFENesin/D-METHORPHAN HB 10 ML UNIT-DOSE CUPS PO PRN ×2 (12:48→21:39)
[2022-11-07] MEDS: CHLORHEXIDINE GLUCONATE 4% CLEANSER FOR DECOLONIZATION TP SCH (21:37)
[2022-11-07] MEDS: LIDOCAINE PATCH REMOVAL MC SCH (21:38)
[2022-11-07] MEDS: MELATONIN 5 MG TABLETS PO SCH (21:38)
[2022-11-07] MEDS: ACETAMINOPHEN 325 MG TABLET (FP) PO PRN (22:10)
[2022-11-08 07:35] LABS: POTASSIUM 3.6 mmol/L (3.5-5.1)
[2022-11-08 07:39] LABS: ALBUMIN 1.6 g/dl (3.4-5.0); CALCIUM 8.2 mg/dL (8.5-10.1)
[2022-11-08 07:43] LABS: CREATININE 3.8 mg/dL (0.55-1.3)
[2022-11-08 07:44] LABS: BILIRUBIN,TOTAL 0.3 mg/dL (0.2-1); TOT PROT 6.5 g/dl (6.4-8.2)
[2022-11-08] MEDS: ATOVAQUONE 750 MG/5 ML (UNIT-DOSE PACKAGING) PO SCH (10:25)
[2022-11-08] MEDS: AMINO ACIDS/PROTEIN HYDROLYS 30 ML LIQUID.PKT PO SCH (10:25)
[2022-11-08] MEDS: VITAMIN B COMP W-C 1 EA TABLET (NEPHRO-VITE) PO SCH (10:26)
[2022-11-08] MEDS: SEVELAMER CARBONATE 800 MG TAB (FP) PO SCH ×3 (10:26→17:36)
[2022-11-08] MEDS: LIDOCAINE 5% TOPICAL PATCH TP SCH (10:27)
[2022-11-08] MEDS: APIXABAN 2.5 MG TABLET PO SCH (10:27)
[2022-11-08] MEDS: PANTOPRAZOLE 40 MG TABLET PO SCH (10:27)
[2022-11-08] MEDS: METOPROLOL TARTRATE 50 MG TABLET (FP) PO SCH ×2 (10:27→21:49)
[2022-11-08] MEDS: ZINC OXIDE 20% TOPICAL OINTMENT 30 GM TUBE TP SCH ×2 (10:27→21:50)
[2022-11-08] MEDS: MINERAL OIL/PET HY-PHL TOPICAL OINTMENT 454 GM JAR TP SCH (10:28)
[2022-11-08] MEDS: COLLAGENASE CLOSTRIDIUM HIST. 30 GRAMS TUBE TP SCH (10:28)
[2022-11-08] MEDS ORDERED: FUROSEMIDE 40 MG/4 ML INJECTABLE VIAL IVPUSH ONE (11:57)
[2022-11-08] MEDS: DEXTROSE 5% IVPB SCH (17:36)
[2022-11-08] MEDS: WATER IVPB SCH (17:36)
[2022-11-08] MEDS: GANCICLOVIR IVPB SCH (17:36)
[2022-11-08] MEDS ORDERED: guaiFENesin/CODEINE 10 ML UNIT-DOSE CUPS PO PRN (18:46)
[2022-11-08] MEDS: CHLORHEXIDINE GLUCONATE 4% CLEANSER FOR DECOLONIZATION TP SCH (21:48)
[2022-11-08] MEDS: MELATONIN 5 MG TABLETS PO SCH (21:49)
[2022-11-08] MEDS: LIDOCAINE PATCH REMOVAL MC SCH (21:49)
[2022-11-08] MEDS: guaiFENesin/CODEINE 10 ML UNIT-DOSE CUPS PO SCH (22:59)
[2022-11-09 07:55] LABS: HEMOGLOBIN 8.7 GM/dL (10.7-15.3); MCH 29.3 pg (25.7-33.7); MCHC 32.1 g/dl (32.0-36.0); MEAN CELL VOLUME 91.3 fl (80-96); MEAN PLT VOLUME 8.2 fl (7.5-11.1); PLATELET COUNT 350 10^3/uL (134-434); RBC 2.96 M/mm3 (3.60-5.2); RDW 17.9 % (11.6-15.6); WHITE BLOOD COUNT 10.4 K/mm3 (4.0-10.0)
[2022-11-09 08:11] LABS: POTASSIUM 3.8 mmol/L (3.5-5.1)
[2022-11-09 08:13] LABS: ALBUMIN 1.6 g/dl (3.4-5.0); BLOOD UREA NITROGEN 55.2 mg/dL (7-18); CALCIUM 8.3 mg/dL (8.5-10.1)
[2022-11-09 08:16] LABS: CREATININE 4.3 mg/dL (0.55-1.3)
[2022-11-09 08:18] LABS: BILIRUBIN,TOTAL 0.3 mg/dL (0.2-1)
[2022-11-09] MEDS: SEVELAMER CARBONATE 800 MG TAB (FP) PO SCH ×3 (08:55→19:10)
[2022-11-09] MEDS ORDERED: SODIUM CHLORIDE 250 ML IV PRN (09:46)
[2022-11-09] MEDS ORDERED: EPOETIN ALFA-EPBX 10,000 UNIT/ML VIAL SQ ONE (11:00)
[2022-11-09] MEDS: AMINO ACIDS/PROTEIN HYDROLYS 30 ML LIQUID.PKT PO SCH (11:47)
[2022-11-09] MEDS: ATOVAQUONE 750 MG/5 ML (UNIT-DOSE PACKAGING) PO SCH (11:47)
[2022-11-09] MEDS: APIXABAN 2.5 MG TABLET PO SCH (11:49)
[2022-11-09] MEDS: PANTOPRAZOLE 40 MG TABLET PO SCH (11:50)
[2022-11-09] MEDS: VITAMIN B COMP W-C 1 EA TABLET (NEPHRO-VITE) PO SCH (11:50)
[2022-11-09] MEDS: LIDOCAINE 5% TOPICAL PATCH TP SCH (11:51)
[2022-11-09] MEDS: COLLAGENASE CLOSTRIDIUM HIST. 30 GRAMS TUBE TP SCH (12:13)
[2022-11-09] MEDS: MINERAL OIL/PET HY-PHL TOPICAL OINTMENT 454 GM JAR TP SCH (12:13)
[2022-11-09] MEDS: METOPROLOL TARTRATE 50 MG TABLET (FP) PO SCH ×2 (13:08→21:23)
[2022-11-09] MEDS: ZINC OXIDE 20% TOPICAL OINTMENT 30 GM TUBE TP SCH ×2 (19:10→21:32)
[2022-11-09] MEDS: guaiFENesin/CODEINE 10 ML UNIT-DOSE CUPS PO SCH (21:23)
[2022-11-09] MEDS: CHLORHEXIDINE GLUCONATE 4% CLEANSER FOR DECOLONIZATION TP SCH (21:23)
[2022-11-09] MEDS: MELATONIN 5 MG TABLETS PO SCH (21:23)
[2022-11-09] MEDS: LIDOCAINE PATCH REMOVAL MC SCH (21:32)
[2022-11-10] MEDS ORDERED: guaiFENesin/CODEINE 10 ML UNIT-DOSE CUPS PO PRN (08:24)
[2022-11-10] MEDS: ATOVAQUONE 750 MG/5 ML (UNIT-DOSE PACKAGING) PO SCH (10:29)
[2022-11-10] MEDS: LIDOCAINE 5% TOPICAL PATCH TP SCH (10:29)
[2022-11-10] MEDS: SEVELAMER CARBONATE 800 MG TAB (FP) PO SCH ×3 (10:29→17:04)
[2022-11-10] MEDS: AMINO ACIDS/PROTEIN HYDROLYS 30 ML LIQUID.PKT PO SCH (10:29)
[2022-11-10] MEDS: SERTRALINE HCL 25 MG TABLET (FP) PO SCH (10:29)
[2022-11-10] MEDS: PANTOPRAZOLE 40 MG TABLET PO SCH (10:30)
[2022-11-10] MEDS: VITAMIN B COMP W-C 1 EA TABLET (NEPHRO-VITE) PO SCH (10:30)
[2022-11-10] MEDS: APIXABAN 2.5 MG TABLET PO SCH ×2 (10:30→21:16)
[2022-11-10] MEDS: METOPROLOL TARTRATE 50 MG TABLET (FP) PO SCH ×2 (10:30→21:16)
[2022-11-10] MEDS: MINERAL OIL/PET HY-PHL TOPICAL OINTMENT 454 GM JAR TP SCH (10:53)
[2022-11-10] MEDS: COLLAGENASE CLOSTRIDIUM HIST. 30 GRAMS TUBE TP SCH (10:54)
[2022-11-10] MEDS: ZINC OXIDE 20% TOPICAL OINTMENT 30 GM TUBE TP SCH ×2 (10:55→21:17)
[2022-11-10] MEDS ORDERED: FUROSEMIDE 40 MG/4 ML INJECTABLE VIAL IVPUSH ONE (12:45)
[2022-11-10] MEDS: DEXTROSE 5% IVPB SCH (17:05)
[2022-11-10] MEDS: GANCICLOVIR IVPB SCH (17:05)
[2022-11-10] MEDS: WATER IVPB SCH (17:05)
[2022-11-10] MEDS: CHLORHEXIDINE GLUCONATE 4% CLEANSER FOR DECOLONIZATION TP SCH (21:16)
[2022-11-10] MEDS: MELATONIN 5 MG TABLETS PO SCH (21:16)
[2022-11-10] MEDS: LIDOCAINE PATCH REMOVAL MC SCH (21:16)
[2022-11-10] MEDS: guaiFENesin/CODEINE 10 ML UNIT-DOSE CUPS PO SCH (21:17)
[2022-11-11 07:09] LABS: HEMATOCRIT 28.2 % (32.4-45.2); HEMOGLOBIN 8.8 GM/dL (10.7-15.3); MCH 28.7 pg (25.7-33.7); MCHC 31.1 g/dl (32.0-36.0); PLATELET COUNT 291 10^3/uL (134-434); RBC 3.06 M/mm3 (3.60-5.2); WHITE BLOOD COUNT 10.6 K/mm3 (4.0-10.0)
[2022-11-11 07:26] LABS: POTASSIUM 3.9 mmol/L (3.5-5.1)
[2022-11-11 07:28] LABS: ALBUMIN 1.5 g/dl (3.4-5.0); CALCIUM 8.4 mg/dL (8.5-10.1)
[2022-11-11 07:29] LABS: BLOOD UREA NITROGEN 37.8 mg/dL (7-18)
[2022-11-11 07:31] LABS: CREATININE 3.8 mg/dL (0.55-1.3)
[2022-11-11 07:33] LABS: BILIRUBIN,TOTAL 0.3 mg/dL (0.2-1); TOT PROT 7.1 g/dl (6.4-8.2)
[2022-11-11] MEDS ORDERED: SODIUM CHLORIDE 250 ML IV PRN (08:30)
[2022-11-11] MEDS: AMINO ACIDS/PROTEIN HYDROLYS 30 ML LIQUID.PKT PO SCH (08:47)
[2022-11-11] MEDS: SEVELAMER CARBONATE 800 MG TAB (FP) PO SCH ×3 (08:48→19:24)
[2022-11-11] MEDS ORDERED: EPOETIN ALFA-EPBX 10,000 UNIT/ML VIAL SQ ONE (09:00)
[2022-11-11] MEDS: VITAMIN B COMP W-C 1 EA TABLET (NEPHRO-VITE) PO SCH (09:15)
[2022-11-11] MEDS: PANTOPRAZOLE 40 MG TABLET PO SCH (09:15)
[2022-11-11] MEDS: ATOVAQUONE 750 MG/5 ML (UNIT-DOSE PACKAGING) PO SCH (13:22)
[2022-11-11] MEDS: METOPROLOL TARTRATE 50 MG TABLET (FP) PO SCH ×2 (13:51→23:05)
[2022-11-11] MEDS: APIXABAN 2.5 MG TABLET PO SCH ×2 (13:53→23:05)
[2022-11-11] MEDS: SERTRALINE HCL 25 MG TABLET (FP) PO SCH (13:53)
[2022-11-11] MEDS: LIDOCAINE 5% TOPICAL PATCH TP SCH (13:54)
[2022-11-11] MEDS: MINERAL OIL/PET HY-PHL TOPICAL OINTMENT 454 GM JAR TP SCH (15:22)
[2022-11-11] MEDS: COLLAGENASE CLOSTRIDIUM HIST. 30 GRAMS TUBE TP SCH (15:22)
[2022-11-11] MEDS: ZINC OXIDE 20% TOPICAL OINTMENT 30 GM TUBE TP SCH ×2 (15:23→23:11)
[2022-11-11] MEDS ORDERED: guaiFENesin/CODEINE 10 ML UNIT-DOSE CUPS PO PRN (17:58)
[2022-11-11] MEDS ORDERED: ACETAMINOPHEN 325 MG TABLET (FP) PO PRN (17:58)
[2022-11-11] MEDS ORDERED: CHLORHEXIDINE GLUCONATE 4% CLEANSER FOR DECOLONIZATION TP SCH (22:00)
[2022-11-11] MEDS: guaiFENesin/CODEINE 10 ML UNIT-DOSE CUPS PO SCH (23:04)
[2022-11-11] MEDS: MELATONIN 5 MG TABLETS PO SCH (23:05)
[2022-11-11] MEDS: LIDOCAINE PATCH REMOVAL MC SCH (23:05)
[2022-11-12] MEDS ORDERED: ONDANSETRON 4 MG/2 ML VIAL IVPUSH ONE (00:06)
[2022-11-12] MEDS ORDERED: AMINO ACIDS/PROTEIN HYDROLYS 30 ML LIQUID.PKT PO SCH (08:00)
[2022-11-12] MEDS: SEVELAMER CARBONATE 800 MG TAB (FP) PO SCH ×3 (08:52→18:05)
[2022-11-12] MEDS: ATOVAQUONE 750 MG/5 ML (UNIT-DOSE PACKAGING) PO SCH (08:52)
[2022-11-12] MEDS: COLLAGENASE CLOSTRIDIUM HIST. 30 GRAMS TUBE TP SCH (10:06)
[2022-11-12] MEDS: MINERAL OIL/PET HY-PHL TOPICAL OINTMENT 454 GM JAR TP SCH (10:07)
[2022-11-12] MEDS: LIDOCAINE 5% TOPICAL PATCH TP SCH ×2 (10:08→10:11)
[2022-11-12] MEDS: APIXABAN 2.5 MG TABLET PO SCH ×2 (10:08→22:05)
[2022-11-12] MEDS: VITAMIN B COMP W-C 1 EA TABLET (NEPHRO-VITE) PO SCH (10:08)
[2022-11-12] MEDS: METOPROLOL TARTRATE 50 MG TABLET (FP) PO SCH ×2 (10:08→22:05)
[2022-11-12] MEDS: SERTRALINE HCL 25 MG TABLET (FP) PO SCH (10:09)
[2022-11-12] MEDS: PANTOPRAZOLE 40 MG TABLET PO SCH (10:09)
[2022-11-12] MEDS: ZINC OXIDE 20% TOPICAL OINTMENT 30 GM TUBE TP SCH ×2 (10:09→22:05)
[2022-11-12] MEDS ORDERED: SODIUM CHLORIDE 250 ML IV PRN (15:29)
[2022-11-12] MEDS: AMINO ACIDS/PROTEIN HYDROLYS 30 ML LIQUID.PKT PO SCH (18:05)
[2022-11-12] MEDS: GANCICLOVIR IVPB SCH (20:05)
[2022-11-12] MEDS: WATER IVPB SCH (20:05)
[2022-11-12] MEDS: DEXTROSE 5% IVPB SCH (20:05)
[2022-11-12] MEDS: MELATONIN 5 MG TABLETS PO SCH (22:05)
[2022-11-12] MEDS: LIDOCAINE PATCH REMOVAL MC SCH (22:05)
[2022-11-12] MEDS: guaiFENesin/CODEINE 10 ML UNIT-DOSE CUPS PO SCH (22:05)
[2022-11-13] MEDS: SEVELAMER CARBONATE 800 MG TAB (FP) PO SCH ×3 (07:57→17:29)
[2022-11-13] MEDS: ATOVAQUONE 750 MG/5 ML (UNIT-DOSE PACKAGING) PO SCH (07:58)
[2022-11-13] MEDS: AMINO ACIDS/PROTEIN HYDROLYS 30 ML LIQUID.PKT PO SCH ×2 (07:58→17:28)
[2022-11-13] MEDS ORDERED: EPOETIN ALFA-EPBX 10,000 UNIT/ML VIAL IVPUSH ONE (09:45)
[2022-11-13 10:59] LABS: POTASSIUM 4.1 mmol/L (3.5-5.1)
[2022-11-13 11:01] LABS: CALCIUM 8.8 mg/dL (8.5-10.1)
[2022-11-13 11:02] LABS: ALBUMIN 1.7 g/dl (3.4-5.0); BLOOD UREA NITROGEN 37.3 mg/dL (7-18)
[2022-11-13 11:05] LABS: CREATININE 4.3 mg/dL (0.55-1.3)
[2022-11-13 11:11] LABS: BILIRUBIN,TOTAL 0.2 mg/dL (0.2-1); TOT PROT 7.4 g/dl (6.4-8.2)
[2022-11-13 11:37] LABS: HEMATOCRIT 28.3 % (32.4-45.2); MCH 29.2 pg (25.7-33.7); MCHC 31.7 g/dl (32.0-36.0); MEAN CELL VOLUME 92.3 fl (80-96); MEAN PLT VOLUME 7.8 fl (7.5-11.1); PLATELET COUNT 260 10^3/uL (134-434); RBC 3.07 M/mm3 (3.60-5.2); RDW 19.8 % (11.6-15.6); WHITE BLOOD COUNT 12.1 K/mm3 (4.0-10.0)
[2022-11-13] MEDS: MINERAL OIL/PET HY-PHL TOPICAL OINTMENT 454 GM JAR TP SCH (12:12)
[2022-11-13] MEDS: LIDOCAINE 5% TOPICAL PATCH TP SCH (12:13)
[2022-11-13] MEDS: APIXABAN 2.5 MG TABLET PO SCH ×2 (12:50→22:44)
[2022-11-13] MEDS: SERTRALINE HCL 25 MG TABLET (FP) PO SCH (12:52)
[2022-11-13] MEDS: ZINC SULFATE 220 MG CAPSULE (FP) PO SCH (12:53)
[2022-11-13] MEDS: PANTOPRAZOLE 40 MG TABLET PO SCH (12:53)
[2022-11-13] MEDS: METOPROLOL TARTRATE 50 MG TABLET (FP) PO SCH ×2 (12:53→22:45)
[2022-11-13] MEDS: VITAMIN B COMP W-C 1 EA TABLET (NEPHRO-VITE) PO SCH (12:53)
[2022-11-13] MEDS: COLLAGENASE CLOSTRIDIUM HIST. 30 GRAMS TUBE TP SCH (12:57)
[2022-11-13] MEDS: ZINC OXIDE 20% TOPICAL OINTMENT 30 GM TUBE TP SCH ×2 (12:58→22:46)
[2022-11-13] MEDS: ONDANSETRON 4 MG/2 ML VIAL IVPUSH PRN (16:35)
[2022-11-13] MEDS: MELATONIN 5 MG TABLETS PO SCH (22:44)
[2022-11-13] MEDS: guaiFENesin/CODEINE 10 ML UNIT-DOSE CUPS PO SCH (22:44)
[2022-11-13] MEDS: LIDOCAINE PATCH REMOVAL MC SCH (22:45)
[2022-11-14] MEDS: AMINO ACIDS/PROTEIN HYDROLYS 30 ML LIQUID.PKT PO SCH ×2 (09:45→17:12)
[2022-11-14] MEDS: ATOVAQUONE 750 MG/5 ML (UNIT-DOSE PACKAGING) PO SCH (09:46)
[2022-11-14] MEDS: SEVELAMER CARBONATE 800 MG TAB (FP) PO SCH ×3 (09:46→17:12)
[2022-11-14] MEDS: MINERAL OIL/PET HY-PHL TOPICAL OINTMENT 454 GM JAR TP SCH (09:46)
[2022-11-14] MEDS: APIXABAN 2.5 MG TABLET PO SCH ×2 (09:49→22:55)
[2022-11-14] MEDS: LIDOCAINE 5% TOPICAL PATCH TP SCH (09:49)
[2022-11-14] MEDS: SERTRALINE HCL 25 MG TABLET (FP) PO SCH (09:51)
[2022-11-14] MEDS: PANTOPRAZOLE 40 MG TABLET PO SCH (09:51)
[2022-11-14] MEDS: METOPROLOL TARTRATE 50 MG TABLET (FP) PO SCH ×2 (09:52→22:55)
[2022-11-14] MEDS: VITAMIN B COMP W-C 1 EA TABLET (NEPHRO-VITE) PO SCH (09:52)
[2022-11-14] MEDS: ZINC SULFATE 220 MG CAPSULE (FP) PO SCH (09:53)
[2022-11-14] MEDS: COLLAGENASE CLOSTRIDIUM HIST. 30 GRAMS TUBE TP SCH (09:54)
[2022-11-14] MEDS: ZINC OXIDE 20% TOPICAL OINTMENT 30 GM TUBE TP SCH ×2 (09:56→22:55)
[2022-11-14 12:34] LABS: HEMATOCRIT 31.1 % (32.4-45.2); HEMOGLOBIN 9.9 GM/dL (10.7-15.3); MCH 29.1 pg (25.7-33.7); MCHC 31.9 g/dl (32.0-36.0); MEAN CELL VOLUME 91.2 fl (80-96); MEAN PLT VOLUME 7.6 fl (7.5-11.1); PLATELET COUNT 245 10^3/uL (134-434); RBC 3.41 M/mm3 (3.60-5.2); RDW 21.2 % (11.6-15.6); WHITE BLOOD COUNT 11.7 K/mm3 (4.0-10.0)
[2022-11-14 12:52] LABS: CALCIUM 8.8 mg/dL (8.5-10.1)
[2022-11-14 12:53] LABS: BLOOD UREA NITROGEN 25.6 mg/dL (7-18)
[2022-11-14 12:54] LABS: CREATININE 3.8 mg/dL (0.55-1.3)
[2022-11-14 14:07] LABS: ANISOCYTOSIS 1+; MACROCYTOSIS 0
[2022-11-14] MEDS: DEXTROSE 5% IVPB SCH (17:12)
[2022-11-14] MEDS: WATER IVPB SCH (17:12)
[2022-11-14] MEDS: GANCICLOVIR IVPB SCH (17:12)
[2022-11-14] MEDS: LIDOCAINE PATCH REMOVAL MC SCH (22:55)
[2022-11-14] MEDS: guaiFENesin/CODEINE 10 ML UNIT-DOSE CUPS PO SCH (22:55)
[2022-11-14] MEDS: MELATONIN 5 MG TABLETS PO SCH (22:55)
[2022-11-15] MEDS: AMINO ACIDS/PROTEIN HYDROLYS 30 ML LIQUID.PKT PO SCH ×2 (09:08→17:14)
[2022-11-15] MEDS: ZINC SULFATE 220 MG CAPSULE (FP) PO SCH ×2 (09:09→09:21)
[2022-11-15] MEDS: SEVELAMER CARBONATE 800 MG TAB (FP) PO SCH ×3 (09:09→17:14)
[2022-11-15] MEDS: VITAMIN B COMP W-C 1 EA TABLET (NEPHRO-VITE) PO SCH (09:10)
[2022-11-15] MEDS: PANTOPRAZOLE 40 MG TABLET PO SCH (09:10)
[2022-11-15] MEDS: APIXABAN 2.5 MG TABLET PO SCH ×2 (09:10→23:11)
[2022-11-15] MEDS: SERTRALINE HCL 25 MG TABLET (FP) PO SCH (09:10)
[2022-11-15] MEDS: ATOVAQUONE 750 MG/5 ML (UNIT-DOSE PACKAGING) PO SCH (09:10)
[2022-11-15] MEDS: MINERAL OIL/PET HY-PHL TOPICAL OINTMENT 454 GM JAR TP SCH (09:11)
[2022-11-15] MEDS: METOPROLOL TARTRATE 50 MG TABLET (FP) PO SCH ×2 (09:11→23:11)
[2022-11-15] MEDS: LIDOCAINE 5% TOPICAL PATCH TP SCH (09:11)
[2022-11-15] MEDS: COLLAGENASE CLOSTRIDIUM HIST. 30 GRAMS TUBE TP SCH (09:12)
[2022-11-15] MEDS: ZINC OXIDE 20% TOPICAL OINTMENT 30 GM TUBE TP SCH ×2 (09:12→23:13)
[2022-11-15] MEDS ORDERED: SODIUM CHLORIDE 250 ML IV PRN (22:05)
[2022-11-15] MEDS: MELATONIN 5 MG TABLETS PO SCH (23:11)
[2022-11-15] MEDS: guaiFENesin/CODEINE 10 ML UNIT-DOSE CUPS PO SCH (23:12)
[2022-11-15] MEDS: LIDOCAINE PATCH REMOVAL MC SCH (23:12)
[2022-11-16 09:04] LABS: HEMATOCRIT 30.7 % (32.4-45.2); HEMOGLOBIN 9.7 GM/dL (10.7-15.3); MCH 29.4 pg (25.7-33.7); MCHC 31.7 g/dl (32.0-36.0); MEAN CELL VOLUME 92.8 fl (80-96); PLATELET COUNT 241 10^3/uL (134-434); RBC 3.31 M/mm3 (3.60-5.2); RDW 21.1 % (11.6-15.6)
[2022-11-16 09:17] LABS: INR 1.87 (0.83-1.09); PROTHROMBIN TIME (PATIENT) 21.6 SEC (9.7-13.0)
[2022-11-16 09:20] LABS: ACTIVATED PTT 37.3 SECONDS (25.2-36.5); POTASSIUM 3.9 mmol/L (3.5-5.1)
[2022-11-16 09:26] LABS: CALCIUM 8.8 mg/dL (8.5-10.1)
[2022-11-16 09:27] LABS: ALBUMIN 1.8 g/dl (3.4-5.0); MAGNESIUM 1.8 mg/dL (1.8-2.4)
[2022-11-16 09:30] LABS: CREATININE 5.2 mg/dL (0.55-1.3); PHOSPHOROUS 4.6 mg/dL (2.5-4.9)
[2022-11-16 09:32] LABS: BILIRUBIN,TOTAL 0.4 mg/dL (0.2-1); TOT PROT 7.9 g/dl (6.4-8.2)
[2022-11-16 10:23] LABS: ANISOCYTOSIS 1+; MACROCYTOSIS 1+
[2022-11-16] MEDS: APIXABAN 2.5 MG TABLET PO SCH ×2 (12:24→22:09)
[2022-11-16] MEDS: ZINC OXIDE 20% TOPICAL OINTMENT 30 GM TUBE TP SCH ×2 (12:25→22:10)
[2022-11-16] MEDS: SERTRALINE HCL 25 MG TABLET (FP) PO SCH (12:25)
[2022-11-16] MEDS: PANTOPRAZOLE 40 MG TABLET PO SCH (12:25)
[2022-11-16] MEDS: METOPROLOL TARTRATE 50 MG TABLET (FP) PO SCH ×2 (12:26→22:09)
[2022-11-16] MEDS: LIDOCAINE 5% TOPICAL PATCH TP SCH (12:26)
[2022-11-16] MEDS: AMINO ACIDS/PROTEIN HYDROLYS 30 ML LIQUID.PKT PO SCH ×2 (12:28→19:39)
[2022-11-16] MEDS: ATOVAQUONE 750 MG/5 ML (UNIT-DOSE PACKAGING) PO SCH (12:28)
[2022-11-16] MEDS: SEVELAMER CARBONATE 800 MG TAB (FP) PO SCH ×3 (12:28→18:55)
[2022-11-16] MEDS: MINERAL OIL/PET HY-PHL TOPICAL OINTMENT 454 GM JAR TP SCH (12:36)
[2022-11-16] MEDS: ONDANSETRON 4 MG/2 ML VIAL IVPUSH PRN (15:32)
[2022-11-16] MEDS: VITAMIN B COMP W-C 1 EA TABLET (NEPHRO-VITE) PO SCH (17:31)
[2022-11-16] MEDS: ZINC SULFATE 220 MG CAPSULE (FP) PO SCH (17:31)
[2022-11-16] MEDS: COLLAGENASE CLOSTRIDIUM HIST. 30 GRAMS TUBE TP SCH (17:32)
[2022-11-16] MEDS: WATER IVPB SCH (20:27)
[2022-11-16] MEDS: DEXTROSE 5% IVPB SCH (20:27)
[2022-11-16] MEDS: GANCICLOVIR IVPB SCH (20:27)
[2022-11-16] MEDS: guaiFENesin/CODEINE 10 ML UNIT-DOSE CUPS PO SCH (22:08)
[2022-11-16] MEDS: MELATONIN 5 MG TABLETS PO SCH (22:09)
[2022-11-16] MEDS: LIDOCAINE PATCH REMOVAL MC SCH (22:10)
[2022-11-17] MEDS: SEVELAMER CARBONATE 800 MG TAB (FP) PO SCH ×3 (08:34→18:19)
[2022-11-17] MEDS: AMINO ACIDS/PROTEIN HYDROLYS 30 ML LIQUID.PKT PO SCH ×2 (08:34→18:19)
[2022-11-17] MEDS: ATOVAQUONE 750 MG/5 ML (UNIT-DOSE PACKAGING) PO SCH (08:34)
[2022-11-17] MEDS: VITAMIN B COMP W-C 1 EA TABLET (NEPHRO-VITE) PO SCH (10:25)
[2022-11-17] MEDS: SERTRALINE HCL 25 MG TABLET (FP) PO SCH (10:25)
[2022-11-17] MEDS: LIDOCAINE 5% TOPICAL PATCH TP SCH (10:25)
[2022-11-17] MEDS: APIXABAN 2.5 MG TABLET PO SCH ×2 (10:27→23:36)
[2022-11-17] MEDS: PANTOPRAZOLE 40 MG TABLET PO SCH (10:28)
[2022-11-17] MEDS: ZINC OXIDE 20% TOPICAL OINTMENT 30 GM TUBE TP SCH ×2 (10:28→23:37)
[2022-11-17] MEDS: ZINC SULFATE 220 MG CAPSULE (FP) PO SCH (10:28)
[2022-11-17] MEDS: METOPROLOL TARTRATE 50 MG TABLET (FP) PO SCH ×2 (10:37→23:36)
[2022-11-17] MEDS: COLLAGENASE CLOSTRIDIUM HIST. 30 GRAMS TUBE TP SCH (10:45)
[2022-11-17] MEDS: MINERAL OIL/PET HY-PHL TOPICAL OINTMENT 454 GM JAR TP SCH (10:46)
[2022-11-17] MEDS: guaiFENesin/CODEINE 10 ML UNIT-DOSE CUPS PO SCH ×2 (23:36→23:47)
[2022-11-17] MEDS: MELATONIN 5 MG TABLETS PO SCH (23:36)
[2022-11-17] MEDS: LIDOCAINE PATCH REMOVAL MC SCH (23:36)
[2022-11-18] MEDS ORDERED: SODIUM CHLORIDE 250 ML IV PRN (08:15)
[2022-11-18] MEDS ORDERED: EPOETIN ALFA-EPBX 10,000 UNIT/ML VIAL IVPUSH ONE (08:45)
[2022-11-18 11:00] LABS: HEMATOCRIT 30.6 % (32.4-45.2); HEMOGLOBIN 9.6 GM/dL (10.7-15.3); MCH 29.5 pg (25.7-33.7); MCHC 31.4 g/dl (32.0-36.0); MEAN PLT VOLUME 8.2 fl (7.5-11.1); PLATELET COUNT 222 10^3/uL (134-434); RBC 3.25 M/mm3 (3.60-5.2); RDW 21.3 % (11.6-15.6); WHITE BLOOD COUNT 10.3 K/mm3 (4.0-10.0)
[2022-11-18 11:14] LABS: POTASSIUM 3.7 mmol/L (3.5-5.1)
[2022-11-18 11:19] LABS: CALCIUM 9.2 mg/dL (8.5-10.1)
[2022-11-18 11:20] LABS: BLOOD UREA NITROGEN 42.7 mg/dL (7-18)
[2022-11-18 11:23] LABS: CREATININE 4.7 mg/dL (0.55-1.3); PHOSPHOROUS 3.8 mg/dL (2.5-4.9)
[2022-11-18] MEDS: ATOVAQUONE 750 MG/5 ML (UNIT-DOSE PACKAGING) PO SCH (14:39)
[2022-11-18] MEDS: AMINO ACIDS/PROTEIN HYDROLYS 30 ML LIQUID.PKT PO SCH ×2 (14:39→17:09)
[2022-11-18] MEDS: MINERAL OIL/PET HY-PHL TOPICAL OINTMENT 454 GM JAR TP SCH (14:53)
[2022-11-18] MEDS: SEVELAMER CARBONATE 800 MG TAB (FP) PO SCH ×3 (14:53→17:10)
[2022-11-18] MEDS: METOPROLOL TARTRATE 50 MG TABLET (FP) PO SCH ×2 (14:54→23:22)
[2022-11-18] MEDS: LIDOCAINE 5% TOPICAL PATCH TP SCH (14:54)
[2022-11-18] MEDS: SERTRALINE HCL 25 MG TABLET (FP) PO SCH (17:10)
[2022-11-18] MEDS: PANTOPRAZOLE 40 MG TABLET PO SCH (17:10)
[2022-11-18] MEDS: ZINC SULFATE 220 MG CAPSULE (FP) PO SCH (17:12)
[2022-11-18] MEDS: APIXABAN 2.5 MG TABLET PO SCH ×2 (17:13→23:22)
[2022-11-18] MEDS: VITAMIN B COMP W-C 1 EA TABLET (NEPHRO-VITE) PO SCH (17:13)
[2022-11-18] MEDS: ZINC OXIDE 20% TOPICAL OINTMENT 30 GM TUBE TP SCH ×2 (17:14→23:22)
[2022-11-18] MEDS: COLLAGENASE CLOSTRIDIUM HIST. 30 GRAMS TUBE TP SCH (17:14)
[2022-11-18] MEDS: GANCICLOVIR IVPB SCH (17:15)
[2022-11-18] MEDS: WATER IVPB SCH (17:15)
[2022-11-18] MEDS: DEXTROSE 5% IVPB SCH (17:15)
[2022-11-18] MEDS: guaiFENesin/CODEINE 10 ML UNIT-DOSE CUPS PO SCH (23:22)
[2022-11-18] MEDS: MELATONIN 5 MG TABLETS PO SCH (23:22)
[2022-11-18] MEDS: LIDOCAINE PATCH REMOVAL MC SCH (23:25)
[2022-11-19] MEDS ORDERED: SIMETHICONE 80 MG TAB.CHEW (FP) PO PRN (09:54)
[2022-11-19] MEDS: APIXABAN 2.5 MG TABLET PO SCH ×2 (11:31→23:11)
[2022-11-19] MEDS: AMINO ACIDS/PROTEIN HYDROLYS 30 ML LIQUID.PKT PO SCH ×2 (11:31→17:44)
[2022-11-19] MEDS: VITAMIN B COMP W-C 1 EA TABLET (NEPHRO-VITE) PO SCH (11:31)
[2022-11-19] MEDS: SERTRALINE HCL 25 MG TABLET (FP) PO SCH (11:32)
[2022-11-19] MEDS: PANTOPRAZOLE 40 MG TABLET PO SCH (11:32)
[2022-11-19] MEDS: ZINC SULFATE 220 MG CAPSULE (FP) PO SCH (11:32)
[2022-11-19] MEDS: SEVELAMER CARBONATE 800 MG TAB (FP) PO SCH ×3 (11:32→17:43)
[2022-11-19] MEDS: COLLAGENASE CLOSTRIDIUM HIST. 30 GRAMS TUBE TP SCH (11:33)
[2022-11-19] MEDS: LIDOCAINE 5% TOPICAL PATCH TP SCH (11:33)
[2022-11-19] MEDS: ZINC OXIDE 20% TOPICAL OINTMENT 30 GM TUBE TP SCH ×2 (11:33→23:11)
[2022-11-19] MEDS: MINERAL OIL/PET HY-PHL TOPICAL OINTMENT 454 GM JAR TP SCH (11:34)
[2022-11-19] MEDS: METOPROLOL TARTRATE 50 MG TABLET (FP) PO SCH ×3 (11:52→23:12)
[2022-11-19] MEDS: LIDOCAINE PATCH REMOVAL MC SCH (23:10)
[2022-11-19] MEDS: MELATONIN 5 MG TABLETS PO SCH (23:11)
[2022-11-19] MEDS: guaiFENesin/CODEINE 10 ML UNIT-DOSE CUPS PO SCH (23:11)
[2022-11-20] MEDS ORDERED: SODIUM CHLORIDE 250 ML IV PRN (07:34)
[2022-11-20] MEDS ORDERED: EPOETIN ALFA-EPBX 10,000 UNIT/ML VIAL SQ ONE (07:45)
[2022-11-20] MEDS: AMINO ACIDS/PROTEIN HYDROLYS 30 ML LIQUID.PKT PO SCH ×2 (09:11→17:44)
[2022-11-20] MEDS: SEVELAMER CARBONATE 800 MG TAB (FP) PO SCH ×3 (09:12→17:44)
[2022-11-20] MEDS: METOPROLOL TARTRATE 50 MG TABLET (FP) PO SCH ×3 (10:55→23:20)
[2022-11-20] MEDS: LIDOCAINE 5% TOPICAL PATCH TP SCH (10:55)
[2022-11-20 11:10] LABS: POTASSIUM 3.6 mmol/L (3.5-5.1)
[2022-11-20 11:12] LABS: HEMATOCRIT 31.3 % (32.4-45.2); HEMOGLOBIN 9.7 GM/dL (10.7-15.3); MCH 28.8 pg (25.7-33.7); MCHC 31.1 g/dl (32.0-36.0); MEAN CELL VOLUME 92.7 fl (80-96); MEAN PLT VOLUME 8.2 fl (7.5-11.1); PLATELET COUNT 239 10^3/uL (134-434); RBC 3.38 M/mm3 (3.60-5.2); RDW 21.7 % (11.6-15.6); WHITE BLOOD COUNT 10.5 K/mm3 (4.0-10.0)
[2022-11-20 11:14] LABS: ALBUMIN 1.8 g/dl (3.4-5.0); CALCIUM 9.4 mg/dL (8.5-10.1)
[2022-11-20 11:15] LABS: BLOOD UREA NITROGEN 37.5 mg/dL (7-18)
[2022-11-20 11:17] LABS: CREATININE 4.9 mg/dL (0.55-1.3)
[2022-11-20 11:19] LABS: BILIRUBIN,TOTAL 0.3 mg/dL (0.2-1)
[2022-11-20] MEDS: APIXABAN 2.5 MG TABLET PO SCH ×2 (15:29→22:31)
[2022-11-20] MEDS: PANTOPRAZOLE 40 MG TABLET PO SCH (15:30)
[2022-11-20] MEDS: VITAMIN B COMP W-C 1 EA TABLET (NEPHRO-VITE) PO SCH (15:30)
[2022-11-20] MEDS: SERTRALINE HCL 25 MG TABLET (FP) PO SCH (15:30)
[2022-11-20] MEDS: ZINC SULFATE 220 MG CAPSULE (FP) PO SCH (15:30)
[2022-11-20] MEDS: ZINC OXIDE 20% TOPICAL OINTMENT 30 GM TUBE TP SCH ×2 (15:48→22:41)
[2022-11-20] MEDS: COLLAGENASE CLOSTRIDIUM HIST. 30 GRAMS TUBE TP SCH (15:48)
[2022-11-20] MEDS: MINERAL OIL/PET HY-PHL TOPICAL OINTMENT 454 GM JAR TP SCH (15:49)
[2022-11-20] MEDS: DEXTROSE 5% IVPB SCH (17:46)
[2022-11-20] MEDS: GANCICLOVIR IVPB SCH (17:46)
[2022-11-20] MEDS: WATER IVPB SCH (17:46)
[2022-11-20] MEDS: MELATONIN 5 MG TABLETS PO SCH (22:31)
[2022-11-20] MEDS: guaiFENesin/CODEINE 10 ML UNIT-DOSE CUPS PO SCH ×2 (22:32→23:20)
[2022-11-20] MEDS: LIDOCAINE PATCH REMOVAL MC SCH (22:32)
[2022-11-21] MEDS: AMINO ACIDS/PROTEIN HYDROLYS 30 ML LIQUID.PKT PO SCH ×2 (08:46→17:19)
[2022-11-21] MEDS: SEVELAMER CARBONATE 800 MG TAB (FP) PO SCH ×3 (08:46→17:19)
[2022-11-21] MEDS: METOPROLOL TARTRATE 50 MG TABLET (FP) PO SCH ×2 (10:27→22:24)
[2022-11-21] MEDS: APIXABAN 2.5 MG TABLET PO SCH ×2 (10:27→22:24)
[2022-11-21] MEDS: PANTOPRAZOLE 40 MG TABLET PO SCH (10:27)
[2022-11-21] MEDS: LIDOCAINE 5% TOPICAL PATCH TP SCH (10:27)
[2022-11-21] MEDS: VITAMIN B COMP W-C 1 EA TABLET (NEPHRO-VITE) PO SCH (10:27)
[2022-11-21] MEDS: SERTRALINE HCL 25 MG TABLET (FP) PO SCH (10:27)
[2022-11-21] MEDS: COLLAGENASE CLOSTRIDIUM HIST. 30 GRAMS TUBE TP SCH (10:28)
[2022-11-21] MEDS: MINERAL OIL/PET HY-PHL TOPICAL OINTMENT 454 GM JAR TP SCH (10:33)
[2022-11-21] MEDS: ZINC SULFATE 220 MG CAPSULE (FP) PO SCH (10:36)
[2022-11-21] MEDS: ZINC OXIDE 20% TOPICAL OINTMENT 30 GM TUBE TP SCH ×2 (10:40→22:25)
[2022-11-21] MEDS: guaiFENesin/CODEINE 10 ML UNIT-DOSE CUPS PO SCH (22:24)
[2022-11-21] MEDS: MELATONIN 5 MG TABLETS PO SCH (22:24)
[2022-11-21] MEDS: LIDOCAINE PATCH REMOVAL MC SCH (22:24)
[2022-11-22] MEDS: AMINO ACIDS/PROTEIN HYDROLYS 30 ML LIQUID.PKT PO SCH ×2 (07:53→17:16)
[2022-11-22] MEDS: SEVELAMER CARBONATE 800 MG TAB (FP) PO SCH ×3 (07:53→17:17)
[2022-11-22 08:23] LABS: HEMATOCRIT 29.6 % (32.4-45.2); HEMOGLOBIN 9.4 GM/dL (10.7-15.3); MCH 29.6 pg (25.7-33.7); MCHC 31.7 g/dl (32.0-36.0); MEAN CELL VOLUME 93.5 fl (80-96); MEAN PLT VOLUME 8.1 fl (7.5-11.1); PLATELET COUNT 256 10^3/uL (134-434); RBC 3.16 M/mm3 (3.60-5.2); RDW 21.3 % (11.6-15.6); WHITE BLOOD COUNT 8.2 K/mm3 (4.0-10.0)
[2022-11-22 08:51] LABS: POTASSIUM 3.4 mmol/L (3.5-5.1)
[2022-11-22 09:06] LABS: CALCIUM 9.5 mg/dL (8.5-10.1)
[2022-11-22 09:07] LABS: BLOOD UREA NITROGEN 29.6 mg/dL (7-18)
[2022-11-22 09:10] LABS: CREATININE 4.5 mg/dL (0.55-1.3)
[2022-11-22] MEDS: SERTRALINE HCL 25 MG TABLET (FP) PO SCH (09:30)
[2022-11-22] MEDS: MINERAL OIL/PET HY-PHL TOPICAL OINTMENT 454 GM JAR TP SCH (09:30)
[2022-11-22] MEDS: ZINC SULFATE 220 MG CAPSULE (FP) PO SCH (09:30)
[2022-11-22] MEDS: PANTOPRAZOLE 40 MG TABLET PO SCH (09:30)
[2022-11-22] MEDS: APIXABAN 2.5 MG TABLET PO SCH ×2 (09:30→21:08)
[2022-11-22] MEDS: VITAMIN B COMP W-C 1 EA TABLET (NEPHRO-VITE) PO SCH (09:30)
[2022-11-22] MEDS: COLLAGENASE CLOSTRIDIUM HIST. 30 GRAMS TUBE TP SCH (09:31)
[2022-11-22] MEDS: ZINC OXIDE 20% TOPICAL OINTMENT 30 GM TUBE TP SCH ×2 (09:31→21:09)
[2022-11-22] MEDS: LIDOCAINE 5% TOPICAL PATCH TP SCH (09:32)
[2022-11-22] MEDS: METOPROLOL TARTRATE 50 MG TABLET (FP) PO SCH ×2 (09:32→21:08)
[2022-11-22 10:12] LABS: ANISOCYTOSIS 2+; MACROCYTOSIS 2+
[2022-11-22] MEDS: MELATONIN 5 MG TABLETS PO SCH (21:08)
[2022-11-22] MEDS: guaiFENesin/CODEINE 10 ML UNIT-DOSE CUPS PO SCH (21:08)
[2022-11-22] MEDS: LIDOCAINE PATCH REMOVAL MC SCH (21:10)
[2022-11-22] MEDS: DEXTROSE 5% IVPB SCH (21:31)
[2022-11-22] MEDS: WATER IVPB SCH (21:31)
[2022-11-22] MEDS: GANCICLOVIR IVPB SCH (21:31)
[2022-11-23] MEDS: SEVELAMER CARBONATE 800 MG TAB (FP) PO SCH ×3 (11:04→18:54)
[2022-11-23] MEDS: AMINO ACIDS/PROTEIN HYDROLYS 30 ML LIQUID.PKT PO SCH ×2 (11:04→18:54)
[2022-11-23] MEDS: MINERAL OIL/PET HY-PHL TOPICAL OINTMENT 454 GM JAR TP SCH (11:05)
[2022-11-23] MEDS ORDERED: SODIUM CHLORIDE 250 ML IV PRN (12:45)
[2022-11-23] MEDS ORDERED: EPOETIN ALFA-EPBX 10,000 UNIT/ML VIAL IVPUSH ONE (14:00)
[2022-11-23 14:23] LABS: HEMATOCRIT 30.4 % (32.4-45.2); HEMOGLOBIN 9.5 GM/dL (10.7-15.3); MCH 29.4 pg (25.7-33.7); MCHC 31.1 g/dl (32.0-36.0); MEAN CELL VOLUME 94.5 fl (80-96); MEAN PLT VOLUME 7.9 fl (7.5-11.1); PLATELET COUNT 297 10^3/uL (134-434); RBC 3.22 M/mm3 (3.60-5.2); RDW 21.2 % (11.6-15.6); WHITE BLOOD COUNT 9.5 K/mm3 (4.0-10.0)
[2022-11-23] MEDS ORDERED: EPOETIN ALFA EPBX IVPUSH ONE (14:30)
[2022-11-23 14:50] LABS: POTASSIUM 3.6 mmol/L (3.5-5.1)
[2022-11-23 14:52] LABS: CALCIUM 10.2 mg/dL (8.5-10.1)
[2022-11-23 14:53] LABS: ALBUMIN 1.8 g/dl (3.4-5.0); BLOOD UREA NITROGEN 44.1 mg/dL (7-18)
[2022-11-23 14:55] LABS: CREATININE 5.2 mg/dL (0.55-1.3)
[2022-11-23 14:57] LABS: BILIRUBIN,TOTAL 0.2 mg/dL (0.2-1); TOT PROT 6.9 g/dl (6.4-8.2)
[2022-11-23] MEDS: APIXABAN 2.5 MG TABLET PO SCH ×2 (16:59→23:25)
[2022-11-23] MEDS: LIDOCAINE 5% TOPICAL PATCH TP SCH (17:00)
[2022-11-23] MEDS: METOPROLOL TARTRATE 50 MG TABLET (FP) PO SCH ×2 (17:40→23:25)
[2022-11-23] MEDS: ZINC SULFATE 220 MG CAPSULE (FP) PO SCH (17:41)
[2022-11-23] MEDS: PANTOPRAZOLE 40 MG TABLET PO SCH (17:41)
[2022-11-23] MEDS: SERTRALINE HCL 25 MG TABLET (FP) PO SCH (17:41)
[2022-11-23] MEDS: VITAMIN B COMP W-C 1 EA TABLET (NEPHRO-VITE) PO SCH (17:41)
[2022-11-23] MEDS: ZINC OXIDE 20% TOPICAL OINTMENT 30 GM TUBE TP SCH ×2 (17:43→23:41)
[2022-11-23] MEDS: COLLAGENASE CLOSTRIDIUM HIST. 30 GRAMS TUBE TP SCH (17:43)
[2022-11-23] MEDS: guaiFENesin/CODEINE 10 ML UNIT-DOSE CUPS PO PRN (18:54)
[2022-11-23] MEDS: LIDOCAINE PATCH REMOVAL MC SCH (23:24)
[2022-11-23] MEDS: MELATONIN 5 MG TABLETS PO SCH (23:25)
[2022-11-24] MEDS: METOPROLOL TARTRATE 50 MG TABLET (FP) PO SCH (11:04)
[2022-11-24] MEDS: SEVELAMER CARBONATE 800 MG TAB (FP) PO SCH ×3 (11:04→17:32)
[2022-11-24] MEDS: VITAMIN B COMP W-C 1 EA TABLET (NEPHRO-VITE) PO SCH (11:04)
[2022-11-24] MEDS: APIXABAN 2.5 MG TABLET PO SCH ×2 (11:04→22:41)
[2022-11-24] MEDS: SERTRALINE HCL 25 MG TABLET (FP) PO SCH (11:04)
[2022-11-24] MEDS: ONDANSETRON 4 MG/2 ML VIAL IVPUSH PRN ×2 (11:04→14:57)
[2022-11-24] MEDS: PANTOPRAZOLE 40 MG TABLET PO SCH (11:04)
[2022-11-24] MEDS: AMINO ACIDS/PROTEIN HYDROLYS 30 ML LIQUID.PKT PO SCH ×2 (11:05→17:32)
[2022-11-24] MEDS: LIDOCAINE 5% TOPICAL PATCH TP SCH (11:05)
[2022-11-24] MEDS: COLLAGENASE CLOSTRIDIUM HIST. 30 GRAMS TUBE TP SCH (11:06)
[2022-11-24] MEDS: MINERAL OIL/PET HY-PHL TOPICAL OINTMENT 454 GM JAR TP SCH (11:06)
[2022-11-24] MEDS: ZINC OXIDE 20% TOPICAL OINTMENT 30 GM TUBE TP SCH ×2 (11:07→23:14)
[2022-11-24] MEDS: ZINC SULFATE 220 MG CAPSULE (FP) PO SCH (12:06)
[2022-11-24] MEDS ORDERED: SODIUM CHLORIDE 250 ML IV PRN (14:41)
[2022-11-24] MEDS: guaiFENesin/CODEINE 10 ML UNIT-DOSE CUPS PO PRN (14:57)
[2022-11-24 16:18] LABS: ALBUMIN 1.8 g/dl (3.4-5.0)
[2022-11-24 16:21] LABS: BILIRUBIN,DIRECT < 0.1 mg/dL (0.0-0.2)
[2022-11-24 16:22] LABS: SGOT/AST 62 U/L (15-37); SGPT/ALT 56 U/L (13-61)
[2022-11-24 16:23] LABS: BILIRUBIN,TOTAL 0.2 mg/dL (0.2-1); TOT PROT 7.4 g/dl (6.4-8.2)
[2022-11-24 16:25] LABS: ALK PHOS 88 U/L (45-117)
[2022-11-24] MEDS: WATER IVPB SCH (17:32)
[2022-11-24] MEDS: DEXTROSE 5% IVPB SCH (17:32)
[2022-11-24] MEDS: GANCICLOVIR IVPB SCH (17:32)
[2022-11-24] MEDS: MELATONIN 5 MG TABLETS PO SCH (22:41)
[2022-11-24] MEDS: LIDOCAINE PATCH REMOVAL MC SCH (23:08)
[2022-11-25] MEDS: METOPROLOL TARTRATE 50 MG TABLET (FP) PO SCH ×3 (00:55→21:52)
[2022-11-25] MEDS: guaiFENesin/CODEINE 10 ML UNIT-DOSE CUPS PO PRN ×2 (05:03→21:51)
[2022-11-25] MEDS: SEVELAMER CARBONATE 800 MG TAB (FP) PO SCH ×3 (08:04→18:21)
[2022-11-25] MEDS: AMINO ACIDS/PROTEIN HYDROLYS 30 ML LIQUID.PKT PO SCH ×2 (08:04→18:20)
[2022-11-25] MEDS: SERTRALINE HCL 25 MG TABLET (FP) PO SCH (12:58)
[2022-11-25] MEDS: APIXABAN 2.5 MG TABLET PO SCH ×2 (12:58→21:52)
[2022-11-25] MEDS: PANTOPRAZOLE 40 MG TABLET PO SCH (12:59)
[2022-11-25] MEDS: VITAMIN B COMP W-C 1 EA TABLET (NEPHRO-VITE) PO SCH (12:59)
[2022-11-25] MEDS: LIDOCAINE 5% TOPICAL PATCH TP SCH (13:04)
[2022-11-25] MEDS: MINERAL OIL/PET HY-PHL TOPICAL OINTMENT 454 GM JAR TP SCH (13:04)
[2022-11-25] MEDS: COLLAGENASE CLOSTRIDIUM HIST. 30 GRAMS TUBE TP SCH (13:05)
[2022-11-25] MEDS: ZINC OXIDE 20% TOPICAL OINTMENT 30 GM TUBE TP SCH ×2 (13:05→21:53)
[2022-11-25] MEDS ORDERED: EPOETIN ALFA-EPBX 10,000 UNIT/ML VIAL SQ ONE (14:41)
[2022-11-25 14:43] LABS: HEMATOCRIT 29.6 % (32.4-45.2); HEMOGLOBIN 9.2 GM/dL (10.7-15.3); MCH 29.3 pg (25.7-33.7); MEAN CELL VOLUME 94.3 fl (80-96); MEAN PLT VOLUME 7.6 fl (7.5-11.1); PLATELET COUNT 235 10^3/uL (134-434); RBC 3.13 M/mm3 (3.60-5.2); RDW 21.9 % (11.6-15.6)
[2022-11-25] MEDS ORDERED: EPOETIN ALFA EPBX IVPUSH ONE (14:45)
[2022-11-25 14:58] LABS: POTASSIUM 3.6 mmol/L (3.5-5.1)
[2022-11-25 15:00] LABS: BLOOD UREA NITROGEN 40.3 mg/dL (7-18); CALCIUM 9.8 mg/dL (8.5-10.1)
[2022-11-25 15:05] LABS: CREATININE 4.3 mg/dL (0.55-1.3)
[2022-11-25] MEDS: ZINC SULFATE 220 MG CAPSULE (FP) PO SCH (18:34)
[2022-11-25] MEDS: MELATONIN 5 MG TABLETS PO SCH (21:52)
[2022-11-25] MEDS: LIDOCAINE PATCH REMOVAL MC SCH (21:53)
[2022-11-26] MEDS ORDERED: ZOLPIDEM TARTRATE 5 MG TABLET PO PRN (08:21)
[2022-11-26] MEDS: SEVELAMER CARBONATE 800 MG TAB (FP) PO SCH ×3 (10:04→16:54)
[2022-11-26] MEDS: AMINO ACIDS/PROTEIN HYDROLYS 30 ML LIQUID.PKT PO SCH ×2 (10:04→16:56)
[2022-11-26] MEDS: LIDOCAINE 5% TOPICAL PATCH TP SCH (10:05)
[2022-11-26] MEDS: APIXABAN 2.5 MG TABLET PO SCH ×2 (10:05→22:16)
[2022-11-26] MEDS: VITAMIN B COMP W-C 1 EA TABLET (NEPHRO-VITE) PO SCH (10:05)
[2022-11-26] MEDS: ZINC OXIDE 20% TOPICAL OINTMENT 30 GM TUBE TP SCH ×2 (10:06→22:17)
[2022-11-26] MEDS: METOPROLOL TARTRATE 50 MG TABLET (FP) PO SCH ×2 (10:06→22:16)
[2022-11-26] MEDS: PANTOPRAZOLE 40 MG TABLET PO SCH (10:06)
[2022-11-26] MEDS: ZINC SULFATE 220 MG CAPSULE (FP) PO SCH (10:06)
[2022-11-26] MEDS: COLLAGENASE CLOSTRIDIUM HIST. 30 GRAMS TUBE TP SCH (10:06)
[2022-11-26] MEDS: MINERAL OIL/PET HY-PHL TOPICAL OINTMENT 454 GM JAR TP SCH (10:07)
[2022-11-26] MEDS: SERTRALINE HCL 25 MG TABLET (FP) PO SCH (10:32)
[2022-11-26] MEDS: MELATONIN 5 MG TABLETS PO SCH (22:16)
[2022-11-26] MEDS: LIDOCAINE PATCH REMOVAL MC SCH (22:21)
[2022-11-27] MEDS: SEVELAMER CARBONATE 800 MG TAB (FP) PO SCH ×3 (09:47→17:20)
[2022-11-27] MEDS: PANTOPRAZOLE 40 MG TABLET PO SCH (09:48)
[2022-11-27] MEDS: AMINO ACIDS/PROTEIN HYDROLYS 30 ML LIQUID.PKT PO SCH ×2 (09:48→17:20)
[2022-11-27] MEDS: VITAMIN B COMP W-C 1 EA TABLET (NEPHRO-VITE) PO SCH (09:48)
[2022-11-27] MEDS: ZINC OXIDE 20% TOPICAL OINTMENT 30 GM TUBE TP SCH ×2 (09:48→22:42)
[2022-11-27] MEDS: COLLAGENASE CLOSTRIDIUM HIST. 30 GRAMS TUBE TP SCH (09:48)
[2022-11-27] MEDS: SERTRALINE HCL 25 MG TABLET (FP) PO SCH (09:48)
[2022-11-27] MEDS: APIXABAN 2.5 MG TABLET PO SCH ×2 (09:48→22:41)
[2022-11-27] MEDS: MINERAL OIL/PET HY-PHL TOPICAL OINTMENT 454 GM JAR TP SCH (09:49)
[2022-11-27] MEDS: LIDOCAINE 5% TOPICAL PATCH TP SCH (09:50)
[2022-11-27] MEDS: METOPROLOL TARTRATE 50 MG TABLET (FP) PO SCH ×2 (09:50→22:41)
[2022-11-27 11:37] LABS: HEMATOCRIT 31.9 % (32.4-45.2); HEMOGLOBIN 9.9 GM/dL (10.7-15.3); MCH 29.6 pg (25.7-33.7); MCHC 31.1 g/dl (32.0-36.0); MEAN CELL VOLUME 95.3 fl (80-96); MEAN PLT VOLUME 7.1 fl (7.5-11.1); PLATELET COUNT 242 10^3/uL (134-434); RBC 3.35 M/mm3 (3.60-5.2); RDW 23.6 % (11.6-15.6); WHITE BLOOD COUNT 7.8 K/mm3 (4.0-10.0)
[2022-11-27 12:00] LABS: POTASSIUM 3.5 mmol/L (3.5-5.1)
[2022-11-27 12:02] LABS: CALCIUM 9.8 mg/dL (8.5-10.1)
[2022-11-27 12:03] LABS: ALBUMIN 1.9 g/dl (3.4-5.0); BLOOD UREA NITROGEN 22.2 mg/dL (7-18)
[2022-11-27 12:06] LABS: CREATININE 3.2 mg/dL (0.55-1.3)
[2022-11-27 12:07] LABS: BILIRUBIN,TOTAL 0.2 mg/dL (0.2-1)
[2022-11-27 12:08] LABS: TOT PROT 6.8 g/dl (6.4-8.2)
[2022-11-27] MEDS ORDERED: SODIUM CHLORIDE 250 ML IV PRN (14:00)
[2022-11-27] MEDS ORDERED: EPOETIN ALFA-EPBX 10,000 UNIT/ML VIAL IVPUSH ONE (14:15)
[2022-11-27] MEDS: ALBUMIN HUMAN 25% 12.5 GM/50 ML VIAL IV SCH ×4 (14:30→16:00)
[2022-11-27] MEDS: MELATONIN 5 MG TABLETS PO SCH (22:41)
[2022-11-27] MEDS: LIDOCAINE PATCH REMOVAL MC SCH (22:42)
[2022-11-28] MEDS: SEVELAMER CARBONATE 800 MG TAB (FP) PO SCH ×3 (08:44→17:35)
[2022-11-28] MEDS: AMINO ACIDS/PROTEIN HYDROLYS 30 ML LIQUID.PKT PO SCH ×2 (08:44→17:35)
[2022-11-28] MEDS: ZINC OXIDE 20% TOPICAL OINTMENT 30 GM TUBE TP SCH ×2 (09:35→22:17)
[2022-11-28] MEDS: MINERAL OIL/PET HY-PHL TOPICAL OINTMENT 454 GM JAR TP SCH (09:35)
[2022-11-28] MEDS: VITAMIN B COMP W-C 1 EA TABLET (NEPHRO-VITE) PO SCH (09:36)
[2022-11-28] MEDS: APIXABAN 2.5 MG TABLET PO SCH ×2 (09:36→22:16)
[2022-11-28] MEDS: SERTRALINE HCL 25 MG TABLET (FP) PO SCH (09:36)
[2022-11-28] MEDS: LIDOCAINE 5% TOPICAL PATCH TP SCH (09:36)
[2022-11-28] MEDS: COLLAGENASE CLOSTRIDIUM HIST. 30 GRAMS TUBE TP SCH (09:36)
[2022-11-28] MEDS: METOPROLOL TARTRATE 50 MG TABLET (FP) PO SCH ×2 (10:22→22:17)
[2022-11-28] MEDS: PANTOPRAZOLE 40 MG TABLET PO SCH (10:22)
[2022-11-28] MEDS ORDERED: WATER IVPB ONE (12:00)
[2022-11-28] MEDS ORDERED: DEXTROSE 5% IVPB ONE (12:00)
[2022-11-28] MEDS ORDERED: GANCICLOVIR IVPB ONE (12:00)
[2022-11-28] MEDS: MELATONIN 5 MG TABLETS PO SCH (22:16)
[2022-11-28] MEDS: LIDOCAINE PATCH REMOVAL MC SCH (22:17)
[2022-11-29 07:51] LABS: BASO % 0.8 % (0-2.0); EOS % 4.4 % (0-4.5); HEMATOCRIT 29.6 % (32.4-45.2); HEMOGLOBIN 9.2 GM/dL (10.7-15.3); LYMPH % 25.7 % (8-40); MCH 30.2 pg (25.7-33.7); MCHC 31.2 g/dl (32.0-36.0); MEAN CELL VOLUME 96.7 fl (80-96); MEAN PLT VOLUME 7.6 fl (7.5-11.1); MONO % 14.5 % (3.8-10.2); NEUT % 54.6 % (42.8-82.8); PLATELET COUNT 222 10^3/uL (134-434); RBC 3.06 M/mm3 (3.60-5.2); RDW 24.6 % (11.6-15.6); WHITE BLOOD COUNT 6.4 K/mm3 (4.0-10.0)
[2022-11-29 08:22] LABS: POTASSIUM 3.7 mmol/L (3.5-5.1)
[2022-11-29 08:28] LABS: CALCIUM 9.5 mg/dL (8.5-10.1)
[2022-11-29 08:29] LABS: CREATININE 3.1 mg/dL (0.55-1.3)
[2022-11-29 08:31] LABS: BILIRUBIN,TOTAL 0.4 mg/dL (0.2-1); TOT PROT 5.9 g/dl (6.4-8.2)
[2022-11-29 08:35] LABS: ALBUMIN 1.5 g/dl (3.4-5.0)
[2022-11-29] MEDS: AMINO ACIDS/PROTEIN HYDROLYS 30 ML LIQUID.PKT PO SCH ×2 (09:00→17:30)
[2022-11-29] MEDS: PANTOPRAZOLE 40 MG TABLET PO SCH (10:27)
[2022-11-29] MEDS: SEVELAMER CARBONATE 800 MG TAB (FP) PO SCH ×3 (10:27→17:30)
[2022-11-29] MEDS: SERTRALINE HCL 25 MG TABLET (FP) PO SCH (10:28)
[2022-11-29] MEDS: METOPROLOL TARTRATE 50 MG TABLET (FP) PO SCH ×2 (10:28→22:40)
[2022-11-29] MEDS: VITAMIN B COMP W-C 1 EA TABLET (NEPHRO-VITE) PO SCH (10:28)
[2022-11-29] MEDS: APIXABAN 2.5 MG TABLET PO SCH ×2 (10:28→22:40)
[2022-11-29] MEDS: ZINC OXIDE 20% TOPICAL OINTMENT 30 GM TUBE TP SCH ×2 (10:29→22:36)
[2022-11-29] MEDS: COLLAGENASE CLOSTRIDIUM HIST. 30 GRAMS TUBE TP SCH (10:29)
[2022-11-29] MEDS: MINERAL OIL/PET HY-PHL TOPICAL OINTMENT 454 GM JAR TP SCH (10:29)
[2022-11-29] MEDS: LIDOCAINE 5% TOPICAL PATCH TP SCH (10:35)
[2022-11-29] MEDS: NYSTATIN POWDER 100,000 UNITS/GM - 15 GM TOPICAL POWDER TP SCH (18:00)
[2022-11-29] MEDS: MELATONIN 5 MG TABLETS PO SCH (22:40)
[2022-11-29] MEDS: LIDOCAINE PATCH REMOVAL MC SCH (22:40)
[2022-11-30] MEDS ORDERED: SODIUM CHLORIDE 250 ML IV PRN (10:07)
[2022-11-30] MEDS: COLLAGENASE CLOSTRIDIUM HIST. 30 GRAMS TUBE TP SCH (11:17)
[2022-11-30] MEDS: MINERAL OIL/PET HY-PHL TOPICAL OINTMENT 454 GM JAR TP SCH (11:18)
[2022-11-30] MEDS: NYSTATIN POWDER 100,000 UNITS/GM - 15 GM TOPICAL POWDER TP SCH (11:20)
[2022-11-30] MEDS: ZINC OXIDE 20% TOPICAL OINTMENT 30 GM TUBE TP SCH ×2 (11:20→23:27)
[2022-11-30] MEDS: PANTOPRAZOLE 40 MG TABLET PO SCH (11:21)
[2022-11-30] MEDS: SEVELAMER CARBONATE 800 MG TAB (FP) PO SCH ×3 (11:21→17:04)
[2022-11-30] MEDS: SERTRALINE HCL 25 MG TABLET (FP) PO SCH (11:21)
[2022-11-30] MEDS: VITAMIN B COMP W-C 1 EA TABLET (NEPHRO-VITE) PO SCH (11:21)
[2022-11-30] MEDS: LIDOCAINE 5% TOPICAL PATCH TP SCH (11:22)
[2022-11-30] MEDS: AMINO ACIDS/PROTEIN HYDROLYS 30 ML LIQUID.PKT PO SCH ×2 (11:22→17:04)
[2022-11-30] MEDS: APIXABAN 2.5 MG TABLET PO SCH ×2 (11:22→23:27)
[2022-11-30] MEDS: METOPROLOL TARTRATE 50 MG TABLET (FP) PO SCH ×2 (11:22→23:27)
[2022-11-30] MEDS ORDERED: EPOETIN ALFA-EPBX 10,000 UNIT/ML VIAL IVPUSH ONE (15:00)
[2022-11-30] MEDS: GANCICLOVIR IVPB SCH (19:49)
[2022-11-30] MEDS: WATER IVPB SCH (19:49)
[2022-11-30] MEDS: DEXTROSE 5% IVPB SCH (19:49)
[2022-11-30] MEDS: MELATONIN 5 MG TABLETS PO SCH (23:27)
[2022-11-30] MEDS: LIDOCAINE PATCH REMOVAL MC SCH (23:27)
[2022-12-01] MEDS: MINERAL OIL/PET HY-PHL TOPICAL OINTMENT 454 GM JAR TP SCH (09:56)
[2022-12-01] MEDS: ZINC OXIDE 20% TOPICAL OINTMENT 30 GM TUBE TP SCH ×2 (09:57→22:43)
[2022-12-01] MEDS: NYSTATIN POWDER 100,000 UNITS/GM - 15 GM TOPICAL POWDER TP SCH (09:57)
[2022-12-01] MEDS: LIDOCAINE 5% TOPICAL PATCH TP SCH (09:59)
[2022-12-01] MEDS: AMINO ACIDS/PROTEIN HYDROLYS 30 ML LIQUID.PKT PO SCH ×2 (10:12→18:06)
[2022-12-01] MEDS: PANTOPRAZOLE 40 MG TABLET PO SCH (10:13)
[2022-12-01] MEDS: SEVELAMER CARBONATE 800 MG TAB (FP) PO SCH ×3 (10:13→18:06)
[2022-12-01] MEDS: SERTRALINE HCL 25 MG TABLET (FP) PO SCH (10:14)
[2022-12-01] MEDS: METOPROLOL TARTRATE 50 MG TABLET (FP) PO SCH ×2 (10:14→22:42)
[2022-12-01] MEDS: APIXABAN 2.5 MG TABLET PO SCH ×2 (10:14→22:43)
[2022-12-01] MEDS: VITAMIN B COMP W-C 1 EA TABLET (NEPHRO-VITE) PO SCH (10:14)
[2022-12-01] MEDS: COLLAGENASE CLOSTRIDIUM HIST. 30 GRAMS TUBE TP SCH (10:51)
[2022-12-01] MEDS ORDERED: SODIUM CHLORIDE 250 ML IV PRN (12:18)
[2022-12-01] MEDS: LIDOCAINE PATCH REMOVAL MC SCH (22:42)
[2022-12-01] MEDS: MELATONIN 5 MG TABLETS PO SCH (22:43)
[2022-12-02] MEDS: LIDOCAINE 5% TOPICAL PATCH TP SCH (10:49)
[2022-12-02] MEDS: VITAMIN B COMP W-C 1 EA TABLET (NEPHRO-VITE) PO SCH (10:50)
[2022-12-02] MEDS: PANTOPRAZOLE 40 MG TABLET PO SCH (10:50)
[2022-12-02] MEDS: AMINO ACIDS/PROTEIN HYDROLYS 30 ML LIQUID.PKT PO SCH ×2 (10:50→17:32)
[2022-12-02] MEDS: SEVELAMER CARBONATE 800 MG TAB (FP) PO SCH ×3 (10:50→17:32)
[2022-12-02] MEDS: APIXABAN 2.5 MG TABLET PO SCH ×2 (10:51→23:15)
[2022-12-02] MEDS: METOPROLOL TARTRATE 50 MG TABLET (FP) PO SCH ×3 (10:51→23:17)
[2022-12-02] MEDS: SERTRALINE HCL 25 MG TABLET (FP) PO SCH (10:52)
[2022-12-02] MEDS: ZINC OXIDE 20% TOPICAL OINTMENT 30 GM TUBE TP SCH ×2 (10:52→23:15)
[2022-12-02] MEDS: COLLAGENASE CLOSTRIDIUM HIST. 30 GRAMS TUBE TP SCH (10:53)
[2022-12-02] MEDS: NYSTATIN POWDER 100,000 UNITS/GM - 15 GM TOPICAL POWDER TP SCH (10:53)
[2022-12-02] MEDS: MINERAL OIL/PET HY-PHL TOPICAL OINTMENT 454 GM JAR TP SCH (11:04)
[2022-12-02] MEDS ORDERED: EPOETIN ALFA-EPBX 10,000 UNIT/ML VIAL IVPUSH ONE (14:45)
[2022-12-02 14:50] LABS: HEMOGLOBIN 9.3 GM/dL (10.7-15.3); MCH 30.2 pg (25.7-33.7); MCHC 31.1 g/dl (32.0-36.0); MEAN PLT VOLUME 7.8 fl (7.5-11.1); PLATELET COUNT 256 10^3/uL (134-434); RDW 24.9 % (11.6-15.6); WHITE BLOOD COUNT 9.6 K/mm3 (4.0-10.0)
[2022-12-02 15:09] LABS: POTASSIUM 3.5 mmol/L (3.5-5.1)
[2022-12-02 15:10] LABS: CALCIUM 8.9 mg/dL (8.5-10.1)
[2022-12-02 15:11] LABS: BLOOD UREA NITROGEN 33.8 mg/dL (7-18)
[2022-12-02 15:14] LABS: CREATININE 3.7 mg/dL (0.55-1.3)
[2022-12-02] MEDS: GANCICLOVIR IVPB SCH (17:00)
[2022-12-02] MEDS: DEXTROSE 5% IVPB SCH (17:00)
[2022-12-02] MEDS: WATER IVPB SCH (17:00)
[2022-12-02] MEDS: LIDOCAINE PATCH REMOVAL MC SCH (23:15)
[2022-12-02] MEDS: MELATONIN 5 MG TABLETS PO SCH (23:15)
[2022-12-03] MEDS: MINERAL OIL/PET HY-PHL TOPICAL OINTMENT 454 GM JAR TP SCH (10:27)
[2022-12-03] MEDS: AMINO ACIDS/PROTEIN HYDROLYS 30 ML LIQUID.PKT PO SCH ×2 (10:28→18:02)
[2022-12-03] MEDS: APIXABAN 2.5 MG TABLET PO SCH (10:29)
[2022-12-03] MEDS: PANTOPRAZOLE 40 MG TABLET PO SCH (10:29)
[2022-12-03] MEDS: SEVELAMER CARBONATE 800 MG TAB (FP) PO SCH ×3 (10:29→18:02)
[2022-12-03] MEDS: ZINC OXIDE 20% TOPICAL OINTMENT 30 GM TUBE TP SCH (10:30)
[2022-12-03] MEDS: VITAMIN B COMP W-C 1 EA TABLET (NEPHRO-VITE) PO SCH (10:30)
[2022-12-03] MEDS: SERTRALINE HCL 25 MG TABLET (FP) PO SCH (10:30)
[2022-12-03] MEDS: LIDOCAINE 5% TOPICAL PATCH TP SCH (10:30)
[2022-12-03] MEDS: NYSTATIN POWDER 100,000 UNITS/GM - 15 GM TOPICAL POWDER TP SCH (10:32)
[2022-12-03] MEDS: COLLAGENASE CLOSTRIDIUM HIST. 30 GRAMS TUBE TP SCH (10:32)
[2022-12-03 12:45] VITALS: RESP 18
[2022-12-03] MEDS: METOPROLOL TARTRATE 50 MG TABLET (FP) PO SCH (13:34)
[2022-12-03 19:40] VITALS: BP 106/72; PULSE 89; TEMP 99
== END 2022-12-03 19:30 | DRG 177 ==
LOC: JER 21:52 → JERBED 09-21 03:10 → JICU 09-21 15:39 → J4S 09-28 18:19 → JICU 10-02 06:07 → J2W 10-21 22:03 → J7W 11-11 17:21
PROVIDERS: ADMIT Internal Medicine; ATTEND Internal Medicine
PROC: 30233N1 Transfusion of Nonautologous Red Blood Cells into Peripheral Vein, Percutaneous Approach (ICD-10-PCS; 2022-10-04)
PROC: 05HF33Z Insertion of Infusion Device into Left Cephalic Vein, Percutaneous Approach (ICD-10-PCS; 2022-10-04)
PROC: 05HM33Z Insertion of Infusion Device into Right Internal Jugular Vein, Percutaneous Approach (ICD-10-PCS; 2022-10-07)
PROC: B543ZZA Ultrasonography of Right Jugular Veins, Guidance (ICD-10-PCS; 2022-10-07)
PROC: 02HV33Z Insertion of Infusion Device into Superior Vena Cava, Percutaneous Approach (ICD-10-PCS; 2022-10-23)
PROC: 0JH63XZ Insertion of Tunneled Vascular Access Device into Chest Subcutaneous Tissue and Fascia, Percutaneous Approach (ICD-10-PCS; principal; 2022-10-23 14:15)
PROC: 5A1D70Z Performance of Urinary Filtration, Intermittent, Less than 6 Hours Per Day (ICD-10-PCS; 2022-12-02)
DX: B25.0 Cytomegaloviral pneumonitis (principal); A41.9 Sepsis, unspecified organism; J96.01 Acute respiratory failure with hypoxia; N17.9 Acute kidney failure, unspecified; I24.8 Other forms of acute ischemic heart disease; J45.901 Unspecified asthma with (acute) exacerbation; E87.20 Acidosis, unspecified; N18.4 Chronic kidney disease, stage 4 (severe); I47.1 Supraventricular tachycardia; I48.92 Unspecified atrial flutter; J18.9 Pneumonia, unspecified organism; D64.9 Anemia, unspecified; I12.9 Hypertensive chronic kidney disease with stage 1 through stage 4 chronic kidney disease, or unspecified chronic kidney disease; M32.14 Glomerular disease in systemic lupus erythematosus; D69.6 Thrombocytopenia, unspecified; D63.1 Anemia in chronic kidney disease; E78.5 Hyperlipidemia, unspecified; F32.A Depression, unspecified; Z75.1 Person awaiting admission to adequate facility elsewhere; E87.70 Fluid overload, unspecified; L89.152 Pressure ulcer of sacral region, stage 2; E87.5 Hyperkalemia; I48.0 Paroxysmal atrial fibrillation
CPT/HCPCS: 0241U-QW; 36415; 36430; 36600; 71045-TC-FY; 71250-TC; 76000-TC-FY; 80048; 80053; 80076; 80158; 81003; 82272; 82570; 82607; 82728; 82747; 82803; 82955; 83010; 83540; 83550; 83605; 83615; 83735; 83880; 84100; 84132; 84156; 84300; 84484; 84703; 85014; 85025; 85027; 85041; 85045; 85379; 85610; 85651; 85730; 86140; 86160; 86162; 86225; 86480; 86705; 86706; 86707; 86708; 86709; 86803; 86850; 86900; 86901; 86922; 87040; 87070; 87081; 87086; 87186; 87205; 87305; 87340; 87350; 87449; 87496; 87497; 87522; 87633; 87635; 87899; 93005; 93010; 93306-TC; 93970-TC; 93971; 94640; 94660; 97116-GP; 97162-GP; 99285-25; C1750; G0480; J0637; J1644; J7502; J7517; P9038; P9047; P9058; Q5106

== ENCOUNTER 2023-05-17 13:22 | Inpatient (IN) | payer BC, OTHER ==
[2023-05-17] MEDS ORDERED: ACETAMINOPHEN INJECTION 100 ML IVPB ONE ×2 (16:26→22:15)
[2023-05-17] MEDS: ACETAMINOPHEN 1000 MG/100 ML BAG IVPB ONE (16:31)
[2023-05-17 16:38] LABS: HEMOGLOBIN 10.1 GM/dL (10.7-15.3); MCH 28.9 pg (25.7-33.7); MCHC 32.7 g/dl (32.0-36.0); MEAN CELL VOLUME 88.5 fl (80-96); PLATELET COUNT 274 10^3/uL (134-434); RDW 17.3 % (11.6-15.6); WHITE BLOOD COUNT 23.9 K/mm3 (4.0-10.0)
[2023-05-17 16:42] LABS: VENOUS BASE EXCESS -6.4 mmol/L (-2-2); VENOUS O2 SATURATION 49.6 % (70-80); VENOUS PCO2 44.4 mmHg (38-52); VENOUS PH 7.276 (7.310-7.410)
[2023-05-17 16:55] LABS: INR 1.54 (0.83-1.09); PROTHROMBIN TIME (PATIENT) 17.8 SEC (9.7-13.0)
[2023-05-17 16:56] LABS: CHLORIDE 103 mmol/L (98-107); POTASSIUM 3.8 mmol/L (3.5-5.1); SODIUM 137 mmol/L (136-145)
[2023-05-17] MEDS ORDERED: PIPERACILLIN/TAZOB 4.5 GM 4.5 GM/100 ML BAG IVPB ONE (16:56)
[2023-05-17 16:57] LABS: ACTIVATED PTT 42.7 SECONDS (25.2-36.5)
[2023-05-17 16:58] LABS: CALCIUM 8.9 mg/dL (8.5-10.1)
[2023-05-17 16:59] LABS: ALBUMIN 2.2 g/dl (3.4-5.0); ANION GAP 12 mmol/L (4-13); CO2 22 mmol/L (21-32); GLUCOSE,RANDOM 97 mg/dL (74-106); LIPASE 187 U/L (73-393); MAGNESIUM 2.2 mg/dL (1.8-2.4)
[2023-05-17 17:01] LABS: PHOSPHOROUS 6.8 mg/dL (2.5-4.9)
[2023-05-17 17:02] LABS: SGOT/AST 28 U/L (15-37); SGPT/ALT 63 U/L (13-61)
[2023-05-17 17:03] LABS: BILIRUBIN,TOTAL 0.4 mg/dL (0.2-1)
[2023-05-17 17:04] LABS: ALK PHOS 78 U/L (45-117)
[2023-05-17] MEDS: PIPERACILLIN/TAZOB 4.5 GM 4.5 GM in DEXTROSE 5%-WATER 100 ML IVPB ONE (17:04)
[2023-05-17 17:19] LABS: BLOOD UREA NITROGEN 119.4 mg/dL (7-18)
[2023-05-17] MEDS ORDERED: SODIUM CHLORIDE 250 ML IV PRN (17:57)
[2023-05-17] MEDS: EPOETIN ALFA-EPBX 3,000 UNIT/ML VIAL SQ ONE (19:02)
[2023-05-17] MEDS: ALBUMIN HUMAN 25% 12.5 GM/50 ML VIAL IV SCH (21:26)
[2023-05-17] MEDS ORDERED: VANCOMYCIN 1 GRAM (PRE-DOCKED) 1,000 MG/250 ML BAG IVPB ONE (22:15)
[2023-05-17] MEDS: VANCOMYCIN 1 GRAM (PRE-DOCKED) 1,000 MG/250 ML BAG IVPB ONE (22:30)
[2023-05-18] MEDS: ACETAMINOPHEN 1000 MG/100 ML BAG IVPB ONE (00:56)
[2023-05-18] MEDS ORDERED: ACETAMINOPHEN INJECTION 100 ML IVPB ONE (00:57)
[2023-05-18] MEDS: traMADol HCL 50 MG TABLET PO ONE (02:36)
[2023-05-18] MEDS ORDERED: CEFTRIAXONE 1 GM/50 ML BAG ONE (07:57)
[2023-05-18] MEDS: CEFTRIAXONE 1,000 MG in DEXTROSE 5%-WATER - 50 ML IVPB ONE (08:06)
[2023-05-18 08:40] LABS: HEMATOCRIT 30.4 % (32.4-45.2); HEMOGLOBIN 9.7 GM/dL (10.7-15.3); MCH 28.1 pg (25.7-33.7); MCHC 31.7 g/dl (32.0-36.0); MEAN CELL VOLUME 88.6 fl (80-96); MEAN PLT VOLUME 8.1 fl (7.5-11.1); PLATELET COUNT 241 10^3/uL (134-434); RBC 3.43 M/mm3 (3.60-5.2); RDW 17.1 % (11.6-15.6)
[2023-05-18 08:43] LABS: CHLORIDE 100 mmol/L (98-107); POTASSIUM 4.2 mmol/L (3.5-5.1); SODIUM 137 mmol/L (136-145)
[2023-05-18 08:54] LABS: CALCIUM 8.2 mg/dL (8.5-10.1)
[2023-05-18 08:55] LABS: ALBUMIN 1.9 g/dl (3.4-5.0); ANION GAP 10 mmol/L (4-13); CO2 26 mmol/L (21-32); GLUCOSE,RANDOM 81 mg/dL (74-106)
[2023-05-18 08:58] LABS: SGOT/AST 23 U/L (15-37); SGPT/ALT 48 U/L (13-61)
[2023-05-18 08:59] LABS: BILIRUBIN,TOTAL 0.6 mg/dL (0.2-1)
[2023-05-18 09:00] LABS: TOT PROT 6.1 g/dl (6.4-8.2)
[2023-05-18 09:01] LABS: ALK PHOS 68 U/L (45-117); BLOOD UREA NITROGEN 51.5 mg/dL (7-18); CREATININE 7.5 mg/dL (0.55-1.3)
[2023-05-18] MEDS ORDERED: AZITHROMYCIN IVPB 500 MG in DEXTROSE 5%-WATER - 250 ML IVPB SCH (10:00)
[2023-05-18 10:12] LABS: ANISOCYTOSIS 2+; MACROCYTOSIS 0; TARGET CELLS 2+
[2023-05-18] MEDS: AZITHROMYCIN IVPB 250 MG in DEXTROSE 5%-WATER - 250 ML IVPB SCH (10:15)
[2023-05-18] MEDS: METOPROLOL TARTRATE 50 MG TABLET (FP) PO SCH (10:48)
[2023-05-18] MEDS ORDERED: morphine CARPU-JECT 2 MG/1 ML DISP.SYRIN IVPUSH PRN (14:27)
[2023-05-18] MEDS ORDERED: morphine CARPU-JECT 4 MG/1 ML DISP.SYRIN IVPUSH PRN (14:28)
[2023-05-18] MEDS: APIXABAN 2.5 MG TABLET PO SCH (14:40)
[2023-05-18] MEDS ORDERED: BENZOCAINE/MENTH/CETYLPYRD CL 1 EACH LOZENGE MM PRN (20:41)
[2023-05-19] MEDS: ACETAMINOPHEN 1000 MG/100 ML BAG IVPB ONE (07:56)
[2023-05-19] MEDS ORDERED: LORazepam 2 MG/ML SDV VIAL IVPUSH PRN (09:52)
[2023-05-19 10:08] LABS: HEMATOCRIT 29.2 % (32.4-45.2); HEMOGLOBIN 9.2 GM/dL (10.7-15.3); MCH 28.2 pg (25.7-33.7); MCHC 31.6 g/dl (32.0-36.0); MEAN PLT VOLUME 8.1 fl (7.5-11.1); PLATELET COUNT 275 10^3/uL (134-434); RBC 3.28 M/mm3 (3.60-5.2); RDW 17.2 % (11.6-15.6); WHITE BLOOD COUNT 17.9 K/mm3 (4.0-10.0)
[2023-05-19] MEDS ORDERED: SODIUM CHLORIDE 250 ML IV PRN (10:15)
[2023-05-19 10:21] LABS: CHLORIDE 102 mmol/L (98-107); POTASSIUM 4.3 mmol/L (3.5-5.1); SODIUM 137 mmol/L (136-145)
[2023-05-19 10:22] LABS: CALCIUM 8.2 mg/dL (8.5-10.1)
[2023-05-19 10:23] LABS: ANION GAP 9 mmol/L (4-13); CO2 26 mmol/L (21-32); GLUCOSE,RANDOM 69 mg/dL (74-106)
[2023-05-19] MEDS: EPOETIN ALFA-EPBX 4,000 UNIT/ML VIAL SQ ONE (11:59)
[2023-05-19] MEDS: CEFTRIAXONE 1 GM in DEXTROSE 5%-WATER - 50 ML IVPB SCH (14:55)
[2023-05-19] MEDS: PANTOPRAZOLE 40 MG TABLET PO SCH (14:56)
[2023-05-19] MEDS: VANCOMYCIN/WATER FOR INJ (PEG) 1,000 MG/200 ML BAG IVPB ONE ×2 (15:42→15:43)
[2023-05-19] MEDS: morphine SULFATE 4 MG/ML VIAL IVPUSH PRN (16:46)
[2023-05-19] MEDS: ACETAMINOPHEN 325 MG TABLET (FP) PO PRN (16:47)
[2023-05-19 17:00] VITALS: BMI 23.4
[2023-05-19] MEDS: AMINO ACIDS/PROTEIN HYDROLYS 30 ML LIQUID.PKT PO SCH (18:37)
[2023-05-20 08:15] LABS: BASO % 0.4 % (0-2.0); EOS % 2.7 % (0-4.5); HEMATOCRIT 29.4 % (32.4-45.2); HEMOGLOBIN 9.5 GM/dL (10.7-15.3); LYMPH % 15.6 % (8-40); MCH 28.3 pg (25.7-33.7); MCHC 32.2 g/dl (32.0-36.0); MEAN CELL VOLUME 87.9 fl (80-96); MEAN PLT VOLUME 8.1 fl (7.5-11.1); MONO % 11.5 % (3.8-10.2); NEUT % 69.8 % (42.8-82.8); PLATELET COUNT 292 10^3/uL (134-434); RBC 3.34 M/mm3 (3.60-5.2); RDW 17.4 % (11.6-15.6)
[2023-05-20 08:31] LABS: POTASSIUM 3.8 mmol/L (3.5-5.1)
[2023-05-20 08:38] LABS: CALCIUM 8.2 mg/dL (8.5-10.1)
[2023-05-20 08:39] LABS: ALBUMIN 1.7 g/dl (3.4-5.0)
[2023-05-20 08:42] LABS: CREATININE 6.1 mg/dL (0.55-1.3)
[2023-05-20 08:43] LABS: BILIRUBIN,TOTAL 0.8 mg/dL (0.2-1)
[2023-05-20 08:44] LABS: TOT PROT 5.8 g/dl (6.4-8.2)
[2023-05-20] MEDS: VITAMIN B COMP W-C 1 EA TABLET (NEPHRO-VITE) PO SCH (10:38)
[2023-05-21 11:32] LABS: CHLORIDE 102 mmol/L (98-107); POTASSIUM 3.8 mmol/L (3.5-5.1); SODIUM 140 mmol/L (136-145)
[2023-05-21 12:09] LABS: ALBUMIN 1.7 g/dl (3.4-5.0); ANION GAP 15 mmol/L (4-13); BLOOD UREA NITROGEN 54.2 mg/dL (7-18); CALCIUM 9.1 mg/dL (8.5-10.1); CO2 23 mmol/L (21-32); GLUCOSE,RANDOM 76 mg/dL (74-106)
[2023-05-21 12:13] LABS: SGOT/AST 30 U/L (15-37); SGPT/ALT 31 U/L (13-61)
[2023-05-21 12:15] LABS: BILIRUBIN,TOTAL 0.4 mg/dL (0.2-1)
[2023-05-21 12:16] LABS: ALK PHOS 90 U/L (45-117)
[2023-05-21 12:20] LABS: CREATININE 8.1 mg/dL (0.55-1.3)
[2023-05-21] MEDS: NAFCILLIN - 2 GM in DEXTROSE 5%-WATER 100 ML IVPB SCH (16:59)
[2023-05-22 08:24] LABS: CHLORIDE 102 mmol/L (98-107); POTASSIUM 4.1 mmol/L (3.5-5.1); SODIUM 140 mmol/L (136-145)
[2023-05-22 08:30] LABS: ANION GAP 11 mmol/L (4-13); BLOOD UREA NITROGEN 69.1 mg/dL (7-18); CALCIUM 8.1 mg/dL (8.5-10.1); CO2 27 mmol/L (21-32); GLUCOSE,RANDOM 106 mg/dL (74-106)
[2023-05-22 08:35] LABS: CREATININE 9.3 mg/dL (0.55-1.3)
[2023-05-22] MEDS ORDERED: SODIUM CHLORIDE 250 ML IV PRN ×2 (09:27→16:39)
[2023-05-22] MEDS: ALBUMIN HUMAN 25% 12.5 GM/50 ML VIAL IV SCH (16:00)
[2023-05-22] MEDS: EPOETIN ALFA-EPBX 10,000 UNIT/ML VIAL IVPUSH ONE (17:36)
[2023-05-23] MEDS: morphine SULFATE 4 MG/ML VIAL IVPUSH PRN (15:08)
[2023-05-24] MEDS ORDERED: SODIUM CHLORIDE 250 ML IV PRN (10:00)
[2023-05-24 10:25] LABS: HEMATOCRIT 28.2 % (32.4-45.2); HEMOGLOBIN 8.9 GM/dL (10.7-15.3); MCHC 31.7 g/dl (32.0-36.0); MEAN CELL VOLUME 88.4 fl (80-96); MEAN PLT VOLUME 7.7 fl (7.5-11.1); PLATELET COUNT 429 10^3/uL (134-434); RBC 3.19 M/mm3 (3.60-5.2); RDW 17.4 % (11.6-15.6); WHITE BLOOD COUNT 11.4 K/mm3 (4.0-10.0)
[2023-05-24 10:49] LABS: POTASSIUM 3.3 mmol/L (3.5-5.1)
[2023-05-24 10:54] LABS: CREATININE 6.4 mg/dL (0.55-1.3)
[2023-05-24 10:58] LABS: BLOOD UREA NITROGEN 40.8 mg/dL (7-18)
[2023-05-24] MEDS: EPOETIN ALFA-EPBX 10,000 UNIT/ML VIAL SQ ONE (12:25)
[2023-05-25] MEDS: LOPERAMIDE HCL 2 MG CAPSULE PO ONE (10:52)
[2023-05-25] MEDS: LACTATED RINGERS SOLUTION 1,000 ML/1,000 ML INFUS.BAG IV SCH (10:55)
[2023-05-25] MEDS ORDERED: oxyCODONE HCL 5 MG TABLET PO PRN (13:10)
[2023-05-25] MEDS ORDERED: SODIUM CHLORIDE 250 ML IV PRN (14:52)
[2023-05-25] MEDS: ZOLPIDEM TARTRATE 5 MG TABLET PO PRN (23:15)
[2023-05-25] MEDS: LOPERAMIDE HCL 2 MG CAPSULE PO PRN (23:16)
[2023-05-26] MEDS: SODIUM CHLORIDE 500 ML IV STA ×3 (02:50→11:38)
[2023-05-26] MEDS: LACTATED RINGERS SOLUTION 1,000 ML/1,000 ML INFUS.BAG IV SCH (06:17)
[2023-05-26] MEDS: SODIUM CHLORIDE 250 ML IV STA (06:23)
[2023-05-26] MEDS: MIDODRINE HCL 2.5 MG TABLET PO SCH (17:35)
[2023-05-26] MEDS: CHLORHEXIDINE GLUCONATE 4% CLEANSER FOR DECOLONIZATION TP SCH (21:21)
[2023-05-26] MEDS: MUPIROCIN 2% TOPICAL OINTMENT FOR DECOLONIZATION NS SCH (21:21)
[2023-05-27] MEDS: oxyCODONE HCL 5 MG TABLET PO PRN (09:15)
[2023-05-27] MEDS ORDERED: BENZOCAINE/MENTH/CETYLPYRD CL 1 EACH LOZENGE MM PRN (10:27)
[2023-05-27] MEDS ORDERED: SODIUM CHLORIDE 250 ML IV PRN (10:27)
[2023-05-27] MEDS ORDERED: LOPERAMIDE HCL 2 MG CAPSULE PO PRN (10:27)
[2023-05-27] MEDS: LACTATED RINGERS SOLUTION 1,000 ML/1,000 ML INFUS.BAG IV SCH (10:30)
[2023-05-27 10:34] LABS: HEMATOCRIT 31.8 % (32.4-45.2); HEMOGLOBIN 10.1 GM/dL (10.7-15.3); MCH 28.1 pg (25.7-33.7); MCHC 31.8 g/dl (32.0-36.0); MEAN CELL VOLUME 88.3 fl (80-96); MEAN PLT VOLUME 7.7 fl (7.5-11.1); PLATELET COUNT 621 10^3/uL (134-434); RBC 3.61 M/mm3 (3.60-5.2); RDW 17.6 % (11.6-15.6); WHITE BLOOD COUNT 15.5 K/mm3 (4.0-10.0)
[2023-05-27 11:08] LABS: CHLORIDE 103 mmol/L (98-107); POTASSIUM 3.4 mmol/L (3.5-5.1); SODIUM 140 mmol/L (136-145)
[2023-05-27 11:11] LABS: ALBUMIN 1.6 g/dl (3.4-5.0); ANION GAP 12 mmol/L (4-13); BLOOD UREA NITROGEN 43.1 mg/dL (7-18); CALCIUM 8.9 mg/dL (8.5-10.1); CO2 26 mmol/L (21-32); GLUCOSE,RANDOM 67 mg/dL (74-106); MAGNESIUM 1.9 mg/dL (1.8-2.4)
[2023-05-27 11:13] LABS: SGOT/AST 18 U/L (15-37); SGPT/ALT 19 U/L (13-61)
[2023-05-27 11:15] LABS: BILIRUBIN,TOTAL 1.8 mg/dL (0.2-1); TOT PROT 5.5 g/dl (6.4-8.2)
[2023-05-27 11:17] LABS: ALK PHOS 64 U/L (45-117)
[2023-05-27 11:22] LABS: CREATININE 8.5 mg/dL (0.55-1.3)
[2023-05-27] MEDS: EPOETIN ALFA-EPBX 10,000 UNIT/ML VIAL IVPUSH ONE (14:16)
[2023-05-27] MEDS: NAFCILLIN - 2 GM in DEXTROSE 5%-WATER 100 ML IVPB SCH (14:56)
[2023-05-27] MEDS: AMINO ACIDS/PROTEIN HYDROLYS 30 ML LIQUID.PKT PO SCH (16:31)
[2023-05-27] MEDS: MIDODRINE HCL 5 MG TABLET PO SCH (17:56)
[2023-05-27] MEDS: APIXABAN 2.5 MG TABLET PO SCH (22:06)
[2023-05-27] MEDS: METOPROLOL TARTRATE 50 MG TABLET (FP) PO SCH (22:08)
[2023-05-27] MEDS: ACETAMINOPHEN 325 MG TABLET (FP) PO PRN (22:11)
[2023-05-28] MEDS: PANTOPRAZOLE 40 MG TABLET PO SCH (09:02)
[2023-05-28] MEDS: VITAMIN B COMP W-C 1 EA TABLET (NEPHRO-VITE) PO SCH (09:02)
[2023-05-28] MEDS ORDERED: COLLAGENASE CLOSTRIDIUM HIST. 30 GRAMS TUBE TP SCH (10:00)
[2023-05-28] MEDS: MIDODRINE HCL 5 MG TABLET PO SCH (13:14)
[2023-05-28] MEDS ORDERED: SODIUM CHLORIDE 250 ML IV PRN (15:23)
[2023-05-29] MEDS: MIDODRINE HCL 5 MG TABLET PO ONE (07:19)
[2023-05-29] MEDS ORDERED: PHENYLEPHRINE HCL 10 MG/1 ML SINGLE DOSE VIAL ONE (07:49)
[2023-05-29] MEDS: ALBUMIN HUMAN 25% 12.5 GM/50 ML VIAL IV SCH (09:20)
[2023-05-29] MEDS: EPOETIN ALFA-EPBX 10,000 UNIT/ML VIAL SQ ONE ×2 (10:00→20:43)
[2023-05-29 10:07] LABS: HEMATOCRIT 31.6 % (32.4-45.2); HEMOGLOBIN 9.8 GM/dL (10.7-15.3); MCH 27.2 pg (25.7-33.7); MEAN CELL VOLUME 87.7 fl (80-96); MEAN PLT VOLUME 7.3 fl (7.5-11.1); PLATELET COUNT 639 10^3/uL (134-434); RBC 3.61 M/mm3 (3.60-5.2); RDW 17.8 % (11.6-15.6); WHITE BLOOD COUNT 18.1 K/mm3 (4.0-10.0)
[2023-05-29] MEDS: MIDODRINE HCL 5 MG TABLET PO SCH (16:00)
[2023-05-29] MEDS: PHENYLEPHRINE NS PREMIX 50,000 MCG/500 ML BAG CVP SCH (19:56)
[2023-05-29] MEDS: COLLAGENASE CLOSTRIDIUM HIST. 30 GRAMS TUBE TP SCH (20:43)
[2023-05-29] MEDS: ZOLPIDEM TARTRATE 5 MG TABLET PO PRN (22:47)
[2023-05-30] MEDS: oxyCODONE HCL 5 MG TABLET PO ONE (01:45)
[2023-05-30] MEDS: AMMONIUM LACTATE 12% LOTION 225 GM BOTTLE TP PRN (11:02)
[2023-05-30] MEDS: oxyCODONE HCL 5 MG TABLET PO PRN (13:49)
[2023-05-30] MEDS: LACTATED RINGERS SOLUTION 1,000 ML/1,000 ML INFUS.BAG IV SCH (23:20)
[2023-05-30] MEDS ORDERED: BENZOCAINE/MENTHOL (CHLORASEPTIC ) LOZENGE MM PRN (23:24)
[2023-05-30] MEDS ORDERED: SODIUM CHLORIDE 250 ML IV PRN (23:24)
[2023-05-31] MEDS: NAFCILLIN - 2 GM in DEXTROSE 5%-WATER 100 ML IVPB SCH (02:48)
[2023-05-31] MEDS: AMINO ACIDS/PROTEIN HYDROLYS 30 ML LIQUID.PKT PO SCH (08:11)
[2023-05-31] MEDS: ACETAMINOPHEN 1000 MG/100 ML BAG IVPB ONE (09:44)
[2023-05-31] MEDS: VITAMIN B COMP W-C 1 EA TABLET (NEPHRO-VITE) PO SCH (09:47)
[2023-05-31] MEDS: METOPROLOL TARTRATE 50 MG TABLET (FP) PO SCH (09:48)
[2023-05-31] MEDS: PANTOPRAZOLE 40 MG TABLET PO SCH (09:48)
[2023-05-31] MEDS: APIXABAN 2.5 MG TABLET PO SCH (09:48)
[2023-05-31] MEDS ORDERED: MUPIROCIN 2% TOPICAL OINTMENT FOR DECOLONIZATION NS SCH (10:00)
[2023-05-31] MEDS: LOPERAMIDE HCL 2 MG CAPSULE PO PRN (13:57)
[2023-05-31] MEDS ORDERED: NAFCILLIN NA 2 GM VIAL IVPB ONE (14:00)
[2023-05-31] MEDS ORDERED: CHLORHEXIDINE GLUCONATE 4% CLEANSER FOR DECOLONIZATION TP SCH (22:00)
[2023-05-31] MEDS: ACETAMINOPHEN 325 MG TABLET (FP) PO ONE (23:25)
[2023-06-01] MEDS: ZOLPIDEM TARTRATE 5 MG TABLET PO ONE (00:17)
[2023-06-01] MEDS: ACETAMINOPHEN 325 MG TABLET (FP) PO ONE (02:42)
[2023-06-01] MEDS: MIDODRINE HCL 5 MG TABLET PO ONE (05:14)
[2023-06-01 11:19] LABS: BASO % 0.7 % (0-2.0); EOS % 3.6 % (0-4.5); HEMOGLOBIN 7.7 GM/dL (10.7-15.3); LYMPH % 16.6 % (8-40); MEAN CELL VOLUME 87.1 fl (80-96); MEAN PLT VOLUME 7.6 fl (7.5-11.1); MONO % 7.7 % (3.8-10.2); NEUT % 71.4 % (42.8-82.8); PLATELET COUNT 444 10^3/uL (134-434); RBC 2.87 M/mm3 (3.60-5.2); RDW 18.8 % (11.6-15.6); WHITE BLOOD COUNT 18.3 K/mm3 (4.0-10.0)
[2023-06-01 11:59] LABS: CHLORIDE 110 mmol/L (98-107); SODIUM 147 mmol/L (136-145)
[2023-06-01 12:09] LABS: ALBUMIN 1.4 g/dl (3.4-5.0)
[2023-06-01 12:12] LABS: BLOOD UREA NITROGEN 42.1 mg/dL (7-18); CO2 24 mmol/L (21-32); GLUCOSE,RANDOM 90 mg/dL (74-106)
[2023-06-01 12:13] LABS: BILIRUBIN,TOTAL 1.2 mg/dL (0.2-1); CALCIUM 8.7 mg/dL (8.5-10.1); TOT PROT 4.6 g/dl (6.4-8.2)
[2023-06-01 12:14] LABS: ALK PHOS 55 U/L (45-117); ANION GAP 12 mmol/L (4-13); CREATININE 9.4 mg/dL (0.55-1.3); POTASSIUM 2.9 mmol/L (3.5-5.1); SGOT/AST 64 U/L (15-37); SGPT/ALT 38 U/L (13-61)
[2023-06-01] MEDS: SODIUM CHLORIDE 500 ML IV STA (13:30)
[2023-06-01 15:43] LABS: HEMATOCRIT 25.4 % (32.4-45.2); HEMOGLOBIN 7.8 GM/dL (10.7-15.3); MCH 27.1 pg (25.7-33.7); MCHC 30.9 g/dl (32.0-36.0); MEAN CELL VOLUME 87.7 fl (80-96); MEAN PLT VOLUME 7.5 fl (7.5-11.1); PLATELET COUNT 428 10^3/uL (134-434); RBC 2.89 M/mm3 (3.60-5.2); RDW 18.3 % (11.6-15.6); WHITE BLOOD COUNT 18.4 K/mm3 (4.0-10.0)
[2023-06-01 15:56] LABS: CHLORIDE 110 mmol/L (98-107); POTASSIUM 3.1 mmol/L (3.5-5.1); SODIUM 147 mmol/L (136-145)
[2023-06-01 15:57] LABS: CALCIUM 8.5 mg/dL (8.5-10.1)
[2023-06-01 15:58] LABS: ANION GAP 12 mmol/L (4-13); BLOOD UREA NITROGEN 42.1 mg/dL (7-18); CO2 25 mmol/L (21-32); GLUCOSE,RANDOM 107 mg/dL (74-106)
[2023-06-01 16:13] LABS: CREATININE 9.7 mg/dL (0.55-1.3)
[2023-06-01] MEDS ORDERED: METOPROLOL TARTRATE 5 MG/5 ML VIAL IVPUSH PRN (17:37)
[2023-06-01] MEDS: ACETAMINOPHEN 325 MG TABLET (FP) PO PRN (17:58)
[2023-06-02] MEDS ORDERED: NAFCILLIN NA 2 GM VIAL IVPB ONE (05:57)
[2023-06-02] MEDS ORDERED: SODIUM CHLORIDE 250 ML IV PRN ×2 (08:20→13:08)
[2023-06-02 10:58] LABS: CHLORIDE 109 mmol/L (98-107); POTASSIUM 3.2 mmol/L (3.5-5.1); SODIUM 146 mmol/L (136-145)
[2023-06-02 11:01] LABS: ALBUMIN 1.6 g/dl (3.4-5.0); ANION GAP 12 mmol/L (4-13); BLOOD UREA NITROGEN 53.1 mg/dL (7-18); CALCIUM 9.1 mg/dL (8.5-10.1); CO2 25 mmol/L (21-32); GLUCOSE,RANDOM 70 mg/dL (74-106)
[2023-06-02 11:04] LABS: SGOT/AST 71 U/L (15-37); SGPT/ALT 46 U/L (13-61)
[2023-06-02 11:06] LABS: BILIRUBIN,TOTAL 2.1 mg/dL (0.2-1); TOT PROT 5.3 g/dl (6.4-8.2)
[2023-06-02 11:07] LABS: ALK PHOS 71 U/L (45-117)
[2023-06-02 11:08] LABS: CREATININE 9.9 mg/dL (0.55-1.3)
[2023-06-02] MEDS: HYDROCORTISONE SOD SUCCINATE 100 MG/2 ML VIAL IVPB ONE (11:33)
[2023-06-02] MEDS: EPOETIN ALFA-EPBX 10,000 UNIT/ML VIAL SQ ONE (13:44)
[2023-06-02] MEDS: HYDROmorphone HCl 2 MG/ML VIAL IVPB ONE (21:59)
[2023-06-03] MEDS: COSYNTROPIN 0.25 MG VIAL IVPUSH ONE (06:53)
[2023-06-03] MEDS: MUPIROCIN 2% TOPICAL OINTMENT FOR DECOLONIZATION NS SCH (15:26)
[2023-06-03] MEDS: CHLORHEXIDINE GLUCONATE 4% CLEANSER FOR DECOLONIZATION TP SCH (22:16)
[2023-06-04] MEDS ORDERED: SODIUM CHLORIDE 250 ML IV PRN (07:45)
[2023-06-04] MEDS ORDERED: AMMONIUM LACTATE 12% LOTION 225 GM BOTTLE TP PRN (07:45)
[2023-06-04] MEDS ORDERED: BENZOCAINE/MENTHOL (CHLORASEPTIC ) LOZENGE MM PRN (07:45)
[2023-06-04] MEDS ORDERED: METOPROLOL TARTRATE 5 MG/5 ML VIAL IVPUSH PRN (07:45)
[2023-06-04] MEDS ORDERED: LOPERAMIDE HCL 2 MG CAPSULE PO PRN (07:45)
[2023-06-04] MEDS ORDERED: COLLAGENASE CLOSTRIDIUM HIST. 30 GRAMS TUBE TP SCH (10:00)
[2023-06-04] MEDS: ACETAMINOPHEN 325 MG TABLET (FP) PO PRN (11:05)
[2023-06-04] MEDS: AMINO ACIDS/PROTEIN HYDROLYS 30 ML LIQUID.PKT PO SCH (11:08)
[2023-06-04] MEDS: HYDROmorphone HCl 2 MG/ML VIAL IVPUSH ONE ×2 (11:08→20:40)
[2023-06-04] MEDS: NAFCILLIN - 2 GM in DEXTROSE 5%-WATER 100 ML IVPB SCH (11:09)
[2023-06-04] MEDS: MIDODRINE HCL 5 MG TABLET PO SCH (11:10)
[2023-06-04] MEDS: APIXABAN 2.5 MG TABLET PO SCH (11:10)
[2023-06-04] MEDS: METOPROLOL TARTRATE 50 MG TABLET (FP) PO SCH (11:10)
[2023-06-04] MEDS: VITAMIN B COMP W-C 1 EA TABLET (NEPHRO-VITE) PO SCH (11:11)
[2023-06-04] MEDS: PANTOPRAZOLE 40 MG TABLET PO SCH (11:11)
[2023-06-04] MEDS ORDERED: RAPID SEQUENCE INTUBATION KIT NR ONE (11:26)
[2023-06-04] MEDS: LACTATED RINGERS SOLUTION 1,000 ML/1,000 ML INFUS.BAG IV SCH (11:32)
[2023-06-04 12:03] LABS: HEMATOCRIT 22.8 % (32.4-45.2); HEMOGLOBIN 7.1 GM/dL (10.7-15.3); MCH 26.7 pg (25.7-33.7); MCHC 31.2 g/dl (32.0-36.0); MEAN CELL VOLUME 85.4 fl (80-96); MEAN PLT VOLUME 7.8 fl (7.5-11.1); PLATELET COUNT 402 10^3/uL (134-434); RBC 2.67 M/mm3 (3.60-5.2); RDW 18.5 % (11.6-15.6); WHITE BLOOD COUNT 23.5 K/mm3 (4.0-10.0)
[2023-06-04 12:32] LABS: CHLORIDE 108 mmol/L (98-107); POTASSIUM 3.3 mmol/L (3.5-5.1); SODIUM 146 mmol/L (136-145)
[2023-06-04 12:33] LABS: CALCIUM 7.8 mg/dL (8.5-10.1)
[2023-06-04 12:34] LABS: ANION GAP 14 mmol/L (4-13); CO2 24 mmol/L (21-32); GLUCOSE,RANDOM 64 mg/dL (74-106)
[2023-06-04 12:40] LABS: BLOOD UREA NITROGEN 78.8 mg/dL (7-18); CREATININE 11.9 mg/dL (0.55-1.3)
[2023-06-04] MEDS: morphine CARPU-JECT 4 MG/1 ML DISP.SYRIN IVPUSH ONE (15:15)
[2023-06-04] MEDS: HYDROmorphone HCl 2 MG/ML VIAL IVPUSH PRN (20:18)
[2023-06-04] MEDS: POTASSIUM CHLORIDE ORAL LIQUID 20 MEQ/15 ML PO ONE (20:39)
[2023-06-04] MEDS: COLLAGENASE CLOSTRIDIUM HIST. 30 GRAMS TUBE TP SCH (20:40)
[2023-06-05] MEDS ORDERED: ACETAMINOPHEN INJECTION 100 ML IVPB ONE (03:22)
[2023-06-05] MEDS: ACETAMINOPHEN 1000 MG/100 ML BAG IVPB PRN (03:30)
[2023-06-05 06:40] LABS: BASO % 0.6 % (0-2.0); EOS % 2.9 % (0-4.5); HEMATOCRIT 20.8 % (32.4-45.2); LYMPH % 14.9 % (8-40); MCH 27.7 pg (25.7-33.7); MCHC 32.5 g/dl (32.0-36.0); MEAN CELL VOLUME 85.2 fl (80-96); MEAN PLT VOLUME 8.1 fl (7.5-11.1); MONO % 6.1 % (3.8-10.2); NEUT % 75.5 % (42.8-82.8); PLATELET COUNT 406 10^3/uL (134-434); RBC 2.44 M/mm3 (3.60-5.2); RDW 18.8 % (11.6-15.6); WHITE BLOOD COUNT 18.5 K/mm3 (4.0-10.0)
[2023-06-05 07:01] LABS: CHLORIDE 108 mmol/L (98-107); SODIUM 146 mmol/L (136-145)
[2023-06-05 07:03] LABS: LACTIC ACID 2.2 mmol/L (0.4-2.0)
[2023-06-05 07:07] LABS: ANION GAP 13 mmol/L (4-13); CALCIUM 8.1 mg/dL (8.5-10.1); CO2 25 mmol/L (21-32); GLUCOSE,RANDOM 93 mg/dL (74-106); MAGNESIUM 1.9 mg/dL (1.8-2.4)
[2023-06-05 07:10] LABS: SGOT/AST 51 U/L (15-37); SGPT/ALT 36 U/L (13-61)
[2023-06-05 07:12] LABS: HEMOGLOBIN 6.8 GM/dL (10.7-15.3); TOT PROT 4.4 g/dl (6.4-8.2)
[2023-06-05 07:13] LABS: ALK PHOS 70 U/L (45-117)
[2023-06-05 07:41] LABS: ALBUMIN 1.1 g/dl (3.4-5.0)
[2023-06-05] MEDS: DEXMEDETOMIDINE PREMIX 400 MCG/100 ML BAG IVPB SCH (10:00)
[2023-06-05] MEDS ORDERED: NOREPINEPHRINE BITARTRATE 4,000 MCG in DEXTROSE 5%-WATER - 496 ML IV SCH (11:00)
[2023-06-05] MEDS: NOREPINEPHRINE BITARTRATE/D5W 8 MG/250 ML BAG IVPB SCH (11:00)
[2023-06-05] MEDS: VANCOMYCIN ORAL SOLUTION 125 MG/2.5 ML PO SCH (12:00)
[2023-06-05] MEDS ORDERED: DEXTROSE 50%-WATER 25 GM/50 ML DISP.SYRIN ONE (18:47)
[2023-06-05] MEDS: DEXTROSE 50%-WATER - 25 GM/50 ML VIAL IVPUSH ONE (18:50)
[2023-06-05] MEDS: VASopressin 40 UNITS/100 ML BAG IV SCH (20:33)
[2023-06-05] MEDS: DEXTROSE 5%-LACTATED RINGERS 1,000 ML IV SCH (20:34)
[2023-06-06] MEDS: MEROPENEM 1 GM in DEXTROSE 5%-WATER 100 ML IVPB SCH (13:46)
[2023-06-06] MEDS ORDERED: SODIUM CHLORIDE 250 ML IV PRN (13:49)
[2023-06-06] MEDS: ONDANSETRON 4 MG/2 ML VIAL IVPUSH PRN (14:25)
[2023-06-06] MEDS: VANCOMYCIN 1,000 MG in DEXTROSE 5%-WATER - 250 ML IVPB ONE (15:27)
[2023-06-06] MEDS ORDERED: VASopressin 20 UNITS/ML VIAL IV ONE (15:38)
[2023-06-06] MEDS: EPOETIN ALFA-EPBX 10,000 UNIT/ML VIAL SQ ONE (16:48)
[2023-06-06] MEDS: DAPTOMYCIN 680 MG in SODIUM CHLORIDE 50 ML IVPB ONE (16:48)
[2023-06-07 07:30] LABS: BASO % 0.5 % (0-2.0); EOS % 1.2 % (0-4.5); HEMATOCRIT 21.9 % (32.4-45.2); HEMOGLOBIN 7.1 GM/dL (10.7-15.3); LYMPH % 9.5 % (8-40); MCH 28.2 pg (25.7-33.7); MCHC 32.6 g/dl (32.0-36.0); MEAN CELL VOLUME 86.4 fl (80-96); MEAN PLT VOLUME 8.1 fl (7.5-11.1); NEUT % 80.8 % (42.8-82.8); PLATELET COUNT 404 10^3/uL (134-434); RBC 2.53 M/mm3 (3.60-5.2); RDW 18.6 % (11.6-15.6); WHITE BLOOD COUNT 19.4 K/mm3 (4.0-10.0)
[2023-06-07 07:41] LABS: CHLORIDE 103 mmol/L (98-107); SODIUM 140 mmol/L (136-145)
[2023-06-07 07:51] LABS: ALK PHOS 73 U/L (45-117); ANION GAP 12 mmol/L (4-13); CO2 24 mmol/L (21-32); GLUCOSE,RANDOM 101 mg/dL (74-106); MAGNESIUM 1.6 mg/dL (1.8-2.4)
[2023-06-07 07:52] LABS: CREATININE 6.8 mg/dL (0.55-1.3); PHOSPHOROUS 3.7 mg/dL (2.5-4.9)
[2023-06-07 07:53] LABS: SGOT/AST 44 U/L (15-37)
[2023-06-07 07:54] LABS: BILIRUBIN,TOTAL 1.3 mg/dL (0.2-1); TOT PROT 4.4 g/dl (6.4-8.2)
[2023-06-07 07:55] LABS: SGPT/ALT 32 U/L (13-61)
[2023-06-07 07:56] LABS: BLOOD UREA NITROGEN 40.8 mg/dL (7-18); CALCIUM 6.9 mg/dL (8.5-10.1)
[2023-06-07] MEDS: MAGNESIUM 2GM/50ML STERILE WATER IVPB IVPB ONE (09:38)
[2023-06-07] MEDS: ACETAMINOPHEN 1000 MG/100 ML BAG IVPB PRN (15:01)
[2023-06-07] MEDS: KCL 20 MEQ PREMIX BAG 100 ML IVPB ONE (17:01)
[2023-06-07] MEDS: EPOETIN ALFA-EPBX 10,000 UNIT/ML VIAL SQ ONE (19:30)
[2023-06-07] MEDS: ALBUMIN HUMAN 25% 12.5 GM/50 ML VIAL IV SCH (20:35)
[2023-06-08 07:31] LABS: BASO % 0.5 % (0-2.0); EOS % 0.2 % (0-4.5); HEMATOCRIT 20.7 % (32.4-45.2); LYMPH % 11.4 % (8-40); MCH 27.8 pg (25.7-33.7); MCHC 32.3 g/dl (32.0-36.0); MEAN CELL VOLUME 86.1 fl (80-96); MEAN PLT VOLUME 7.9 fl (7.5-11.1); NEUT % 81.9 % (42.8-82.8); PLATELET COUNT 429 10^3/uL (134-434); RBC 2.41 M/mm3 (3.60-5.2); RDW 18.7 % (11.6-15.6); WHITE BLOOD COUNT 19.1 K/mm3 (4.0-10.0)
[2023-06-08 08:02] LABS: HEMOGLOBIN 6.7 GM/dL (10.7-15.3)
[2023-06-08 08:19] LABS: POTASSIUM 3.1 mmol/L (3.5-5.1)
[2023-06-08 08:26] LABS: BLOOD UREA NITROGEN 24.7 mg/dL (7-18); CALCIUM 7.3 mg/dL (8.5-10.1); MAGNESIUM 1.8 mg/dL (1.8-2.4)
[2023-06-08 08:29] LABS: CREATININE 4.6 mg/dL (0.55-1.3)
[2023-06-08 08:31] LABS: TOT PROT 4.5 g/dl (6.4-8.2)
[2023-06-08] MEDS: ADENOSINE 6 MG/2 ML VIAL IVPUSH ONE ×3 (11:20→11:52)
[2023-06-08] MEDS: dilTIAZem HCL 60 MG TABLET PO ONE (11:50)
[2023-06-08] MEDS: KCL 20 MEQ PREMIX BAG 100 ML IVPB ONE (12:04)
[2023-06-08] MEDS: METOPROLOL TARTRATE 5 MG/5 ML VIAL IVPUSH ONE (15:02)
[2023-06-08 18:22] LABS: HEMATOCRIT 20.5 % (32.4-45.2); MCH 27.5 pg (25.7-33.7); MCHC 32.3 g/dl (32.0-36.0); MEAN CELL VOLUME 85.2 fl (80-96); MEAN PLT VOLUME 7.5 fl (7.5-11.1); PLATELET COUNT 419 10^3/uL (134-434); RBC 2.41 M/mm3 (3.60-5.2); RDW 19.4 % (11.6-15.6); WHITE BLOOD COUNT 14.9 K/mm3 (4.0-10.0)
[2023-06-08 18:26] LABS: HEMOGLOBIN 6.6 GM/dL (10.7-15.3)
[2023-06-08] MEDS: MELATONIN 5 MG TABLETS PO ONE (21:18)
[2023-06-08] MEDS ORDERED: METOPROLOL TARTRATE 5 MG/5 ML VIAL ONE (23:25)
[2023-06-09] MEDS: METOPROLOL TARTRATE 5 MG/5 ML VIAL IVPUSH ONE (04:06)
[2023-06-09 06:30] LABS: BASO % 0.8 % (0-2.0); EOS % 0.5 % (0-4.5); HEMATOCRIT 22.7 % (32.4-45.2); HEMOGLOBIN 7.3 GM/dL (10.7-15.3); LYMPH % 25.1 % (8-40); MCH 27.5 pg (25.7-33.7); MCHC 32.1 g/dl (32.0-36.0); MEAN CELL VOLUME 85.8 fl (80-96); MEAN PLT VOLUME 8.3 fl (7.5-11.1); MONO % 4.3 % (3.8-10.2); NEUT % 69.3 % (42.8-82.8); PLATELET COUNT 496 10^3/uL (134-434); RBC 2.64 M/mm3 (3.60-5.2); RDW 19.5 % (11.6-15.6); WHITE BLOOD COUNT 16.7 K/mm3 (4.0-10.0)
[2023-06-09 06:48] LABS: CALCIUM 7.7 mg/dL (8.5-10.1)
[2023-06-09 06:49] LABS: ALBUMIN 1.1 g/dl (3.4-5.0); BLOOD UREA NITROGEN 30.5 mg/dL (7-18); MAGNESIUM 1.7 mg/dL (1.8-2.4)
[2023-06-09 06:52] LABS: CREATININE 5.6 mg/dL (0.55-1.3); PHOSPHOROUS 2.2 mg/dL (2.5-4.9)
[2023-06-09 06:53] LABS: TOT PROT 4.7 g/dl (6.4-8.2)
[2023-06-09] MEDS: MAGNESIUM SULF 50% (8.12 MEQ/2 ML-1 GM VIAL) IVPB ONE (08:19)
[2023-06-09] MEDS: ACETAMINOPHEN 1000 MG/100 ML BAG IVPB PRN (10:09)
[2023-06-09] MEDS: KCL 20 MEQ PREMIX BAG 100 ML IVPB ONE (10:09)
[2023-06-09] MEDS: DAPTOMYCIN 680 MG in SODIUM CHLORIDE 50 ML IVPB ONE (13:23)
[2023-06-10 07:31] LABS: BASO % 0.6 % (0-2.0); EOS % 2.4 % (0-4.5); HEMATOCRIT 19.2 % (32.4-45.2); LYMPH % 17.1 % (8-40); MCH 28.7 pg (25.7-33.7); MCHC 33.2 g/dl (32.0-36.0); MEAN CELL VOLUME 86.3 fl (80-96); MEAN PLT VOLUME 8.3 fl (7.5-11.1); MONO % 8.9 % (3.8-10.2); PLATELET COUNT 409 10^3/uL (134-434); RBC 2.23 M/mm3 (3.60-5.2); RDW 20.4 % (11.6-15.6)
[2023-06-10 07:45] LABS: POTASSIUM 3.1 mmol/L (3.5-5.1)
[2023-06-10 07:50] LABS: BLOOD UREA NITROGEN 37.2 mg/dL (7-18); CALCIUM 7.9 mg/dL (8.5-10.1)
[2023-06-10 07:52] LABS: HEMOGLOBIN 6.4 GM/dL (10.7-15.3)
[2023-06-10 07:55] LABS: BILIRUBIN,TOTAL 0.9 mg/dL (0.2-1); TOT PROT 4.3 g/dl (6.4-8.2)
[2023-06-10] MEDS: ALBUMIN HUMAN 25% 12.5 GM/50 ML VIAL IV SCH (08:30)
[2023-06-10] MEDS ORDERED: SODIUM CHLORIDE 250 ML IV PRN (09:40)
[2023-06-10] MEDS: EPOETIN ALFA-EPBX 10,000 UNIT/ML VIAL IVPUSH ONE (10:00)
[2023-06-11 08:29] LABS: POTASSIUM 3.5 mmol/L (3.5-5.1)
[2023-06-11 08:31] LABS: CALCIUM 7.2 mg/dL (8.5-10.1)
[2023-06-11 08:32] LABS: BLOOD UREA NITROGEN 26.8 mg/dL (7-18)
[2023-06-11 08:35] LABS: CREATININE 4.9 mg/dL (0.55-1.3)
[2023-06-11 08:37] LABS: BILIRUBIN,TOTAL 0.9 mg/dL (0.2-1); TOT PROT 4.3 g/dl (6.4-8.2)
[2023-06-11 09:17] LABS: ALBUMIN 1.3 g/dl (3.4-5.0)
[2023-06-11] MEDS: MIDODRINE HCL 5 MG TABLET PO SCH (10:10)
[2023-06-11 10:57] LABS: MAGNESIUM 2.1 mg/dL (1.8-2.4)
[2023-06-11] MEDS: AMPICILLIN NA/SULBACTAM NA 3 GM in SODIUM CHLORIDE 100 ML IVPB SCH (21:29)
[2023-06-12 07:42] LABS: BASO % 0.5 % (0-2.0); EOS % 1.3 % (0-4.5); HEMATOCRIT 22.3 % (32.4-45.2); LYMPH % 19.4 % (8-40); MCH 27.4 pg (25.7-33.7); MCHC 31.4 g/dl (32.0-36.0); MEAN CELL VOLUME 87.4 fl (80-96); MEAN PLT VOLUME 8.5 fl (7.5-11.1); MONO % 8.2 % (3.8-10.2); NEUT % 70.6 % (42.8-82.8); PLATELET COUNT 396 10^3/uL (134-434); RBC 2.55 M/mm3 (3.60-5.2); WHITE BLOOD COUNT 14.7 K/mm3 (4.0-10.0)
[2023-06-12] MEDS ORDERED: SODIUM CHLORIDE 250 ML IV PRN (07:53)
[2023-06-12 07:58] LABS: POTASSIUM 3.5 mmol/L (3.5-5.1)
[2023-06-12 08:05] LABS: CALCIUM 7.2 mg/dL (8.5-10.1)
[2023-06-12 08:06] LABS: ALBUMIN 1.1 g/dl (3.4-5.0); BLOOD UREA NITROGEN 32.6 mg/dL (7-18); MAGNESIUM 2.1 mg/dL (1.8-2.4)
[2023-06-12 08:09] LABS: CREATININE 5.3 mg/dL (0.55-1.3); PHOSPHOROUS 4.3 mg/dL (2.5-4.9)
[2023-06-12 08:11] LABS: BILIRUBIN,TOTAL 0.8 mg/dL (0.2-1); TOT PROT 4.3 g/dl (6.4-8.2)
[2023-06-12 08:27] LABS: ANISOCYTOSIS 2+; MACROCYTOSIS 0
[2023-06-12] MEDS: valACYclovir HCL 500 MG TABLET (FP) PO SCH (09:22)
[2023-06-12] MEDS: EPOETIN ALFA-EPBX 10,000 UNIT/ML VIAL IVPUSH ONE (11:31)
[2023-06-12] MEDS: DEXMEDETOMIDINE PREMIX 400 MCG/100 ML BAG IVPB SCH (12:15)
[2023-06-13 07:33] LABS: HEMATOCRIT 23.3 % (32.4-45.2); HEMOGLOBIN 7.3 GM/dL (10.7-15.3); MCH 27.4 pg (25.7-33.7); MCHC 31.5 g/dl (32.0-36.0); MEAN PLT VOLUME 8.3 fl (7.5-11.1); PLATELET COUNT 427 10^3/uL (134-434); RBC 2.68 M/mm3 (3.60-5.2); RDW 20.8 % (11.6-15.6)
[2023-06-13 08:01] LABS: CHLORIDE 107 mmol/L (98-107); SODIUM 139 mmol/L (136-145)
[2023-06-13 08:03] LABS: BLOOD UREA NITROGEN 22.6 mg/dL (7-18); CO2 27 mmol/L (21-32); GLUCOSE,RANDOM 86 mg/dL (74-106)
[2023-06-13 08:06] LABS: CREATININE 4.1 mg/dL (0.55-1.3); SGOT/AST 18 U/L (15-37); SGPT/ALT 9 U/L (13-61)
[2023-06-13 08:07] LABS: BILIRUBIN,TOTAL 0.7 mg/dL (0.2-1); TOT PROT 3.9 g/dl (6.4-8.2)
[2023-06-13 08:09] LABS: ALK PHOS 44 U/L (45-117)
[2023-06-13 08:30] LABS: ANION GAP 6 mmol/L (4-13); CALCIUM 6.8 mg/dL (8.5-10.1); POTASSIUM 2.9 mmol/L (3.5-5.1)
[2023-06-13] MEDS: KCL 10 MEQ IVPB 10 MEQ/100 ML INFUS.BAG IVPB SCH (10:07)
[2023-06-13] MEDS: MIRTAZAPINE 15 MG TABLET (FP) PO SCH (13:10)
[2023-06-13] MEDS: MEROPENEM 1 GM in DEXTROSE 5%-WATER 100 ML IVPB SCH (13:11)
[2023-06-13] MEDS: DAPTOMYCIN 720 MG in SODIUM CHLORIDE 50 ML IVPB ONE (14:41)
[2023-06-13] MEDS: CASPOFUNGIN ACETATE 70 MG in SODIUM CHLORIDE 250 ML IVPB ONE (14:41)
[2023-06-14] MEDS: HYDROmorphone HCl 2 MG/ML VIAL IVPUSH PRN (05:47)
[2023-06-14 06:57] LABS: BASO % 0.5 % (0-2.0); EOS % 3.1 % (0-4.5); HEMATOCRIT 23.3 % (32.4-45.2); HEMOGLOBIN 7.4 GM/dL (10.7-15.3); LYMPH % 23.8 % (8-40); MCH 27.8 pg (25.7-33.7); MCHC 31.5 g/dl (32.0-36.0); MEAN PLT VOLUME 8.2 fl (7.5-11.1); MONO % 9.6 % (3.8-10.2); PLATELET COUNT 456 10^3/uL (134-434); RBC 2.65 M/mm3 (3.60-5.2); RDW 21.1 % (11.6-15.6); WHITE BLOOD COUNT 18.7 K/mm3 (4.0-10.0)
[2023-06-14 07:14] LABS: POTASSIUM 3.4 mmol/L (3.5-5.1)
[2023-06-14 07:22] LABS: PHOSPHOROUS 3.9 mg/dL (2.5-4.9)
[2023-06-14 07:23] LABS: ALBUMIN 0.9 g/dl (3.4-5.0); BLOOD UREA NITROGEN 28.7 mg/dL (7-18)
[2023-06-14 07:24] LABS: BILIRUBIN,TOTAL 0.6 mg/dL (0.2-1); TOT PROT 3.8 g/dl (6.4-8.2)
[2023-06-14 07:25] LABS: MAGNESIUM 1.5 mg/dL (1.8-2.4)
[2023-06-14 07:26] LABS: CREATININE 4.5 mg/dL (0.55-1.3)
[2023-06-14] MEDS: MAGNESIUM SULFATE IN WATER 2 GM/50 ML IVPB IVPB ONE (08:30)
[2023-06-14] MEDS ORDERED: KCL 20 MEQ PREMIX BAG 20 MEQ/100 ML INFUS.BAG IVPB SCH (08:30)
[2023-06-14] MEDS: KCL 20 MEQ PREMIX BAG 20 MEQ/100 ML INFUS.BAG IVPB SCH (10:45)
[2023-06-15 07:21] LABS: BASO % 0.5 % (0-2.0); EOS % 4.8 % (0-4.5); HEMATOCRIT 24.4 % (32.4-45.2); HEMOGLOBIN 7.7 GM/dL (10.7-15.3); MCH 28.2 pg (25.7-33.7); MCHC 31.4 g/dl (32.0-36.0); MEAN CELL VOLUME 89.8 fl (80-96); MEAN PLT VOLUME 8.3 fl (7.5-11.1); MONO % 9.6 % (3.8-10.2); NEUT % 58.1 % (42.8-82.8); PLATELET COUNT 506 10^3/uL (134-434); RBC 2.72 M/mm3 (3.60-5.2); RDW 23.5 % (11.6-15.6); WHITE BLOOD COUNT 18.2 K/mm3 (4.0-10.0)
[2023-06-15 08:12] LABS: CHLORIDE 107 mmol/L (98-107); POTASSIUM 3.8 mmol/L (3.5-5.1); SODIUM 138 mmol/L (136-145)
[2023-06-15 08:14] LABS: ALBUMIN 0.9 g/dl (3.4-5.0); ANION GAP 8 mmol/L (4-13); CO2 24 mmol/L (21-32); MAGNESIUM 1.8 mg/dL (1.8-2.4)
[2023-06-15 08:18] LABS: CREATININE 4.9 mg/dL (0.55-1.3); PHOSPHOROUS 4.8 mg/dL (2.5-4.9); SGOT/AST 17 U/L (15-37); SGPT/ALT 9 U/L (13-61)
[2023-06-15 08:19] LABS: BILIRUBIN,TOTAL 0.7 mg/dL (0.2-1); TOT PROT 4.1 g/dl (6.4-8.2)
[2023-06-15 08:21] LABS: ALK PHOS 44 U/L (45-117)
[2023-06-15 08:23] LABS: CALCIUM 6.2 mg/dL (8.5-10.1); GLUCOSE,RANDOM 96 mg/dL (74-106)
[2023-06-15] MEDS: AMPICILLIN NA/SULBACTAM NA 3 GM in SODIUM CHLORIDE 100 ML IVPB SCH (23:29)
[2023-06-16 07:07] LABS: BASO % 0.6 % (0-2.0); HEMOGLOBIN 7.4 GM/dL (10.7-15.3); LYMPH % 13.6 % (8-40); MEAN CELL VOLUME 90.5 fl (80-96); MONO % 8.3 % (3.8-10.2); NEUT % 73.5 % (42.8-82.8); PLATELET COUNT 514 10^3/uL (134-434); RBC 2.65 M/mm3 (3.60-5.2); RDW 23.4 % (11.6-15.6); WHITE BLOOD COUNT 15.8 K/mm3 (4.0-10.0)
[2023-06-16 07:35] LABS: CHLORIDE 107 mmol/L (98-107); POTASSIUM 3.8 mmol/L (3.5-5.1); SODIUM 139 mmol/L (136-145)
[2023-06-16 07:39] LABS: ALBUMIN 0.9 g/dl (3.4-5.0); ANION GAP 9 mmol/L (4-13); CO2 22 mmol/L (21-32); MAGNESIUM 1.9 mg/dL (1.8-2.4)
[2023-06-16 07:41] LABS: PHOSPHOROUS 5.1 mg/dL (2.5-4.9)
[2023-06-16 07:42] LABS: CREATININE 5.2 mg/dL (0.55-1.3); SGOT/AST 13 U/L (15-37); SGPT/ALT 7 U/L (13-61)
[2023-06-16 07:44] LABS: ALK PHOS 50 U/L (45-117); BILIRUBIN,TOTAL 0.8 mg/dL (0.2-1); TOT PROT 4.3 g/dl (6.4-8.2)
[2023-06-16 07:53] LABS: GLUCOSE,RANDOM 95 mg/dL (74-106)
[2023-06-16 07:56] LABS: CALCIUM 6.6 mg/dL (8.5-10.1)
[2023-06-16 09:42] LABS: ANISOCYTOSIS 2+; MACROCYTOSIS 2+; OVALOCYTE 1+; TARGET CELLS 1+
[2023-06-16] MEDS: METOPROLOL TARTRATE 5 MG/5 ML VIAL IVPUSH ONE (23:13)
[2023-06-16 23:14] LABS: ARTERIAL BLD GAS O2 SATURATION 99.6 % (95-98); ARTERIAL BLOOD GAS BASE EXCESS -5.3 mmol/L (-2-2); ARTERIAL BLOOD GAS PO2 259.6 mmHg (80-100); ARTERIAL BLOOD GAS pH 7.406 (7.350-7.450)
[2023-06-16 23:15] LABS: ALLENS TEST POSITIVE
[2023-06-17] MEDS: METOPROLOL TARTRATE 5 MG/5 ML VIAL IVPUSH ONE (06:23)
[2023-06-17 09:12] LABS: BASO % 0.4 % (0-2.0); EOS % 0.9 % (0-4.5); HEMATOCRIT 29.7 % (32.4-45.2); HEMOGLOBIN 9.6 GM/dL (10.7-15.3); LYMPH % 7.6 % (8-40); MCH 28.9 pg (25.7-33.7); MCHC 32.3 g/dl (32.0-36.0); MEAN CELL VOLUME 89.6 fl (80-96); MONO % 9.3 % (3.8-10.2); NEUT % 81.8 % (42.8-82.8); PLATELET COUNT 644 10^3/uL (134-434); RBC 3.32 M/mm3 (3.60-5.2); RDW 19.7 % (11.6-15.6); WHITE BLOOD COUNT 19.9 K/mm3 (4.0-10.0)
[2023-06-17 09:23] LABS: CHLORIDE 107 mmol/L (98-107); POTASSIUM 3.9 mmol/L (3.5-5.1); SODIUM 138 mmol/L (136-145)
[2023-06-17 09:26] LABS: ANION GAP 12 mmol/L (4-13); BLOOD UREA NITROGEN 42.4 mg/dL (7-18); CO2 19 mmol/L (21-32); MAGNESIUM 1.9 mg/dL (1.8-2.4)
[2023-06-17 09:28] LABS: GLUCOSE,RANDOM 77 mg/dL (74-106)
[2023-06-17 09:29] LABS: CREATININE 5.6 mg/dL (0.55-1.3); PHOSPHOROUS 5.9 mg/dL (2.5-4.9); SGOT/AST 19 U/L (15-37); SGPT/ALT 7 U/L (13-61)
[2023-06-17 09:31] LABS: BILIRUBIN,TOTAL 0.9 mg/dL (0.2-1); TOT PROT 5.1 g/dl (6.4-8.2)
[2023-06-17 09:32] LABS: ALK PHOS 59 U/L (45-117)
[2023-06-17 09:33] LABS: ALBUMIN 1.1 g/dl (3.4-5.0); CALCIUM 6.8 mg/dL (8.5-10.1)
[2023-06-17] MEDS ORDERED: AMMONIUM LACTATE 12% LOTION 225 GM BOTTLE TP PRN (09:54)
[2023-06-17] MEDS ORDERED: BENZOCAINE/MENTHOL (CHLORASEPTIC ) LOZENGE MM PRN (09:54)
[2023-06-17] MEDS ORDERED: COLLAGENASE CLOSTRIDIUM HIST. 30 GRAMS TUBE TP SCH (10:00)
[2023-06-17] MEDS: HYDROmorphone HCl 2 MG/ML VIAL IVPUSH PRN (11:19)
[2023-06-17] MEDS: PANTOPRAZOLE 40 MG TABLET PO SCH (11:20)
[2023-06-17] MEDS: valACYclovir HCL 500 MG TABLET (FP) PO SCH (11:20)
[2023-06-17] MEDS: AMPICILLIN NA/SULBACTAM NA 3 GM in SODIUM CHLORIDE 100 ML IVPB SCH (11:20)
[2023-06-17] MEDS: MIDODRINE HCL 5 MG TABLET PO SCH (11:21)
[2023-06-17] MEDS: APIXABAN 2.5 MG TABLET PO SCH (11:21)
[2023-06-17] MEDS: MIRTAZAPINE 15 MG TABLET (FP) PO SCH (11:21)
[2023-06-17] MEDS: VITAMIN B COMP W-C 1 EA TABLET (NEPHRO-VITE) PO SCH (11:21)
[2023-06-17] MEDS: VANCOMYCIN ORAL SOLUTION 125 MG/2.5 ML PO SCH (11:23)
[2023-06-17] MEDS: METOPROLOL TARTRATE 5 MG/5 ML VIAL IVPUSH PRN (11:58)
[2023-06-17] MEDS: METOPROLOL TARTRATE 25 MG TABLET (FP) PO SCH (11:58)
[2023-06-17] MEDS ORDERED: LIDOCAINE HCL 1%, 10 MG/ML (20ML VIAL) ONE (12:20)
[2023-06-17] MEDS: DEXTROSE 5%-LACTATED RINGERS 1,000 ML IV SCH (17:22)
[2023-06-17] MEDS: AMINO ACIDS/PROTEIN HYDROLYS 30 ML LIQUID.PKT PO SCH (17:22)
[2023-06-17] MEDS: LOPERAMIDE HCL 2 MG CAPSULE PO PRN (19:56)
[2023-06-18 09:54] LABS: BASO % 0.5 % (0-2.0); EOS % 2.4 % (0-4.5); HEMATOCRIT 25.9 % (32.4-45.2); HEMOGLOBIN 8.3 GM/dL (10.7-15.3); LYMPH % 9.6 % (8-40); MCH 29.1 pg (25.7-33.7); MCHC 32.2 g/dl (32.0-36.0); MEAN CELL VOLUME 90.1 fl (80-96); MEAN PLT VOLUME 7.6 fl (7.5-11.1); MONO % 9.7 % (3.8-10.2); NEUT % 77.8 % (42.8-82.8); PLATELET COUNT 597 10^3/uL (134-434); RBC 2.87 M/mm3 (3.60-5.2); RDW 20.4 % (11.6-15.6)
[2023-06-18 10:18] LABS: CHLORIDE 108 mmol/L (98-107); POTASSIUM 3.5 mmol/L (3.5-5.1); SODIUM 139 mmol/L (136-145)
[2023-06-18 10:20] LABS: ANION GAP 10 mmol/L (4-13); CO2 20 mmol/L (21-32)
[2023-06-18 10:21] LABS: BLOOD UREA NITROGEN 47.6 mg/dL (7-18)
[2023-06-18 10:24] LABS: SGOT/AST 17 U/L (15-37); SGPT/ALT 7 U/L (13-61)
[2023-06-18 10:25] LABS: TOT PROT 4.7 g/dl (6.4-8.2)
[2023-06-18 10:26] LABS: BILIRUBIN,TOTAL 0.8 mg/dL (0.2-1)
[2023-06-18 10:27] LABS: ALK PHOS 52 U/L (45-117)
[2023-06-18 10:29] LABS: GLUCOSE,RANDOM 72 mg/dL (74-106)
[2023-06-18 10:34] LABS: CALCIUM 6.6 mg/dL (8.5-10.1)
[2023-06-18] MEDS: TORSEMIDE 20 MG TABLET (FP) PO SCH (17:44)
[2023-06-19] MEDS: OXYMETAZOLINE 0.05% NASAL SOLUTION 15 ML BOTTLE NS ONE (10:37)
[2023-06-19] MEDS: FUROSEMIDE 40 MG/4 ML INJECTABLE VIAL IVPUSH SCH (20:09)
[2023-06-19 22:08] LABS: HEMATOCRIT 27.9 % (32.4-45.2); HEMOGLOBIN 8.8 GM/dL (10.7-15.3); MCH 29.3 pg (25.7-33.7); MCHC 31.5 g/dl (32.0-36.0); MEAN CELL VOLUME 92.9 fl (80-96); MEAN PLT VOLUME 7.7 fl (7.5-11.1); PLATELET COUNT 609 10^3/uL (134-434); RBC 3.01 M/mm3 (3.60-5.2); WHITE BLOOD COUNT 18.1 K/mm3 (4.0-10.0)
[2023-06-19] MEDS: SODIUM CHLORIDE 250 ML IV STA (23:10)
[2023-06-19] MEDS ORDERED: METOPROLOL TARTRATE 5 MG/5 ML VIAL IVPUSH PRN (23:28)
[2023-06-19] MEDS: OXYMETAZOLINE 0.05% NASAL SOLUTION 15 ML BOTTLE NS SCH (23:50)
[2023-06-20] MEDS: DESMOPRESSIN ACETATE IVPB ONE (00:15)
[2023-06-20] MEDS: SODIUM CHLORIDE IVPB ONE (00:15)
[2023-06-20 01:00] LABS: INR 3.61 (0.83-1.09); PROTHROMBIN TIME (PATIENT) 41.4 SEC (9.7-13.0)
[2023-06-20] MEDS: METOPROLOL TARTRATE 25 MG TABLET (FP) PO SCH ×2 (03:35→03:36)
[2023-06-20] MEDS: ADENOSINE 6 MG/2 ML VIAL IVPUSH ONE (03:36)
[2023-06-20] MEDS: SODIUM CHLORIDE 0.9% 500 ML INFUS.BAG IV ONE (03:39)
[2023-06-20] MEDS: LORazepam 2 MG/ML SDV VIAL IVPUSH STA (03:42)
[2023-06-20] MEDS: PHYTONADIONE 10 MG/1 ML AMP IVPB ONE (05:44)
[2023-06-20] MEDS ORDERED: SODIUM CHLORIDE 250 ML IV PRN (17:43)
[2023-06-20 17:51] LABS: HEMATOCRIT 20.7 % (32.4-45.2); MCH 28.8 pg (25.7-33.7); MCHC 31.2 g/dl (32.0-36.0); MEAN CELL VOLUME 92.3 fl (80-96); MEAN PLT VOLUME 7.4 fl (7.5-11.1); PLATELET COUNT 567 10^3/uL (134-434); RBC 2.24 M/mm3 (3.60-5.2); RDW 25.4 % (11.6-15.6); WHITE BLOOD COUNT 15.8 K/mm3 (4.0-10.0)
[2023-06-20 17:54] LABS: HEMOGLOBIN 6.5 GM/dL (10.7-15.3)
[2023-06-20 18:10] LABS: CHLORIDE 112 mmol/L (98-107); POTASSIUM 3.2 mmol/L (3.5-5.1); SODIUM 143 mmol/L (136-145)
[2023-06-20 18:12] LABS: ALBUMIN 1.1 g/dl (3.4-5.0); ANION GAP 14 mmol/L (4-13); CO2 17 mmol/L (21-32)
[2023-06-20 18:13] LABS: BLOOD UREA NITROGEN 64.8 mg/dL (7-18); GLUCOSE,RANDOM 79 mg/dL (74-106)
[2023-06-20 18:15] LABS: CREATININE 6.5 mg/dL (0.55-1.3); SGOT/AST 14 U/L (15-37)
[2023-06-20 18:16] LABS: SGPT/ALT 6 U/L (13-61)
[2023-06-20 18:17] LABS: BILIRUBIN,TOTAL 0.8 mg/dL (0.2-1); TOT PROT 4.8 g/dl (6.4-8.2)
[2023-06-20 18:18] LABS: ALK PHOS 47 U/L (45-117)
[2023-06-21] MEDS ORDERED: DIGOXIN 0.5 MG/2 ML AMPUL ONE (00:20)
[2023-06-21] MEDS: DIGOXIN 0.5 MG/2 ML AMPUL IVPUSH ONE ×2 (00:37→05:18)
[2023-06-21] MEDS: ADENOSINE 6 MG/2 ML VIAL IVPUSH ONE ×2 (00:38→10:54)
[2023-06-21] MEDS: METOPROLOL TARTRATE 5 MG/5 ML VIAL IVPUSH SCH (00:39)
[2023-06-21] MEDS: PANTOPRAZOLE SODIUM 40 MG VIAL IVPUSH SCH (02:04)
[2023-06-21 07:31] LABS: HEMATOCRIT 23.8 % (32.4-45.2); MCH 30.7 pg (25.7-33.7); MCHC 33.6 g/dl (32.0-36.0); MEAN CELL VOLUME 91.5 fl (80-96); MEAN PLT VOLUME 7.4 fl (7.5-11.1); PLATELET COUNT 480 10^3/uL (134-434); RDW 21.7 % (11.6-15.6); WHITE BLOOD COUNT 15.7 K/mm3 (4.0-10.0)
[2023-06-21] MEDS ORDERED: FUROSEMIDE 40 MG/4 ML INJECTABLE VIAL IVPUSH SCH (10:00)
[2023-06-21] MEDS ORDERED: SODIUM CHLORIDE 250 ML IV PRN (14:50)
[2023-06-22 11:54] LABS: HEMATOCRIT 21.8 % (32.4-45.2); HEMOGLOBIN 7.2 GM/dL (10.7-15.3); MCH 30.6 pg (25.7-33.7); MCHC 33.3 g/dl (32.0-36.0); MEAN CELL VOLUME 91.9 fl (80-96); MEAN PLT VOLUME 7.3 fl (7.5-11.1); PLATELET COUNT 429 10^3/uL (134-434); RBC 2.37 M/mm3 (3.60-5.2); RDW 24.2 % (11.6-15.6); WHITE BLOOD COUNT 16.4 K/mm3 (4.0-10.0)
[2023-06-22 12:24] LABS: CHLORIDE 118 mmol/L (98-107); POTASSIUM 3.2 mmol/L (3.5-5.1); SODIUM 151 mmol/L (136-145)
[2023-06-22 12:34] LABS: ALBUMIN 1.1 g/dl (3.4-5.0); ANION GAP 8 mmol/L (4-13); CO2 26 mmol/L (21-32); GLUCOSE,RANDOM 113 mg/dL (74-106)
[2023-06-22 12:37] LABS: CREATININE 3.9 mg/dL (0.55-1.3); SGOT/AST 16 U/L (15-37)
[2023-06-22 12:38] LABS: BILIRUBIN,TOTAL 0.6 mg/dL (0.2-1); TOT PROT 4.8 g/dl (6.4-8.2)
[2023-06-22 12:40] LABS: ALK PHOS 57 U/L (45-117)
[2023-06-22 12:41] LABS: BLOOD UREA NITROGEN 37.7 mg/dL (7-18); CALCIUM 7.3 mg/dL (8.5-10.1); SGPT/ALT < 6 U/L (13-61)
[2023-06-22] MEDS: EPOETIN ALFA-EPBX 10,000 UNIT/ML VIAL IVPUSH ONE (12:48)
[2023-06-22] MEDS: ALBUMIN HUMAN 25% 12.5 GM/50 ML VIAL IV SCH (13:28)
[2023-06-23] MEDS ORDERED: ALBUTEROL SO4 0.042% IH SOL 1.25 MG/3 ML VIAL.NEB NEB PRN (09:11)
[2023-06-23] MEDS: guaiFENesin/CODEINE 5 ML UNIT-DOSE CUPS PO PRN (10:28)
[2023-06-23] MEDS: DIGOXIN 0.25 MG TABLET PO ONE (12:20)
[2023-06-23] MEDS: ONDANSETRON *ODT* 4 MG TABLET SL ONE (18:14)
[2023-06-24] MEDS ORDERED: SODIUM CHLORIDE 250 ML IV PRN (08:00)
[2023-06-24 09:10] LABS: HEMATOCRIT 24.5 % (32.4-45.2); HEMOGLOBIN 7.7 GM/dL (10.7-15.3); MCH 29.3 pg (25.7-33.7); MCHC 31.4 g/dl (32.0-36.0); MEAN CELL VOLUME 93.3 fl (80-96); MEAN PLT VOLUME 7.3 fl (7.5-11.1); PLATELET COUNT 394 10^3/uL (134-434); RBC 2.63 M/mm3 (3.60-5.2); RDW 23.6 % (11.6-15.6); WHITE BLOOD COUNT 14.5 K/mm3 (4.0-10.0)
[2023-06-24] MEDS: EPOETIN ALFA-EPBX 10,000 UNIT/ML VIAL IVPUSH ONE (09:19)
[2023-06-24 09:29] LABS: POTASSIUM 3.4 mmol/L (3.5-5.1)
[2023-06-24 09:30] LABS: CALCIUM 7.5 mg/dL (8.5-10.1)
[2023-06-24 09:31] LABS: ALBUMIN 1.3 g/dl (3.4-5.0); BLOOD UREA NITROGEN 43.2 mg/dL (7-18)
[2023-06-24 09:34] LABS: CREATININE 4.8 mg/dL (0.55-1.3)
[2023-06-24 09:36] LABS: BILIRUBIN,TOTAL 0.7 mg/dL (0.2-1); TOT PROT 5.4 g/dl (6.4-8.2)
[2023-06-24] MEDS: HYDROmorphone HCl 2 MG/ML VIAL IVPUSH PRN (11:33)
[2023-06-24] MEDS: ACETAMINOPHEN 325 MG TABLET (FP) PO PRN (18:12)
[2023-06-24] MEDS: AMIODARONE HCL 200 MG TABLET PO SCH (21:47)
[2023-06-25] MEDS ORDERED: LIDOCAINE HCL 1%, 10 MG/ML (20ML VIAL) ONE (07:16)
[2023-06-25] MEDS ORDERED: HEPARIN NA (PORCINE) 5,000 UNITS/ML 1ML VIAL ONE (07:17)
[2023-06-25] MEDS ORDERED: ONDANSETRON 4 MG/2 ML VIAL ONE (07:32)
[2023-06-25] MEDS ORDERED: METOCLOPRAMIDE HCL INJECTION 10 MG/2 ML VIAL ONE (07:32)
[2023-06-25] MEDS ORDERED: ceFAZolin SODIUM 1 GM VIAL ONE (07:32)
[2023-06-25] MEDS ORDERED: SUCCINYLCHOLINE CHLORIDE 200 MG/10 ML SYRINGE ONE (07:34)
[2023-06-25] MEDS ORDERED: MIDAZOLAM HCL 2 MG/2 ML SINGLE DOSE VIAL ONE (08:05)
[2023-06-25] MEDS ORDERED: ALBUTEROL SO4 HFA INHALER IH ONE (08:07)
[2023-06-25] MEDS: ceFAZolin SODIUM 1 GM VIAL IVPB ONE (08:22)
[2023-06-25] MEDS: LIDOCAINE HCL 1%, 10 MG/ML (50 mL VIAL) INF ONE (08:28)
[2023-06-25] MEDS ORDERED: ESMOLOL HCL 100,000 MCG/10 ML VIAL ONE (08:45)
[2023-06-25] MEDS ORDERED: AMIODARONE HCL 150 MG/3 ML VIAL ONE (08:49)
[2023-06-25] MEDS ORDERED: BENZOCAINE/MENTHOL (CHLORASEPTIC ) LOZENGE MM PRN (09:39)
[2023-06-25] MEDS ORDERED: ALBUTEROL SO4 0.042% IH SOL 1.25 MG/3 ML VIAL.NEB NEB PRN (09:39)
[2023-06-25] MEDS ORDERED: AMMONIUM LACTATE 12% LOTION 225 GM BOTTLE TP PRN (09:39)
[2023-06-25] MEDS ORDERED: ACETAMINOPHEN 325 MG TABLET (FP) PO PRN (09:39)
[2023-06-25] MEDS ORDERED: LOPERAMIDE HCL 2 MG CAPSULE PO PRN (09:39)
[2023-06-25] MEDS: HEPARIN NA (PORCINE) 5,000 UNITS/ML 1ML VIAL SQ ONE (09:40)
[2023-06-25] MEDS ORDERED: DIGOXIN 0.125 MG TABLET PO SCH (10:00)
[2023-06-25] MEDS: OXYMETAZOLINE 0.05% NASAL SOLUTION 15 ML BOTTLE NS SCH (10:58)
[2023-06-25] MEDS: VITAMIN B COMP W-C 1 EA TABLET (NEPHRO-VITE) PO SCH (10:59)
[2023-06-25] MEDS: AMIODARONE HCL 200 MG TABLET PO SCH (10:59)
[2023-06-25] MEDS: MIDODRINE HCL 5 MG TABLET PO SCH (10:59)
[2023-06-25] MEDS: MIRTAZAPINE 15 MG TABLET (FP) PO SCH (11:00)
[2023-06-25] MEDS: PANTOPRAZOLE SODIUM 40 MG VIAL IVPUSH SCH (11:00)
[2023-06-25] MEDS: SODIUM CHLORIDE 1,000 ML IV SCH (11:01)
[2023-06-25] MEDS: valACYclovir HCL 500 MG TABLET (FP) PO SCH (11:01)
[2023-06-25] MEDS: METOPROLOL TARTRATE 5 MG/5 ML VIAL IVPUSH SCH (11:02)
[2023-06-25] MEDS ORDERED: METOPROLOL TARTRATE 5 MG/5 ML VIAL IVPUSH SCH (11:45)
[2023-06-25] MEDS: HYDROmorphone HCl 2 MG/ML VIAL IVPUSH PRN (13:01)
[2023-06-25] MEDS ORDERED: dilTIAZem HCL 30 MG TABLET PO PRN (15:56)
[2023-06-25] MEDS: AMINO ACIDS/PROTEIN HYDROLYS 30 ML LIQUID.PKT PO SCH (17:16)
[2023-06-25] MEDS: guaiFENesin/CODEINE 5 ML UNIT-DOSE CUPS PO PRN (22:25)
[2023-06-26 12:53] LABS: HEMATOCRIT 25.2 % (32.4-45.2); HEMOGLOBIN 8.2 GM/dL (10.7-15.3); MCH 30.4 pg (25.7-33.7); MCHC 32.4 g/dl (32.0-36.0); MEAN CELL VOLUME 93.5 fl (80-96); MEAN PLT VOLUME 7.4 fl (7.5-11.1); PLATELET COUNT 330 10^3/uL (134-434); RBC 2.69 M/mm3 (3.60-5.2); RDW 25.7 % (11.6-15.6); WHITE BLOOD COUNT 16.6 K/mm3 (4.0-10.0)
[2023-06-26 13:15] LABS: POTASSIUM 3.3 mmol/L (3.5-5.1)
[2023-06-26 13:17] LABS: ALBUMIN 1.2 g/dl (3.4-5.0); BLOOD UREA NITROGEN 41.6 mg/dL (7-18)
[2023-06-26 13:21] LABS: CREATININE 4.6 mg/dL (0.55-1.3)
[2023-06-26 13:22] LABS: BILIRUBIN,TOTAL 0.6 mg/dL (0.2-1); TOT PROT 5.9 g/dl (6.4-8.2)
[2023-06-26] MEDS ORDERED: SODIUM CHLORIDE 250 ML IV PRN (14:00)
[2023-06-26] MEDS: EPOETIN ALFA-EPBX 10,000 UNIT/ML VIAL SQ ONE (14:09)
[2023-06-26] MEDS: PANTOPRAZOLE 40 MG TABLET PO SCH (22:02)
[2023-06-27] MEDS: COLLAGENASE CLOSTRIDIUM HIST. 30 GRAMS TUBE TP SCH (09:56)
[2023-06-28] MEDS ORDERED: SODIUM CHLORIDE 250 ML IV PRN (09:00)
[2023-06-28 09:01] LABS: HEMATOCRIT 22.9 % (32.4-45.2); HEMOGLOBIN 7.5 GM/dL (10.7-15.3); MCH 31.1 pg (25.7-33.7); MCHC 32.6 g/dl (32.0-36.0); MEAN CELL VOLUME 95.1 fl (80-96); MEAN PLT VOLUME 7.2 fl (7.5-11.1); PLATELET COUNT 256 10^3/uL (134-434); RBC 2.41 M/mm3 (3.60-5.2); RDW 26.2 % (11.6-15.6); WHITE BLOOD COUNT 11.8 K/mm3 (4.0-10.0)
[2023-06-28 09:27] LABS: POTASSIUM 3.4 mmol/L (3.5-5.1)
[2023-06-28 09:29] LABS: ALBUMIN 1.4 g/dl (3.4-5.0); CALCIUM 7.3 mg/dL (8.5-10.1)
[2023-06-28 09:32] LABS: CREATININE 3.7 mg/dL (0.55-1.3)
[2023-06-28 09:34] LABS: BILIRUBIN,TOTAL 0.5 mg/dL (0.2-1); TOT PROT 5.2 g/dl (6.4-8.2)
[2023-06-28] MEDS: EPOETIN ALFA-EPBX 10,000 UNIT, EPOETIN ALFA-EPBX 2,000 UNIT, EPOETIN ALFA-EPBX 3,000 UNIT IVPUSH ONE (10:48)
[2023-06-28] MEDS ORDERED: EPOETIN ALFA-EPBX 10,000 UNIT/ML VIAL SQ ONE (12:50)
[2023-06-28 14:34] VITALS: BP 129/82; PULSE 98; RESP 20; TEMP 98.2
[2023-06-29] MEDS ORDERED: AMIODARONE HCL 200 MG TABLET PO SCH (10:00)
== END 2023-06-28 16:45 | DRG 721 ==
LOC: JER 13:22 → JERBED 15:57 → J7W 05-18 12:57 → JICU 05-26 13:54 → J6S 05-30 20:32 → JICU 06-03 11:30 → J4S 06-16 21:21
PROVIDERS: ADMIT Internal Medicine; ATTEND Internal Medicine
PROC: 05HM33Z Insertion of Infusion Device into Right Internal Jugular Vein, Percutaneous Approach (ICD-10-PCS; 2023-06-02)
PROC: 05HN33Z Insertion of Infusion Device into Left Internal Jugular Vein, Percutaneous Approach (ICD-10-PCS; 2023-06-03)
PROC: 05HM33Z Insertion of Infusion Device into Right Internal Jugular Vein, Percutaneous Approach (ICD-10-PCS; 2023-06-05)
PROC: B543ZZA Ultrasonography of Right Jugular Veins, Guidance (ICD-10-PCS; 2023-06-05)
PROC: 30233N1 Transfusion of Nonautologous Red Blood Cells into Peripheral Vein, Percutaneous Approach (ICD-10-PCS; 2023-06-05)
PROC: 05HF33Z Insertion of Infusion Device into Left Cephalic Vein, Percutaneous Approach (ICD-10-PCS; 2023-06-20)
PROC: 06HY33Z Insertion of Infusion Device into Lower Vein, Percutaneous Approach (ICD-10-PCS; principal; 2023-06-25 07:30)
PROC: 5A1D70Z Performance of Urinary Filtration, Intermittent, Less than 6 Hours Per Day (ICD-10-PCS; 2023-06-28)
DX: T80.211A Bloodstream infection due to central venous catheter, initial encounter (principal); A41.01 Sepsis due to Methicillin susceptible Staphylococcus aureus; J18.9 Pneumonia, unspecified organism; R65.21 Severe sepsis with septic shock; A04.72 Enterocolitis due to Clostridium difficile, not specified as recurrent; L89.150 Pressure ulcer of sacral region, unstageable; E87.20 Acidosis, unspecified; I12.0 Hypertensive chronic kidney disease with stage 5 chronic kidney disease or end stage renal disease; N18.6 End stage renal disease; E27.1 Primary adrenocortical insufficiency; Y83.9 Surgical procedure, unspecified as the cause of abnormal reaction of the patient, or of later complication, without mention of misadventure at the time of the procedure; I47.10 Supraventricular tachycardia, unspecified; I48.91 Unspecified atrial fibrillation; M32.9 Systemic lupus erythematosus, unspecified; D63.1 Anemia in chronic kidney disease; J45.909 Unspecified asthma, uncomplicated; K92.1 Melena; R04.0 Epistaxis; I48.92 Unspecified atrial flutter; E87.70 Fluid overload, unspecified
CPT/HCPCS: 0241U-QW; 36415; 36430; 36511; 36600; 71045-TC-FY; 71275-TC; 74177-TC; 76000-TC-FY; 80048; 80053; 80162; 82024; 82308; 82533; 82803; 82962; 83605; 83690; 83735; 84100; 85025; 85027; 85384; 85610; 85730; 86140; 86160; 86704; 86803; 86850; 86900; 86901; 86922; 87040; 87070; 87186; 87205; 87324; 87340; 87449; 87517; 87529; 87635; 93005; 93010; 93306-TC; 94760; 97161-GP; 99285-25; C1750; G0480; J0131; J0834; J0878; J1644; J2597; J3490; P9037; P9038; P9047; P9058; Q5106